=== PATIENT | female | born 1955 | race Caucasian/White ===

== ENCOUNTER 2016-03-24 18:34 | Emergency (ER) | payer MEDICAID ==
[~2016-03-24] VITALS: Ht 160 cm; Wt 63.0 kg
[~2016-03-24 18:34] MED LIST: ALBU8.5H5 IH; IPRA12.93 IH; LORA-186 PO; MOME13HF2 IH; MONT10TA21 PO
[2016-03-24 19:39] VITALS: Ht 160 cm; Wt 63.0 kg
[2016-03-24] MEDS ORDERED: METHYLPREDNISOLONE 125 MG INJ IM STA (19:57)
[2016-03-24] MEDS ORDERED: LEVALBUTEROL (NEB) 1.25 MG/0.5 ML AMP INH STA ×2 (19:57→23:58)
[2016-03-24] MEDS ORDERED: IPRATROPIUM (NEB) 0.5 MG/2.5 ML AMP NEB STA ×2 (19:57→23:58)
--- NOTE | 2016-03-24 20:03 | ERD ---
ER Documentation Chief Complaint Date/Time DATE: 03/24/16 TIME: 19:58 Chief Complaint COUGH AND CONGESTION WITH FEVER AT HOME X 5 DAYS HPI 61-year-old female presents here in emergency department for complaining of cough, runny nose, and nasal congestion and fever for 5 days. Patient has been having cough with wheezing, patient was seen in another emergency department, was given prednisone for 5 days. Patient continuously to have evidence of breath and wheezing and been coughing, with greenish phlegm. Patient has been having on and off fever. Patient is asthmatic. Patient denies any sick contacts. Patient uses her albuterol inhaler home with mild relief. ROS All systems reviewed and are negative except as per history of present illness. Medications Home Meds Active Scripts Cetirizine Hcl* (Zyrtec*) 10 Mg Capsule, 10 MG PO DAILY, #30 TAB.CHEW Prov:CARLOS KAUFFMAN UNIX CONSULTANT 03/25/16 Guaifenesin-Codeine Phosphate* (Guaifenesin* AC Cough Syrup) 473 Ml Liquid, 10 ML PO Q4H Y for COUGH, #120 ML Prov:CARLOS KAUFFMAN UNIX CONSULTANT 03/25/16 Azithromycin* (Zithromax*) 250 Mg Tablet, 250 MG PO .VanPACK DIRECTED, #6 TAB TAKE 500 MG (2 TABS) THE FIRST DAY THEN 250 MG (1 TAB) DAYS 2-5 Prov:CARLOS KAUFFMAN UNIX CONSULTANT 03/25/16 Reported Medications Loratadine* (Claritin*) 10 Mg Tablet, 10 MG PO DAILY, TAB 04/12/14 Montelukast Sodium* (Singulair*) 10 Mg Tablet, 10 MG PO HS, TAB 04/12/14 Mometasone-Formoterol (Dulera) 100-5 Mcg - 13 Gm Hfa.aer.ad, 2 PUFFS IH BID, EA 04/12/14 Albuterol Sulfate* (Albuterol Sulfate* HFA) 8.5 Gm Hfa.aer.ad, 2 PUFF IH Q4H Y for WHEEZING AND SOB, EA 04/12/14 Ipratropium [place]* (Atrovent HFA*) 12.9 Gm Aer.w.adap, 2 PUFF IH Q4H Y for SHORTNESS OF BREATH, EA 04/12/14 Allergies Allergies: Coded Allergies: No Known Allergy (Unverified , 04/12/14) PMhx/Soc Medical and Surgical Hx: pt denies Medical Hx, pt denies Surgical Hx History of Surgery: No Anesthesia Reaction: No Hx Neurological Disorder: Yes (headcahe) Hx Respiratory Disorders: Yes (asthma) Hx Cardiac Disorders: No Hx Psychiatric Problems: No Hx Miscellaneous Medical Probl: No Hx Alcohol Use: No Hx Substance Use: No Hx Tobacco Use: No Smoking Status: Light tobacco smoker FmHx Family History: No coronary disease, No diabetes, No other Physical Exam Vitals Vital Signs Date Time Temp Pulse Resp B/P Pulse Ox O2 Delivery O2 Flow Rate FiO2 03/25/16 00:14 91 22 96 21 03/24/16 20:28 86 22 95 21 03/24/16 19:39 98.6 88 20 136/67 95 Physical Exam GENERAL: The patient is well developed and appropriate for usual state of health, in no apparent distress. CHEST: Diffuse wheezing bilaterally. There are no rales, crackles or rhonchi. HEART: Regular rate and rhythm. No murmurs, clicks, rubs or gallops. No S3 or S4. ABDOMEN: Soft, nontender and nondistended. Good bowel sounds. No rebound or guarding. No gross peritonitis. No gross organomegaly or masses. No Rowland sign or McBurney point tenderness. BACK: No midline or flank tenderness. EXTREMITIES: Equal pulses bilaterally. There is no peripheral clubbing, cyanosis or edema. No focal swelling or erythema. Full range of motion. Grossly neurovascularly intact. NEURO: Alert and oriented. Cranial nerves 2-12 intact. Motor strength in all 4 extremities with 5/5 strength. Sensation grossly intact. Normal speech and gait. SKIN: There is no apparent rash or petechia. The skin is warm and dry. HEMATOLOGIC AND LYMPHATIC: There is no evidence of excessive bruising or lymphedema. No gross cervical, axillary, or inguinal lymphadenopathy. Results 24 hrs Current Medications Medications (Trade) Dose Ordered Sig/Michael Route PRN Reason Start Time Stop Time Status Last Admin Dose Admin Ipratropium [place] (Atrovent 0.02% (Neb)) 0.5 mg ONCE STAT NEB 03/24/16 19:57 03/24/16 19:58 DC 03/24/16 20:27 Levalbuterol (Xopenex Neb) 5 mg ONCE STAT INH 03/24/16 19:57 03/24/16 19:58 DC 03/24/16 20:27 Methylprednisolone Sodium Succinate (Solu-Medrol) 125 mg ONCE STAT IM 03/24/16 19:57 03/24/16 19:58 DC 03/24/16 20:12 Ipratropium [place] (Atrovent 0.02% (Neb)) 0.5 mg ONCE STAT NEB 03/24/16 23:58 03/25/16 00:00 DC 03/25/16 00:13 Levalbuterol (Xopenex Neb) 5 mg ONCE STAT INH 03/24/16 23:58 03/25/16 00:00 DC 03/25/16 00:13 Breathing treatment of albuterol and Atrovent was given here in emergency department, after treatment, patient's lungs sounds are clear and patient's oxygenation is better. Patient verbalized feeling much better. PROCEDURE: XR Chest. CLINICAL INDICATION: Asthma TECHNIQUE: AP Portable chest. COMPARISON: 04/12/2014 FINDINGS: The cardiomediastinal silhouette is normal. Some mild peribronchial opacities are present. No focal infiltrates are seen. The osseous structures are unremarkable. IMPRESSION: Mild peribronchial opacities compatible with bronchiolitis. RPTAT: HIKT .Rambo Giron MD, Date Time Electronically viewed and signed by .Rambo Giron MD, MD on 03/24/2016 23:48 .T/ CC: CARLOS KAUFFMAN UNIX CONSULTANT Procedures/MDM Medical Decision Making: Patient symptoms are most likely consistent with acute bronchitis with possibly atypical infection starting patient has been having fever and greenish phlegm and has been having it still after prednisone treatment. There is low suspicion for Pneumonia at this time since patients lungs sounds are clear, patient O2 saturation is normal and patient doesnt show any respiratory distress. Patients chest xray doesnt show infiltrates or any other cardiopulmonary emergencies at this time. There is low suspicion for other cardiopulmonary emergencies at this time such as CHF, Pulmonary Embolism, Pneumothorax, Aortic Aneurysm or any other cardiopulmonary emergencies at this time. There is low suspicion for sepsis. Patient appears well and is hemodynamically stable. Fever is controlled with medicines. Disposition: Home. Condition: Stable Prescriptions: Continue albuterol, azithromycin Instructions: Patient is advised to take medications as prescribed. Patient is advised to rest. Patient advised to increase fluid intake, do humidifier at home and if possible, do salt water gargles. Patient is advised that if symptoms are worse, shortness of breath, uncontrolled fever, stridor, vomiting, worst signs and symptoms to return to emergency department immediately. Otherwise, patient is advised to follow up with primary doctor in 5-7 days. Departure Diagnosis: Primary Impression: Asthma with exacerbation Asthma severity: unspecified severity Qualified Code: J45.901 - Asthma with acute exacerbation, unspecified asthma severity Additional Impression: Acute bronchitis Bronchitis organism: unspecified organism Qualified Code: J20.9 - Acute bronchitis, unspecified organism Condition: Stable Patient Instructions: Bronchitis With Wheezing (Adult) CARLOS KAUFFMAN NP Mar 24, 2016 20:03
--- NOTE | 2016-03-24 23:48 | RADRPT ---
PROCEDURE: XR Chest. CLINICAL INDICATION: Asthma TECHNIQUE: AP Portable chest. COMPARISON: 04/12/2014 FINDINGS: The cardiomediastinal silhouette is normal. Some mild peribronchial opacities are present. No foca l infiltrates are seen. The osseous structures are unremarkable. IMPRESSION: Mild peribronchial opacities compatible with bronchiolitis. RPTAT: HIKT .Rambo Giron MD, MD Date Time Electronically viewed and signed by .Rambo Giron MD, on 03/24/2016 23:48 .T/
[2016-03-25] MEDS ORDERED: AZIT250T94 PO (00:19)
[2016-03-25] MEDS ORDERED: CETI10CA PO (00:19)
[2016-03-25] MEDS ORDERED: GUAI473L22 PO (00:19)
== END 2016-03-25 02:05 | disposition home or self-care (01) ==
LOC: FTE 18:34
DX: J45.901 Unspecified asthma with (acute) exacerbation (principal); J20.9 Acute bronchitis, unspecified; F17.210 Nicotine dependence, cigarettes, uncomplicated
CPT/HCPCS: 71010; 94644; 94645; 96372; J2930; Z7502; Z7610

== ENCOUNTER 2016-04-19 18:15 | Inpatient (IN) | payer MEDICAID ==
[~2016-04-19] VITALS: Ht 160 cm; Wt 62.5 kg
[~2016-04-19 18:15] MED LIST changes: +AZIT250T94 PO; +CETI10CA PO; +GUAI473L22 PO
--- NOTE | 2016-04-19 18:25 | EN ---
Date/Time of Note Date/Time of Note DATE: 04/19/16 TIME: 18:24 ER Progress Note This 61-year-old female presents to emergency department for complaints of cough sore throat, runny nose congestion bodyaches for 1 week. Patient has been having on and off wheezing. Patient has been taking albuterol to help with symptoms with only mild relief. Patient denies any fever or chills. Upon evaluation of the patient in rapid medical examination, patient's lungs sounds are wheezing, at this time, and symptoms of respiratory distress, oxygenation is normal, waiting for that the ER to for possible breathing treatment. Patient is stable at this time, awaiting bed. CARLOS KAUFFMAN NP Apr 19, 2016 18:25
[2016-04-19] MEDS ORDERED: DEXAMETHASONE 10 MG/ML 1 ML INJ IM STA (18:56)
[2016-04-19] MEDS ORDERED: LEVALBUTEROL (NEB) 1.25 MG/0.5 ML AMP INH STA ×3 (18:56→22:05)
--- NOTE | 2016-04-19 19:31 | ERD ---
ER Documentation Chief Complaint Date/Time DATE: 04/19/16 TIME: 19:26 Chief Complaint COUGH, CONGESTION, THROAT PAIN, ONSET 1 MONTH HPI This is a 7-year-old female presented to emergency department for cough, nasal congestion and sore throat 1 month. Cough is productive with clear sputum. No chest pain, shortness of breath or difficulty breathing. Patient does have wheezing and history of asthma. Patient has been using her inhaler with some relief. Patient has sore throat however no difficulty swallowing or drooling. No vomiting or diarrhea. No abdominal pain, dysuria or hematuria. No fevers or chills. ROS All systems reviewed and are negative except as per history of present illness. Medications Home Meds Active Scripts Cetirizine Hcl* (Zyrtec*) 10 Mg Capsule, 10 MG PO DAILY, #30 TAB.CHEW Prov:CARLOS KAUFFMAN NP 03/25/16 Guaifenesin-Codeine Phosphate* (Guaifenesin* AC Cough Syrup) 473 Ml Liquid, 10 ML PO Q4H Y for COUGH, #120 ML Prov:CARLOS KAUFFMAN NP 03/25/16 Azithromycin* (Zithromax*) 250 Mg Tablet, 250 MG PO .ZPACK DIRECTED, #6 TAB TAKE 500 MG (2 TABS) THE FIRST DAY THEN 250 MG (1 TAB) DAYS 2-5 Prov:CARLOS KAUFFMAN NP 03/25/16 Reported Medications Loratadine* (Claritin*) 10 Mg Tablet, 10 MG PO DAILY, TAB 04/12/14 Montelukast Sodium* (Singulair*) 10 Mg Tablet, 10 MG PO HS, TAB 04/12/14 Mometasone-Formoterol (Dulera) 100-5 Mcg - 13 Gm Hfa.aer.ad, 2 PUFFS IH BID, EA 04/12/14 Albuterol Sulfate* (Albuterol Sulfate* HFA) 8.5 Gm Hfa.aer.ad, 2 PUFF IH Q4H Y for WHEEZING AND SOB, EA 04/12/14 Ipratropium Theresa* (Atrovent HFA*) 12.9 Gm Aer.w.adap, 2 PUFF IH Q4H Y for SHORTNESS OF BREATH, EA 04/12/14 Allergies Allergies: Coded Allergies: No Known Allergy (Unverified , 04/12/14) PMhx/Soc History of Surgery: No Anesthesia Reaction: No Hx Neurological Disorder: Yes (headcahe) Hx Respiratory Disorders: Yes (asthma) Hx Cardiac Disorders: No Hx Psychiatric Problems: No Hx Miscellaneous Medical Probl: No Hx Alcohol Use: No Hx Substance Use: No Hx Tobacco Use: No Smoking Status: Never smoker Physical Exam Vitals Vital Signs Date Time Temp Pulse Resp B/P Pulse Ox O2 Delivery O2 Flow Rate FiO2 04/19/16 23:14 90 22 92 21 04/19/16 22:34 76 26 98 Nasal Cannula 4.0 35 04/19/16 21:04 76 22 96 21 04/19/16 19:16 94 20 97 21 04/19/16 18:18 98.7 91 17 115/61 98 Physical Exam Const: No acute distress, alert Head: Atraumatic Eyes: Normal Conjunctiva ENT: Normal External Ears, Nose and Mouth. No erythema or exudate posterior pharynx. TMs normal bilaterally. Neck: Full range of motion..~ No meningismus. Resp: Clear to auscultation bilaterally. No wheezing, rhonchi or crackles. No labored breathing or stridor. No sensory muscle use. Cardio: Regular rate and rhythm, no murmurs Abd: Soft, non tender, non distended. Normal bowel sounds Skin: No petechiae or rashes Back: No midline or flank tenderness Ext: No cyanosis, or edema Neur: Awake and alert Psych: Normal Mood and Affect Results 24 hrs Current Medications Medications (Trade) Dose Ordered Sig/Michael Route PRN Reason Start Time Stop Time Status Last Admin Dose Admin Dexamethasone (Decadron) 10 mg ONCE STAT IM 04/19/16 18:56 04/19/16 18:58 DC 04/19/16 19:11 Levalbuterol (Xopenex Neb) 1.25 mg ONCE STAT INH 04/19/16 18:56 04/19/16 18:58 DC 04/19/16 19:16 Levalbuterol (Xopenex Neb) 5 mg ONCE STAT INH 04/19/16 20:28 04/19/16 20:30 DC 04/19/16 21:04 Levalbuterol (Xopenex Neb) 1.25 mg ONCE STAT INH 04/19/16 22:05 04/19/16 22:06 DC 04/19/16 22:33 Albuterol (Proventil 0.5% (Neb)) 10 mg ONCE STAT INH 04/19/16 22:48 04/19/16 22:50 DC 04/19/16 23:14 Ipratropium Theresa (Atrovent 0.02% (Neb)) 1 mg ONCE STAT INH 04/19/16 22:48 04/19/16 22:50 DC 04/19/16 23:14 Terbutaline Sulfate (Brethine) 0.25 mg ONCE STAT SC 04/19/16 22:48 04/19/16 22:50 DC 04/19/16 23:53 Epinephrine (Racepinephrine 2.25% (Neb)) 0.5 ml ONCE ONCE HHN 04/20/16 01:30 04/20/16 01:31 DC Procedures/MDM ED COURSE: The patient was stable throughout ED course. I kept the patient and/or family informed of laboratory and diagnostic imaging results throughout the ED course. Xopenex breathing treatment. Decadron given Imaging Chest x-ray Patient: JAZ REID : [id number] Age: 61 Sex: F MR #: [id number] DOS: 04/19/162027 Ordering MD: OJ SINGLETON NP Location: [facility] Room/Bed: PROCEDURE: XR Chest AP portable CLINICAL INDICATION: Asthma exacerbation TECHNIQUE: An AP portable radiograph of the chest was submitted. COMPARISON: 03/24/2016 FINDINGS: Support Hardware: None Cardiovascular: The cardiovascular silhouette appears unremarkable. Lung Nance: There is persistent interstitial prominence seen to extend from parallel regions bilaterally suspicious for chronic changes of asthma. No alveolar infiltrate is evident. Pleural Spaces: No pneumothorax or pleural effusion is identified. Osseous Structures: The osseous structures appear intact. Soft Tissues: The soft tissues appear unremarkable. IMPRESSION: 1. Persistent interstitial prominence suspicious for a chronic reactive airway disease. 2. Otherwise, stable unremarkable portable chest. MDM: 61-year-old female presents emergency department for cough, nasal congestion and sore throat 1 month. Cough is dry nonproductive. Patient does have wheezing upon initial assessment. ENT exam is normal. Oxygen saturation 98% on room air. Xopenex breathing treatment given per RT. Decadron 10 mg IM given per RN. Remains afebrile. Upon reassessment, patient continues to have wheezing and productive cough. A second Xopenex continuous breathing treatment was ordered. Chest x-ray reviewed by radiologist as persistent interstitial prominence suspicious for a chronic reactive airway disease. Third Xopenex breathing treatment was ordered. Patient continues to have wheezing. Discussed findings with Dr. Ramirez and he recommended a continuous albuterol and Atrovent nebulizer with terbutaline 0.25 mg subq. After treatment patient's oxygen saturation 94% on room air. Patient continues to have coarse wheezing throughout lung nance. Discussed findings with Dr. Watson and we will admit the patient. Diagnosis is shortness of breath. Departure Diagnosis: Primary Impression: Shortness of breath Condition: Stable OJ SINGLETON NP Apr 19, 2016 19:30 OJ SINGLETON NP Apr 19, 2016 19:30
--- NOTE | 2016-04-19 21:56 | RADRPT ---
PROCEDURE: XR Chest AP portable CLINICAL INDICATION: Asthma exacerbation TECHNIQUE: An AP portable radiograph of the chest was submitted. COMPARISON: 03/24/2016 FINDINGS: Support Hardware: None Cardiovascular: The cardiovascular silhouette appears unremarkable. Lung Nance: There is persistent interstitial prominence seen to extend from parallel regions bilate rally suspicious for chronic changes of asthma. No alveolar infiltrate is evident. Pleural Spaces: No pneumothorax or pleural effusion is identified. Osseous Structures: The osseous structures appear intact. Soft Tissues: The soft tissues appear unremarkable. IMPRESSION: 1. Persistent interstitial prominence suspicious for a chronic reactive airway disease. 2. Otherwise, stable unremarkable portable chest. Physician Fabricio Date Time Electronically viewed and signed by Physician Fabricio on 04/19/2016 21:56 /
[2016-04-19] MEDS ORDERED: TERBUTALINE 1 MG/ML INJ SC STA (22:48)
[2016-04-19] MEDS ORDERED: IPRATROPIUM (NEB) 0.5 MG/2.5 ML AMP INH STA (22:48)
[2016-04-19] MEDS ORDERED: ALBUTEROL 0.5% (NEB) 2.5 MG/0.5 ML AMP INH STA (22:48)
[2016-04-20] VITALS (9 sets, daily range): BP systolic 102–108; BP diastolic 52–65; PULSE 82–100; RESP 17–20; TEMP 98
[2016-04-20] MEDS ORDERED: RACEPINEPHRINE 2.25%(NEB) 0.5 ML AMP HHN ONE (01:30)
[2016-04-20] MEDS ORDERED: LEVALBUTEROL (NEB) 1.25 MG/0.5 ML AMP INH STA (02:15)
[2016-04-20 02:43] LABS: ADD SCAN DIFF NO
[2016-04-20 02:44] LABS: ABNORMAL IP MESSAGE 1; HEMATOCRIT 34.5 % (37.0-47.0); HEMOGLOBIN 11.2 g/dl (12.0-16.0); MEAN CORPUSCULAR HEMOGLOBIN 27.1 pg (29.0-33.0); MEAN CORPUSCULAR HGB CONC 32.5 g/dl (32.0-37.0); MEAN CORPUSCULAR VOLUME 83.5 fl (82.0-101.0); MEAN PLATELET VOLUME 10.4 fl (7.4-10.4); PLATELET COUNT 264 10^3/UL (140-415); RED BLOOD COUNT 4.13 10^6/ul (4.20-5.40); RED CELL DISTRIBUTION WIDTH 15.1 % (11.5-14.5); WHITE BLOOD COUNT 8.8 10^3/ul (4.8-10.8)
[2016-04-20 02:53] LABS: CHLORIDE 109 mmol/L (97-110); POTASSIUM 3.9 mmol/L (3.5-5.1); SODIUM 143 mmol/L (135-144)
[2016-04-20 02:55] LABS: PARTIAL THROMBOPLASTIN TIME 23.8 Sec (25.0-35.0); PROTIME 13.2 Sec (12.2-14.2)
[2016-04-20 02:56] LABS: ANION GAP 16 (8-16); CARBON DIOXIDE 22 mmol/L (21-31); CREATININE 0.68 mg/dl (0.44-1.00)
[2016-04-20 02:57] LABS: BLOOD UREA NITROGEN 12 mg/dl (7-20); CALCIUM 8.9 mg/dl (8.4-10.2); GLUCOSE 219 mg/dl (70-220)
--- NOTE | 2016-04-20 03:03 | EN ---
Date/Time of Note Date/Time of Note DATE: 04/20/16 TIME: 03:02 ER Progress Note Patient transferred from ER to. After evaluating patient, patient continues to wheeze. Patient will be admitted. Dr. Hood is on-call and has previously admitted the patient TJ TAYLORSorin Apr 20, 2016 03:03
[2016-04-20 03:06] LABS: B-TYPE NATRIURETIC PEPTIDE 65 PG/ML (0-125)
[2016-04-20 03:22] LABS: TROPONIN-I < 0.012 ng/ml (0.00-0.12)
[2016-04-20 03:48] LABS: LYMPHOCYTES # 0.6 10^3/ul (0.8-2.9); MONOCYTE # 0.1 10^3/ul (0.3-0.9)
[2016-04-20] MEDS ORDERED: ALBUTEROL/IPRATROPIUM (NEB) 3 ML AMP HHN PRN (11:00)
[2016-04-20] MEDS ORDERED: NACL 0.9% 3 ML SYG IV SCH (12:00)
[2016-04-20] MEDS ORDERED: HYDROCODONE/APAP (5/325) TAB PO PRN (12:00)
[2016-04-20] MEDS ORDERED: DOCUSATE SODIUM 100 MG CAP PO PRN (12:00)
[2016-04-20] MEDS ORDERED: ONDANSETRON 4 MG INJ IV PRN (12:00)
[2016-04-20] MEDS ORDERED: ACETAMINOPHEN 325 MG TAB PO PRN (12:00)
[2016-04-20 12:18] LABS: IRON 21 ug/dl (35-150)
[2016-04-20 12:27] LABS: TOTAL IRON BINDING CAPACITY 287 ug/dl (241-421)
--- NOTE | 2016-04-20 12:33 | HP ---
DATE OF ADMISSION: 04/20/2016 CHIEF COMPLAINT: Generalized weakness, productive cough and fever for the last 2 weeks. HISTORY OF PRESENT ILLNESS: The patient is a 61-year-old female who presented to the emerg ency room with complaints of chest congestion, sore throat, runny nose, generalized malaise and prod uctive cough for the last couple of weeks. Patient with prior history of asthma. The patient state d that she takes Dulera and Proventil at home. Denies any other past medical problems. When asked how high is her fever she said she did not measure it at home; however; felt chilled, generalized we akness and also stated that she lost some weight over the last couple of weeks and also the patient has chest pain and difficulty breathing. On evaluation in the emergency room, the patient's troponi n was less than 0.012. Patient underwent chest x-ray which revealed persistent interstitial promine nce, suspicious for chronic reactive airway disease, otherwise stable and unremarkable portable ches t. On examination the patient has inspiratory and expiratory wheezing, congestion, and patient was getting breathing treatments, Decadron, and patient is admitted for further evaluation and managemen t to telemetry floor. PAST MEDICAL HISTORY: Positive for asthma. PAST SURGICAL HISTORY: Patient has multiple wrist surgeries 4 years ago, details are not available. FAMILY HISTORY: Noncontributory. Patient's mother is . SOCIAL HISTORY: Patient lives at home. Patient denies any tobacco use, denies any alcohol use, den ies any illicit drug use. ALLERGIES: NO KNOWN ALLERGIES. MEDICATIONS ON ADMISSION: 1. Singular. 2. Dulera. 3. Claritin. 4. Atrovent. 5. Albuterol. REVIEW OF SYSTEMS: A 12-point review of systems is negative unless what mentioned in the HPI. PHYSICAL ASSESSMENT: GENERAL: Well-developed, well-nourished female currently is awake, alert. VITAL SIGNS: Temperature 98.6, pulse is 84, blood pressure 102/52, respiratory rate 17, oxygen satu ration 97% on room air. HEENT: Head is atraumatic, normocephalic. Pupils equal, round, reactive to light and accommodation . Oral mucosa is pink and moist. NECK: Supple, no cervical lymphadenopathy, no thyromegaly. CHEST: The patient has inspiratory and expiratory wheezing and mild congestion, lungs clear at the bases. CARDIOVASCULAR: Normal S1, S2. No murmurs, gallops, clicks, rubs noted. ABDOMEN: Round, soft, nondistended, nontender. Bowel sounds present. No guarding, no rebound tend erness. EXTREMITIES: There is no edema, clubbing, cyanosis. NEUROLOGIC: Patient has a right wrist deformity. LABORATORY DATA: On admission, CBC: White blood cells 8.8, hemoglobin 11.2, hematocrit 34.5, plate lets 264. Chemistry: Sodium is 143, potassium 3.9, chloride 109, carbon dioxide 22, anion gap 16, BUN is 12, creatinine 0.68, glucose 219, calcium 8.9. BNP 65. ASSESSMENT AND PLAN: 1. Possible acute bronchitis. We are going to start patient on Rocephin. 2. Asthma exacerbation. Continue patient on home medication of Dulera and Singulair. We will start treatment with DuoNeb q.6h. routine and every 3 hours p.r.n. for shortness of breath. We will sta rt patient on IV Solu-Medrol. We will obtain influenza A and B swabs. Also, patient complains of s hortness of breath and mild chest pain, we will obtain cardiac enzymes every 8 hours x3 to rule out acute coronary syndrome. 3. Normocytic normochromic anemia. We will start sequential compression device for deep venous thr ombosis prophylaxis and Pepcid for peptic ulcer disease prophylaxis. Further recommendations based on clinical course. Plan of care discussed with Dr. Varela. Dictated By: SUSANNAH RUFFIN EGG SEPARATOR for DAVID VARELA MD SR/NTS Conf#: [id number] DID#: [id number]
[2016-04-20] MEDS: ALBUTEROL/IPRATROPIUM (NEB) 3 ML AMP HHN SCH ×2 (13:00→19:16)
[2016-04-20 13:15] LABS: CREATINE KINASE 97 IU/L (23-200)
[2016-04-20 13:24] LABS: CK-MB 0.75 ng/ml (0.0-2.4)
[2016-04-20 13:32] LABS: TROPONIN-I < 0.012 ng/ml (0.00-0.12)
[2016-04-20] MEDS: CEFTRIAXONE 1 GM/50 ML (PMX) 50 ML IVPB SCH (15:08)
[2016-04-20] MEDS: SALMETEROL/FLUTICASONE 250/50 INHA INH SCH ×2 (15:08→22:03)
[2016-04-20] MEDS: ENOXAPARIN 40 MG/0.4 ML SYG SC SCH (18:39)
[2016-04-20 18:54] LABS: CREATINE KINASE 107 IU/L (23-200)
[2016-04-20 19:03] LABS: CK-MB 0.84 ng/ml (0.0-2.4)
[2016-04-20 19:15] LABS: TROPONIN-I < 0.012 ng/ml (0.00-0.12)
[2016-04-20] MEDS: FAMOTIDINE 20 MG TAB PO SCH (20:37)
[2016-04-20] MEDS: METHYLPREDNISOLONE 125 MG INJ IV SCH (20:37)
[2016-04-20] MEDS: GUAIFENESIN/DM 5ML CUP PO PRN (20:38)
[2016-04-20] MEDS: MONTELUKAST 10 MG TAB PO SCH (20:38)
[2016-04-21] VITALS (10 sets, daily range): BP systolic 110–125; BP diastolic 59–73; PULSE 70–100; RESP 16–21
[2016-04-21] MEDS: ALBUTEROL/IPRATROPIUM (NEB) 3 ML AMP HHN SCH ×4 (01:07→20:13)
[2016-04-21] MEDS: GUAIFENESIN/DM 5ML CUP PO PRN ×2 (01:54→14:03)
[2016-04-21 07:45] LABS: ADD SCAN DIFF NO
[2016-04-21 07:58] LABS: BASOPHILS % 0.1 % (0.0-2.0); HEMATOCRIT 37.3 % (37.0-47.0); HEMOGLOBIN 11.9 g/dl (12.0-16.0); LYMPHOCYTES # 1.6 10^3/ul (0.8-2.9); LYMPHOCYTES % 19.3 % (15.0-51.0); MEAN CORPUSCULAR HEMOGLOBIN 26.7 pg (29.0-33.0); MEAN CORPUSCULAR HGB CONC 31.9 g/dl (32.0-37.0); MEAN CORPUSCULAR VOLUME 83.8 fl (82.0-101.0); MEAN PLATELET VOLUME 10.5 fl (7.4-10.4); MONOCYTE # 0.2 10^3/ul (0.3-0.9); MONOCYTES % 2.8 % (0.0-11.0); NEUTROPHIL # 6.4 10^3/ul (1.6-7.5); NEUTROPHILS % 77.4 % (39.0-77.0); PLATELET COUNT 283 10^3/UL (140-415); RED BLOOD COUNT 4.45 10^6/ul (4.20-5.40); RED CELL DISTRIBUTION WIDTH 15.4 % (11.5-14.5); WHITE BLOOD COUNT 8.3 10^3/ul (4.8-10.8)
[2016-04-21 08:14] LABS: ALBUMIN 3.9 g/dl (3.3-4.9); POTASSIUM 4.4 mmol/L (3.5-5.1)
[2016-04-21 08:16] LABS: CREATININE 0.65 mg/dl (0.44-1.00)
[2016-04-21 08:17] LABS: ALBUMIN/GLOBULIN RATIO 1.18; CALCIUM 9.1 mg/dl (8.4-10.2); MAGNESIUM 2.3 mg/dl (1.7-2.5); TOTAL PROTEIN 7.2 g/dl (6.1-8.1)
[2016-04-21 08:47] LABS: THYROID STIMULATING HORMONE 0.23 MIU/L (0.465-4.680)
[2016-04-21] MEDS: SALMETEROL/FLUTICASONE 250/50 INHA INH SCH ×2 (08:58→21:22)
[2016-04-21] MEDS: METHYLPREDNISOLONE 125 MG INJ IV SCH ×2 (08:58→21:22)
[2016-04-21] MEDS: FAMOTIDINE 20 MG TAB PO SCH ×2 (08:58→21:22)
[2016-04-21] MEDS: ENOXAPARIN 40 MG/0.4 ML SYG SC SCH (09:02)
[2016-04-21] MEDS: CEFTRIAXONE 1 GM/50 ML (PMX) 50 ML IVPB SCH (14:01)
--- NOTE | 2016-04-21 14:44 | PN ---
Date/Time of Note Date/Time of Note DATE: 04/21/16 TIME: 14:37 Assessment/Plan VTE Prophylaxis VTE Prophylaxis Intervention: SCD's Lines/Catheters IV [facility]ter Type [facility]from [facility] Saline Lock Urinary Cath still in place: No Assessment/Plan Chief Complaint/Hosp Course ASSESSMENT AND PLAN: - Possible acute bronchitis. Continue Rocephin. - Asthma exacerbation. Continue patient on home medication of Dulera and Singulair, continue breathing treatment with DuoNeb q.6h. routine and every 3 hours p.r.n. for shortness of breath. Continue Solu-Medrol. - Chest pain acute coronary syndrome ruled out. - Normocytic normochromic anemia. Continue sequential compression device for deep venous thrombosis prophylaxis and Pepcid for peptic ulcer disease prophylaxis. Further recommendations based on clinical course. Plan of care discussed with Dr. Varela. Problems: Subjective 24 Hr Interval Summary Free Text/Dictation Patient states some improvement and breathing, continues to have congestion and cough. Exam/Review of Systems Vital Signs Vitals Vital Signs Date Time Temp Pulse Resp B/P Pulse Ox O2 Delivery O2 Flow Rate FiO2 04/21/16 13:03 98.7 86 19 116/68 91 04/21/16 09:24 21 04/21/16 08:00 2.0 04/20/16 19:18 Nasal Cannula Intake and Output 04/20/16 04/20/16 04/21/16 15:00 23:00 07:00 Intake Total 550 ml 200 ml Balance 550 ml 200 ml Exam PHYSICAL ASSESSMENT: GENERAL: Well-developed, well-nourished female currently is awake, alert. HEENT: Head is atraumatic, normocephalic. Pupils equal, round, reactive to light and accommodation. Oral mucosa is pink and moist. NECK: Supple, no cervical lymphadenopathy, no thyromegaly. CHEST: The patient has inspiratory and expiratory wheezing and mild congestion , lungs clear at the bases. CARDIOVASCULAR: Normal S1, S2. No murmurs, gallops, clicks, rubs noted. ABDOMEN: Round, soft, nondistended, nontender. Bowel sounds present. EXTREMITIES: There is no edema, clubbing, cyanosis. Patient has a right wrist deformity. NEUROLOGIC: Alert and oriented 3. Results Result Diagram: 04/21/16 0715 04/21/16 0715 Results 24 hrs Laboratory Tests Test 04/20/16 17:50 04/21/16 07:15 Creatine Kinase 107 Creatine Kinase Index 0.8 Creatinine Kinase MB (Mass) 0.84 Troponin I < 0.012 Alanine Aminotransferase (ALT/SGPT) 26 Albumin 3.9 Albumin/Globulin Ratio 1.18 Alkaline Phosphatase 98 Anion Gap 14 Aspartate Amino Transf (AST/SGOT) 22 Basophils # 0.0 Basophils % 0.1 Blood Urea Nitrogen 13 Calcium Level 9.1 Carbon Dioxide Level 24 Chloride Level 109 Creatinine 0.65 Direct Bilirubin 0.00 Eosinophils # 0.0 Eosinophils % 0.0 Globulin 3.30 H Glucose Level 119 # Hematocrit 37.3 Hemoglobin 11.9 L Indirect Bilirubin 0.0 Lymphocytes # 1.6 Lymphocytes % 19.3 Magnesium Level 2.3 Mean Corpuscular Hemoglobin 26.7 L Mean Corpuscular Hemoglobin Concent 31.9 L Mean Corpuscular Volume 83.8 Mean Platelet Volume 10.5 H Monocytes # 0.2 L Monocytes % 2.8 Neutrophils # 6.4 Neutrophils % 77.4 H Nucleated Red Blood Cells # 0.0 Nucleated Red Blood Cells % 0.0 Platelet Count 283 Potassium Level 4.4 Red Blood Count 4.45 Red Cell Distribution Width 15.4 H Sodium Level 143 Thyroid Stimulating Hormone (TSH) 0.230 L Total Bilirubin 0.0 L Total Protein 7.2 White Blood Count 8.3 Medications Medications Current Medications Montelukast Sodium (Singulair) 10 mg HS PO Last administered on 04/20/16 20:38 ; Admin Dose 10 MG; Start 04/20/16 at 21:00 Salmeterol Xinafoate/ Fluticasone (Advair 250/50 Diskus) 1 inh BID INH Last administered on 04/21/16 08:58; Admin Dose 1 INH; Start 04/20/16 at 14:30 Ondansetron HCl (Zofran Inj) 4 mg Q6H PRN IV NAUSEA AND/OR VOMITING; Start at 12:00 Methylprednisolone Sodium Succinate (Solu-Medrol) 60 mg BID IV Last administered on 04/21/16 08:58; Admin Dose 60 MG; Start 04/20/16 at 21:00 Acetaminophen (Tylenol Tab) 650 mg Q6H PRN PO PAIN LEVEL 1-3 OR FEVER; Start at 12:00 Acetaminophen/ Hydrocodone Bitart (Earp (5/325)) 1 tab Q6H PRN PO PAIN LEVEL 4 -6; Start 04/20/16 at 12:00 Docusate Sodium (Colace) 100 mg Q12H PRN PO CONSTIPATION; Start 04/20/16 at 12: 00 Famotidine 20 mg 20 mg Q12 PO Last administered on 04/21/16 08:58; Admin Dose 20 MG; Start 04/20/16 at 21:00 Ceftriaxone Sodium (Rocephin) 50 ml @ 100 mls/hr Q24H IVPB Last administered on 04/21/16 14:01; Admin Dose 100 MLS/HR; Start 04/20/16 at 14:00 Enoxaparin Sodium (Lovenox) 40 mg DAILY SC Last administered on 04/21/16 09:02 ; Admin Dose 40 MG; Start 04/20/16 at 17:30 Guaifenesin/ Dextromethorphan (Robitussin Dm Liquid Cup) 10 ml Q4H PRN PO COUGH Last administered on 04/21/16 14:03; Admin Dose 10 ML; Start 04/20/16 at 18:00 SUSANNAH RUFFIN Apr 21, 2016 14:44
[2016-04-21] MEDS: MONTELUKAST 10 MG TAB PO SCH (21:22)
[2016-04-22] VITALS (12 sets, daily range): BP systolic 111–147; BP diastolic 57–76; PULSE 64–77; RESP 18–20
[2016-04-22] MEDS: ALBUTEROL/IPRATROPIUM (NEB) 3 ML AMP HHN SCH ×4 (01:30→20:29)
[2016-04-22 07:26] LABS: POTASSIUM 4.5 mmol/L (3.5-5.1)
[2016-04-22 07:28] LABS: CREATININE 0.7 mg/dl (0.44-1.00)
[2016-04-22 07:29] LABS: CALCIUM 9.2 mg/dl (8.4-10.2)
[2016-04-22 08:04] LABS: FERRITIN 32.3 ng/ml (11.1-264.0)
[2016-04-22] MEDS: FAMOTIDINE 20 MG TAB PO SCH ×2 (08:29→21:44)
[2016-04-22] MEDS: SALMETEROL/FLUTICASONE 250/50 INHA INH SCH ×2 (08:29→21:44)
[2016-04-22] MEDS: METHYLPREDNISOLONE 125 MG INJ IV SCH ×2 (08:30→21:44)
[2016-04-22 08:34] LABS: FOLATE 11.3 ng/ml (2.8-20.0)
[2016-04-22] MEDS: ENOXAPARIN 40 MG/0.4 ML SYG SC SCH (08:34)
[2016-04-22] MEDS: GUAIFENESIN/DM 5ML CUP PO PRN ×2 (09:32→13:56)
[2016-04-22] MEDS: CEFTRIAXONE 1 GM/50 ML (PMX) 50 ML IVPB SCH (13:09)
--- NOTE | 2016-04-22 18:48 | PN ---
Date/Time of Note Date/Time of Note DATE: 04/22/16 TIME: 18:47 Assessment/Plan VTE Prophylaxis VTE Prophylaxis Intervention: SCD's Lines/Catheters IV [facility]from [facility] [place] [facility] Urinary Cath still in place: No Assessment/Plan Chief Complaint/Hosp Course ASSESSMENT AND PLAN: - Possible acute bronchitis. Continue Rocephin. - Asthma exacerbation. Continue patient on home medication of Dulera and Singulair, continue breathing treatment with DuoNeb q.6h. routine and every 3 hours p.r.n. for shortness of breath. Continue Solu-Medrol. - Chest pain acute coronary syndrome ruled out. - Iron deficiency anemia, started on iron supplement. Continue sequential compression device for deep venous thrombosis prophylaxis and Pepcid for peptic ulcer disease prophylaxis. Further recommendations based on clinical course. Plan of care discussed with Dr. Varela. Problems: Subjective 24 Hr Interval Summary Free Text/Dictation Patient states some improvement in cough, continues to have wheezing on auscultation, denies shortness of breath, denies chest pain. Exam/Review of Systems Vital Signs Vitals Vital Signs Date Time Temp Pulse Resp B/P Pulse Ox O2 Delivery O2 Flow Rate FiO2 04/22/16 16:52 77 04/22/16 16:06 98.8 20 121/70 93 04/22/16 13:36 21 04/22/16 07:30 Nasal Cannula 2.0 Intake and Output 04/21/16 04/21/16 04/22/16 15:00 23:00 07:00 Intake Total 1050 ml 200 ml Balance 1050 ml 200 ml Exam PHYSICAL ASSESSMENT: GENERAL: Well-developed, well-nourished female currently is awake, alert. HEENT: Head is atraumatic, normocephalic. Pupils equal, round, reactive to light and accommodation. Oral mucosa is pink and moist. NECK: Supple, no cervical lymphadenopathy, no thyromegaly. CHEST: The patient has inspiratory and expiratory wheezing and mild congestion , lungs clear at the bases. CARDIOVASCULAR: Normal S1, S2. No murmurs, gallops, clicks, rubs noted. ABDOMEN: Round, soft, nondistended, nontender. Bowel sounds present. EXTREMITIES: There is no edema, clubbing, cyanosis. Patient has a right wrist deformity. NEUROLOGIC: Alert and oriented 3. Results Result Diagram: 04/21/16 0715 04/22/16 0555 Results 24 hrs Laboratory Tests Test 04/22/16 05:55 Anion Gap 17 H Blood Urea Nitrogen 15 Calcium Level 9.2 Carbon Dioxide Level 24 Chloride Level 107 Creatinine 0.70 Ferritin 32.3 Folate 11.3 Glucose Level 123 Potassium Level 4.5 Sodium Level 143 Vitamin B12 Level > 1000 H Medications Medications Current Medications Montelukast Sodium (Singulair) 10 mg HS PO Last administered on 04/21/16 21:22 ; Admin Dose 10 MG; Start 04/20/16 at 21:00 Salmeterol Xinafoate/ Fluticasone (Advair 250/50 Diskus) 1 inh BID INH Last administered on 04/22/16 08:29; Admin Dose 1 INH; Start 04/20/16 at 14:30 Ondansetron HCl (Zofran Inj) 4 mg Q6H PRN IV NAUSEA AND/OR VOMITING; Start at 12:00 Methylprednisolone Sodium Succinate (Solu-Medrol) 60 mg BID IV Last administered on 04/22/16 08:30; Admin Dose 60 MG; Start 04/20/16 at 21:00 Acetaminophen (Tylenol Tab) 650 mg Q6H PRN PO PAIN LEVEL 1-3 OR FEVER Last administered on 04/21/16 21:22; Admin Dose 650 MG; Start 04/20/16 at 12:00 Acetaminophen/ Hydrocodone Bitart ([place] (5/325)) 1 tab Q6H PRN PO PAIN LEVEL 4 -6; Start 04/20/16 at 12:00 Docusate Sodium (Colace) 100 mg Q12H PRN PO CONSTIPATION; Start 04/20/16 at 12: 00 Famotidine 20 mg 20 mg Q12 PO Last administered on 04/22/16 08:29; Admin Dose 20 MG; Start 04/20/16 at 21:00 Ceftriaxone Sodium (Rocephin) 50 ml @ 100 mls/hr Q24H IVPB Last administered on 04/22/16 13:09; Admin Dose 100 MLS/HR; Start 04/20/16 at 14:00 Enoxaparin Sodium (Lovenox) 40 mg DAILY SC Last administered on 04/22/16 08:34 ; Admin Dose 40 MG; Start 04/20/16 at 17:30 Guaifenesin/ Dextromethorphan (Robitussin Dm Liquid Cup) 10 ml Q4H PRN PO COUGH Last administered on 04/22/16 13:56; Admin Dose 10 ML; Start 04/20/16 at 18:00 Ferrous Sulfate (Ferrous Sulfate (Ec)) 325 mg BID PO ; Start 04/22/16 at 21:00; Status SUSANNAH GARCIA Apr 22, 2016 18:48
[2016-04-22] MEDS: FERROUS SULFATE (EC) 325 MG TAB PO SCH (21:44)
[2016-04-22] MEDS: MONTELUKAST 10 MG TAB PO SCH (21:44)
[2016-04-23] VITALS (10 sets, daily range): BP systolic 113–125; BP diastolic 60–72; PULSE 71–87; RESP 16–18
[2016-04-23] MEDS: ALBUTEROL/IPRATROPIUM (NEB) 3 ML AMP HHN SCH ×4 (01:42→20:57)
[2016-04-23 06:14] LABS: ADD SCAN DIFF NO
[2016-04-23 06:44] LABS: BASOPHILS % 0.1 % (0.0-2.0); HEMATOCRIT 37.6 % (37.0-47.0); HEMOGLOBIN 11.9 g/dl (12.0-16.0); LYMPHOCYTES # 1.8 10^3/ul (0.8-2.9); LYMPHOCYTES % 18.2 % (15.0-51.0); MEAN CORPUSCULAR HEMOGLOBIN 26.6 pg (29.0-33.0); MEAN CORPUSCULAR HGB CONC 31.6 g/dl (32.0-37.0); MEAN CORPUSCULAR VOLUME 84.1 fl (82.0-101.0); MEAN PLATELET VOLUME 10.6 fl (7.4-10.4); MONOCYTE # 0.3 10^3/ul (0.3-0.9); MONOCYTES % 3.1 % (0.0-11.0); NEUTROPHIL # 7.7 10^3/ul (1.6-7.5); PLATELET COUNT 276 10^3/UL (140-415); RED BLOOD COUNT 4.47 10^6/ul (4.20-5.40); RED CELL DISTRIBUTION WIDTH 15.5 % (11.5-14.5); WHITE BLOOD COUNT 9.9 10^3/ul (4.8-10.8)
[2016-04-23 07:11] LABS: POTASSIUM 4.6 mmol/L (3.5-5.1)
[2016-04-23 07:13] LABS: CREATININE 0.72 mg/dl (0.44-1.00)
[2016-04-23 07:14] LABS: CALCIUM 9.2 mg/dl (8.4-10.2)
[2016-04-23] MEDS: SALMETEROL/FLUTICASONE 250/50 INHA INH SCH ×2 (09:12→20:08)
[2016-04-23] MEDS: FERROUS SULFATE (EC) 325 MG TAB PO SCH ×2 (09:12→20:07)
[2016-04-23] MEDS: GUAIFENESIN/DM 5ML CUP PO PRN ×3 (09:12→18:18)
[2016-04-23] MEDS: METHYLPREDNISOLONE 125 MG INJ IV SCH ×4 (09:12→23:40)
[2016-04-23] MEDS: FAMOTIDINE 20 MG TAB PO SCH ×2 (09:12→20:07)
[2016-04-23] MEDS: ENOXAPARIN 40 MG/0.4 ML SYG SC SCH (09:14)
--- NOTE | 2016-04-23 10:49 | CONS ---
Date/Time of Note Date/Time of Note DATE: 04/23/16 TIME: 10:43 Assessment/Plan Assessment/Plan Additional Assessment/Plan Chest x-ray was reviewed from [facility] of this month which is essentially clear. Next Assessment recommendations; 1. Patient has admitted for asthma exacerbation and acute bronchitis. 2. Allergic rhinitis with postnasal drip. Next Continue current treatment. However increase Solu-Medrol dosing to 60 mg every 6 hours. Add Zithromax 500 mg orally daily. Continue current bronchodilator regimen. Add Claritin 10 mg daily. Consultation Date/Type/Reason Admit Date/Time Apr 20, 2016 at 03:01 Date of Consultation: Apr 23, 2016 Type of Consultation: Pulmonary/critical care Reason for Consultation Pulmonary consultation requested for evaluation of asthma. Next History presenting; patient is a 61-year-old manic lady who came into the hospital day before yesterday with complaints of shortness of breath, cough, wheezing going on for the last 2 days. Patient also was treated on outpatient basis but the symptoms did not tuyet. Had to be admitted to the hospital and started on intravenous Solu-Medrol as well as bronchodilators with some improvement over the last 24 hours. Patient still complains of cough, complaint of runny nose and wheezing and shortness of breath. According to her the symptoms started 3 or 4 days ago and prior to that she was doing fairly well. Denies any high fever, chills. Any sore throat myalgias or arthralgias. Denies any nausea vomiting. Past medical history; 1. Asthma 2. History of multiple wrist surgeries bilaterally. Medications; were reviewed. Allergies; are none. Social history; patient denies any history of any smoking, alcohol or drug abuse Family history; she is single. Various family members of hypertension diabetes in the family. Occupational history; patient does not work. Review of systems; denies any headache, any visual changes. Any seizures. Denies any sore throat, chest pain, angina, complains of shortness of breath, wheezing cough and sputum production. Denies any hemoptysis. Any chest pain. Any nausea, vomiting. Any melena, hematochezia. Any edema, orthopnea. Complains of shortness of breath upon exertion for the last 2 days. Patient normally is fairly active. Denies any skin changes. Any urinary symptoms. Complains of sinus drip. Social History Smoking Status: Never smoker Exam/Review of Systems Vital Signs Vitals Vital Signs Date Time Temp Pulse Resp B/P Pulse Ox O2 Delivery O2 Flow Rate FiO2 04/23/16 08:06 76 04/23/16 08:02 98.2 18 113/60 97 04/23/16 01:42 21 04/22/16 20:03 Nasal Cannula 2.0 Intake and Output 04/22/16 04/22/16 04/23/16 15:00 23:00 07:00 Intake Total 800 ml 400 ml Balance 800 ml 400 ml Exam H EENT exam; supple neck, no JVD. No lymphadenopathy. Midline trachea. No thyromegaly. Pharynx is clear. No neck masses. Patient has fair dentition. He has mild nasal congestion. Pupils are midsize and reactive to light bilaterally and equally. Extraocular movements are intact. Patient has a few dental caps. Chest examination; diffuse bilateral wheezing. S1-S2 audible, no murmurs. Regular rhythm. Abdomen examination; soft, nontender, no organomegaly. Bowel is audible. Extremity examination; no peripheral edema. Pulses 2+ bilaterally. No clubbing. RUBBISH COLLECTOR examination; cranial nerves are grossly intact there is no motor deficit. Results Result Diagram: 04/23/16 0536 04/23/16 0536 Results 24 hrs Laboratory Tests Test 04/23/16 05:36 Anion Gap 16 Basophils # 0.0 Basophils % 0.1 Blood Urea Nitrogen 17 Calcium Level 9.2 Carbon Dioxide Level 25 Chloride Level 107 Creatinine 0.72 Eosinophils # 0.0 Eosinophils % 0.0 Glucose Level 118 Hematocrit 37.6 Hemoglobin 11.9 L Lymphocytes # 1.8 Lymphocytes % 18.2 Mean Corpuscular Hemoglobin 26.6 L Mean Corpuscular Hemoglobin Concent 31.6 L Mean Corpuscular Volume 84.1 Mean Platelet Volume 10.6 H Monocytes # 0.3 Monocytes % 3.1 Neutrophils # 7.7 H Neutrophils % 78.0 H Nucleated Red Blood Cells # 0.0 Nucleated Red Blood Cells % 0.0 Platelet Count 276 Potassium Level 4.6 Red Blood Count 4.47 Red Cell Distribution Width 15.5 H Sodium Level 143 White Blood Count 9.9 Medications Medications Current Medications Montelukast Sodium (Singulair) 10 mg HS PO Last administered on 04/22/16t 21:44 ; Admin Dose 10 MG; Start 04/20/16 at 21:00 Salmeterol Xinafoate/ Fluticasone (Advair 250/50 Diskus) 1 inh BID INH Last administered on 04/23/16 09:12; Admin Dose 1 INH; Start 04/20/16 at 14:30 Ondansetron HCl (Zofran Inj) 4 mg Q6H PRN IV NAUSEA AND/OR VOMITING; Start at 12:00 Methylprednisolone Sodium Succinate (Solu-Medrol) 60 mg BID IV Last administered on 04/23/16 09:12; Admin Dose 60 MG; Start 04/20/16 at 21:00 Acetaminophen (Tylenol Tab) 650 mg Q6H PRN PO PAIN LEVEL 1-3 OR FEVER Last administered on 04/21/16 21:22; Admin Dose 650 MG; Start 04/20/16 at 12:00 Acetaminophen/ Hydrocodone Bitart ([place] (5/325)) 1 tab Q6H PRN PO PAIN LEVEL 4 -6; Start 04/20/16 at 12:00 Docusate Sodium (Colace) 100 mg Q12H PRN PO CONSTIPATION; Start 04/20/16 at 12: 00 Famotidine 20 mg 20 mg Q12 PO Last administered on 04/23/16 09:12; Admin Dose 20 MG; Start 04/20/16 at 21:00 Ceftriaxone Sodium (Rocephin) 50 ml @ 100 mls/hr Q24H IVPB Last administered on 04/22/16 13:09; Admin Dose 100 MLS/HR; Start 04/20/16 at 14:00 Enoxaparin Sodium (Lovenox) 40 mg DAILY SC Last administered on 04/23/16 09:14 ; Admin Dose 40 MG; Start 04/20/16 at 17:30 Guaifenesin/ Dextromethorphan (Robitussin Dm Liquid Cup) 10 ml Q4H PRN PO COUGH Last administered on 04/23/16 09:12; Admin Dose 10 ML; Start 04/20/16 at 18:00 Ferrous Sulfate (Ferrous Sulfate (Ec)) 325 mg BID PO Last administered on 09:12; Admin Dose 325 MG; Start 04/22/16 at 21:00 TEO LAIRD 16, 2017 10:49
[2016-04-23] MEDS: CEFTRIAXONE 1 GM/50 ML (PMX) 50 ML IVPB SCH (13:54)
[2016-04-23] MEDS: AZITHROMYCIN 250 MG TAB PO SCH (13:54)
--- NOTE | 2016-04-23 15:48 | PN ---
Date/Time of Note Date/Time of Note DATE: 04/23/16 TIME: 15:46 Assessment/Plan VTE Prophylaxis VTE Prophylaxis Intervention: other Lines/Catheters IV Catheter Type (from [facility]): Peripheral IV Urinary Cath still in place: No Assessment/Plan Assessment/Plan - Possible acute bronchitis. Continue Rocephin. - Asthma exacerbation. Continue patient on home medication of Dulera and Singulair, continue breathing treatment with DuoNeb q.6h. routine and every 3 hours p.r.n. for shortness of breath. Continue Solu-Medrol. - Chest pain acute coronary syndrome ruled out. - Iron deficiency anemia, started on iron supplement. -Sequential compression device for deep venous thrombosis prophylaxis and Pepcid for peptic ulcer disease prophylaxis. Further recommendations based on clinical course. Plan of care discussed with Dr. Varela. Subjective 24 Hr Interval Summary Eyes: no complaints ENT: no complaints Respiratory: no complaints Cardiovascular: no complaints Gastrointestinal: no complaints Genitourinary: no complaints Musculoskeletal: no complaints Skin: no complaints Neurologic: no complaints Exam/Review of Systems Vital Signs Vitals Vital Signs Date Time Temp Pulse Resp B/P Pulse Ox O2 Delivery O2 Flow Rate FiO2 04/23/16 15:19 81 16 93 21 04/23/16 12:16 98.2 119/71 04/22/16 20:03 Nasal Cannula 2.0 Intake and Output 04/22/16 04/22/16 04/23/16 15:00 23:00 07:00 Intake Total 800 ml 400 ml Balance 800 ml 400 ml Exam Constitutional: alert, oriented, well developed Psych: nl mood/affect Head: atraumatic Eyes: EOMI ENMT: nl external ears & nose Neck: supple Respiratory: clear to auscultation Cardiovascular: nl pulses Gastrointestinal: non-tender, soft Musculoskeletal: nl extremities to inspection Extremities: normal pulses Neurological: nl mental status, nl speech Results Result Diagram: 04/23/16 0536 04/23/16 0536 Results 24 hrs Laboratory Tests Test 04/23/16 05:36 Anion Gap 16 Basophils # 0.0 Basophils % 0.1 Blood Urea Nitrogen 17 Calcium Level 9.2 Carbon Dioxide Level 25 Chloride Level 107 Creatinine 0.72 Eosinophils # 0.0 Eosinophils % 0.0 Glucose Level 118 Hematocrit 37.6 Hemoglobin 11.9 L Lymphocytes # 1.8 Lymphocytes % 18.2 Mean Corpuscular Hemoglobin 26.6 L Mean Corpuscular Hemoglobin Concent 31.6 L Mean Corpuscular Volume 84.1 Mean Platelet Volume 10.6 H Monocytes # 0.3 Monocytes % 3.1 Neutrophils # 7.7 H Neutrophils % 78.0 H Nucleated Red Blood Cells # 0.0 Nucleated Red Blood Cells % 0.0 Platelet Count 276 Potassium Level 4.6 Red Blood Count 4.47 Red Cell Distribution Width 15.5 H Sodium Level 143 White Blood Count 9.9 Medications Medications Current Medications Montelukast Sodium (Singulair) 10 mg HS PO Last administered on 04/22/16 21:44 ; Admin Dose 10 MG; Start 04/20/16 at 21:00 Salmeterol Xinafoate/ Fluticasone (Advair 250/50 Diskus) 1 inh BID INH Last administered on 04/23/16 09:12; Admin Dose 1 INH; Start 04/20/16 at 14:30 Ondansetron HCl (Zofran Inj) 4 mg Q6H PRN IV NAUSEA AND/OR VOMITING; Start at 12:00 Acetaminophen (Tylenol Tab) 650 mg Q6H PRN PO PAIN LEVEL 1-3 OR FEVER Last administered on 04/21/16 21:22; Admin Dose 650 MG; Start 04/20/16 at 12:00 Acetaminophen/ Hydrocodone Bitart ([place] (5/325)) 1 tab Q6H PRN PO PAIN LEVEL 4 -6; Start 04/20/16 at 12:00 Docusate Sodium (Colace) 100 mg Q12H PRN PO CONSTIPATION; Start 04/20/16 at 12: 00 Famotidine 20 mg 20 mg Q12 PO Last administered on 04/23/16 09:12; Admin Dose 20 MG; Start 04/20/16 at 21:00 Ceftriaxone Sodium (Rocephin) 50 ml @ 100 mls/hr Q24H IVPB Last administered on 04/23/16 13:54; Admin Dose 100 MLS/HR; Start 04/20/16 at 14:00 Enoxaparin Sodium (Lovenox) 40 mg DAILY SC Last administered on 04/23/16 09:14 ; Admin Dose 40 MG; Start 04/20/16 at 17:30 Guaifenesin/ Dextromethorphan (Robitussin Dm Liquid Cup) 10 ml Q4H PRN PO COUGH Last administered on 04/23/16 13:54; Admin Dose 10 ML; Start 04/20/16 at 18:00 Ferrous Sulfate (Ferrous Sulfate (Ec)) 325 mg BID PO Last administered on 09:12; Admin Dose 325 MG; Start 04/22/16 at 21:00 Methylprednisolone Sodium Succinate (Solu-Medrol) 60 mg Q6 IV ; Start 04/23/16 at 15:00 Azithromycin (Zithromax) 500 mg DAILY PO Last administered on 04/23/16 13:54; Admin Dose 500 MG; Start 04/23/16 at 12:00 LINDA STERLING Apr 23, 2016 15:48
--- NOTE | 2016-04-23 17:45 | RADRPT ---
Echocardiogram Report Patient Name: JAZ REID Gender: Female Date: 1955 Study Date: 23-Apr-2016 Travel Med Surg Rn: Maria Del Rosario Storm [facility] Location: 5551 Ref. Physician: SUSANNAH RUFFIN Quality: Good Procedures: Transthoracic echocardiogram with complete 2D, M-Mode, and doppler examination. Indications: Evaluate Left Ventricular function. 2D/M Mode Doppler Measurement Value Normal Ranges Measurement Value Normal Ranges LVIDd 2D 4.8 3.5 - 5.6 cm AV Peak Lior 1.5 m/sec LVIDs 2D 2.7 2.1 - 4.1 cm AV Peak PG 8.0 mmHg FS 2D 42.7 % LVOT Peak Lior 0.9 m/sec LVPWd 2D 1.0 0.6 - 1.1 cm LVOT Peak PG 3.0 mmHg IVSd 2D 1.0 0.6 - 1.1 cm MV E Peak Lior 0.7 m/sec IVS/LVPW 2D 1.0 MV A Peak Lior 0.6 m/sec AoR Diam 2D 2.4 2.0 - 3.7 cm MV E/A 1.1 LA/Ao 2D 1 0 - 1 MV Decel Time 190 msec EDV 2D 109.0 cm3 MV E/A 1.1 ESV 2D 20.6 cm3 TR Peak Lior 2.6 m/sec LA Dimen 2D 3.0 2.3 - 4.0 cm TR Peak PG 28.0 mmHg RVSP 31.0 mmHg Findings Left Ventricle: Normal left ventricular systolic function. Normal left ventricular cavity size. Mild concentric left ventricular hypertrophy. Ejection fraction is visually estimated at 55 %. Right Ventricle: Normal right ventricular size. Normal right ventricular systolic function. Left Atrium: The left atrium is normal in size. Right Atrium: The right atrium is normal in size. Mitral Valve: Normal appearance of the mitral valve. Mild mitral annular calcification. Trace mitral regurgitation. Aortic Valve: No significant aortic stenosis or insufficiency. Aortic cusps appear mildly calcified. Tricuspid Valve: Normal appearance of the tricuspid valve. Estimated peak PA systolic pressure 31 mmHg. There is mild tricuspid regurgitation. Pulmonic Valve: Pulmonic valve not well visualized. Pericardium: Trivial pericardial effusion. Aorta: Normal aortic root. IVC: Normal size and normal respiratory collapse consistent with normal right atrial pressure. Conclusions 1.Normal left ventricular systolic function. Normal left ventricular cavity size. Mild concentric left ventricular hypertrophy. Ejection fraction is visually estimated at 55 %. 2.Normal right ventricular size. Normal right ventricular systolic function. 3.The left atrium is normal in size. 4.The right atrium is normal in size. 5.Estimated peak PA systolic pressure 31 mmHg. There is mild tricuspid regurgitation. 6.Trace mitral regurgitation. 7.No significant aortic stenosis or insufficiency. 8.Trivial pericardial effusion. Electronically Signed By: Abelino Eric 23-Apr-2016 17:45:26 -0700 Patient Name: JAZ REID Study Date: 23-Apr-2016 [id number]
[2016-04-23] MEDS: MONTELUKAST 10 MG TAB PO SCH (20:07)
[2016-04-23] MEDS: ZOLPIDEM 5 MG TAB PO PRN (23:40)
[2016-04-24] VITALS (13 sets, daily range): BP systolic 114–139; BP diastolic 59–82; PULSE 67–100; RESP 16–20
[2016-04-24] MEDS: ALBUTEROL/IPRATROPIUM (NEB) 3 ML AMP HHN SCH ×4 (01:01→19:36)
[2016-04-24] MEDS: METHYLPREDNISOLONE 125 MG INJ IV SCH ×4 (06:23→23:48)
[2016-04-24] MEDS: SALMETEROL/FLUTICASONE 250/50 INHA INH SCH ×2 (09:09→21:32)
[2016-04-24] MEDS: FAMOTIDINE 20 MG TAB PO SCH ×2 (09:09→21:32)
[2016-04-24] MEDS: FERROUS SULFATE (EC) 325 MG TAB PO SCH ×2 (09:09→21:32)
[2016-04-24] MEDS: AZITHROMYCIN 250 MG TAB PO SCH (09:09)
[2016-04-24] MEDS: GUAIFENESIN/DM 5ML CUP PO PRN (09:09)
[2016-04-24] MEDS: ENOXAPARIN 40 MG/0.4 ML SYG SC SCH (09:15)
--- NOTE | 2016-04-24 09:40 | CONS ---
Date/Time of Note Date/Time of Note DATE: 04/24/16 TIME: 09:30 Assessment/Plan Assessment/Plan Additional Assessment/Plan Patient admitted with asthma exacerbation with some clinical improvement. continue current treatment. Consultation Date/Type/Reason Admit Date/Time Apr 20, 2016 at 03:01 Initial Consult Date 04/23/16 Type of Consultation: Pulmonary/critical care 24 HR Interval Summary Free Text/Dictation Doing well. still c/o wheezing, scant cough, no sputum. SOB improved. GE: no distress, awake and alert. Exam/Review of Systems Vital Signs Vitals Vital Signs Date Time Temp Pulse Resp B/P Pulse Ox O2 Delivery O2 Flow Rate FiO2 04/24/16 08:51 67 04/24/16 07:01 91.4 18 139/82 96 04/23/16 20:49 21 04/23/16 20:00 Nasal Cannula 2.0 Intake and Output 04/23/16 04/23/16 04/24/16 15:00 23:00 07:00 Intake Total 500 ml Balance 500 ml Exam HEENT: supple neck, no JVD. clear pharynx. CHEST: bilateral wheezing. S 1 S2 audible, no murmurs. RRR. ABDOMEN: soft, non tender, no organomegaly. BS + EXTREMITIES: no edema. CERTIFIED MASSAGE THERAPIST: no deficit. Results Result Diagram: 04/23/16 0536 04/23/16 0536 Medications Medications Current Medications Montelukast Sodium (Singulair) 10 mg HS PO Last administered on 04/23/16 20:07 ; Admin Dose 10 MG; Start 04/20/16 at 21:00 Salmeterol Xinafoate/ Fluticasone (Advair 250/50 Diskus) 1 inh BID INH Last administered on 04/24/16 09:09; Admin Dose 1 INH; Start 04/20/16 at 14:30 Ondansetron HCl (Zofran Inj) 4 mg Q6H PRN IV NAUSEA AND/OR VOMITING; Start at 12:00 Acetaminophen (Tylenol Tab) 650 mg Q6H PRN PO PAIN LEVEL 1-3 OR FEVER Last administered on 04/21/16 21:22; Admin Dose 650 MG; Start 04/20/16 at 12:00 Acetaminophen/ Hydrocodone Bitart ([place] (5/325)) 1 tab Q6H PRN PO PAIN LEVEL 4 -6; Start 04/20/16 at 12:00 Docusate Sodium (Colace) 100 mg Q12H PRN PO CONSTIPATION; Start 04/20/16 at 12: 00 Famotidine 20 mg 20 mg Q12 PO Last administered on 04/24/16 09:09; Admin Dose 20 MG; Start 04/20/16 at 21:00 Ceftriaxone Sodium (Rocephin) 50 ml @ 100 mls/hr Q24H IVPB Last administered on 04/23/16 13:54; Admin Dose 100 MLS/HR; Start 04/20/16 at 14:00 Enoxaparin Sodium (Lovenox) 40 mg DAILY SC Last administered on 04/24/16 09:15 ; Admin Dose 40 MG; Start 04/20/16 at 17:30 Guaifenesin/ Dextromethorphan (Robitussin Dm Liquid Cup) 10 ml Q4H PRN PO COUGH Last administered on 04/24/16 09:09; Admin Dose 10 ML; Start 04/20/16 at 18:00 Ferrous Sulfate (Ferrous Sulfate (Ec)) 325 mg BID PO Last administered on 09:09; Admin Dose 325 MG; Start 04/22/16 at 21:00 Methylprednisolone Sodium Succinate (Solu-Medrol) 60 mg Q6 IV Last administered on 04/24/16 06:23; Admin Dose 60 MG; Start 04/23/16 at 15:00 Azithromycin (Zithromax) 500 mg DAILY PO Last administered on 04/24/16 09:09; Admin Dose 500 MG; Start 04/23/16 at 12:00 Zolpidem Tartrate (Ambien) 5 mg HS PRN PO INSOMNIA Last administered on 23:40; Admin Dose 5 MG; Start 04/23/16 at 23:00 TEO LAIRD 17, 2017 09:40
[2016-04-24] MEDS: CEFTRIAXONE 1 GM/50 ML (PMX) 50 ML IVPB SCH (11:48)
--- NOTE | 2016-04-24 19:49 | PN ---
Date/Time of Note Date/Time of Note DATE: 04/24/16 TIME: 19:46 Assessment/Plan VTE Prophylaxis VTE Prophylaxis Intervention: SCD's Lines/Catheters IV [facility] (from [facility] Peripheral IV Urinary Cath still in place: No Assessment/Plan Chief Complaint/Hosp Course ASSESSMENT AND PLAN: - Possible acute bronchitis. Continue Rocephin and Zithromax. - Asthma exacerbation. Continue patient on home medication of Dulera and Singulair, continue breathing treatment with DuoNeb q.6h. routine and every 3 hours p.r.n. for shortness of breath. Continue Solu-Medrol. Pulmonology consult appreciated. - Allergic rhinitis with postnasal drip, continue Claritin. - Chest pain acute coronary syndrome ruled out. - Iron deficiency anemia, started on iron supplement. Continue sequential compression device for deep venous thrombosis prophylaxis and Pepcid for peptic ulcer disease prophylaxis. Further recommendations based on clinical course. Plan of care discussed with Dr. Varela. Problems: Exam/Review of Systems Vital Signs Vitals Vital Signs Date Time Temp Pulse Resp B/P Pulse Ox O2 Delivery O2 Flow Rate FiO2 04/24/16 19:36 75 18 95 21 04/24/16 15:54 99.0 117/62 04/23/16 20:00 Nasal Cannula 2.0 Intake and Output 04/23/16 04/23/16 04/24/16 15:00 23:00 07:00 Intake Total 500 ml Balance 500 ml Exam PHYSICAL ASSESSMENT: GENERAL: Well-developed, well-nourished female currently is awake, alert. HEENT: Head is atraumatic, normocephalic. Pupils equal, round, reactive to light and accommodation. Oral mucosa is pink and moist. NECK: Supple, no cervical lymphadenopathy, no thyromegaly. CHEST: The patient has inspiratory and expiratory wheezing and mild congestion , lungs clear at the bases. CARDIOVASCULAR: Normal S1, S2. No murmurs, gallops, clicks, rubs noted. ABDOMEN: Round, soft, nondistended, nontender. Bowel sounds present. EXTREMITIES: There is no edema, clubbing, cyanosis. Patient has a right wrist deformity. NEUROLOGIC: Alert and oriented 3. Results Result Diagram: 04/23/16 0536 04/23/16 0536 Medications Medications Current Medications Montelukast Sodium (Singulair) 10 mg HS PO Last administered on 04/23/16 20:07 ; Admin Dose 10 MG; Start 04/20/16 at 21:00 Salmeterol Xinafoate/ Fluticasone (Advair 250/50 Diskus) 1 inh BID INH Last administered on 04/24/16 09:09; Admin Dose 1 INH; Start 04/20/16 at 14:30 Ondansetron HCl (Zofran Inj) 4 mg Q6H PRN IV NAUSEA AND/OR VOMITING; Start at 12:00 Acetaminophen (Tylenol Tab) 650 mg Q6H PRN PO PAIN LEVEL 1-3 OR FEVER Last administered on 04/21/16 21:22; Admin Dose 650 MG; Start 04/20/16 at 12:00 Acetaminophen/ Hydrocodone Bitart ([place] (5/325)) 1 tab Q6H PRN PO PAIN LEVEL 4 -6; Start 04/20/16 at 12:00 Docusate Sodium (Colace) 100 mg Q12H PRN PO CONSTIPATION; Start 04/20/16 at 12: 00 Famotidine 20 mg 20 mg Q12 PO Last administered on 04/24/16 09:09; Admin Dose 20 MG; Start 04/20/16 at 21:00 Ceftriaxone Sodium (Rocephin) 50 ml @ 100 mls/hr Q24H IVPB Last administered on 04/24/16 11:48; Admin Dose 100 MLS/HR; Start 04/20/16 at 14:00 Enoxaparin Sodium (Lovenox) 40 mg DAILY SC Last administered on 04/24/16 09:15 ; Admin Dose 40 MG; Start 04/20/16 at 17:30 Guaifenesin/ Dextromethorphan (Robitussin Dm Liquid Cup) 10 ml Q4H PRN PO COUGH Last administered on 04/24/16 09:09; Admin Dose 10 ML; Start 04/20/16 at 18:00 Ferrous Sulfate (Ferrous Sulfate (Ec)) 325 mg BID PO Last administered on 09:09; Admin Dose 325 MG; Start 04/22/16 at 21:00 Methylprednisolone Sodium Succinate (Solu-Medrol) 60 mg Q6 IV Last administered on 04/24/16 17:48; Admin Dose 60 MG; Start 04/23/16 at 15:00 Azithromycin (Zithromax) 500 mg DAILY PO Last administered on 04/24/16 09:09; Admin Dose 500 MG; Start 04/23/16 at 12:00 Zolpidem Tartrate (Ambien) 5 mg HS PRN PO INSOMNIA Last administered on 23:40; Admin Dose 5 MG; Start 04/23/16 at 23:00 SUSANNAH RUFFIN Apr 24, 2016 19:48
[2016-04-24] MEDS: ZOLPIDEM 5 MG TAB PO PRN (22:24)
[2016-04-24] MEDS: MONTELUKAST 10 MG TAB PO SCH (22:24)
[2016-04-25] MEDS: ALBUTEROL/IPRATROPIUM (NEB) 3 ML AMP HHN SCH ×4 (01:23→19:27)
[2016-04-25] MEDS: METHYLPREDNISOLONE 125 MG INJ IV SCH ×2 (05:16→12:10)
[2016-04-25] MEDS: GUAIFENESIN/DM 5ML CUP PO PRN (05:19)
[2016-04-25 05:52] LABS: ADD SCAN DIFF NO
[2016-04-25 05:55] LABS: BASOPHILS % 0.1 % (0.0-2.0); HEMOGLOBIN 12.1 g/dl (12.0-16.0); LYMPHOCYTES # 1.6 10^3/ul (0.8-2.9); LYMPHOCYTES % 11.5 % (15.0-51.0); MEAN CORPUSCULAR HEMOGLOBIN 26.4 pg (29.0-33.0); MEAN CORPUSCULAR HGB CONC 31.8 g/dl (32.0-37.0); MEAN PLATELET VOLUME 10.6 fl (7.4-10.4); MONOCYTE # 0.4 10^3/ul (0.3-0.9); NEUTROPHIL # 11.9 10^3/ul (1.6-7.5); NEUTROPHILS % 84.1 % (39.0-77.0); PLATELET COUNT 261 10^3/UL (140-415); RED BLOOD COUNT 4.58 10^6/ul (4.20-5.40); RED CELL DISTRIBUTION WIDTH 15.3 % (11.5-14.5); WHITE BLOOD COUNT 14.2 10^3/ul (4.8-10.8)
[2016-04-25 06:08] LABS: POTASSIUM 4.4 mmol/L (3.5-5.1)
[2016-04-25 06:11] LABS: CREATININE 0.78 mg/dl (0.44-1.00)
[2016-04-25 06:12] LABS: CALCIUM 9.1 mg/dl (8.4-10.2)
[2016-04-25 08:05] VITALS: BP 114/61; RESP 16
[2016-04-25] MEDS: FERROUS SULFATE (EC) 325 MG TAB PO SCH ×2 (08:35→21:55)
[2016-04-25] MEDS: AZITHROMYCIN 250 MG TAB PO SCH (08:35)
[2016-04-25] MEDS: FAMOTIDINE 20 MG TAB PO SCH ×2 (08:35→21:55)
[2016-04-25] MEDS: ENOXAPARIN 40 MG/0.4 ML SYG SC SCH (08:48)
[2016-04-25] MEDS: SALMETEROL/FLUTICASONE 250/50 INHA INH SCH ×2 (09:00→21:00)
--- NOTE | 2016-04-25 11:13 | PN ---
Date/Time of Note Date/Time of Note DATE: 04/25/16 TIME: 11:12 Assessment/Plan VTE Prophylaxis VTE Prophylaxis Intervention: other Lines/Catheters IV [facility] Type (from [facility]): Peripheral IV Urinary Cath still in place: No Assessment/Plan Chief Complaint/Hosp Course - Possible acute bronchitis. Continue Rocephin and Zithromax. - Asthma exacerbation. Continue patient on home medication of Dulera and Singulair, continue breathing treatment with DuoNeb q.6h. routine and every 3 hours p.r.n. for shortness of breath. Continue Solu-Medrol. Pulmonology consult appreciated. - Allergic rhinitis with postnasal drip, continue Claritin. - Chest pain acute coronary syndrome ruled out. - Iron deficiency anemia, started on iron supplement. Problems: Subjective 24 Hr Interval Summary Free Text/Dictation Patient feels better, wants to go home Exam/Review of Systems Vital Signs Vitals Vital Signs Date Time Temp Pulse Resp B/P Pulse Ox O2 Delivery O2 Flow Rate FiO2 04/25/16 08:16 94 21 04/25/16 08:15 80 20 04/25/16 08:05 98.3 114/61 04/24/16 22:31 Room Air 04/23/16 20:00 2.0 Intake and Output 04/24/16 04/24/16 04/25/16 15:00 23:00 07:00 Intake Total 120 ml Balance 120 ml Exam Constitutional: well developed Head: atraumatic, normocephalic Neck: supple Respiratory: diminished breath sounds, wheezing Cardiovascular: regular rate and rhythm Gastrointestinal: non-tender, soft Extremities: normal pulses Results Result Diagram: 04/25/16 0505 04/25/16 0505 Results 24 hrs Laboratory Tests Test 04/25/16 05:05 Anion Gap 16 Basophils # 0.0 Basophils % 0.1 Blood Urea Nitrogen 24 H Calcium Level 9.1 Carbon Dioxide Level 24 Chloride Level 105 Creatinine 0.78 Eosinophils # 0.0 Eosinophils % 0.0 Glucose Level 120 Hematocrit 38.0 Hemoglobin 12.1 Lymphocytes # 1.6 Lymphocytes % 11.5 L Mean Corpuscular Hemoglobin 26.4 L Mean Corpuscular Hemoglobin Concent 31.8 L Mean Corpuscular Volume 83.0 Mean Platelet Volume 10.6 H Monocytes # 0.4 Monocytes % 3.0 Neutrophils # 11.9 H Neutrophils % 84.1 H Nucleated Red Blood Cells # 0.0 Nucleated Red Blood Cells % 0.0 Platelet Count 261 Potassium Level 4.4 Red Blood Count 4.58 Red Cell Distribution Width 15.3 H Sodium Level 141 White Blood Count 14.2 #H Medications Medications Current Medications Montelukast Sodium (Singulair) 10 mg HS PO Last administered on 04/24/16 22:24 ; Admin Dose 10 MG; Start 04/20/16 at 21:00 Salmeterol Xinafoate/ Fluticasone (Advair 250/50 Diskus) 1 inh BID INH Last administered on 04/24/16 21:32; Admin Dose 1 INH; Start 04/20/16 at 14:30 Ondansetron HCl (Zofran Inj) 4 mg Q6H PRN IV NAUSEA AND/OR VOMITING; Start at 12:00 Acetaminophen (Tylenol Tab) 650 mg Q6H PRN PO PAIN LEVEL 1-3 OR FEVER Last administered on 04/21/16 21:22; Admin Dose 650 MG; Start 04/20/16 at 12:00 Acetaminophen/ Hydrocodone Bitart ([place] (5/325)) 1 tab Q6H PRN PO PAIN LEVEL 4 -6; Start 04/20/16 at 12:00 Docusate Sodium (Colace) 100 mg Q12H PRN PO CONSTIPATION; Start 04/20/16 at 12: 00 Famotidine 20 mg 20 mg Q12 PO Last administered on 04/25/16 08:35; Admin Dose 20 MG; Start 04/20/16 at 21:00 Ceftriaxone Sodium (Rocephin) 50 ml @ 100 mls/hr Q24H IVPB Last administered on 04/24/16 11:48; Admin Dose 100 MLS/HR; Start 04/20/16 at 14:00 Enoxaparin Sodium (Lovenox) 40 mg DAILY SC Last administered on 04/25/16 08:48 ; Admin Dose 40 MG; Start 04/20/16 at 17:30 Guaifenesin/ Dextromethorphan (Robitussin Dm Liquid Cup) 10 ml Q4H PRN PO COUGH Last administered on 04/25/16 05:19; Admin Dose 10 ML; Start 04/20/16 at 18:00 Ferrous Sulfate (Ferrous Sulfate (Ec)) 325 mg BID PO Last administered on 08:35; Admin Dose 325 MG; Start 04/22/16 at 21:00 Methylprednisolone Sodium Succinate (Solu-Medrol) 60 mg Q6 IV Last administered on 04/25/16 05:16; Admin Dose 60 MG; Start 04/23/16 at 15:00 Azithromycin (Zithromax) 500 mg DAILY PO Last administered on 04/25/16 08:35; Admin Dose 500 MG; Start 04/23/16 at 12:00 Zolpidem Tartrate (Ambien) 5 mg HS PRN PO INSOMNIA Last administered on 22:24; Admin Dose 5 MG; Start 04/23/16 at 23:00 LESTER QUIÑONES 18, 2017 11:13
--- NOTE | 2016-04-25 13:37 | PN ---
DATE: 04/25/2016 PULMONARY FOLLOWUP NOTE SUBJECTIVE: The patient is stable, on nasal cannula O2 in room air. Denies any shortness of breath . PHYSICAL EXAMINATION: VITAL SIGNS: Temperature 98, pulse 80, blood pressure 114/64, O2 saturation 96% on room air. NECK: Supple. No JVD or lymphadenopathy. CARDIAC EXAM: S1, S2. No added sounds or murmurs. CHEST: Mild bilateral expiratory wheezing. ABDOMEN: Soft, nontender. No guarding or rebound. EXTREMITIES: No cyanosis, clubbing, or edema. NEUROLOGIC: Grossly intact. No focal deficits. LABORATORY: White count 14.2, hemoglobin 12.1, platelets 261. Chemistry within normal limits. IMPRESSION: 1. Acute tracheobronchitis. 2. Slowly improving bronchospasm. 3. History of allergic rhinitis. PLAN: 1. Continue steroids. 2. Bronchodilators. 3. Antibiotics. 4. Anticipate discharge in the next 24 to 48 hours. Dictated By: KEVIN DOYLE/CHANTAL Conf#: [id number] DID#: [id number]
[2016-04-25] MEDS: CEFTRIAXONE 1 GM/50 ML (PMX) 50 ML IVPB SCH (13:46)
[2016-04-25 20:34] VITALS: BP 114/55; RESP 20
[2016-04-25] MEDS: ZOLPIDEM 5 MG TAB PO PRN (21:54)
[2016-04-25] MEDS: MONTELUKAST 10 MG TAB PO SCH (21:55)
[2016-04-25] MEDS: METHYLPREDNISOLONE 40 MG INJ IV SCH (21:55)
[2016-04-26] MEDS: ALBUTEROL/IPRATROPIUM (NEB) 3 ML AMP HHN SCH ×4 (02:18→21:08)
[2016-04-26 05:23] LABS: ADD SCAN DIFF NO
[2016-04-26 05:32] LABS: BASOPHILS % 0.1 % (0.0-2.0); HEMATOCRIT 38.2 % (37.0-47.0); HEMOGLOBIN 12.1 g/dl (12.0-16.0); LYMPHOCYTES # 1.7 10^3/ul (0.8-2.9); LYMPHOCYTES % 13.4 % (15.0-51.0); MEAN CORPUSCULAR HEMOGLOBIN 26.7 pg (29.0-33.0); MEAN CORPUSCULAR HGB CONC 31.7 g/dl (32.0-37.0); MEAN CORPUSCULAR VOLUME 84.1 fl (82.0-101.0); MEAN PLATELET VOLUME 10.4 fl (7.4-10.4); MONOCYTE # 0.7 10^3/ul (0.3-0.9); MONOCYTES % 5.2 % (0.0-11.0); NEUTROPHILS % 79.9 % (39.0-77.0); PLATELET COUNT 252 10^3/UL (140-415); RED BLOOD COUNT 4.54 10^6/ul (4.20-5.40); RED CELL DISTRIBUTION WIDTH 15.5 % (11.5-14.5); WHITE BLOOD COUNT 12.5 10^3/ul (4.8-10.8)
[2016-04-26 05:42] LABS: POTASSIUM 4.7 mmol/L (3.5-5.1)
[2016-04-26 05:44] LABS: CREATININE 0.7 mg/dl (0.44-1.00)
[2016-04-26 05:45] LABS: CALCIUM 8.8 mg/dl (8.4-10.2)
[2016-04-26] MEDS: SALMETEROL/FLUTICASONE 250/50 INHA INH SCH ×2 (08:31→21:00)
[2016-04-26] MEDS: METHYLPREDNISOLONE 40 MG INJ IV SCH ×2 (08:31→21:00)
[2016-04-26] MEDS: FERROUS SULFATE (EC) 325 MG TAB PO SCH ×2 (08:31→21:00)
[2016-04-26] MEDS: FAMOTIDINE 20 MG TAB PO SCH ×2 (08:32→21:00)
[2016-04-26] MEDS: AZITHROMYCIN 250 MG TAB PO SCH (08:32)
[2016-04-26] MEDS: ENOXAPARIN 40 MG/0.4 ML SYG SC SCH (08:35)
[2016-04-26 08:42] VITALS: BP 128/74; RESP 18
--- NOTE | 2016-04-26 11:32 | PN ---
Date/Time of Note Date/Time of Note DATE: 04/26/16 TIME: 11:31 Assessment/Plan VTE Prophylaxis VTE Prophylaxis Intervention: other Lines/Catheters IV [facility] Type (from [facility]): Saline Lock Urinary Cath still in place: No Assessment/Plan Chief Complaint/Hosp Course - Possible acute bronchitis. Continue Rocephin and Zithromax. - Asthma exacerbation. Continue patient on home medication of Dulera and Singulair, continue breathing treatment with DuoNeb q.6h. routine and every 3 hours p.r.n. for shortness of breath. Continue Solu-Medrol. Pulmonology consult appreciated. - Allergic rhinitis with postnasal drip, continue Claritin. - Chest pain acute coronary syndrome ruled out. - Iron deficiency anemia, started on iron supplement. Problems: Subjective 24 Hr Interval Summary Free Text/Dictation Patient has no complaints Exam/Review of Systems Vital Signs Vitals Vital Signs Date Time Temp Pulse Resp B/P Pulse Ox O2 Delivery O2 Flow Rate FiO2 04/26/16 08:58 76 20 95 21 04/26/16 08:42 98.6 128/74 04/24/16 22:31 Room Air 04/23/16 20:00 2.0 Intake and Output 04/25/16 04/25/16 04/26/16 14:59 22:59 06:59 Intake Total 50 ml 1060 ml 200 ml Balance 50 ml 1060 ml 200 ml Exam Constitutional: well developed Head: atraumatic, normocephalic Neck: supple Respiratory: wheezing Cardiovascular: regular rate and rhythm Gastrointestinal: non-tender, soft Results Result Diagram: 04/26/16 0445 04/26/16 0445 Results 24 hrs Laboratory Tests Test 04/26/16 04:45 Anion Gap 16 Basophils # 0.0 Basophils % 0.1 Blood Urea Nitrogen 21 H Calcium Level 8.8 Carbon Dioxide Level 26 Chloride Level 102 Creatinine 0.70 Eosinophils # 0.0 Eosinophils % 0.0 Glucose Level 109 Hematocrit 38.2 Hemoglobin 12.1 Lymphocytes # 1.7 Lymphocytes % 13.4 L Mean Corpuscular Hemoglobin 26.7 L Mean Corpuscular Hemoglobin Concent 31.7 L Mean Corpuscular Volume 84.1 Mean Platelet Volume 10.4 Monocytes # 0.7 Monocytes % 5.2 Neutrophils # 10.0 H Neutrophils % 79.9 H Nucleated Red Blood Cells # 0.0 Nucleated Red Blood Cells % 0.0 Platelet Count 252 Potassium Level 4.7 Red Blood Count 4.54 Red Cell Distribution Width 15.5 H Sodium Level 139 White Blood Count 12.5 H Medications Medications Current Medications Montelukast Sodium (Singulair) 10 mg HS PO Last administered on 04/25/16 21:55 ; Admin Dose 10 MG; Start 04/20/16 at 21:00 Salmeterol Xinafoate/ Fluticasone (Advair 250/50 Diskus) 1 inh BID INH Last administered on 04/26/16 08:31; Admin Dose 1 INH; Start 04/20/16 at 14:30 Ondansetron HCl (Zofran Inj) 4 mg Q6H PRN IV NAUSEA AND/OR VOMITING; Start at 12:00 Acetaminophen (Tylenol Tab) 650 mg Q6H PRN PO PAIN LEVEL 1-3 OR FEVER Last administered on 04/21/16 21:22; Admin Dose 650 MG; Start 04/20/16 at 12:00 Acetaminophen/ Hydrocodone Bitart ([place] (5/325)) 1 tab Q6H PRN PO PAIN LEVEL 4 -6; Start 04/20/16 at 12:00 Docusate Sodium (Colace) 100 mg Q12H PRN PO CONSTIPATION; Start 04/20/16 at 12: 00 Famotidine 20 mg 20 mg Q12 PO Last administered on 04/26/16 08:32; Admin Dose 20 MG; Start 04/20/16 at 21:00 Ceftriaxone Sodium (Rocephin) 50 ml @ 100 mls/hr Q24H IVPB Last administered on 04/25/16 13:46; Admin Dose 100 MLS/HR; Start 04/20/16 at 14:00 Enoxaparin Sodium (Lovenox) 40 mg DAILY SC Last administered on 04/26/16 08:35 ; Admin Dose 40 MG; Start 04/20/16 at 17:30 Guaifenesin/ Dextromethorphan (Robitussin Dm Liquid Cup) 10 ml Q4H PRN PO COUGH Last administered on 04/25/16 05:19; Admin Dose 10 ML; Start 04/20/16 at 18:00 Ferrous Sulfate (Ferrous Sulfate (Ec)) 325 mg BID PO Last administered on 08:31; Admin Dose 325 MG; Start 04/22/16 at 21:00 Azithromycin (Zithromax) 500 mg DAILY PO Last administered on 04/26/16 08:32; Admin Dose 500 MG; Start 04/23/16 at 12:00 Zolpidem Tartrate (Ambien) 5 mg HS PRN PO INSOMNIA Last administered on 21:54; Admin Dose 5 MG; Start 04/23/16 at 23:00 Methylprednisolone Sodium Succinate (Solu-Medrol) 40 mg Q12 IV Last administered on 04/26/16 08:31; Admin Dose 40 MG; Start 04/25/16 at 21:00 LESTER QUIÑONES Apr 26, 2016 11:31
[2016-04-26] MEDS: CEFTRIAXONE 1 GM/50 ML (PMX) 50 ML IVPB SCH (14:47)
[2016-04-26 20:01] VITALS: BP 121/72; RESP 18
[2016-04-26] MEDS: MONTELUKAST 10 MG TAB PO SCH (21:00)
[2016-04-26] MEDS: ZOLPIDEM 5 MG TAB PO PRN (21:03)
[2016-04-27] MEDS: ALBUTEROL/IPRATROPIUM (NEB) 3 ML AMP HHN SCH ×3 (01:51→13:33)
[2016-04-27 05:54] LABS: ADD SCAN DIFF NO
[2016-04-27 06:10] LABS: BASOPHILS % 0.1 % (0.0-2.0); HEMATOCRIT 38.3 % (37.0-47.0); LYMPHOCYTES # 1.6 10^3/ul (0.8-2.9); LYMPHOCYTES % 12.9 % (15.0-51.0); MEAN CORPUSCULAR HEMOGLOBIN 26.3 pg (29.0-33.0); MEAN CORPUSCULAR HGB CONC 31.3 g/dl (32.0-37.0); MEAN CORPUSCULAR VOLUME 83.8 fl (82.0-101.0); MEAN PLATELET VOLUME 10.6 fl (7.4-10.4); MONOCYTE # 0.6 10^3/ul (0.3-0.9); MONOCYTES % 4.9 % (0.0-11.0); NEUTROPHIL # 9.8 10^3/ul (1.6-7.5); NEUTROPHILS % 80.4 % (39.0-77.0); PLATELET COUNT 254 10^3/UL (140-415); RED BLOOD COUNT 4.57 10^6/ul (4.20-5.40); RED CELL DISTRIBUTION WIDTH 15.5 % (11.5-14.5); WHITE BLOOD COUNT 12.2 10^3/ul (4.8-10.8)
[2016-04-27 06:15] LABS: POTASSIUM 4.8 mmol/L (3.5-5.1)
[2016-04-27 06:18] LABS: CREATININE 0.73 mg/dl (0.44-1.00)
[2016-04-27 07:00] VITALS: BP 129/60; RESP 18
[2016-04-27] MEDS: FAMOTIDINE 20 MG TAB PO SCH (08:34)
[2016-04-27] MEDS: SALMETEROL/FLUTICASONE 250/50 INHA INH SCH (08:34)
[2016-04-27] MEDS: AZITHROMYCIN 250 MG TAB PO SCH (08:34)
[2016-04-27] MEDS: FERROUS SULFATE (EC) 325 MG TAB PO SCH (08:34)
[2016-04-27] MEDS: METHYLPREDNISOLONE 40 MG INJ IV SCH (08:35)
[2016-04-27] MEDS: ENOXAPARIN 40 MG/0.4 ML SYG SC SCH (09:05)
--- NOTE | 2016-04-27 13:01 | CONS ---
Date/Time of Note Date/Time of Note DATE: 04/27/16 TIME: 12:59 Assessment/Plan Assessment/Plan Additional Assessment/Plan Assessment recommendations; 1. Patient admitted for asthma exacerbation with marked clinical improvement. Discontinue Solu-Medrol as well as Rocephin. Continue current bronchodilator regimen. Patient can be discharged home. Consultation Date/Type/Reason Admit Date/Time Apr 20, 2016 at 03:01 Initial Consult Date 04/23/16 Type of Consultation: Pulmonary/critical care 24 HR Interval Summary Free Text/Dictation Patient condition is markedly improved. Denies any wheezing, chest pain, cough , sputum production. Abdomen exam; elderly lady, awake alert, currently in no distress. Exam/Review of Systems Vital Signs Vitals Vital Signs Date Time Temp Pulse Resp B/P Pulse Ox O2 Delivery O2 Flow Rate FiO2 04/27/16 08:13 72 16 96 21 04/26/16 20:01 98.5 121/72 04/24/16 22:31 Room Air 04/23/16 20:00 2.0 Intake and Output 04/26/16 04/26/16 04/27/16 15:00 23:00 07:00 Intake Total 1930 ml 300 ml Balance 1930 ml 300 ml Exam H EENT exam is; supple neck, no JVD. No lymphadenopathy. Midline trachea. No thyromegaly. Pharynx is clear. Patient has good dentition. Pupils are equal and reactive to light. Chest examination; clear to auscultation bilaterally. No additional. S1-S2 audible, no murmurs. Regular rhythm. Abdomen examination; soft, nondistended. No organomegaly. Bowel is audible. Extremity examination; no peripheral edema. Pulses 2+ bilaterally. [employer] examination; no focal deficit. Results Result Diagram: 04/27/1651704/27/1618 Results 24 hrs Laboratory Tests Test 04/27/16 05:18 Anion Gap 15 Basophils # 0.0 Basophils % 0.1 Blood Urea Nitrogen 22 H Calcium Level 9.0 Carbon Dioxide Level 25 Chloride Level 104 Creatinine 0.73 Eosinophils # 0.0 Eosinophils % 0.0 Glucose Level 117 Hematocrit 38.3 Hemoglobin 12.0 Lymphocytes # 1.6 Lymphocytes % 12.9 L Mean Corpuscular Hemoglobin 26.3 L Mean Corpuscular Hemoglobin Concent 31.3 L Mean Corpuscular Volume 83.8 Mean Platelet Volume 10.6 H Monocytes # 0.6 Monocytes % 4.9 Neutrophils # 9.8 H Neutrophils % 80.4 H Nucleated Red Blood Cells # 0.0 Nucleated Red Blood Cells % 0.0 Platelet Count 254 Potassium Level 4.8 Red Blood Count 4.57 Red Cell Distribution Width 15.5 H Sodium Level 139 White Blood Count 12.2 H Medications Medications Current Medications Montelukast Sodium (Singulair) 10 mg HS PO Last administered on 04/26/16 21:00 ; Admin Dose 10 MG; Start 04/20/16 at 21:00 Salmeterol Xinafoate/ Fluticasone (Advair 250/50 Diskus) 1 inh BID INH Last administered on 04/27/16 08:34; Admin Dose 1 INH; Start 04/20/16 at 14:30 Ondansetron HCl (Zofran Inj) 4 mg Q6H PRN IV NAUSEA AND/OR VOMITING; Start at 12:00 Acetaminophen (Tylenol Tab) 650 mg Q6H PRN PO PAIN LEVEL 1-3 OR FEVER Last administered on 04/21/16 21:22; Admin Dose 650 MG; Start 04/20/16 at 12:00 Acetaminophen/ Hydrocodone Bitart ([place] (5/325)) 1 tab Q6H PRN PO PAIN LEVEL 4 -6; Start 04/20/16 at 12:00 Docusate Sodium (Colace) 100 mg Q12H PRN PO CONSTIPATION; Start 04/20/16 at 12: 00 Famotidine 20 mg 20 mg Q12 PO Last administered on 04/27/16 08:34; Admin Dose 20 MG; Start 04/20/16 at 21:00 Ceftriaxone Sodium (Rocephin) 50 ml @ 100 mls/hr Q24H IVPB Last administered on 04/26/16 14:47; Admin Dose 100 MLS/HR; Start 04/20/16 at 14:00 Enoxaparin Sodium (Lovenox) 40 mg DAILY SC Last administered on 04/27/16 09:05 ; Admin Dose 40 MG; Start 04/20/16 at 17:30 Guaifenesin/ Dextromethorphan (Robitussin Dm Liquid Cup) 10 ml Q4H PRN PO COUGH Last administered on 04/25/16 05:19; Admin Dose 10 ML; Start 04/20/16 at 18:00 Ferrous Sulfate (Ferrous Sulfate (Ec)) 325 mg BID PO Last administered on 08:34; Admin Dose 325 MG; Start 04/22/16 at 21:00 Azithromycin (Zithromax) 500 mg DAILY PO Last administered on 04/27/16 08:34; Admin Dose 500 MG; Start 04/23/16 at 12:00 Zolpidem Tartrate (Ambien) 5 mg HS PRN PO INSOMNIA Last administered on 21:03; Admin Dose 5 MG; Start 04/23/16 at 23:00 Methylprednisolone Sodium Succinate (Solu-Medrol) 40 mg Q12 IV Last administered on 04/27/16 08:35; Admin Dose 40 MG; Start 04/25/16 at 21:00 TEO LAIRD Apr 27, 2016 13:01
[2016-04-27] MEDS ORDERED: FER325 PO (16:28)
[2016-04-27] MEDS ORDERED: ADV25050 INH (16:28)
[2016-04-27] MEDS ORDERED: MONT10TA24 PO (16:28)
== END 2016-04-27 17:25 | disposition home or self-care (01) | DRG 202 ==
LOC: FTE 18:15 → MS4 04-20 03:01 → MS2 04-24 22:10
PROVIDERS: ADMIT Internal Medicine; ATTEND Internal Medicine
DX: J20.9 Acute bronchitis, unspecified (principal); J45.901 Unspecified asthma with (acute) exacerbation; D50.9 Iron deficiency anemia, unspecified; R07.9 Chest pain, unspecified; J30.9 Allergic rhinitis, unspecified
CPT/HCPCS: 36415; 71010; 80048; 80053; 82550; 82553; 82607; 82728; 82746; 83540; 83735; 83880; 84443; 84484; 85025; 85610; 85730; 87400; 93005; 93306; 94640; 94644; 94645; 94664; 96372; J0696; J1100; J1650; J2920; J2930; J3105

== ENCOUNTER 2016-06-18 17:51 | Emergency (ER) | payer MEDICAID ==
[~2016-06-18] VITALS: Ht 160 cm; Wt 61.0 kg
[~2016-06-18 17:51] MED LIST changes: +ADV25050 INH; -AZIT250T94 PO; -CETI10CA PO; +FER325 PO; -GUAI473L22 PO; -MOME13HF2 IH; -MONT10TA21 PO; +MONT10TA24 PO
[2016-06-18 18:08] VITALS: Ht 160 cm; Wt 61.0 kg
[2016-06-18] MEDS ORDERED: IPRATROPIUM (NEB) 0.5 MG/2.5 ML AMP NEB STA (19:04)
[2016-06-18] MEDS ORDERED: predniSONE 20 MG TAB PO STA (19:04)
[2016-06-18] MEDS ORDERED: ALBUTEROL 0.083% (NEB) 2.5 MG/3 ML AMP NEB STA (19:04)
--- NOTE | 2016-06-18 19:11 | ERD ---
ER Documentation Chief Complaint Date/Time DATE: 06/18/16 TIME: 19:06 Chief Complaint WHEEZING TODAY HPI 61-year-old female with a history of asthma presents to the emergency department with complaints of wheezing and shortness of breath since today. Patient has attempted to treat her symptoms with albuterol inhaler at home with only mild relief. Patient denies recent fever, cough, nausea, vomiting, abdominal pain. Patient does note that 3 months ago she was diagnosed with bronchitis. Patient denies any other medical problems. ROS All systems reviewed and are negative except as per history of present illness. Medications Home Meds Active Scripts Albuterol Sulfate* (Proair HFA*) 8.5 Gm Hfa.aer.ad, 2 PUFF INH Q4, #1 INHALER Prov:CARIE LUCIANO PA-C 06/18/16 Prednisone* (Prednisone*) 20 Mg Tab, 40 MG PO DAILY for 5 Days, TAB Prov:CARIE LUCIANO PA-C 06/18/16 Ferrous Sulfate* (Ferrous Sulfate*) 325 Mg Tabec, 325 MG PO BID for 30 Days, TAB Prov:SUSANNAH RUFFIN 04/27/16 Montelukast Sodium* (Montelukast Sodium*) 10 Mg Tablet, 10 MG PO HS for 30 Days , TAB Prov:SUSANNAH RUFFIN 04/27/16 Salmeterol Xinaf/Fluticasone* (Advair*) 250-50 Diskus Inhaler, 1 INH INH BID for 30 Days Prov:SUSANNAH RUFFIN 04/27/16 Reported Medications Loratadine* (Claritin*) 10 Mg Tablet, 10 MG PO DAILY, TAB 04/12/14 Albuterol Sulfate* (Albuterol Sulfate* HFA) 8.5 Gm Hfa.aer.ad, 2 PUFF IH Q4H Y for WHEEZING AND SOB, EA 04/12/14 Ipratropium [place]* (Atrovent HFA*) 12.9 Gm Aer.w.adap, 2 PUFF IH Q4H Y for SHORTNESS OF BREATH, EA 04/12/14 Allergies Allergies: Coded Allergies: No Known Allergy (Unverified , 06/18/16) PMhx/Soc History of Surgery: Yes (right wrist) Anesthesia Reaction: No Hx Neurological Disorder: Yes (HEADACHES) Hx Respiratory Disorders: Yes (ASTHMA) Hx Cardiac Disorders: No Hx Psychiatric Problems: No Hx Miscellaneous Medical Probl: No Hx Alcohol Use: No Hx Substance Use: No Hx Tobacco Use: No Smoking Status: Never smoker Physical Exam Vitals Vital Signs Date Time Temp Pulse Resp B/P Pulse Ox O2 Delivery O2 Flow Rate FiO2 06/18/16 20:30 104 20 96 21 06/18/16 19:45 92 22 95 21 06/18/16 18:08 98.1 96 18 118/79 97 Physical Exam Const: Well-developed, well-nourished, no acute distress Head: Atraumatic Eyes: Normal Conjunctiva ENT: Normal External Ears, Nose and Mouth. Neck: Full range of motion..~ No meningismus. Resp: Bilateral diffuse inspiratory wheezing Cardio: Regular rate and rhythm, no murmurs Abd: Soft, non tender, non distended. Normal bowel sounds Skin: No petechiae or rashes Back: No midline or flank tenderness Ext: No cyanosis, or edema Neur: Awake and alert Psych: Normal Mood and Affect Results 24 hrs Current Medications Medications (Trade) Dose Ordered Sig/Michael Route PRN Reason Start Time Stop Time Status Last Admin Dose Admin Albuterol (Proventil 0.083% (Neb)) 5 mg ONCE STAT NEB 06/18/16 19:04 06/18/16 19:06 DC 06/18/16 19:46 Ipratropium [place] (Atrovent 0.02% (Neb)) 0.5 mg ONCE STAT NEB 06/18/16 19:04 06/18/16 19:06 DC 06/18/16 19:46 Prednisone (Prednisone) 60 mg ONCE STAT PO 06/18/16 19:04 06/18/16 19:06 DC 06/18/16 19:54 Levalbuterol (Xopenex Neb) 1.25 mg STK-MED ONCE .ROUTE 06/18/16 20:13 06/18/16 20:14 DC Levalbuterol (Xopenex Neb) 5 mg ONCE ONCE NEB 06/18/16 21:00 06/18/16 21:01 DC 06/18/16 20:59 Procedures/MDM Chest X-ray 1V Interpreted by me: Soft Tissue: No sign consolidation or pleural effusion Bones: No acute abnormalities Mediastinum/Cardiac Silhouette/Lungs: Heart normal size no evidence of cardiomegaly 61-year-old female with a history of asthma presents the emergency department for shortness of breath and wheezing since today. Vital signs reviewed. Patient afebrile, non-tachycardic, normotensive and non-hypoxic upon arrival. Patient received duo nebulizer treatment while in the emergency department as well as 1 dose of prednisone. Reassessed after initial nebulizer treatment and wheezing persisted. Patient then received a 1 hour treatment of Xopenex. Wheezing significantly improved post treatment. Patient remains non-hypoxic post treatment. Clinical presentation consistent with acute asthma exacerbation. At this time low suspicion for hypoxemia, acute bronchitis, pneumonia, pneumothorax, severe systemic illness, or sepsis. Patient to continue prednisone course and will be given a refill of albuterol inhaler. Based on patient's history of present illness and physical examination the decision was made to discharge. The patient was re-evaluated after ED treatment and stabilizing measures, and symptoms have improved. There is no evidence of life threatening injuries or illnesses at this time. On re-examination, patient resting in no distress, stable vital signs, reports feeling better and safe for discharge with outpatient follow up with PMD in 1-2 days. Patient given return precautions. Departure Diagnosis: Primary Impression: Wheezing Additional Impression: Asthma exacerbation CARIE LUCIANO PA-C June 18, 2016 19:11
[2016-06-18] MEDS ORDERED: LEVALBUTEROL (NEB) 1.25 MG/0.5 ML AMP ONE (20:13)
[2016-06-18] MEDS ORDERED: LEVALBUTEROL (NEB) 1.25 MG/0.5 ML AMP NEB ONE (21:00)
[2016-06-18] MEDS ORDERED: ALBU8.5H3 INH (23:21)
[2016-06-18] MEDS ORDERED: PRED20TA PO (23:21)
[2016-06-18 23:44] VITALS: BP 122/68; PULSE 87; RESP 16
--- NOTE | 2016-06-18 23:47 | RADRPT ---
PROCEDURE: XR Chest. CLINICAL INDICATION: Wheezing. TECHNIQUE: Single frontal view of the chest. COMPARISON: 04/19/2016. FINDINGS: The cardiomediastinal silhouette is within normal limits. Interstitial prominence again seen, which may be associated with asthma. This is somewhat similar in appearance to the prior examination. The lungs are otherwise clear. No signs of pleural fluid or pneumothorax are seen. The osseous structure s and soft tissues are unremarkable. IMPRESSION: Asthma. RPTAT: [facility] Physician Rosaline Date Time Electronically viewed and signed by Physician Rosaline on 06/18/2016 23:47 RS/
== END 2016-06-18 23:45 | disposition home or self-care (01) ==
LOC: FTE 17:51
DX: J45.901 Unspecified asthma with (acute) exacerbation (principal)
CPT/HCPCS: 71010; 94644; 94664; J7512; Z7502; Z7610

== ENCOUNTER 2016-06-27 22:55 | Inpatient (IN) | payer MEDICAID ==
[~2016-06-27] VITALS: Ht 157.5 cm; Wt 61.0 kg
[~2016-06-27 22:55] MED LIST changes: +ALBU8.5H3 INH; +PRED20TA PO
[2016-06-28] VITALS (9 sets, daily range): BP systolic 93–127; BP diastolic 52–69; PULSE 80–95; RESP 17–20; Ht 157.5 cm; Wt 61.0 kg
[2016-06-28] MEDS ORDERED: ASPIRIN 325 MG TAB PO STA (00:11)
[2016-06-28] MEDS ORDERED: ALBUTEROL 0.083% (NEB) 2.5 MG/3 ML AMP HHN STA (00:11)
[2016-06-28] MEDS ORDERED: predniSONE 20 MG TAB PO ONE (00:30)
[2016-06-28] MEDS ORDERED: NITROGLYCERIN (SL) 0.4 MG TAB SL PRN (00:30)
[2016-06-28] MEDS ORDERED: IPRATROPIUM (NEB) 0.5 MG/2.5 ML AMP HHN ONE (00:30)
[2016-06-28 00:40] LABS: ADD SCAN DIFF NO
[2016-06-28 00:43] LABS: BASOPHILS % 0.2 % (0.0-2.0); EOSINOPHILS # 0.3 10^3/ul (0.0-0.5); EOSINOPHILS % 2.1 % (0.0-7.0); HEMATOCRIT 41.8 % (37.0-47.0); HEMOGLOBIN 13.3 g/dl (12.0-16.0); LYMPHOCYTES # 3.4 10^3/ul (0.8-2.9); LYMPHOCYTES % 26.6 % (15.0-51.0); MEAN CORPUSCULAR HEMOGLOBIN 26.9 pg (29.0-33.0); MEAN CORPUSCULAR HGB CONC 31.8 g/dl (32.0-37.0); MEAN CORPUSCULAR VOLUME 84.6 fl (82.0-101.0); MEAN PLATELET VOLUME 10.3 fl (7.4-10.4); MONOCYTE # 0.9 10^3/ul (0.3-0.9); MONOCYTES % 6.6 % (0.0-11.0); NEUTROPHIL # 8.2 10^3/ul (1.6-7.5); NEUTROPHILS % 64.1 % (39.0-77.0); PLATELET COUNT 280 10^3/UL (140-415); RED BLOOD COUNT 4.94 10^6/ul (4.20-5.40); RED CELL DISTRIBUTION WIDTH 15.4 % (11.5-14.5); WHITE BLOOD COUNT 12.8 10^3/ul (4.8-10.8)
[2016-06-28 01:00] LABS: CALCIUM 9.2 mg/dl (8.4-10.2); CREATININE 0.7 mg/dl (0.44-1.00); INR 0.92; PARTIAL THROMBOPLASTIN TIME 23.5 Sec (25.0-35.0); POTASSIUM 4.1 mmol/L (3.5-5.1); PROTIME 12.4 Sec (12.2-14.2)
[2016-06-28] MEDS ORDERED: DICLOFENAC SODIUM 37.5 MG/ML VIAL IV STA (01:01)
--- NOTE | 2016-06-28 01:04 | RADRPT ---
PROCEDURE: XR Chest. CLINICAL INDICATION: Chest pain. TECHNIQUE: Single frontal view. COMPARISON: 06/18/2016. FINDINGS: The lungs are clear. The heart size is normal. There is no pleural effusion. There is no pneumothorax. IMPRESSION: 1. Normal chest radiograph. RPTAT: QQ .Humble Aguayo MD, MD Date Time Electronically viewed and signed by .Humble Aguayo MD, MD on 06/28/2016 01:04 .R/
[2016-06-28 01:16] LABS: TROPONIN-I 0.631 ng/ml (0.00-0.12)
[2016-06-28] MEDS ORDERED: HEPARIN 1000 UNITS/ML 10 ML INJ IV STA (01:20)
[2016-06-28] MEDS ORDERED: HEPARIN 25000 UNITS/250 ML 250 ML IV STA (01:20)
[2016-06-28] MEDS ORDERED: DICLOFENAC SODIUM 37.5 MG/ML VIAL IV SCH (01:30)
[2016-06-28] MEDS ORDERED: morphine 4 MG/ML VIAL IV STA (02:09)
[2016-06-28] MEDS ORDERED: ONDANSETRON 4 MG INJ IV PRN ×2 (02:30→04:00)
[2016-06-28] MEDS ORDERED: ACETAMINOPHEN 325 MG TAB PO PRN ×2 (02:30→04:00)
[2016-06-28] MEDS ORDERED: DOCUSATE SODIUM 100 MG CAP PO PRN (04:00)
[2016-06-28] MEDS ORDERED: NACL 0.9% 3 ML SYG IV SCH (04:00)
[2016-06-28] MEDS ORDERED: BISACODYL (EC) 5 MG TAB PO PRN (04:00)
[2016-06-28] MEDS ORDERED: ZOLPIDEM 5 MG TAB PO PRN (04:00)
[2016-06-28] MEDS ORDERED: morphine 2 MG INJ IV PRN (04:00)
--- NOTE | 2016-06-28 04:10 | ERA ---
ER Documentation Chief Complaint Date/Time DATE: 06/28/16 TIME: 04:00 Chief Complaint Chest pain since 0800 HPI 61-year-old female presents with left-sided chest pain described as a pressure- like sensation with radiation of pain to bilateral jaw as well as left arm. She also complains of shortness of breath and has a history of asthma.. Denies nausea. No fever or chills. ROS All systems reviewed and are negative except as per history of present illness. Medications Home Meds Active Scripts Albuterol Sulfate* (Proair HFA*) 8.5 Gm Hfa.aer.ad, 2 PUFF INH Q4, #1 INHALER Prov:CARIE LUCIANO PA-C 06/18/16 Prednisone* (Prednisone*) 20 Mg Tab, 40 MG PO DAILY for 5 Days, TAB Prov:CARIE LUCIANO PA-C 06/18/16 Ferrous Sulfate* (Ferrous Sulfate*) 325 Mg Tabec, 325 MG PO BID for 30 Days, TAB Prov:SUSANNAH RUFFIN 04/27/16 Montelukast Sodium* (Montelukast Sodium*) 10 Mg Tablet, 10 MG PO HS for 30 Days , TAB Prov:SUSANNAH RUFFIN 04/27/16 Salmeterol Xinaf/Fluticasone* (Advair*) 250-50 Diskus Inhaler, 1 INH INH BID for 30 Days Prov:SUSANNAH RUFFIN 04/27/16 Reported Medications Loratadine* (Claritin*) 10 Mg Tablet, 10 MG PO DAILY, TAB 04/12/14 Albuterol Sulfate* (Albuterol Sulfate* HFA) 8.5 Gm Hfa.aer.ad, 2 PUFF IH Q4H Y for WHEEZING AND SOB, EA 04/12/14 Ipratropium [place]* (Atrovent HFA*) 12.9 Gm Aer.w.adap, 2 PUFF IH Q4H Y for SHORTNESS OF BREATH, EA 04/12/14 Allergies Allergies: Coded Allergies: No Known Allergy (Unverified , 06/18/16) PMhx/Soc History of Surgery: Yes (right wrist) Anesthesia Reaction: No Hx Neurological Disorder: Yes (HEADACHES) Hx Respiratory Disorders: Yes (ASTHMA) Hx Cardiac Disorders: No Hx Psychiatric Problems: No Hx Miscellaneous Medical Probl: No Hx Alcohol Use: No Hx Substance Use: No Hx Tobacco Use: No Smoking Status: Never smoker Physical Exam Vitals Vital Signs Date Time Temp Pulse Resp B/P Pulse Ox O2 Delivery O2 Flow Rate FiO2 06/28/16 03:30 85 16 109/55 99 Room Air 06/28/16 02:40 88 16 116/71 98 Room Air 06/28/16 00:21 81 20 99 21 06/27/16 23:25 98.6 87 20 162/85 96 Physical Exam Const: [] Mild distress, appears uncomfortable Head: Atraumatic Eyes: Normal Conjunctiva ENT: Normal External Ears, Nose and Mouth. Neck: Full range of motion..~ No meningismus. Resp: Bilateral expiratory wheezes Cardio: Regular rate and rhythm, no murmurs Abd: Soft, non tender, non distended. Normal bowel sounds Skin: No petechiae or rashes Back: No midline or flank tenderness Ext: No cyanosis, or edema Neur: Awake and alert and oriented 3, no focal deficits Psych: Normal Mood and Affect Result Diagram: 06/28/16 0015 06/28/16 0015 Results 24 hrs Laboratory Tests Test 06/28/16 00:15 White Blood Count 12.810^3/ul Red Blood Count 4.9410^6/ul Hemoglobin 13.3g/dl Hematocrit 41.8% Mean Corpuscular Volume 84.6fl Mean Corpuscular Hemoglobin 26.9pg Mean Corpuscular Hemoglobin Concent 31.8g/dl Red Cell Distribution Width 15.4% Platelet Count 90018^3/UL Mean Platelet Volume 10.3fl Neutrophils % 64.1% Lymphocytes % 26.6% Monocytes % 6.6% Eosinophils % 2.1% Basophils % 0.2% Nucleated Red Blood Cells % 0.0/100WBC Neutrophils # 8.210^3/ul Lymphocytes # 3.410^3/ul Monocytes # 0.910^3/ul Eosinophils # 0.310^3/ul Basophils # 0.010^3/ul Nucleated Red Blood Cells # 0.010^3/ul Prothrombin Time 12.4Sec Prothrombin Time Ratio 1.0 INR International Normalized Ratio 0.92 Activated Partial Thromboplast Time 23.5Sec Sodium Level 135mmol/L Potassium Level 4.1mmol/L Chloride Level 102mmol/L Carbon Dioxide Level 26mmol/L Anion Gap 11 Blood Urea Nitrogen 15mg/dl Creatinine 0.70mg/dl Glucose Level 113mg/dl Calcium Level 9.2mg/dl Troponin I 0.631ng/ml Current Medications Medications (Trade) Dose Ordered Sig/Michael Route PRN Reason Start Time Stop Time Status Last Admin Dose Admin Aspirin (Aspirin) 325 mg ONCE STAT PO 06/28/16 00:11 06/28/16 00:13 DC 06/28/16 00:50 Nitroglycerin (Nitroglycerin (Sl Tab) 0.4 Mg) 1 tab Q5M UP TO 3 DOSES PRN SL CHEST PAIN 06/28/16 00:30 06/28/16 00:53 Albuterol (Proventil 0.083% (Neb)) 10 mg ONCE STAT HHN 06/28/16 00:11 06/28/16 00:13 DC 06/28/16 00:20 Ipratropium [place] (Atrovent 0.02% (Neb)) 1 mg ONCE ONCE HHN 06/28/16 00:30 06/28/16 00:31 DC 06/28/16 00:20 Prednisone (Prednisone) 60 mg ONCE ONCE PO 06/28/16 00:30 06/28/16 00:31 DC 06/28/16 00:50 Diclofenac Sodium (Dyloject) 37.5 mg ONCE STAT IV 06/28/16 01:01 06/28/16 01:02 DC 06/28/16 01:17 Diclofenac Sodium (Dyloject) 37.5 mg ONCE IV 06/28/16 01:30 06/28/16 09:00 Heparin Sodium (Porcine) 4000 unit 4,000 unit ONCE STAT IV 06/28/16 01:20 06/28/16 01:23 DC 06/28/16 01:39 Heparin Sodium (Porcine) (Heparin 15217 Units/250 ml) 250 ml @ 0 mls/hr ONCE STAT IV 06/28/16 01:20 06/28/16 01:23 DC 06/28/16 01:42 Ondansetron HCl (Zofran Inj) 4 mg ER BRIDGE PRN IV NAUSEA AND/OR VOMITING 06/28/16 02:30 06/29/16 02:29 Acetaminophen (Tylenol Tab) 650 mg ER BRIDGE PRN PO MILD PAIN/FEVER 06/28/16 02:30 06/29/16 02:29 Morphine Sulfate (morphine) 4 mg ONCE STAT IV 06/28/16 02:09 06/28/16 02:13 DC 06/28/16 02:20 Procedures/MDM NSTEMI with acute asthma exacerbation. Patient has had pain all day concerning for acute coronary syndrome. She has elevated troponin likely secondary to coronary artery disease and cardiac injury. She was given aspirin initially as well as albuterol and Atrovent breathing treatment with the prednisone tab. She was then heparinized and her troponin returned elevated. She is given a nitro which helped with her chest pain but did not want another one. 2 EKGs were done showing no evolution to STEMI. She was given 4 mg of morphine which did help greatly with her pain. Wheezing was resolved as well. Spoke with Dr. Benson will be admitting the patient to telemetry for further troponin monitoring. EKG interpretation #1: Normal sinus rhythm rate of 90, normal axis, very mild ST depressions in leads III and aVF less than 1 box, also less than [address] elevation in lead aVL. No criteria for STEMI, no concerning intervals. EKG interpretation #2: Normal sinus rhythm rate of 83, normal axis, still with very mild ST depressions in the same leads with no criteria for STEMI. vehicle monitor technician interpretation: Normal sinus rhythm without arrhythmia Chest x-ray interpretation: I see no acute process, no widened mediastinum, pneumothorax, no infiltrates, no pulmonary edema, no fracture Departure Diagnosis: Primary Impression: Non-STEMI (non-ST elevated myocardial infarction) Additional Impression: Asthma exacerbation Condition: Serious AMY HOLDER DO June 28, 2016 04:10
[2016-06-28] MEDS ORDERED: MOME13HF2 INHALATION (04:30)
[2016-06-28] MEDS ORDERED: IPRATROPIUM (HFA) 12.9 GM INHALER INH PRN (04:30)
[2016-06-28] MEDS ORDERED: HEPARIN 1000 UNITS/ML 10 ML INJ IV PRN (04:30)
[2016-06-28] MEDS ORDERED: ALBU18HF INHALATION (04:30)
--- NOTE | 2016-06-28 04:30 | HP ---
Date/Time of Note Date/Time of Note DATE: 06/28/16 TIME: 04:15 Assessment/Plan VTE Prophylaxis VTE Prophylaxis Intervention: heparin (Heparin drip for an STEMI) Lines/Catheters IV [facility] Saline Lock Assessment/Plan Chief Complaint/Hosp Course This is a 61-year-old female being admitted to telemetry floor for: #1 NSTEMI: Patient presented with chest pain on the left side of his radiating down her left arm. First set of troponin was elevated 0.63. Heparin drip was started in the ED. Will continue trending troponins. Check lipid check, order 2D echo and consult cardiology. Will keep patient n.p.o. for possible cardiac procedure in the a.m. Morphine for chest pain. #2 asthma exacerbation: In the setting of #1 be giving her Xopenex every 4 hours. She does have bilateral expiratory wheezes. She was given prednisone in the ED. I will continue prednisone once daily. For a 5 day burst. Cardiology recommended we stop steroids secondary to #1 we will hold. Patient does have a chest x-ray that was clear. She was afebrile. She did have an elevated white blood cell count of 12. At the current time I will trend the white blood cell count. There is no focal signs of infection so I will not start any antibiotics at this time. #3 leukocytosis: Elevated white blood cell count of 12. Patient was on steroids as an outpatient though she is unsure for what reason. Will clarify her steroid usage in the a.m. Her elevated white blood cell count could be caused by that. We will continue to monitor at the current time there is no focal source of infection. #4 Asthma: We will continue patient's home inhalers of Advair and ipratropium. Continue montelukast and loratadine. #5 anemia: Hemoglobin currently 13 with an MCV of 84. Will continue her home ferrous sulfate number follow-up as an outpatient. #6 DVT and GI prophylaxis: Patient is currently on chemical prophylaxis heparin secondary to NSTEMI, Protonix. Further treatment strategy will be implemented as per the clinical course Problems: HPI/ROS Admit Date/Time Admit Date/Time 06/28/2016 Hx of Present Illness Chief complaint: Left-sided chest pain This is a 61-year-old female presents with left-sided chest pain described as a pressure-like sensation with radiation of pain to bilateral jaw as well as left arm. She also complains of shortness of breath and has a history of asthma. Her shortness of breath has improved after receiving nebulizing treatments in the ER. Denies nausea. No fever or chills. Allergies: NKDA Medications: See KAYCE ROS Const: Aspiration Eyes : No pain discharge or redness or change in visual acuity ENT: No pain, sore throat, congestion, congestion, dysphagia or discharge Respiratory: As per HPI Cardiovascular: As per HPI GI : no change in appetite, abdominal pain, nausea, vomiting, diarrhea, constipation, or change in the color his stool Genitourinary: No dysuria, hematuria, flank pain , discharge or CVA tenderness Musculoskeletal: No joint pain, back pain, neck pain, restricted range of motion in neck or joints Skin: No rash, bruising or hives Neuro: No headache, dizziness, syncope, seizure, focal weakness Endocrine: No polyuria, polydipsia, temperature intolerance Psych: No hallucination, depression, anxiety or suicidal ideation PMH/Family/Social Past Medical History asthma Past Surgical History 4 wrist surgeries Family History Significant Family History: no pertinent family hx Social History Alcohol Use: none Smoking Status: Never smoker Drug Use: none Exam/Review of Systems Vital Signs Vitals Vital Signs Date Time Temp Pulse Resp B/P Pulse Ox O2 Delivery O2 Flow Rate FiO2 06/28/16 03:30 85 16 109/55 99 Room Air 06/28/16 00:21 21 06/27/16 23:25 98.6 Exam Exam General: Patient is lying in bed no acute distress at the current time. HEENT: Atraumatic, normocephalic. The pupils are equal, round and reactive. Extraocular motor are intact Neck: Supple with full range of motion. No rigidity or meningismus Chest: Nontender Lungs: Bilateral expiratory wheezes, adequate air movement. Heart: Normal S1-S2, Regular rhythm and rate. No murmur, Abdomen: Soft , nontender, nondistended , bowel sounds are present. No guarding no rebound tenderness , No masses or organomegaly. No costovertebral temporal angle mass Extremities: Normal to inspection, no edema no cyanosis Neurologic: Normal mental status, speech normal, cranial nerves II through XII are intact, motor and sensory are intact, no focal weakness Additional Comments PROCEDURE: XR Chest. CLINICAL INDICATION: Chest pain. TECHNIQUE: Single frontal view. COMPARISON: 06/18/2016. FINDINGS: The lungs are clear. The heart size is normal. There is no pleural effusion. There is no pneumothorax. IMPRESSION: 1. Normal chest radiograph. RPTAT: QQ .Humble Aguayo MD, Date Time Electronically viewed and signed by .Humble Aguayo MD, on 06/28/2016 01:04 Labs Result Diagram: 06/28/16 0015 06/28/16 0015 Medications Medications Current Medications Sodium Chloride (NS) 1,000 ml @ 40 mls/hr Q24H IV ; Start 06/28/16 at 03:58 Ondansetron HCl (Zofran Inj) 4 mg Q6H PRN IV NAUSEA AND/OR VOMITING; Start at 04:00 Acetaminophen (Tylenol Tab) 650 mg Q6H PRN PO PAIN LEVEL 1-3 OR FEVER; Start at 04:00 Morphine Sulfate (morphine) 1 mg Q4H PRN IV PAIN LEVEL 7-10; Start 06/28/16 at 04:00 Zolpidem Tartrate (Ambien) 5 mg QHS PRN PO INSOMNIA; Start 06/28/16 at 04:00 Docusate Sodium (Colace) 100 mg Q12H PRN PO CONSTIPATION; Start 06/28/16 at 04: 00 Bisacodyl (Dulcolax) 5 mg DAILY PRN PO CONSTIPATION; Start 06/28/16 at 04:00 Pantoprazole (Protonix Iv) 40 mg DAILY@06 IV ; Start 06/28/16 at 06:00 Prednisone (Prednisone) 40 mg DAILY PO ; Start 06/28/16 at 09:00; Status MICHAEL WARD June 28, 2016 04:27
[2016-06-28] MEDS: LEVALBUTEROL (NEB) 1.25 MG/0.5 ML AMP HHN SCH ×5 (04:59→20:45)
[2016-06-28] MEDS: PANTOPRAZOLE 40 MG INJ IV SCH (05:54)
[2016-06-28] MEDS: SOD CHLORIDE 0.9% 1,000 ML IV SCH (05:55)
[2016-06-28] MEDS: ASPIRIN (EC) 325 MG TAB PO SCH (10:00)
[2016-06-28] MEDS: predniSONE 20 MG TAB PO SCH (10:15)
[2016-06-28] MEDS: LORATADINE 10 MG TAB PO SCH (10:20)
[2016-06-28] MEDS: SALMETEROL/FLUTICASONE 250/50 INHA INH SCH ×2 (10:20→20:37)
[2016-06-28] MEDS: FERROUS SULFATE (EC) 325 MG TAB PO SCH ×2 (10:21→20:38)
[2016-06-28] MEDS: METOPROLOL 25 MG TAB PO SCH ×2 (10:25→20:40)
[2016-06-28] MEDS: ISOSORBIDE MONONITRATE(SR)30 MG TAB PO SCH (10:25)
[2016-06-28 10:33] LABS: CK-MB 8.3 ng/ml (0.0-2.4)
[2016-06-28 10:38] LABS: TROPONIN-I 0.661 ng/ml (0.00-0.12)
[2016-06-28 10:51] LABS: THYROID STIMULATING HORMONE 2.38 MIU/L (0.465-4.680)
[2016-06-28] MEDS ORDERED: REGADENOSON 0.4 MG/5 ML SYG ONE (11:56)
--- NOTE | 2016-06-28 14:59 | RADRPT ---
PROCEDURE: Nuclear medicine myocardial perfusion scan CLINICAL INDICATION: Chest pain TECHNIQUE: 31.7 mCi of technetium 99m Myoview was administered for the stress study. 11.5 mCi of technetium 99m Myoview was administered for the resting study. The patient was stressed with 0.4 mg of Lexiscan. Images were reviewed in the short axis, vertical long axis, and horizontal long axis v iews. Wall motion was assessed and ejection fraction was calculated as well. Images were reviewed o n a high-resolution PACS workstation. COMPARISON: None available FINDINGS: Left ventricular size is within normal limits. There is moderate soft tissue and bowel attenuation artifact. The stress tomographic images demonstrate mild diminished perfusion along the midline dis carol anterior wall and inferior wall. The resting tomographic images demonstrate a similar pattern. There is no evidence for reversible ischemia. Wall motion is normal. The ejection fraction is marvin culated at 61%. IMPRESSION: 1. Negative myocardial perfusion scan. 2. There is no evidence for reversible ischemia. 3. Normal wall motion with normal ejection fraction of 61%. RPTAT: HMJB .Kenton Lawton MD, MD Date Time Electronically viewed and signed by .Kenton Lawton MD, MD on 06/28/2016 14:59 .B/
[2016-06-28] MEDS ORDERED: CEPASTAT LOZENGE MT PRN (16:00)
--- NOTE | 2016-06-28 16:24 | CONS ---
DATE OF ADMISSION: 06/28/2016 DATE OF CONSULTATION: 06/28/2016 REASON FOR CONSULTATION: Chest pain. HISTORY OF PRESENT ILLNESS: The patient is a 61-year-old female who comes in with jaw pain radiating to the chest and then to the left upper extremity. She complains of shortness of breath, but denies dizziness, syncope, or palpitation. Denies nausea or vomiting. Denies fever, chills, or rigors. PAST MEDICAL HISTORY: Significant for: 1. Asthma. 2. Anemia. 3. No prior history of diabetes mellitus, hypertension, dyslipidemia, or coronary artery disease. SOCIAL HISTORY: No smoking, alcohol, or recreational drug. ALLERGIES: NONE. CURRENT MEDICATIONS: 1. Ferrous sulfate. 2. Advair Diskus. 3. Prednisone. 4. Claritin. 5. Protonix. 6. Singulair. 7. Xopenex. REVIEW OF SYSTEMS: Unremarkable except that mentioned in the HPI. PHYSICAL EXAMINATION: VITAL SIGNS: Temperature is 98.1, heart rate of 76, blood pressure 112/68 mmHg , breathing at 17, and saturating 93%. GENERAL: The patient awake, alert, oriented, in no apparent distress. NECK: No JVD or carotid bruit. CARDIOVASCULAR: Regular rate and rhythm. No murmur, rub, or gallop. CHEST: Clear to auscultation. ABDOMEN: Soft. Bowel sounds are present. There is no organomegaly. EXTREMITIES: No pedal edema. Pedal pulses are felt bilaterally. DIAGNOSTIC DATA: Review of 12-lead EKG shows sinus rhythm with a ventricular rate of 90 beats per minute with normal VT, normal QRS, and normal QT intervals with no acute ST with T-wave inversion in isolated lead aVL. No other acute ST- T wave changes. IMAGING: Chest x-ray shows no congestion or infiltrate. LABORATORY DATA: Sodium 135, potassium 4.1, chloride 100, CO2 of 26, BUN 15, creatinine 0.7. Troponin first set is 0.61. WBC 12.8, hemoglobin 13.3, hematocrit 41.8 with a platelet of 280. ASSESSMENT AND PLAN: A 61-year-old female with: 1. Atypical chest pain. 2. Acute coronary syndrome. 3. Acute exacerbation of asthma. 4. Anemia. Review of 12-lead EKG shows normal sinus rhythm with no acute ST-T wave changes ; however, she has first set of troponin, which is mildly elevated, but hemodynamically stable. RECOMMENDATIONS: 1. Continue heparin. 2. Started on metoprolol. 3. Recommend Lexiscan to rule out for reversible ischemia. 4. Echocardiogram to assess for systolic dysfunction and to rule out for pulmonary hypertension and pericardial disease. 5. Trend troponins, BNP. 6. Started on Imdur. 7. Started on Plavix. 8. Continue GI and DVT prophylaxis. Addendum Patient troponin is trending up inspite of normal stress test, Recommend cardiac cath prior to discharge Dictated By: MAURA ESCALANTE MD SR/NTS Conf#: [id number] DID#: [id number] CC: MICHAEL GUARDADO MD;*End* MTDD
[2016-06-28 16:45] LABS: CK-MB 87.8 ng/ml (0.0-2.4)
[2016-06-28 16:46] LABS: TROPONIN-I 17.3 ng/ml (0.00-0.12)
[2016-06-28] MEDS: MONTELUKAST 10 MG TAB PO SCH (20:37)
[2016-06-28] MEDS: CLOPIDOGREL 75 MG TAB PO SCH (20:38)
[2016-06-29] VITALS (12 sets, daily range): BP systolic 100–112; BP diastolic 54–60; PULSE 70–90; RESP 17–18
[2016-06-29] MEDS ORDERED: HEPARIN 1000 UNITS/ML 10 ML INJ IV ONE
[2016-06-29] MEDS ORDERED: HEPARIN 1000 UNITS/ML 10 ML INJ IV PRN
[2016-06-29] MEDS: LEVALBUTEROL (NEB) 1.25 MG/0.5 ML AMP HHN SCH ×6 (01:00→20:47)
[2016-06-29 01:09] LABS: ADD SCAN DIFF NO
[2016-06-29 01:12] LABS: BASOPHILS % 0.1 % (0.0-2.0); EOSINOPHILS # 0.1 10^3/ul (0.0-0.5); EOSINOPHILS % 0.4 % (0.0-7.0); HEMATOCRIT 35.2 % (37.0-47.0); HEMOGLOBIN 11.5 g/dl (12.0-16.0); LYMPHOCYTES % 21.3 % (15.0-51.0); MEAN CORPUSCULAR HEMOGLOBIN 27.3 pg (29.0-33.0); MEAN CORPUSCULAR HGB CONC 32.7 g/dl (32.0-37.0); MEAN CORPUSCULAR VOLUME 83.4 fl (82.0-101.0); MEAN PLATELET VOLUME 10.6 fl (7.4-10.4); MONOCYTE # 1.3 10^3/ul (0.3-0.9); NEUTROPHIL # 9.8 10^3/ul (1.6-7.5); NEUTROPHILS % 68.8 % (39.0-77.0); PLATELET COUNT 236 10^3/UL (140-415); RED BLOOD COUNT 4.22 10^6/ul (4.20-5.40); RED CELL DISTRIBUTION WIDTH 15.6 % (11.5-14.5); WHITE BLOOD COUNT 14.2 10^3/ul (4.8-10.8)
[2016-06-29] MEDS: HEPARIN 25000 UNITS/250 ML 250 ML IV SCH ×2 (01:21→08:37)
[2016-06-29 01:40] LABS: INR 0.94; PROTIME 12.6 Sec (12.2-14.2)
[2016-06-29] MEDS: SOD CHLORIDE 0.9% 1,000 ML IV SCH (03:58)
[2016-06-29] MEDS: PANTOPRAZOLE 40 MG INJ IV SCH (06:14)
[2016-06-29 07:52] LABS: ADD SCAN DIFF NO
[2016-06-29 08:01] LABS: BASOPHILS % 0.2 % (0.0-2.0); EOSINOPHILS # 0.2 10^3/ul (0.0-0.5); EOSINOPHILS % 1.3 % (0.0-7.0); HEMATOCRIT 37.3 % (37.0-47.0); HEMOGLOBIN 11.7 g/dl (12.0-16.0); LYMPHOCYTES # 3.7 10^3/ul (0.8-2.9); LYMPHOCYTES % 32.7 % (15.0-51.0); MEAN CORPUSCULAR HEMOGLOBIN 26.6 pg (29.0-33.0); MEAN CORPUSCULAR HGB CONC 31.4 g/dl (32.0-37.0); MEAN CORPUSCULAR VOLUME 84.8 fl (82.0-101.0); MEAN PLATELET VOLUME 10.6 fl (7.4-10.4); MONOCYTE # 0.8 10^3/ul (0.3-0.9); NEUTROPHIL # 6.7 10^3/ul (1.6-7.5); NEUTROPHILS % 58.5 % (39.0-77.0); PLATELET COUNT 226 10^3/UL (140-415); RED CELL DISTRIBUTION WIDTH 15.9 % (11.5-14.5); WHITE BLOOD COUNT 11.4 10^3/ul (4.8-10.8)
[2016-06-29 08:27] LABS: ALBUMIN 3.3 g/dl (3.3-4.9); ALBUMIN/GLOBULIN RATIO 1.17; BILIRUBIN,INDIRECT 0.3 mg/dl (0-1.1); BILIRUBIN,TOTAL 0.3 mg/dl (0.2-1.3); CALCIUM 8.7 mg/dl (8.4-10.2); CHOL/HDL RATIO 3.2 RATIO; CREATININE 0.68 mg/dl (0.44-1.00); MAGNESIUM 2.4 mg/dl (1.7-2.5); TOTAL PROTEIN 6.1 g/dl (6.1-8.1)
[2016-06-29 08:54] LABS: THYROID STIMULATING HORMONE 1.07 MIU/L (0.465-4.680)
[2016-06-29] MEDS: METOPROLOL 25 MG TAB PO SCH ×2 (09:00→20:57)
[2016-06-29] MEDS: LORATADINE 10 MG TAB PO SCH (09:00)
[2016-06-29] MEDS: SALMETEROL/FLUTICASONE 250/50 INHA INH SCH ×2 (10:05→20:57)
[2016-06-29] MEDS: FERROUS SULFATE (EC) 325 MG TAB PO SCH ×2 (10:05→20:57)
[2016-06-29] MEDS: CLOPIDOGREL 75 MG TAB PO SCH (10:05)
[2016-06-29] MEDS: ASPIRIN (EC) 325 MG TAB PO SCH (10:05)
[2016-06-29] MEDS: ISOSORBIDE MONONITRATE(SR)30 MG TAB PO SCH (10:06)
[2016-06-29] MEDS: predniSONE 20 MG TAB PO SCH (10:06)
--- NOTE | 2016-06-29 12:01 | PN ---
DATE: 06/29/2016 TIME OF EVALUATION: 11:28. SUBJECTIVE DATA: Complains of dyspnea. Denies any chest pain. OBJECTIVE DATA: VITAL SIGNS: Temperature 98.1, pulse is 70, respiratory rate 70, blood pressure 106/60, oxygen saturation 99% on room air. GENERAL: This is a 61-year-old female lying in bed in no apparent distress. HEENT: Head normocephalic and atraumatic. Eyes: Anicteric sclerae. Conjunctivae clear. ENT: Nasal septum is midline. Oral mucosa is moist. NECK: Supple. No JVD noticed. RESPIRATORY: Bilaterally diminished breath sounds. Bilateral expiratory wheezing. No use of accessory muscles of respiration. CARDIAC: Regular rate and rhythm. S1, S2. ABDOMEN: Soft, nontender and nondistended. Bowel sounds positive in all 4 quadrants. GENITOURINARY: Deferred. EXTREMITIES: No cyanosis, no clubbing, no edema. Peripheral pulses palpable. NEUROLOGIC: The patient is awake, alert and oriented. Cranial nerves are grossly intact. LABORATORY AND DIAGNOSTIC DATA: WBC 11.4, hemoglobin 11.7, hematocrit 37.3, platelet count 226. Sodium 130, potassium 4.0, chloride 110, carbon dioxide 26 , anion gap 6, BUN 40, creatinine 0.68, glucose 97, calcium 8.7. Troponin 19.7 , hemoglobin A1c 6.2. ASSESSMENT AND PLAN: 1. Non-ST elevation myocardial infarction. Etiology unclear. The patient's nuclear medicine cardiac stress test was negative for any reversible ischemia with a normal ejection fraction of 61%. The patient currently on antiplatelet therapy. The patient being followed by Cardiology. We will await further Cardiology input. 2. Asthma exacerbation. The patient will be continued on inhaled bronchodilators. The patient will be maintained on tapering dose of steroids. 3. Normocytic hypochromic anemia. The patient on iron supplements. Will do an iron panel. 4. Diabetes. We will reinforce a low-carbohydrate diet. 5. Fluid, electrolytes and nutrition. Low cholesterol diet. 6. Deep vein thrombosis prophylaxis. The patient on heparin drip. 7. Gastrointestinal prophylaxis. Proton pump inhibitors. PLAN: Continue telemetry monitoring. Continue inhaled bronchodilators. Continue antiplatelet therapy. Await further recommendations from Cardiology. The case was discussed with Dr. Chairez. HUYEN CHAIREZ MD, AM/CHANTAL Conf#: [id number] [facility]#: [id number] MTDD
[2016-06-29] MEDS: METHYLPREDNISOLONE 40 MG INJ IV SCH ×2 (14:39→21:43)
--- NOTE | 2016-06-29 15:01 | CARRPT ---
DATE OF PROCEDURE: 06/28/2016 PROCEDURE PERFORMED: Lexiscan. INDICATIONS: Chest pain. CLINICAL COURSE: The patient is a 61-year-old female with chest pain with a baseline heart rate of 6 4 beats per minute, based on blood pressure 130/67 mm Hg. Peak heart rate 89 beats per minute. Peak blood pressure 113/67 mm Hg. EKG: EKG at baseline showed normal sinus rhythm with a ventricular rate of 64 beats per minute with normal UT, normal QRS and normal QT intervals. Peak heart rate was 89 beats per minute with normal P R, normal QRS and normal QT interval. There was no acute ST-T wave changes compared to baseline. CONCLUSION: Clinically nonischemic EKG. ____ suggest to follow this dictation. Dictated By: MAURA ESCALANTE MD SR/NTS Conf#: [id number] DID#: [id number]
--- NOTE | 2016-06-29 15:37 | RADRPT ---
Echocardiogram Report Patient Name: JAZ REID Gender: Female Date: 1955 Study Date: 29-Jun-2016 Housekeeper And Laundry Assistant: Maria Del Rosario Storm [facility] Location: [id number] Ref. Physician: IGOR ESCALANTE Quality: Good Procedures: Transthoracic echocardiogram examination. Indications: NSTEMI, evaluate EF. Findings Left Ventricle: The left ventricular ejection fraction is visually estimated at 65 %. Conclusions Limited Study to assess LV systolic function. The left ventricular ejection fraction is visually estimated at 65 %. No segmental wall motion abnormality seen. Electronically Signed By: Igor Escalante 29-Jun-2016 15:37:12 -0700 Patient Name: JAZ REID Study Date: 29-Jun-2016 [id number]
[2016-06-29] MEDS: MONTELUKAST 10 MG TAB PO SCH (20:57)
--- NOTE | 2016-06-29 23:00 | CONS ---
Date/Time of Note Date/Time of Note DATE: 06/29/16 TIME: 22:51 Assessment/Plan Assessment/Plan Chief Complaint/Hosp Course IMP: 1.Nstemi-now downtrending cardiac enzymes. ? Negative lexiscan ? myocarditis/ spasm/embolism versus false negative 2.HTN 3.Chest pain 4.Asthma 5.Anemia Recc: -Tele -serial ecg's -Continue IV heparin -Continue BB -Continue asa/plavix -Continue imdur -add low dose statin -Will need LHC with possible PTCA./stent tenatively scheduled for wednesday. Will make npo and see if there is spot for tomorrow AM -Continue steroids/bronchodilators Problems: Consultation Date/Type/Reason Admit Date/Time June 28, 2016 at 02:12 Initial Consult Date 06/28/2016 Type of Consultation: Cardiology Reason for Consultation Nstemi Referring Provider: TYLER KERNS Exam/Review of Systems Vital Signs Vitals Vital Signs Date Time Temp Pulse Resp B/P Pulse Ox O2 Delivery O2 Flow Rate FiO2 06/29/16 21:15 98.8 82 18 108/57 94 06/29/16 20:47 21 06/28/16 03:30 Room Air Intake and Output 06/28/16 06/28/16 06/29/16 15:00 23:00 07:00 Intake Total 1000 ml 553.75 ml Output Total 500 ml Balance 1000 ml 53.75 ml Exam Review of Systems: CONSTITUTIONAL: No fevers, chills. PULMONARY: No sob CARDIOVASCULAR: No chest pain/palpitations GASTROINTESTINAL: No nausea/vomiting. GENITOURINARY: No hematuria/dysuria. MUSCULOSKELETAL: No myagias/arthalgias. PSYCHIATRIC: The patient denies depression. NEUROLOGIC: No weakness Constitutional: alert Head: normocephalic ENMT: mucosa pink and moist Neck: jvd (9 cm water), supple Respiratory: clear to auscultation Cardiovascular: regular rate and rhythm Gastrointestinal: non-tender, soft Musculoskeletal: muscle tone (normal) Extremities: edema (none) Neurological: other (No focal deficits) Results Result Diagram: 06/29/16 0710 06/29/16 0710 Results 24 hrs Laboratory Tests Test 06/29/16 00:40 06/29/16 07:10 06/29/16 12:25 06/29/16 14:55 Troponin I 25.000 *H 19.700 *H 13.300 *H White Blood Count 11.4 H Red Blood Count 4.40 Hemoglobin 11.7 L Hematocrit 37.3 Mean Corpuscular Volume 84.8 Mean Corpuscular Hemoglobin 26.6 L Mean Corpuscular Hemoglobin Concent 31.4 L Red Cell Distribution Width 15.9 H Platelet Count 226 Mean Platelet Volume 10.6 H Neutrophils % 58.5 Lymphocytes % 32.7 Monocytes % 7.0 Eosinophils % 1.3 Basophils % 0.2 Nucleated Red Blood Cells % 0.0 Neutrophils # 6.7 Lymphocytes # 3.7 H Monocytes # 0.8 Eosinophils # 0.2 Basophils # 0.0 Nucleated Red Blood Cells # 0.0 Activated Partial Thromboplast Time 54.5 H 63.4 H Sodium Level 138 Potassium Level 4.0 Chloride Level 110 Carbon Dioxide Level 26 Anion Gap 6 L Blood Urea Nitrogen 14 Creatinine 0.68 Glucose Level 97 Hemoglobin A1c 6.2 H Calcium Level 8.7 Phosphorus Level 3.1 Magnesium Level 2.4 Total Bilirubin 0.3 Direct Bilirubin 0.00 Indirect Bilirubin 0.3 Aspartate Amino Transf (AST/SGOT) 139 H Alanine Aminotransferase (ALT/SGPT) 45 Alkaline Phosphatase 80 Total Protein 6.1 Albumin 3.3 Globulin 2.80 Albumin/Globulin Ratio 1.17 Triglycerides Level 79 Cholesterol Level 167 LDL Cholesterol, Calculated 99 HDL Cholesterol 52 Cholesterol/HDL Ratio 3.2 Thyroid Stimulating Hormone (TSH) 1.070 Free Thyroxine 0.88 Test 06/29/16 19:30 Activated Partial Thromboplast Time 60.8 H Troponin I 8.640 *H Medications Medications Current Medications Sodium Chloride (NS) 1,000 ml @ 40 mls/hr Q24H IV Last administered on 05:55; Admin Dose 40 MLS/HR; Start 06/28/16 at 03:58 Ondansetron HCl (Zofran Inj) 4 mg Q6H PRN IV NAUSEA AND/OR VOMITING; Start at 04:00 Acetaminophen (Tylenol Tab) 650 mg Q6H PRN PO PAIN LEVEL 1-3 OR FEVER; Start at 04:00 Morphine Sulfate (morphine) 1 mg Q4H PRN IV PAIN LEVEL 7-10 Last administered on 06/28/16 05:54; Admin Dose 1 MG; Start 06/28/16 at 04:00 Zolpidem Tartrate (Ambien) 5 mg QHS PRN PO INSOMNIA; Start 06/28/16 at 04:00 Docusate Sodium (Colace) 100 mg Q12H PRN PO CONSTIPATION; Start 06/28/16 at 04: 00 Bisacodyl (Dulcolax) 5 mg DAILY PRN PO CONSTIPATION; Start 06/28/16 at 04:00 Ferrous Sulfate (Ferrous Sulfate (Ec)) 325 mg BID PO Last administered on 20:57; Admin Dose 325 MG; Start 06/28/16 at 09:00 Loratadine (Claritin) 10 mg DAILY PO Last administered on 06/29/16 09:00; Admin Dose 10 MG; Start 06/28/16 at 09:00 Montelukast Sodium (Singulair) 10 mg HS PO Last administered on 06/29/16 20:57 ; Admin Dose 10 MG; Start 06/28/16 at 21:00 Salmeterol Xinafoate/ Fluticasone (Advair 250/50 Diskus) 1 inh BID INH Last administered on 06/29/16 20:57; Admin Dose 1 INH; Start 06/28/16 at 09:00 Isosorbide Mononitrate (Imdur) 30 mg DAILY PO Last administered on 06/29/16 10 :06; Admin Dose 30 MG; Start 06/28/16 at 10:00 Metoprolol Tartrate (Lopressor) 25 mg BID PO Last administered on 06/29/16 20: 57; Admin Dose 25 MG; Start 06/28/16 at 10:00 Aspirin (Ecotrin) 325 mg DAILY PO Last administered on 06/29/16 10:05; Admin Dose 325 MG; Start 06/28/16 at 10:00 Phenol (Cepastat Lozenge) 1 lozenge Q2H PRN MT THROAT PAIN; Start 06/28/16 at 16:00 Clopidogrel Bisulfate (plaVIX) 75 mg DAILY PO Last administered on 06/29/16 10 :05; Admin Dose 75 MG; Start 06/28/16 at 20:00 Methylprednisolone Sodium Succinate (Solu-Medrol) 40 mg Q8 IV Last administered on 06/29/16 21:43; Admin Dose 40 MG; Start 06/29/16 at 14:00 Pantoprazole (Protonix Tab) 40 mg DAILY@06 PO ; Start 06/30/16 at 06:00 ANA ORTEGA June 29, 2016 23:00
[2016-06-30] VITALS (11 sets, daily range): BP systolic 105–122; BP diastolic 58–72; PULSE 63–89; RESP 17–18
[2016-06-30] MEDS: LEVALBUTEROL (NEB) 1.25 MG/0.5 ML AMP HHN SCH ×6 (01:00→22:09)
[2016-06-30] MEDS: HEPARIN 25000 UNITS/250 ML 250 ML IV SCH ×3 (02:17→15:19)
[2016-06-30] MEDS: SOD CHLORIDE 0.9% 1,000 ML IV SCH (03:11)
[2016-06-30] MEDS: PANTOPRAZOLE (EC) 40 MG TAB PO SCH (05:35)
[2016-06-30] MEDS: METHYLPREDNISOLONE 40 MG INJ IV SCH ×2 (05:35→20:30)
[2016-06-30 06:47] LABS: ADD SCAN DIFF NO
[2016-06-30 06:54] LABS: HEMATOCRIT 38.2 % (37.0-47.0); LYMPHOCYTES # 2.2 10^3/ul (0.8-2.9); LYMPHOCYTES % 15.6 % (15.0-51.0); MEAN CORPUSCULAR HEMOGLOBIN 26.4 pg (29.0-33.0); MEAN CORPUSCULAR HGB CONC 31.4 g/dl (32.0-37.0); MEAN CORPUSCULAR VOLUME 84.1 fl (82.0-101.0); MEAN PLATELET VOLUME 10.7 fl (7.4-10.4); MONOCYTE # 0.8 10^3/ul (0.3-0.9); MONOCYTES % 5.6 % (0.0-11.0); NEUTROPHIL # 10.9 10^3/ul (1.6-7.5); PLATELET COUNT 251 10^3/UL (140-415); RED BLOOD COUNT 4.54 10^6/ul (4.20-5.40); RED CELL DISTRIBUTION WIDTH 15.9 % (11.5-14.5)
[2016-06-30 07:17] LABS: MAGNESIUM 2.2 mg/dl (1.7-2.5)
[2016-06-30 07:22] LABS: TROPONIN-I 7.8 ng/ml (0.00-0.12)
[2016-06-30 08:36] LABS: POTASSIUM 3.9 mmol/L (3.5-5.1)
[2016-06-30 08:38] LABS: CREATININE 0.62 mg/dl (0.44-1.00)
[2016-06-30 08:39] LABS: CALCIUM 9.1 mg/dl (8.4-10.2)
[2016-06-30] MEDS: ISOSORBIDE MONONITRATE(SR)30 MG TAB PO SCH (09:00)
--- NOTE | 2016-06-30 09:10 | CONS ---
Date/Time of Note Date/Time of Note DATE: 06/30/16 TIME: 09:07 Assessment/Plan Assessment/Plan Additional Assessment/Plan 1.Nstemi-now downtrending cardiac enzymes. ? Negative lexiscan ? myocarditis/ spasm/embolism versus false negative - need LHC with possible PTCA./stent tenatively scheduled for Wednesday per DR. Martin - NPO now. 2.HTN - well RX now, myrna adjust Rx. 3.Chest pain - LHC planned. 4.Asthma - priary team follows 5.Anemia - no active bleeding noted. Consultation Date/Type/Reason Admit Date/Time June 28, 2016 at 02:12 Initial Consult Date Type of Consultation: Cardiology Referring Provider: TYLER KERNS 24 HR Interval Summary Free Text/Dictation LHC with possible PTCA./stent tenatively scheduled for wednesday with DR. Martin. NO active CP now. ROS: No fever, no chills, no nausea, no vomiting, no diarrhea/constipation No recent weight changes No chest pain, no PND, no orthopnea No dizziness, blurred vision No thirst, no heat or cold intolerance Exam/Review of Systems Vital Signs Vitals Vital Signs Date Time Temp Pulse Resp B/P Pulse Ox O2 Delivery O2 Flow Rate FiO2 06/30/16 08:15 66 06/30/16 07:44 98.5 17 105/61 99 06/29/16 20:47 21 06/28/16 03:30 Room Air Intake and Output 06/29/16 06/29/16 06/30/16 15:00 23:00 07:00 Intake Total 43.5 ml 360.9 ml Balance 43.5 ml 360.9 ml Exam General: WN/WD/NAD, AOx 3 HEENT: Unicetric/atraumatic/EOMI (follow commands) NECK: JVD elevated, no thyromegaly Lymph: no lymphadenopathy HEART: regular with no S3, II/ systolic murmur at apex LUNGS: Coarse sounds ABD: soft, NT, ND, +BS : Intact Neuro: non focal SKIN: chronic changes EXT: trace edema Results Result Diagram: 06/30/16 0550 06/30/16 0550 Results 24 hrs Laboratory Tests Test 06/29/16 12:25 06/29/16 14:55 06/29/16 19:30 06/30/16 05:50 Troponin I 13.300 *H 8.640 *H 7.800 *H Activated Partial Thromboplast Time 63.4 H 60.8 H 101.2 *H White Blood Count 14.0 #H Red Blood Count 4.54 Hemoglobin 12.0 Hematocrit 38.2 Mean Corpuscular Volume 84.1 Mean Corpuscular Hemoglobin 26.4 L Mean Corpuscular Hemoglobin Concent 31.4 L Red Cell Distribution Width 15.9 H Platelet Count 251 Mean Platelet Volume 10.7 H Neutrophils % 78.0 H Lymphocytes % 15.6 Monocytes % 5.6 Eosinophils % 0.0 Basophils % 0.0 Nucleated Red Blood Cells % 0.0 Neutrophils # 10.9 H Lymphocytes # 2.2 Monocytes # 0.8 Eosinophils # 0.0 Basophils # 0.0 Nucleated Red Blood Cells # 0.0 Sodium Level 140 Potassium Level 3.9 Chloride Level 107 Carbon Dioxide Level 23 Anion Gap 14 # Blood Urea Nitrogen 15 Creatinine 0.62 Glucose Level 113 Calcium Level 9.1 Phosphorus Level 4.0 Magnesium Level 2.2 Medications Medications Current Medications Sodium Chloride (NS) 1,000 ml @ 40 mls/hr Q24H IV Last administered on 05:55; Admin Dose 40 MLS/HR; Start 06/28/16 at 03:58 Ondansetron HCl (Zofran Inj) 4 mg Q6H PRN IV NAUSEA AND/OR VOMITING; Start at 04:00 Acetaminophen (Tylenol Tab) 650 mg Q6H PRN PO PAIN LEVEL 1-3 OR FEVER; Start at 04:00 Morphine Sulfate (morphine) 1 mg Q4H PRN IV PAIN LEVEL 7-10 Last administered on 06/28/16 05:54; Admin Dose 1 MG; Start 06/28/16 at 04:00 Zolpidem Tartrate (Ambien) 5 mg QHS PRN PO INSOMNIA Last administered on 23:39; Admin Dose 5 MG; Start 06/28/16 at 04:00 Docusate Sodium (Colace) 100 mg Q12H PRN PO CONSTIPATION; Start 06/28/16 at 04: 00 Bisacodyl (Dulcolax) 5 mg DAILY PRN PO CONSTIPATION; Start 06/28/16 at 04:00 Ferrous Sulfate (Ferrous Sulfate (Ec)) 325 mg BID PO Last administered on 20:57; Admin Dose 325 MG; Start 06/28/16 at 09:00 Loratadine (Claritin) 10 mg DAILY PO Last administered on 06/29/16 09:00; Admin Dose 10 MG; Start 06/28/16 at 09:00 Montelukast Sodium (Singulair) 10 mg HS PO Last administered on 06/29/16 20:57 ; Admin Dose 10 MG; Start 06/28/16 at 21:00 Salmeterol Xinafoate/ Fluticasone (Advair 250/50 Diskus) 1 inh BID INH Last administered on 06/29/16 20:57; Admin Dose 1 INH; Start 06/28/16 at 09:00 Isosorbide Mononitrate (Imdur) 30 mg DAILY PO Last administered on 06/29/16 10 :06; Admin Dose 30 MG; Start 06/28/16 at 10:00 Metoprolol Tartrate (Lopressor) 25 mg BID PO Last administered on 06/29/16 20: 57; Admin Dose 25 MG; Start 06/28/16 at 10:00 Aspirin (Ecotrin) 325 mg DAILY PO Last administered on 06/29/16 10:05; Admin Dose 325 MG; Start 06/28/16 at 10:00 Phenol (Cepastat Lozenge) 1 lozenge Q2H PRN MT THROAT PAIN; Start 06/28/16 at 16:00 Clopidogrel Bisulfate (plaVIX) 75 mg DAILY PO Last administered on 06/29/16 10 :05; Admin Dose 75 MG; Start 06/28/16 at 20:00 Methylprednisolone Sodium Succinate (Solu-Medrol) 40 mg Q8 IV Last administered on 06/30/16 05:35; Admin Dose 40 MG; Start 06/29/16 at 14:00 Pantoprazole (Protonix Tab) 40 mg DAILY@06 PO ; Start 06/30/16 at 06:00 KEVIN GUERRA MD June 30, 2016 09:09
[2016-06-30] MEDS: FERROUS SULFATE (EC) 325 MG TAB PO SCH ×2 (09:32→20:29)
[2016-06-30] MEDS: ASPIRIN (EC) 325 MG TAB PO SCH (09:32)
[2016-06-30] MEDS: SALMETEROL/FLUTICASONE 250/50 INHA INH SCH ×2 (09:32→20:30)
[2016-06-30] MEDS: METOPROLOL 25 MG TAB PO SCH ×2 (09:33→20:30)
[2016-06-30] MEDS: CLOPIDOGREL 75 MG TAB PO SCH (09:33)
[2016-06-30] MEDS: LORATADINE 10 MG TAB PO SCH (09:33)
--- NOTE | 2016-06-30 12:25 | PN ---
Date/Time of Note Date/Time of Note DATE: 06/30/16 TIME: 12:24 Assessment/Plan VTE Prophylaxis VTE Prophylaxis Intervention: heparin Lines/Catheters IV [facility] Peripheral IV Urinary Cath still in place: No Assessment/Plan Chief Complaint/Hosp Course 1. Non-ST elevation myocardial infarction. Etiology unclear. The patient's nuclear medicine cardiac stress test was negative for any reversible ischemia with a normal ejection fraction of 61%. 2D echocardiogram showing preserved left ventricular ejection fraction. Plan for left heart catheterization as per cardiology. 2. Asthma exacerbation. The patient will be continued on inhaled bronchodilators. The patient will be maintained on tapering dose of steroids. 3. Normocytic hypochromic anemia. The patient on iron supplements. 4. Pre-diabetes. Hemoglobin A1c 6.2. 5. Fluid, electrolytes and nutrition. Low cholesterol diet. 6. Deep vein thrombosis prophylaxis. The patient is on heparin drip. 7. Gastrointestinal prophylaxis. Proton pump inhibitors. PLAN: Continue telemetry monitoring. Continue inhaled bronchodilators. Continue antiplatelet therapy. Await left heart catheterization. The case was discussed with Dr. Noguera. Problems: Subjective 24 Hr Interval Summary Free Text/Dictation Denies any chest pain. Exam/Review of Systems Vital Signs Vitals Vital Signs Date Time Temp Pulse Resp B/P Pulse Ox O2 Delivery O2 Flow Rate FiO2 06/30/16 11:48 98.3 63 17 122/72 97 06/29/16 20:47 21 06/28/16 03:30 Room Air Intake and Output 06/29/16 06/29/16 06/30/16 15:00 23:00 07:00 Intake Total 43.5 ml 360.9 ml Balance 43.5 ml 360.9 ml Exam GENERAL: This is a 61-year-old female lying in bed in no apparent distress. HEENT: Head normocephalic and atraumatic. Eyes: Anicteric sclerae. Conjunctivae clear. ENT: Nasal septum is midline. Oral mucosa is moist. NECK: Supple. No JVD noticed. RESPIRATORY: Bilaterally diminished breath sounds. Bilateral expiratory wheezing. No use of accessory muscles of respiration. CARDIAC: Regular rate and rhythm. S1, S2. ABDOMEN: Soft, nontender and nondistended. Bowel sounds positive in all 4 quadrants. GENITOURINARY: Deferred. EXTREMITIES: No cyanosis, no clubbing, no edema. Peripheral pulses palpable. NEUROLOGIC: The patient is awake, alert and oriented. Cranial nerves are grossly intact. Results Result Diagram: 06/30/16 0550 06/30/16 0550 Results 24 hrs Laboratory Tests Test 06/29/16 12:25 06/29/16 14:55 06/29/16 19:30 06/30/16 05:50 Troponin I 13.300 *H 8.640 *H 7.800 *H Activated Partial Thromboplast Time 63.4 H 60.8 H 101.2 *H White Blood Count 14.0 #H Red Blood Count 4.54 Hemoglobin 12.0 Hematocrit 38.2 Mean Corpuscular Volume 84.1 Mean Corpuscular Hemoglobin 26.4 L Mean Corpuscular Hemoglobin Concent 31.4 L Red Cell Distribution Width 15.9 H Platelet Count 251 Mean Platelet Volume 10.7 H Neutrophils % 78.0 H Lymphocytes % 15.6 Monocytes % 5.6 Eosinophils % 0.0 Basophils % 0.0 Nucleated Red Blood Cells % 0.0 Neutrophils # 10.9 H Lymphocytes # 2.2 Monocytes # 0.8 Eosinophils # 0.0 Basophils # 0.0 Nucleated Red Blood Cells # 0.0 Sodium Level 140 Potassium Level 3.9 Chloride Level 107 Carbon Dioxide Level 23 Anion Gap 14 # Blood Urea Nitrogen 15 Creatinine 0.62 Glucose Level 113 Calcium Level 9.1 Phosphorus Level 4.0 Magnesium Level 2.2 Medications Medications Current Medications Sodium Chloride (NS) 1,000 ml @ 40 mls/hr Q24H IV Last administered on 05:55; Admin Dose 40 MLS/HR; Start 06/28/16 at 03:58 Ondansetron HCl (Zofran Inj) 4 mg Q6H PRN IV NAUSEA AND/OR VOMITING; Start at 04:00 Acetaminophen (Tylenol Tab) 650 mg Q6H PRN PO PAIN LEVEL 1-3 OR FEVER; Start at 04:00 Morphine Sulfate (morphine) 1 mg Q4H PRN IV PAIN LEVEL 7-10 Last administered on 06/28/16 05:54; Admin Dose 1 MG; Start 06/28/16 at 04:00 Zolpidem Tartrate (Ambien) 5 mg QHS PRN PO INSOMNIA Last administered on 23:39; Admin Dose 5 MG; Start 06/28/16 at 04:00 Docusate Sodium (Colace) 100 mg Q12H PRN PO CONSTIPATION; Start 06/28/16 at 04: 00 Bisacodyl (Dulcolax) 5 mg DAILY PRN PO CONSTIPATION; Start 06/28/16 at 04:00 Ferrous Sulfate (Ferrous Sulfate (Ec)) 325 mg BID PO Last administered on 09:32; Admin Dose 325 MG; Start 06/28/16 at 09:00 Loratadine (Claritin) 10 mg DAILY PO Last administered on 06/30/16 09:33; Admin Dose 10 MG; Start 06/28/16 at 09:00 Montelukast Sodium (Singulair) 10 mg HS PO Last administered on 06/29/16 20:57 ; Admin Dose 10 MG; Start 06/28/16 at 21:00 Salmeterol Xinafoate/ Fluticasone (Advair 250/50 Diskus) 1 inh BID INH Last administered on 06/30/16 09:32; Admin Dose 1 INH; Start 06/28/16 at 09:00 Isosorbide Mononitrate (Imdur) 30 mg DAILY PO Last administered on 06/29/16 10 :06; Admin Dose 30 MG; Start 06/28/16 at 10:00 Metoprolol Tartrate (Lopressor) 25 mg BID PO Last administered on 06/30/16 09: 33; Admin Dose 25 MG; Start 06/28/16 at 10:00 Aspirin (Ecotrin) 325 mg DAILY PO Last administered on 06/30/16 09:32; Admin Dose 325 MG; Start 06/28/16 at 10:00 Phenol (Cepastat Lozenge) 1 lozenge Q2H PRN MT THROAT PAIN; Start 06/28/16 at 16:00 Clopidogrel Bisulfate (plaVIX) 75 mg DAILY PO Last administered on 06/30/16 09 :33; Admin Dose 75 MG; Start 06/28/16 at 20:00 Methylprednisolone Sodium Succinate (Solu-Medrol) 40 mg Q8 IV Last administered on 06/30/16 05:35; Admin Dose 40 MG; Start 06/29/16 at 14:00 Pantoprazole (Protonix Tab) 40 mg DAILY@06 PO ; Start 06/30/16 at 06:00 HUYEN DAVIS NP June 30, 2016 12:25
--- NOTE | 2016-06-30 14:18 | RADRPT ---
Vent Rate: 69 bpm RR Interval: 0 msec MI Interval: 136 msec QRS Duration: 78 msec QT Interval: 410 msec QTC Interval: 439 msec P-R-T [place]: 75 - 73 - 78 degrees Normal sinus rhythm Normal ECG Electronically Signed By: Abelino Eric [id number]
[2016-06-30] MEDS: MONTELUKAST 10 MG TAB PO SCH (20:29)
[2016-07-01] VITALS (19 sets, daily range): BP systolic 94–124; BP diastolic 51–108; PULSE 66–97; RESP 16–25
[2016-07-01] MEDS: LEVALBUTEROL (NEB) 1.25 MG/0.5 ML AMP HHN SCH ×8 (01:00→20:40)
[2016-07-01] MEDS: SOD CHLORIDE 0.9% 1,000 ML IV SCH (03:46)
[2016-07-01] MEDS: PANTOPRAZOLE (EC) 40 MG TAB PO SCH (04:25)
[2016-07-01] MEDS ORDERED: IODIXANOL LOCM 100 ML BTL ONE (07:18)
[2016-07-01] MEDS ORDERED: LIDOCAINE 1% (MDV) 20 ML INJ ONE (07:18)
[2016-07-01] MEDS ORDERED: VERAPAMIL 5 MG INJ ONE (07:18)
[2016-07-01] MEDS ORDERED: HEPARIN 1000 UNITS/ML 10 ML INJ ONE (07:18)
[2016-07-01] MEDS ORDERED: MIDAZOLAM 1 MG/ML 2 ML INJ ONE (07:18)
[2016-07-01] MEDS ORDERED: NITROGLYCERIN (IC) 100 MCG/ML INJ ONE (07:19)
[2016-07-01] MEDS ORDERED: SOD CHLORIDE 0.9% 500 ML ONE (07:19)
[2016-07-01] MEDS ORDERED: FENTAnyl 50 MCG/ML VIAL ONE (07:19)
[2016-07-01 07:35] LABS: ADD SCAN DIFF NO
[2016-07-01 07:45] LABS: BASOPHILS % 0.2 % (0.0-2.0); EOSINOPHILS % 0.1 % (0.0-7.0); HEMATOCRIT 40.8 % (37.0-47.0); HEMOGLOBIN 12.7 g/dl (12.0-16.0); LYMPHOCYTES # 2.9 10^3/ul (0.8-2.9); LYMPHOCYTES % 27.4 % (15.0-51.0); MEAN CORPUSCULAR HEMOGLOBIN 26.5 pg (29.0-33.0); MEAN CORPUSCULAR HGB CONC 31.1 g/dl (32.0-37.0); MEAN PLATELET VOLUME 10.7 fl (7.4-10.4); MONOCYTE # 0.5 10^3/ul (0.3-0.9); NEUTROPHIL # 7.2 10^3/ul (1.6-7.5); NEUTROPHILS % 66.8 % (39.0-77.0); PLATELET COUNT 255 10^3/UL (140-415); RED CELL DISTRIBUTION WIDTH 15.8 % (11.5-14.5); WHITE BLOOD COUNT 10.7 10^3/ul (4.8-10.8)
[2016-07-01 08:06] LABS: CALCIUM 9.4 mg/dl (8.4-10.2); CREATININE 0.72 mg/dl (0.44-1.00); POTASSIUM 4.4 mmol/L (3.5-5.1)
[2016-07-01 08:33] LABS: MAGNESIUM 2.2 mg/dl (1.7-2.5)
[2016-07-01] MEDS ORDERED: niCARdipine 25 MG INJ ONE (08:47)
[2016-07-01 08:51] LABS: TROPONIN-I 5.46 ng/ml (0.00-0.12)
[2016-07-01] MEDS ORDERED: CLOPIDOGREL 300 MG TAB ONE (08:55)
[2016-07-01] MEDS ORDERED: ASPIRIN 325 MG TAB ONE (08:55)
[2016-07-01] MEDS: LORATADINE 10 MG TAB PO SCH (09:00)
[2016-07-01] MEDS: FERROUS SULFATE (EC) 325 MG TAB PO SCH ×2 (09:00→21:01)
[2016-07-01] MEDS: ISOSORBIDE MONONITRATE(SR)30 MG TAB PO SCH (09:00)
[2016-07-01] MEDS: CLOPIDOGREL 75 MG TAB PO SCH (09:00)
[2016-07-01] MEDS: ASPIRIN (EC) 325 MG TAB PO SCH (09:00)
[2016-07-01] MEDS: SALMETEROL/FLUTICASONE 250/50 INHA INH SCH ×2 (09:00→21:01)
[2016-07-01] MEDS ORDERED: SOD CHLORIDE 0.9% 1,000 ML IV SCH (09:06)
--- NOTE | 2016-07-01 09:06 | CONS ---
Date/Time of Note Date/Time of Note DATE: 07/01/16 TIME: 09:04 Assessment/Plan Assessment/Plan Chief Complaint/Hosp Course IMP: 1.Nstemi-now downtrending cardiac enzymes. ? Negative lexiscan ? Now s/p LHC with PTCA/stent x 1 DARIN to LCX for 90% stenosis 2.HTN 3.Chest pain-secondary to nstemi 4.Asthma 5.Anemia Recc: -Tele -serial ecg's -Continue BB -Continue asa/plavix -Continue imdur -add low dose statin -Continue steroids/bronchodilators -D/C IV heparin Problems: Consultation Date/Type/Reason Admit Date/Time June 28, 2016 at 02:12 Initial Consult Date 06/28/2016 Type of Consultation: Cardiology Reason for Consultation Nstemi Referring Provider: TYLER KERNS Exam/Review of Systems Vital Signs Vitals Vital Signs Date Time Temp Pulse Resp B/P Pulse Ox O2 Delivery O2 Flow Rate FiO2 07/01/16 07:40 98.7 52 18 102/55 97 06/30/16 22:22 21 06/28/16 03:30 Room Air Intake and Output 06/30/16 06/30/16 07/01/16 15:00 23:00 07:00 Intake Total 875 ml Balance 875 ml Exam Review of Systems: CONSTITUTIONAL: No fevers, chills. PULMONARY: No sob CARDIOVASCULAR: Intermittent chest pain GASTROINTESTINAL: No nausea/vomiting. GENITOURINARY: No hematuria/dysuria. MUSCULOSKELETAL: No myagias/arthalgias. PSYCHIATRIC: The patient denies depression. NEUROLOGIC: No weakness Constitutional: alert, oriented Psych: no complaints Head: normocephalic ENMT: mucosa pink and moist Neck: jvd (8 cm water), supple Respiratory: clear to auscultation Cardiovascular: regular rate and rhythm Gastrointestinal: non-tender, soft Musculoskeletal: muscle tone (normal) Extremities: edema (none) Neurological: other (No focal deficits) Results Result Diagram: 07/01/16 0710 07/01/16 0710 Results 24 hrs Laboratory Tests Test 06/30/16 13:45 06/30/16 21:10 07/01/16 07:00 07/01/16 07:10 Activated Partial Thromboplast Time 74.3 *H 60.2 H Phosphorus Level 5.0 H Magnesium Level 2.2 Troponin I 5.460 *H White Blood Count 10.7 # Red Blood Count 4.80 Hemoglobin 12.7 Hematocrit 40.8 Mean Corpuscular Volume 85.0 Mean Corpuscular Hemoglobin 26.5 L Mean Corpuscular Hemoglobin Concent 31.1 L Red Cell Distribution Width 15.8 H Platelet Count 255 Mean Platelet Volume 10.7 H Neutrophils % 66.8 Lymphocytes % 27.4 Monocytes % 5.0 Eosinophils % 0.1 Basophils % 0.2 Nucleated Red Blood Cells % 0.0 Neutrophils # 7.2 Lymphocytes # 2.9 Monocytes # 0.5 Eosinophils # 0.0 Basophils # 0.0 Nucleated Red Blood Cells # 0.0 Sodium Level 140 Potassium Level 4.4 Chloride Level 108 Carbon Dioxide Level 27 Anion Gap 9 # Blood Urea Nitrogen 16 Creatinine 0.72 Glucose Level 96 Calcium Level 9.4 Medications Medications Current Medications Sodium Chloride (NS) 1,000 ml @ 40 mls/hr Q24H IV Last administered on 05:55; Admin Dose 40 MLS/HR; Start 06/28/16 at 03:58 Ondansetron HCl (Zofran Inj) 4 mg Q6H PRN IV NAUSEA AND/OR VOMITING; Start at 04:00 Acetaminophen (Tylenol Tab) 650 mg Q6H PRN PO PAIN LEVEL 1-3 OR FEVER; Start at 04:00 Morphine Sulfate (morphine) 1 mg Q4H PRN IV PAIN LEVEL 7-10 Last administered on 06/28/16 05:54; Admin Dose 1 MG; Start 06/28/16 at 04:00 Zolpidem Tartrate (Ambien) 5 mg QHS PRN PO INSOMNIA Last administered on 23:39; Admin Dose 5 MG; Start 06/28/16 at 04:00 Docusate Sodium (Colace) 100 mg Q12H PRN PO CONSTIPATION; Start 06/28/16 at 04: 00 Bisacodyl (Dulcolax) 5 mg DAILY PRN PO CONSTIPATION; Start 06/28/16 at 04:00 Ferrous Sulfate (Ferrous Sulfate (Ec)) 325 mg BID PO Last administered on 20:29; Admin Dose 325 MG; Start 06/28/16 at 09:00 Loratadine (Claritin) 10 mg DAILY PO Last administered on 06/30/16 09:33; Admin Dose 10 MG; Start 06/28/16 at 09:00 Montelukast Sodium (Singulair) 10 mg HS PO Last administered on 06/30/16 20:29 ; Admin Dose 10 MG; Start 06/28/16 at 21:00 Salmeterol Xinafoate/ Fluticasone (Advair 250/50 Diskus) 1 inh BID INH Last administered on 06/30/16 20:30; Admin Dose 1 INH; Start 06/28/16 at 09:00 Isosorbide Mononitrate (Imdur) 30 mg DAILY PO Last administered on 06/29/16 10 :06; Admin Dose 30 MG; Start 06/28/16 at 10:00 Metoprolol Tartrate (Lopressor) 25 mg BID PO Last administered on 06/30/16 20: 30; Admin Dose 25 MG; Start 06/28/16 at 10:00 Aspirin (Ecotrin) 325 mg DAILY PO Last administered on 06/30/16 09:32; Admin Dose 325 MG; Start 06/28/16 at 10:00 Phenol (Cepastat Lozenge) 1 lozenge Q2H PRN MT THROAT PAIN; Start 06/28/16 at 16:00 Clopidogrel Bisulfate (plaVIX) 75 mg DAILY PO Last administered on 06/30/16 09 :33; Admin Dose 75 MG; Start 06/28/16 at 20:00 Pantoprazole (Protonix Tab) 40 mg DAILY@06 PO ; Start 06/30/16 at 06:00 Methylprednisolone Sodium Succinate (Solu-Medrol) 40 mg Q12 IV Last administered on 06/30/16 20:30; Admin Dose 40 MG; Start 06/30/16 at 21:00 ANA ORTEGA July 01, 2016 09:06
[2016-07-01] MEDS ORDERED: ZOLPIDEM 5 MG TAB PO PRN (09:30)
[2016-07-01] MEDS ORDERED: ONDANSETRON 4 MG INJ IV PRN (09:30)
[2016-07-01] MEDS ORDERED: morphine 2 MG INJ IV PRN (09:30)
[2016-07-01] MEDS ORDERED: AL HYDROX/MG HYDROX/SIMETH 30 ML CUP PO PRN (09:30)
[2016-07-01] MEDS ORDERED: ACETAMINOPHEN 325 MG TAB PO PRN (09:30)
[2016-07-01] MEDS ORDERED: OXYCODONE/ACETAMINOPHEN (5/325) TAB PO PRN (09:30)
[2016-07-01] MEDS: METHYLPREDNISOLONE 40 MG INJ IV SCH ×2 (09:59→21:01)
[2016-07-01] MEDS: METOPROLOL 25 MG TAB PO SCH ×2 (10:23→21:01)
[2016-07-01] MEDS ORDERED: PANT40TA4 PO (11:36)
[2016-07-01] MEDS ORDERED: CLOP75TA28 PO (11:36)
[2016-07-01] MEDS ORDERED: METO-448 PO (11:36)
[2016-07-01] MEDS ORDERED: ATOR80TA75 PO (11:36)
[2016-07-01] MEDS ORDERED: PRED10TA PO (11:36)
[2016-07-01] MEDS ORDERED: ISOS30TA5 PO (11:36)
--- NOTE | 2016-07-01 11:37 | PDOCDIS ---
Discharge Instructions DIAGNOSIS Discharge Diagnosis: Chest pain CONDITION Patient Condition: Stable HOME CARE INSTRUCTIONS: Diet Instructions: Low Fat /Cholesterol TYLER KERNS July 01, 2016 11:37
--- NOTE | 2016-07-01 13:25 | RADRPT ---
Vent Rate: 69 bpm RR Interval: 0 msec SD Interval: 138 msec QRS Duration: 80 msec QT Interval: 410 msec QTC Interval: 439 msec P-R-T [place]: 68 - 64 - 79 degrees Normal sinus rhythm Normal ECG Electronically Signed By: Abelino Eric [id number]
--- NOTE | 2016-07-01 13:42 | CARRPT ---
DATE OF PROCEDURE: 07/01/2016 TYPE OF PROCEDURE: 1. Left heart catheterization. 2. Coronary angiography. 3. Measurement of left ventricular end diastolic pressure. 4. Percutaneous transluminal coronary angioplasty with placement of Synergy drug-eluting stent x1 t o mid circ 2.5 x 16 mm. 5. Moderate conscious sedation x60 minutes TYPE OF ANESTHESIA: Conscious and local. INDICATION: Non-ST elevation myocardial infarction. BRIEF HISTORY AND HOSPITAL COURSE: Ms. Dozier is a 61-year-old female with a history of hypertens ion who initially presented with complaints of substernal chest pain. The patient subsequently rule d in for dha-CF-xpxyadhxd myocardial infarction and underwent a cardiac stress test which had not re vealed ischemia, but then had a troponin that rosamaria to greater than 29. Given these findings with on going chest pain, patient was brought to cardiac catheterization lab in order to assess for the poss ibility of significant obstructive coronary artery disease lending to symptoms of chest pain and sub sequent non-ST elevation myocardial infarction. PROCEDURE: After informed consent was obtained, the patient was brought to the [facility] cardiac catheterization lab where her left radial areas were prepped and draped in usual st erile fashion. Lidocaine 2% was infiltrated into the left radial area achieve adequate anesthesia. With modified Seldinger technique, the left radial artery was cannulated and a 6-Rwandan arterial sh eath was placed. A 6-Rwand[place] JL3.5 catheter was used to cannulate the left main coronary ostium with contrast injection. Multiple views of the left coronary arterial system were obtained. JL3.5 was removed over a guidewire and a JR4 was used to cannulate the right coronary arterial ostium. With c ontrast injection, multiple views of the right coronary arterial system obtained. JR4 was removed o valerie a guidewire and a 6-Rwandan JR4 was used to cannulate to look the right coronary arterial ostium. With contrast injection, multiple views of the right coronary arterial system obtained. JR4 was rem nayla over a guidewire and a 6-Rwandan pigtail was passed down the ascending aorta and central into th e left ventricle. Left ventricular end-diastolic pressure was measured, pulled back across the aort ic valve to assess for significant gradient, which there was not and removed. Subsequently, at this time, given the findings of significant obstructive lesion in the patient's circumflex, we moved di rectly into interventional procedure. The patient was given additional 3000 units of heparin in ord er to achieve an adequate preinterventional ACT prior to initiation of this interventional procedure . After checking the ACT, a Q3.5 guide was used to cannulate the left main coronary ostium. A 0.01 4 balance middleweight guidewire was passed distal into the circumflex. A 2.5 x 12 mm balloon was u sed to predilate the lesion up to 12 to 14 atmospheres. The balloon was removed and the lesion was stented with a 2.5 x 16 mm drug-eluting stent deployed at 16 atmospheres, post-dilated with the sten t delivery system up to 18 atmospheres. Subsequently, at this time, the stent delivery system was r emoved and a noncompliant 3.0 x 8 mm balloon was used to further postdilate the stent up to 16 atmos pheres. The balloon was removed. Followup angiogram was obtained revealing excellent result, deplo yment of stent, had KARIN 2 flow throughout the vessel. Subsequently, at this time, the patien t was given a total of 400 mcg of nicardipine and thereafter on angiographic imaging the flow was no w KARIN 3. Subsequently, at this time, the interventional guide and guidewire were removed. The patient's donato th was removed. TR band was applied. Completed procedure. The patient received 300 mg of p.o. [place] vix and 325 mg of aspirin. There were no known complications. FINDINGS: 1. Coronary angiography: Left main 4 mm ostial 20% stenosis. Circumflex proximally is a 2.5 mm ve ssel and has an ostial 20% stenosis. In the mid portion the circumflex there is a 90% stenosis. Th e remainder of the circumflex thereafter is free of focal stenoses and a distal branching obtuse mar ginal sub 2 mm vessel with no significant focal stenoses. LAD proximally is a 3.0 mm vessel and in the mid portion just as it takes a bend, has a 20% stenosis. The remainder of the LAD thereafter is free of significant focal stenoses. There is a proximal branching diagonal sub 2 mm vessel with no significant focal stenoses. The right coronary artery proximally is a 3.5 mm vessel and has a 20% stenosis shortly after its takeoff has a 20% stenosis, mid portion dominant vessel and gives off a 3 mm posterolateral branch and a 3 mm PDA with no significant focal stenoses. 2. PTCA and stent placement: Prior to PTCA and stent placement, the patient had a 90% stenosis. P ost-PTCA and stent placement, the patient had no residual stenosis, KARIN 3 flow throughout the vesse l and no signs of complication including perforation or dissection. TOTAL FLUOROSCOPY TIME: 7.1 minutes. TOTAL CONTRAST: 80 mL. IMPRESSION: 1. Single vessel obstructive coronary artery disease involving a high grade mid circumflex lesion, status post successful percutaneous transluminal coronary angioplasty and stent placement x1 with dr ug-eluting stent 2.5 x 6 mm. 2. Normal left heart filling pressures of 8 to 10. 3. No significant aortic stenosis by gradient. ADDENDUM: Left ventriculogram measured the left ventricular end diastole pressure revealed LVEDP of 8 to 10 with no significant aortic stenosis by gradient. Dictated By: ANA SHARMA/CHANTAL Conf#: [id number] DID#: [id number]
--- NOTE | 2016-07-01 15:55 | PN ---
Date/Time of Note Date/Time of Note DATE: 07/01/16 TIME: 15:52 Assessment/Plan VTE Prophylaxis VTE Prophylaxis Intervention: SCD's Lines/Catheters IV [facility]ter [facility]from [facility]): Peripheral IV Urinary Cath still in place: No Assessment/Plan Assessment/Plan 1. Non-ST elevation myocardial infarction. LHC showed single vesel obstructive CAD without . s/p successful stenting 2. Asthma exacerbation. The patient will be continued on inhaled bronchodilators. The patient will be maintained on tapering dose of steroids. 3. Normocytic hypochromic anemia. The patient on iron supplements. 4. Pre-diabetes. Hemoglobin A1c 6.2. 5. Fluid, electrolytes and nutrition. Low cholesterol diet. 6. Deep vein thrombosis prophylaxis. SCDS 7. Gastrointestinal prophylaxis. Proton pump inhibitors. PLAN: continue ICU monitoring , Dispo per cardiology. Subjective 24 Hr Interval Summary Free Text/Dictation Patient seen and examined. s/p LHC stable with no new complaints Exam/Review of Systems Vital Signs Vitals Vital Signs Date Time Temp Pulse Resp B/P Pulse Ox O2 Delivery O2 Flow Rate FiO2 07/01/16 15:00 85 18 115/65 96 Room Air 07/01/16 13:17 21 07/01/16 12:00 98.0 Intake and Output 06/30/16 06/30/16 07/01/16 15:00 23:00 07:00 Intake Total 875 ml Balance 875 ml Exam GENERAL: This is a 61-year-old female lying in bed HEENT: Head normocephalic and atraumatic. Eyes: Anicteric sclerae. Conjunctivae clear. ENT: Nasal septum is midline. Oral mucosa is moist. NECK: Supple. No JVD noticed. RESPIRATORY: Bilaterally diminished breath sounds. CARDIAC: Regular rate and rhythm. S1, S2. ABDOMEN: Soft, nontender and nondistended. Bowel sounds positive in all 4 quadrants. GENITOURINARY: Deferred. EXTREMITIES: No cyanosis, no clubbing, no edema. Peripheral pulses palpable. NEUROLOGIC: The patient is awake, alert and oriented. Cranial nerves are grossly intact. Results Result Diagram: 07/01/16 0710 07/01/16 0710 Results 24 hrs Laboratory Tests Test 06/30/16 21:10 07/01/16 07:00 07/01/16 07:10 Activated Partial Thromboplast Time 60.2 H Phosphorus Level 5.0 H Magnesium Level 2.2 Troponin I 5.460 *H White Blood Count 10.7 # Red Blood Count 4.80 Hemoglobin 12.7 Hematocrit 40.8 Mean Corpuscular Volume 85.0 Mean Corpuscular Hemoglobin 26.5 L Mean Corpuscular Hemoglobin Concent 31.1 L Red Cell Distribution Width 15.8 H Platelet Count 255 Mean Platelet Volume 10.7 H Neutrophils % 66.8 Lymphocytes % 27.4 Monocytes % 5.0 Eosinophils % 0.1 Basophils % 0.2 Nucleated Red Blood Cells % 0.0 Neutrophils # 7.2 Lymphocytes # 2.9 Monocytes # 0.5 Eosinophils # 0.0 Basophils # 0.0 Nucleated Red Blood Cells # 0.0 Sodium Level 140 Potassium Level 4.4 Chloride Level 108 Carbon Dioxide Level 27 Anion Gap 9 # Blood Urea Nitrogen 16 Creatinine 0.72 Glucose Level 96 Calcium Level 9.4 Medications Medications Current Medications Acetaminophen (Tylenol Tab) 650 mg Q6H PRN PO PAIN LEVEL 1-3 OR FEVER; Start at 04:00 Docusate Sodium (Colace) 100 mg Q12H PRN PO CONSTIPATION; Start 06/28/16 at 04: 00 Bisacodyl (Dulcolax) 5 mg DAILY PRN PO CONSTIPATION; Start 06/28/16 at 04:00 Ferrous Sulfate (Ferrous Sulfate (Ec)) 325 mg BID PO Last administered on 20:29; Admin Dose 325 MG; Start 06/28/16 at 09:00 Loratadine (Claritin) 10 mg DAILY PO Last administered on 06/30/16 09:33; Admin Dose 10 MG; Start 06/28/16 at 09:00 Montelukast Sodium (Singulair) 10 mg HS PO Last administered on 06/30/16 20:29 ; Admin Dose 10 MG; Start 06/28/16 at 21:00 Salmeterol Xinafoate/ Fluticasone (Advair 250/50 Diskus) 1 inh BID INH Last administered on 06/30/16 20:30; Admin Dose 1 INH; Start 06/28/16 at 09:00 Isosorbide Mononitrate (Imdur) 30 mg DAILY PO Last administered on 06/29/16 10 :06; Admin Dose 30 MG; Start 06/28/16 at 10:00 Metoprolol Tartrate (Lopressor) 25 mg BID PO Last administered on 07/01/16 10: 23; Admin Dose 25 MG; Start 06/28/16 at 10:00 Aspirin (Ecotrin) 325 mg DAILY PO Last administered on 06/30/16 09:32; Admin Dose 325 MG; Start 06/28/16 at 10:00 Phenol (Cepastat Lozenge) 1 lozenge Q2H PRN MT THROAT PAIN; Start 06/28/16 at 16:00 Clopidogrel Bisulfate (plaVIX) 75 mg DAILY PO Last administered on 06/30/16 09 :33; Admin Dose 75 MG; Start 06/28/16 at 20:00 Pantoprazole (Protonix Tab) 40 mg DAILY@06 PO ; Start 06/30/16 at 06:00 Methylprednisolone Sodium Succinate (Solu-Medrol) 40 mg Q12 IV Last administered on 07/01/16 09:59; Admin Dose 40 MG; Start 06/30/16 at 21:00 Acetaminophen (Tylenol Tab) 650 mg Q4H PRN PO NON-CARDIAC PAIN LEVEL 1-3; Start 07/01/16 at 09:30 Oxycodone/ Acetaminophen (Percocet (5/ 325)) 1 tab Q4H PRN PO REPORTED NON- CARDIAC PAIN 4-7; Start 07/01/16 at 09:30 Morphine Sulfate (morphine) 1 mg Q1H PRN IV PAIN NOT RELIEVED BY OTHERS; Start 07/01/16 at 09:30 Al Hydrox/Mg Hydrox/Simethicone (Mag-Al Plus) 30 ml Q4H PRN PO GASTROINTESTINAL UPSET; Start 07/01/16 at 09:30 Ondansetron HCl (Zofran Inj) 4 mg Q4H PRN IV NAUSEA AND/OR VOMITING; Start at 09:30 Atorvastatin Calcium 80 mg 80 mg DAILY@21 PO ; Start 07/01/16 at 21:00 Sodium Chloride (NS) 1,000 ml @ 75 mls/hr [id number] IV Last administered on 07/01 09:29; Admin Dose 75 MLS/HR; Start 07/01/16 at 09:06; Stop 07/01/16 at 22: 25 TYLER KERNS July 01, 2016 15:55
[2016-07-01] MEDS: MONTELUKAST 10 MG TAB PO SCH (21:01)
[2016-07-01] MEDS: ATORVASTATIN 80 MG TAB PO SCH (21:01)
[2016-07-02] VITALS (24 sets, daily range): BP systolic 64–114; BP diastolic 47–85; PULSE 67–97; RESP 14–23
[2016-07-02] MEDS: LEVALBUTEROL (NEB) 1.25 MG/0.5 ML AMP HHN SCH ×6 (01:00→21:19)
[2016-07-02 05:15] LABS: ADD SCAN DIFF NO
[2016-07-02 05:23] LABS: BASOPHILS % 0.1 % (0.0-2.0); HEMATOCRIT 38.6 % (37.0-47.0); HEMOGLOBIN 12.4 g/dl (12.0-16.0); LYMPHOCYTES # 1.8 10^3/ul (0.8-2.9); MEAN CORPUSCULAR HGB CONC 32.1 g/dl (32.0-37.0); MEAN CORPUSCULAR VOLUME 84.1 fl (82.0-101.0); MEAN PLATELET VOLUME 10.3 fl (7.4-10.4); MONOCYTE # 0.4 10^3/ul (0.3-0.9); MONOCYTES % 3.3 % (0.0-11.0); NEUTROPHIL # 10.8 10^3/ul (1.6-7.5); NEUTROPHILS % 81.8 % (39.0-77.0); PLATELET COUNT 241 10^3/UL (140-415); RED BLOOD COUNT 4.59 10^6/ul (4.20-5.40); RED CELL DISTRIBUTION WIDTH 15.7 % (11.5-14.5); WHITE BLOOD COUNT 13.2 10^3/ul (4.8-10.8)
[2016-07-02 05:48] LABS: CALCIUM 9.2 mg/dl (8.4-10.2); CHOL/HDL RATIO 3.6 RATIO; CREATININE 0.71 mg/dl (0.44-1.00); POTASSIUM 4.4 mmol/L (3.5-5.1)
[2016-07-02 05:57] LABS: CK-MB 0.8 ng/ml (0.0-2.4)
[2016-07-02 06:13] LABS: TROPONIN-I 3.34 ng/ml (0.00-0.12)
[2016-07-02] MEDS: CLOPIDOGREL 75 MG TAB PO SCH (08:43)
[2016-07-02] MEDS: LORATADINE 10 MG TAB PO SCH (08:43)
[2016-07-02] MEDS: FERROUS SULFATE (EC) 325 MG TAB PO SCH ×2 (08:43→21:14)
[2016-07-02] MEDS: ASPIRIN (EC) 325 MG TAB PO SCH (08:43)
[2016-07-02] MEDS: METHYLPREDNISOLONE 40 MG INJ IV SCH ×2 (08:43→21:14)
[2016-07-02] MEDS: PANTOPRAZOLE (EC) 40 MG TAB PO SCH (08:43)
[2016-07-02] MEDS: SALMETEROL/FLUTICASONE 250/50 INHA INH SCH ×2 (08:44→21:14)
[2016-07-02] MEDS: ISOSORBIDE MONONITRATE(SR)30 MG TAB PO SCH (08:51)
[2016-07-02] MEDS: METOPROLOL 25 MG TAB PO SCH ×2 (08:52→21:00)
--- NOTE | 2016-07-02 11:26 | CONS ---
Date/Time of Note Date/Time of Note DATE: 07/02/16 TIME: 11:23 Assessment/Plan Assessment/Plan Chief Complaint/Hosp Course IMP: 1.Nstemi-now downtrending cardiac enzymes. ? Negative lexiscan ? Now s/p LHC with PTCA/stent x 1 DARIN to LCX for 90% stenosis, Cardiac enzymes with appropriate downtrend/No CP post stent 2.HTN 3.Chest pain-secondary to nstemi 4.Asthma 5.Anemia Recc: -Tele -serial ecg's -Continue BB as tolerted only -Continue asa/plavix -D/C imdur given marginal BP today -Continue statin -Continue steroids/bronchodilators -Possible D/C planning if stable from pulmonary status and BP remains stable Problems: Consultation Date/Type/Reason Admit Date/Time June 28, 2016 at 02:12 Initial Consult Date 06/28/2016 Type of Consultation: Cardiology Reason for Consultation Nstemi Referring Provider: TYLER KERNS Exam/Review of Systems Vital Signs Vitals Vital Signs Date Time Temp Pulse Resp B/P Pulse Ox O2 Delivery O2 Flow Rate FiO2 07/02/16 09:00 83 17 96/85 95 Room Air 07/02/16 08:32 21 07/02/16 08:00 98.5 Intake and Output 07/01/16 07/01/16 07/02/16 15:00 23:00 07:00 Intake Total 690 ml 645 ml 225 ml Output Total 900 ml 1000 ml 850 ml Balance -210 ml -355 ml -625 ml Exam Review of Systems: CONSTITUTIONAL: No fevers, chills. PULMONARY: No sob CARDIOVASCULAR: No chest pain/palpitations GASTROINTESTINAL: No nausea/vomiting. GENITOURINARY: No hematuria/dysuria. MUSCULOSKELETAL: No myagias/arthalgias. PSYCHIATRIC: The patient denies depression. NEUROLOGIC: No weakness Constitutional: alert, oriented Psych: no complaints Head: normocephalic ENMT: mucosa pink and moist Neck: jvd (9 cm water), supple Respiratory: diminished breath sounds (at bases/B) Cardiovascular: regular rate and rhythm Gastrointestinal: non-tender, soft Musculoskeletal: muscle tone (normal) Extremities: other (No focal deficits) Neurological: other (No focal deficits) Results Result Diagram: 07/02/16 0445 07/02/165 Results 24 hrs Laboratory Tests Test 07/02/16 04:45 White Blood Count 13.2 #H Red Blood Count 4.59 Hemoglobin 12.4 Hematocrit 38.6 Mean Corpuscular Volume 84.1 Mean Corpuscular Hemoglobin 27.0 L Mean Corpuscular Hemoglobin Concent 32.1 Red Cell Distribution Width 15.7 H Platelet Count 241 Mean Platelet Volume 10.3 Neutrophils % 81.8 H Lymphocytes % 14.0 L Monocytes % 3.3 Eosinophils % 0.0 Basophils % 0.1 Nucleated Red Blood Cells % 0.0 Neutrophils # 10.8 H Lymphocytes # 1.8 Monocytes # 0.4 Eosinophils # 0.0 Basophils # 0.0 Nucleated Red Blood Cells # 0.0 Sodium Level 137 Potassium Level 4.4 Chloride Level 107 Carbon Dioxide Level 25 Anion Gap 9 Blood Urea Nitrogen 15 Creatinine 0.71 Glucose Level 123 Calcium Level 9.2 Creatine Kinase 42 Creatine Kinase Index 1.9 Creatinine Kinase MB (Mass) 0.80 Troponin I 3.340 *H Triglycerides Level 90 Cholesterol Level 208 H LDL Cholesterol, Calculated 133 HDL Cholesterol 57 Cholesterol/HDL Ratio 3.6 Medications Medications Current Medications Acetaminophen (Tylenol Tab) 650 mg Q6H PRN PO PAIN LEVEL 1-3 OR FEVER; Start at 04:00 Docusate Sodium (Colace) 100 mg Q12H PRN PO CONSTIPATION; Start 06/28/16 at 04: 00 Bisacodyl (Dulcolax) 5 mg DAILY PRN PO CONSTIPATION; Start 06/28/16 at 04:00 Ferrous Sulfate (Ferrous Sulfate (Ec)) 325 mg BID PO Last administered on 08:43; Admin Dose 325 MG; Start 06/28/16 at 09:00 Loratadine (Claritin) 10 mg DAILY PO Last administered on 07/02/16 08:43; Admin Dose 10 MG; Start 06/28/16 at 09:00 Montelukast Sodium (Singulair) 10 mg HS PO Last administered on 07/01/16 21:01 ; Admin Dose 10 MG; Start 06/28/16 at 21:00 Salmeterol Xinafoate/ Fluticasone (Advair 250/50 Diskus) 1 inh BID INH Last administered on 07/02/16 08:44; Admin Dose 1 INH; Start 06/28/16 at 09:00 Isosorbide Mononitrate (Imdur) 30 mg DAILY PO Last administered on 06/29/16 10 :06; Admin Dose 30 MG; Start 06/28/16 at 10:00 Metoprolol Tartrate (Lopressor) 25 mg BID PO Last administered on 07/01/16 21: 01; Admin Dose 25 MG; Start 06/28/16 at 10:00 Aspirin (Ecotrin) 325 mg DAILY PO Last administered on 07/02/16 08:43; Admin Dose 325 MG; Start 06/28/16 at 10:00 Phenol (Cepastat Lozenge) 1 lozenge Q2H PRN MT THROAT PAIN; Start 06/28/16 at 16:00 Clopidogrel Bisulfate (plaVIX) 75 mg DAILY PO Last administered on 07/02/16 08 :43; Admin Dose 75 MG; Start 06/28/16 at 20:00 Pantoprazole (Protonix Tab) 40 mg DAILY@06 PO Last administered on 07/02/16 08 :43; Admin Dose 40 MG; Start 06/30/16 at 06:00 Methylprednisolone Sodium Succinate (Solu-Medrol) 40 mg Q12 IV Last administered on 07/02/16 08:43; Admin Dose 40 MG; Start 06/30/16 at 21:00 Acetaminophen (Tylenol Tab) 650 mg Q4H PRN PO NON-CARDIAC PAIN LEVEL 1-3; Start 07/01/16 at 09:30 Oxycodone/ Acetaminophen (Percocet (5/ 325)) 1 tab Q4H PRN PO REPORTED NON- CARDIAC PAIN 4-7; Start 07/01/16 at 09:30 Morphine Sulfate (morphine) 1 mg Q1H PRN IV PAIN NOT RELIEVED BY OTHERS; Start 07/01/16 at 09:30 Al Hydrox/Mg Hydrox/Simethicone (Mag-Al Plus) 30 ml Q4H PRN PO GASTROINTESTINAL UPSET; Start 07/01/16 at 09:30 Ondansetron HCl (Zofran Inj) 4 mg Q4H PRN IV NAUSEA AND/OR VOMITING; Start at 09:30 Atorvastatin Calcium (Lipitor) 80 mg DAILY@21 PO Last administered on 21:01; Admin Dose 80 MG; Start 07/01/16 at 21:00 ANA ORTEGA July 02, 2016 11:26
--- NOTE | 2016-07-02 17:37 | RADRPT ---
Vent Rate: 70 bpm RR Interval: 0 msec [place] Interval: 134 msec QRS Duration: 76 msec QT Interval: 402 msec QTC Interval: 434 msec P-R-T [place]: 67 - 73 - 77 degrees Normal sinus rhythm Normal ECG Electronically Signed By: Abelino Eric [id number]
[2016-07-02] MEDS: MONTELUKAST 10 MG TAB PO SCH (21:14)
[2016-07-02] MEDS: ATORVASTATIN 80 MG TAB PO SCH (21:14)
[2016-07-02] MEDS: SOD CHLORIDE 0.9% 1,000 ML IV SCH (22:03)
[2016-07-03] VITALS (17 sets, daily range): BP systolic 82–158; BP diastolic 43–70; PULSE 71–83; RESP 14–18
[2016-07-03] MEDS: LEVALBUTEROL (NEB) 1.25 MG/0.5 ML AMP HHN SCH ×6 (01:54→20:23)
[2016-07-03] MEDS: PANTOPRAZOLE (EC) 40 MG TAB PO SCH (05:23)
[2016-07-03] MEDS: CLOPIDOGREL 75 MG TAB PO SCH (10:10)
[2016-07-03] MEDS: FERROUS SULFATE (EC) 325 MG TAB PO SCH (10:10)
[2016-07-03] MEDS: METOPROLOL 25 MG TAB PO SCH (10:11)
[2016-07-03] MEDS: LORATADINE 10 MG TAB PO SCH (10:11)
[2016-07-03] MEDS: ASPIRIN (EC) 325 MG TAB PO SCH (10:12)
[2016-07-03] MEDS: METHYLPREDNISOLONE 40 MG INJ IV SCH (10:12)
[2016-07-03] MEDS: SOD CHLORIDE 0.9% 1,000 ML IV SCH (11:56)
--- NOTE | 2016-07-03 16:07 | CONS ---
Date/Time of Note Date/Time of Note DATE: 07/03/16 TIME: 16:05 Assessment/Plan Assessment/Plan Chief Complaint/Hosp Course IMP: 1.Nstemi-now downtrending cardiac enzymes. ? Negative lexiscan ? Now s/p LHC with PTCA/stent x 1 DARIN to LCX for 90% stenosis, Cardiac enzymes with appropriate downtrend/No CP post stent 2.HTN-ok currently but significantly labile 3.Chest pain-secondary to nstemi 4.Asthma 5.Anemia Recc: -Tele -serial ecg's -Continue BB as tolerted only -Continue asa/plavix -Continue statin -Continue steroids/bronchodilators -Possible D/C planning if stable from pulmonary status and BP remains stable Problems: Consultation Date/Type/Reason Admit Date/Time June 28, 2016 at 02:12 Initial Consult Date 06/28/2016 Type of Consultation: Cardiology Reason for Consultation Nstemi Referring Provider: TYLER KERNS Exam/Review of Systems Vital Signs Vitals Vital Signs Date Time Temp Pulse Resp B/P Pulse Ox O2 Delivery O2 Flow Rate FiO2 07/03/16 12:37 76 16 96 21 07/03/16 11:49 98.0 103/57 07/03/16 05:00 Room Air Intake and Output 07/02/16 07/02/16 07/03/16 15:00 23:00 07:00 Intake Total 440 ml 240 ml Output Total 750 ml 300 ml Balance -310 ml -60 ml Exam Review of Systems: CONSTITUTIONAL: No fevers, chills. PULMONARY: mild sob CARDIOVASCULAR: No chest pain/palpitations GASTROINTESTINAL: No nausea/vomiting. GENITOURINARY: No hematuria/dysuria. MUSCULOSKELETAL: No myagias/arthalgias. PSYCHIATRIC: The patient denies depression. NEUROLOGIC: No weakness Constitutional: alert Psych: no complaints Head: normocephalic ENMT: mucosa pink and moist Neck: jvd (9 cm water), supple Respiratory: diminished breath sounds (at bases/B) Cardiovascular: regular rate and rhythm Gastrointestinal: non-tender, soft Musculoskeletal: muscle tone (normal) Extremities: edema (none) Neurological: other (No focal deficits) Results Result Diagram: 07/02/16 0445 07/02/16 0445 Medications Medications Current Medications Acetaminophen (Tylenol Tab) 650 mg Q6H PRN PO PAIN LEVEL 1-3 OR FEVER; Start at 04:00 Docusate Sodium (Colace) 100 mg Q12H PRN PO CONSTIPATION; Start 06/28/16 at 04: 00 Bisacodyl (Dulcolax) 5 mg DAILY PRN PO CONSTIPATION Last administered on 10:11; Admin Dose 5 MG; Start 06/28/16 at 04:00 Ferrous Sulfate (Ferrous Sulfate (Ec)) 325 mg BID PO Last administered on 10:10; Admin Dose 325 MG; Start 06/28/16 at 09:00 Loratadine (Claritin) 10 mg DAILY PO Last administered on 07/03/16 10:11; Admin Dose 10 MG; Start 06/28/16 at 09:00 Montelukast Sodium (Singulair) 10 mg HS PO Last administered on 07/02/16 21:14 ; Admin Dose 10 MG; Start 06/28/16 at 21:00 Salmeterol Xinafoate/ Fluticasone (Advair 250/50 Diskus) 1 inh BID INH Last administered on 07/02/16 21:14; Admin Dose 1 INH; Start 06/28/16 at 09:00 Metoprolol Tartrate (Lopressor) 25 mg BID PO Last administered on 07/03/16 10: 11; Admin Dose 25 MG; Start 06/28/16 at 10:00 Aspirin (Ecotrin) 325 mg DAILY PO Last administered on 07/03/16 10:12; Admin Dose 325 MG; Start 06/28/16 at 10:00 Phenol (Cepastat Lozenge) 1 lozenge Q2H PRN MT THROAT PAIN; Start 06/28/16 at 16:00 Clopidogrel Bisulfate (plaVIX) 75 mg DAILY PO Last administered on 07/03/16 10 :10; Admin Dose 75 MG; Start 06/28/16 at 20:00 Pantoprazole (Protonix Tab) 40 mg DAILY@06 PO Last administered on 07/03/16 05 :23; Admin Dose 40 MG; Start 06/30/16 at 06:00 Methylprednisolone Sodium Succinate (Solu-Medrol) 40 mg Q12 IV Last administered on 07/03/16 10:12; Admin Dose 40 MG; Start 06/30/16 at 21:00 Acetaminophen (Tylenol Tab) 650 mg Q4H PRN PO NON-CARDIAC PAIN LEVEL 1-3; Start 07/01/16 at 09:30 Oxycodone/ Acetaminophen (Percocet (5/ 325)) 1 tab Q4H PRN PO REPORTED NON- CARDIAC PAIN 4-7; Start 07/01/16 at 09:30 Morphine Sulfate (morphine) 1 mg Q1H PRN IV PAIN NOT RELIEVED BY OTHERS; Start 07/01/16 at 09:30 Al Hydrox/Mg Hydrox/Simethicone (Mag-Al Plus) 30 ml Q4H PRN PO GASTROINTESTINAL UPSET; Start 07/01/16 at 09:30 Ondansetron HCl (Zofran Inj) 4 mg Q4H PRN IV NAUSEA AND/OR VOMITING; Start at 09:30 Atorvastatin Calcium 80 mg 80 mg DAILY@21 PO Last administered on 07/02/16 21: 14; Admin Dose 80 MG; Start 07/01/16 at 21:00 Sodium Chloride (NS) 1,000 ml @ 75 mls/hr [id number] IV Last administered on 07/03 11:56; Admin Dose 75 MLS/HR; Start 07/02/16 at 22:00 ANA ORTEGA July 03, 2016 16:07
--- NOTE | 2016-07-03 19:32 | EN ---
Date/Time of Note Date/Time of Note DATE: 07/03/16 TIME: 19:29 Event Note Medicine Medicine Event Note PROGRESS NOTE DATE OF SERVICE: 07/02/16 SUBJECTIVE: Patient feels well, no more chest pain OBJECTIVE: Vital Signs Date Time Temp Pulse Resp B/P Pulse Ox O2 Delivery O2 Flow Rate FiO2 07/02/16 09:00 83 17 96/85 95 Room Air 07/02/16 08:32 21 07/02/16 08:00 98.5 Intake and Output 07/01/16 07/01/16 07/02/16 15:00 23:00 07:00 Intake Total 690 ml 645 ml 225 ml Output Total 900 ml 1000 ml 850 ml Balance -210 ml -355 ml -625 ml Exam GENERAL: This is a 61-year-old female lying in bed HEENT: Head normocephalic and atraumatic. Eyes: Anicteric sclerae. Conjunctivae clear. ENT: Nasal septum is midline. Oral mucosa is moist. NECK: Supple. No JVD noticed. RESPIRATORY: Bilaterally diminished breath sounds. CARDIAC: Regular rate and rhythm. S1, S2. ABDOMEN: Soft, nontender and nondistended. Bowel sounds positive in all 4 quadrants. GENITOURINARY: Deferred. EXTREMITIES: No cyanosis, no clubbing, no edema. Peripheral pulses palpable. NEUROLOGIC: The patient is awake, alert and oriented. Cranial nerves are grossly intact. Results Result Diagram: 07/02/16 0445 07/02/16 0445 Results 24 hrs Laboratory Tests Test 07/02/16 04:45 White Blood Count 13.2 #H Red Blood Count 4.59 Hemoglobin 12.4 Hematocrit 38.6 Mean Corpuscular Volume 84.1 Mean Corpuscular Hemoglobin 27.0 L Mean Corpuscular Hemoglobin Concent 32.1 Red Cell Distribution Width 15.7 H Platelet Count 241 Mean Platelet Volume 10.3 Neutrophils % 81.8 H Lymphocytes % 14.0 L Monocytes % 3.3 Eosinophils % 0.0 Basophils % 0.1 Nucleated Red Blood Cells % 0.0 Neutrophils # 10.8 H Lymphocytes # 1.8 Monocytes # 0.4 Eosinophils # 0.0 Basophils # 0.0 Nucleated Red Blood Cells # 0.0 Sodium Level 137 Potassium Level 4.4 Chloride Level 107 Carbon Dioxide Level 25 Anion Gap 9 Blood Urea Nitrogen 15 Creatinine 0.71 Glucose Level 123 Calcium Level 9.2 Creatine Kinase 42 Creatine Kinase Index 1.9 Creatinine Kinase MB (Mass) 0.80 Troponin I 3.340 *H Triglycerides Level 90 Cholesterol Level 208 H LDL Cholesterol, Calculated 133 HDL Cholesterol 57 Cholesterol/HDL Ratio 3.6 Medications Medications Current Medications Acetaminophen (Tylenol Tab) 650 mg Q6H PRN PO PAIN LEVEL 1-3 OR FEVER; Start at 04:00 Docusate Sodium (Colace) 100 mg Q12H PRN PO CONSTIPATION; Start 06/28/16 at 04: 00 Bisacodyl (Dulcolax) 5 mg DAILY PRN PO CONSTIPATION; Start 06/28/16 at 04:00 Ferrous Sulfate (Ferrous Sulfate (Ec)) 325 mg BID PO Last administered on 08:43; Admin Dose 325 MG; Start 06/28/16 at 09:00 Loratadine (Claritin) 10 mg DAILY PO Last administered on 07/02/16 08:43; Admin Dose 10 MG; Start 06/28/16 at 09:00 Montelukast Sodium (Singulair) 10 mg HS PO Last administered on 07/01/16 21:01 ; Admin Dose 10 MG; Start 06/28/16 at 21:00 Salmeterol Xinafoate/ Fluticasone (Advair 250/50 Diskus) 1 inh BID INH Last administered on 07/02/16 08:44; Admin Dose 1 INH; Start 06/28/16 at 09:00 Isosorbide Mononitrate (Imdur) 30 mg DAILY PO Last administered on 06/29/16 10 :06; Admin Dose 30 MG; Start 06/28/16 at 10:00 Metoprolol Tartrate (Lopressor) 25 mg BID PO Last administered on 07/01/16 21: 01; Admin Dose 25 MG; Start 06/28/16 at 10:00 Aspirin (Ecotrin) 325 mg DAILY PO Last administered on 07/02/16 08:43; Admin Dose 325 MG; Start 06/28/16 at 10:00 Phenol (Cepastat Lozenge) 1 lozenge Q2H PRN MT THROAT PAIN; Start 06/28/16 at 16:00 Clopidogrel Bisulfate (plaVIX) 75 mg DAILY PO Last administered on 07/02/16 08 :43; Admin Dose 75 MG; Start 06/28/16 at 20:00 Pantoprazole (Protonix Tab) 40 mg DAILY@06 PO Last administered on 07/02/16 08 :43; Admin Dose 40 MG; Start 06/30/16 at 06:00 Methylprednisolone Sodium Succinate (Solu-Medrol) 40 mg Q12 IV Last administered on 07/02/16 08:43; Admin Dose 40 MG; Start 06/30/16 at 21:00 Acetaminophen (Tylenol Tab) 650 mg Q4H PRN PO NON-CARDIAC PAIN LEVEL 1-3; Start 07/01/16 at 09:30 Oxycodone/ Acetaminophen (Percocet (5/ 325)) 1 tab Q4H PRN PO REPORTED NON- CARDIAC PAIN 4-7; Start 07/01/16 at 09:30 Morphine Sulfate (morphine) 1 mg Q1H PRN IV PAIN NOT RELIEVED BY OTHERS; Start 07/01/16 at 09:30 Al Hydrox/Mg Hydrox/Simethicone (Mag-Al Plus) 30 ml Q4H PRN PO GASTROINTESTINAL UPSET; Start 07/01/16 at 09:30 Ondansetron HCl (Zofran Inj) 4 mg Q4H PRN IV NAUSEA AND/OR VOMITING; Start at 09:30 Atorvastatin Calcium (Lipitor) 80 mg DAILY@21 PO Last administered on 21:01; Admin Dose 80 MG; Start 07/01/16 at 21:00 ASSESSMENT: 1. Non-ST elevation myocardial infarction. LHC showed single vesel obstructive CAD without . s/p successful stenting 2. Asthma exacerbation. The patient will be continued on inhaled bronchodilators. The patient will be maintained on tapering dose of steroids. 3. Normocytic hypochromic anemia. The patient on iron supplements. 4. Pre-diabetes. Hemoglobin A1c 6.2. 5. Fluid, electrolytes and nutrition. Low cholesterol diet. 6. Deep vein thrombosis prophylaxis. SCDS 7. Gastrointestinal prophylaxis. Proton pump inhibitors. PLAN: Stable patient post cath / Cardio wants to keep one more night for mildly low BP. [facility] 03, 2016 19:32
== END 2016-07-03 20:00 | disposition home or self-care (01) | DRG 247 ==
LOC: E/R 22:55 → MS4 06-28 02:12 → ICU 07-01 08:43 → MS4 07-03 06:53
PROVIDERS: ADMIT Family Medicine; ATTEND Family Medicine
PROC: 027034Z Dilation of Coronary Artery, One Artery with Drug-eluting Intraluminal Device, Percutaneous Approach (ICD-10-PCS; principal; 2016-06-28)
PROC: 4A023N7 Measurement of Cardiac Sampling and Pressure, Left Heart, Percutaneous Approach (ICD-10-PCS; 2016-06-28)
PROC: B211YZZ Fluoroscopy of Multiple Coronary Arteries using Other Contrast (ICD-10-PCS; 2016-06-28)
PROC: B215YZZ Fluoroscopy of Left Heart using Other Contrast (ICD-10-PCS; 2016-06-28)
DX: I21.4 Non-ST elevation (NSTEMI) myocardial infarction (principal); J45.901 Unspecified asthma with (acute) exacerbation; I10 Essential (primary) hypertension; I25.10 Atherosclerotic heart disease of native coronary artery without angina pectoris; D64.9 Anemia, unspecified; R73.03 Prediabetes
CPT/HCPCS: 36415; 71010; 78452; 80048; 80053; 80061; 82550; 82553; 83036; 83735; 83880; 84100; 84439; 84443; 84484; 85025; 85610; 85730; 87081; 93005; 93017; 93308; 94640; 94664; 96374; 96375; A9500; A9505; C9113; J1644; J2250; J2270; J2785; J2920; J3010; J7030; J7040; J7512; Q9967

== ENCOUNTER 2016-07-13 14:34 | Inpatient (IN) | payer MEDICAID ==
[~2016-07-13] VITALS: Ht 154.9 cm; Wt 61.5 kg
[~2016-07-13 14:34] MED LIST changes: +ALBU18HF INHALATION; -ALBU8.5H3 INH; -ALBU8.5H5 IH; +ATOR80TA75 PO; +CLOP75TA28 PO; +ISOS30TA5 PO; +METO-448 PO; +MOME13HF2 INHALATION; +PANT40TA4 PO; +PRED10TA PO; -PRED20TA PO
[2016-07-13] MEDS ORDERED: CEFEPIME 2GM/50 ML (PMX) 50 ML IVPB STA (15:30)
[2016-07-13] MEDS ORDERED: SODIUM CHLORIDE 0.9% 1L BAG IV* STA ×2 (15:30→19:33)
[2016-07-13 16:04] LABS: ADD SCAN DIFF NO
[2016-07-13 16:07] LABS: BASOPHILS % 0.1 % (0.0-2.0); EOSINOPHILS # 0.1 10^3/ul (0.0-0.5); EOSINOPHILS % 0.9 % (0.0-7.0); HEMOGLOBIN 11.9 g/dl (12.0-16.0); LYMPHOCYTES # 1.9 10^3/ul (0.8-2.9); MEAN CORPUSCULAR HEMOGLOBIN 27.2 pg (29.0-33.0); MEAN CORPUSCULAR HGB CONC 32.2 g/dl (32.0-37.0); MEAN CORPUSCULAR VOLUME 84.7 fl (82.0-101.0); MEAN PLATELET VOLUME 9.9 fl (7.4-10.4); MONOCYTE # 0.9 10^3/ul (0.3-0.9); NEUTROPHIL # 8.1 10^3/ul (1.6-7.5); NEUTROPHILS % 73.5 % (39.0-77.0); PLATELET COUNT 234 10^3/UL (140-415); RED BLOOD COUNT 4.37 10^6/ul (4.20-5.40); RED CELL DISTRIBUTION WIDTH 15.6 % (11.5-14.5)
[2016-07-13] MEDS ORDERED: ALBUTEROL 0.083% (NEB) 2.5 MG/3 ML AMP HHN STA (16:07)
--- NOTE | 2016-07-13 16:10 | RADRPT ---
PROCEDURE: Chest x-ray CLINICAL INDICATION: Sepsis TECHNIQUE: Chest single view COMPARISON: 06/28/2016 FINDINGS: The heart is normal in size. The pulmonary vessels are normal in caliber. The lungs are clear. Th e costophrenic angles are sharp. The visualized bony thorax is unremarkable. IMPRESSION: No acute cardiopulmonary disease. RPTAT: HH .Georgi Abebe MD, Date Time Electronically viewed and signed by .Georgi Abebe MD, MD on 07/13/2016 16:10 .W/
[2016-07-13 16:14] LABS: ADD UMIC YES; URINE BILIRUBIN (Dip) NEGATIVE (NEGATIVE); URINE BLOOD (Dip) 1+ (NEGATIVE); URINE COLOR LT. YELLOW (YELLOW); URINE GLUCOSE (Dip) NEGATIVE (NEGATIVE); URINE KETONES (Dip) NEGATIVE (NEGATIVE); URINE LEUKOCYTE ESTERASE (Dip) TRACE (NEGATIVE); URINE NITRITE (Dip) NEGATIVE (NEGATIVE); URINE TOTAL PROTEIN (Dip) NEGATIVE (NEGATIVE); URINE UROBILINOGEN (Dip) 0.2 E.U./dL (0.1-1.0)
[2016-07-13 16:23] LABS: INR 0.92; PROTIME 12.4 Sec (12.2-14.2)
[2016-07-13 16:24] LABS: PARTIAL THROMBOPLASTIN TIME 24.3 Sec (25.0-35.0)
[2016-07-13 16:27] LABS: BACTERIA,URINE FEW; SQUAMOUS EPITHELIAL CELL,UR FEW
[2016-07-13 16:28] LABS: ALBUMIN 4.3 g/dl (3.3-4.9); ALBUMIN/GLOBULIN RATIO 1.79; BILIRUBIN,INDIRECT 0.2 mg/dl (0-1.1); BILIRUBIN,TOTAL 0.2 mg/dl (0.2-1.3); CALCIUM 9.3 mg/dl (8.4-10.2); CREATININE 0.78 mg/dl (0.44-1.00); POTASSIUM 4.6 mmol/L (3.5-5.1); TOTAL PROTEIN 6.7 g/dl (6.1-8.1)
[2016-07-13] MEDS ORDERED: IPRATROPIUM (NEB) 0.5 MG/2.5 ML AMP HHN ONE (16:30)
[2016-07-13 16:40] LABS: CK-MB 0.67 ng/ml (0.0-2.4); TROPONIN-I 0.04 ng/ml (0.00-0.12)
--- NOTE | 2016-07-13 18:00 | RADRPT ---
PROCEDURE: CT scan of the abdomen and pelvis without IV contrast. CLINICAL INDICATION: RLQ pain, tachy TECHNIQUE: Thin section axial, coronal and sagittal images were performed through the abdomen and pelvis without contrast. Radiation Dose: CTDI: 8.5 and DLP: 425 One or more of the following dose reduction techniques were used: - Automated exposure control. - Adjustment of the mA and/or kV according to patient size. Use of iterative reconstruction technique. COMPARISON: None FINDINGS: Soft tissues: There is a small umbilical hernia. There are dystrophic calcifications in the subcuta neous tissues superficial to the gluteus rey muscles. Lungs and pleural spaces: The lungs are mildly hyperinflated. No pulmonary nodule, infiltrate or pl eural effusion is identified. Heart: The heart is normal in size. There is a moderate-sized pericardial effusion. The liver, common bile duct and gallbladder: The liver is mildly enlarged measuring 15.9 cm AP. No hepatic mass or intrahepatic biliary ductal dilatation is identified. The gallbladder small and con tracted. There is no evidence of cholelithiasis. Gastrointestinal: There is no evidence of a hiatal hernia. Particulate matter is noted in the stoma ch. Fecal material is noted throughout most of the colon. The small bowel loops have a normal steve joe with no mechanical small-bowel obstruction identified. There is a tiny midline umbilical hernia which contains fat. There are diverticula in the distal descending colon with stranding and mucosa l thickening noted in the proximal sigmoid colon consistent with acute diverticulitis. The vermifor m appendix is normal. Pancreas: The pancreas is normal. The extrahepatic common bile duct is normal. Kidneys, bladder and adrenal glands : The renal glands are normal. 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 No obstructing ureterolith or nephrolith is identified. The urinary bl adder is normal. Spleen: Normal. Lymph nodes: Normal. Reproductive system and pelvis : Normal. There are degenerative osteophytes in the lower thoracic a nd lumbar spine. Bony elements: There are degenerative osteophytes in the thoracic and lumbar spine. There is ventra l spondylosis with disk space narrowing and vacuum disk phenomenon at L5-S1. There is a mild broad disk bulge at L5-S1. Bony osteophytes cause moderate narrowing of the left L5-S1 nerve root canal. No acute bony fracture or bone metastasis is identified. Vasculature: The there are vascular calcifications in the mid thoracic aorta, abdominal aorta, commo n iliac arteries, external iliac arteries and proximal right renal artery. IMPRESSION: 1. Acute diverticulitis of the sigmoid colon. No evidence of a perforation or diverticular abscess . Normal vermiform appendix. 2. Cardiomegaly with a moderate-sized pericardial effusion. 3. Mild hepatomegaly. 4. Particulate matter is noted in the stomach. 5. Constipation. 6. Calcifications in the subcutaneous tissues superficial to the gluteus rey muscles from old i njection sites. 7. Osteoarthritis of the thoracic and lumbosacral spine. 8. Atherosclerotic vascular disease. 9. Partial malrotation of the kidneys. RPTAT:AAJJ Physician Pamela Date Time Electronically viewed and signed by Chris Amador Physician on 07/13/2016 17:59 LEONARDA/
[2016-07-13] MEDS ORDERED: morphine 4 MG/ML VIAL IV STA (19:38)
[2016-07-13] MEDS ORDERED: ONDANSETRON 4 MG INJ IV PRN (20:00)
[2016-07-13] MEDS ORDERED: metroNIDAZOLE 500 MG/NS (PMX) 100 ML IVPB ONE (20:00)
[2016-07-13] MEDS ORDERED: ACETAMINOPHEN 325 MG TAB PO PRN (20:00)
[2016-07-13] MEDS ORDERED: PIPER-TAZO 3.375 GM IV (PMX) 100 ML IVPB ONE (20:00)
[2016-07-13 21:35] LABS: INR 0.98
[2016-07-13 21:36] LABS: PARTIAL THROMBOPLASTIN TIME 28.4 Sec (25.0-35.0)
--- NOTE | 2016-07-13 22:55 | ERA ---
ER Documentation Chief Complaint Date/Time DATE: 07/13/16 TIME: 22:42 Chief Complaint BACK AND NECK PAIN X 2 DAYS HPI This is a 61-year-old female presents with left leg pain as well as neck pain and chest tightness for 2 days. I reviewed her EMR prior to seeing her in noticed that she had a myocardial infarction 3 weeks ago at this hospital. She is also been having fevers chills and sweats. Her left leg pain radiates around to the front. Described as a sharp pain. ROS All systems reviewed and are negative except as per history of present illness. Medications Home Meds Active Scripts Prednisone* (Prednisone*) 10 Mg Tab, 10 MG PO DAILY, #21 TAB take 6 pills tomorrow take 5 pills on the next day take 4 pills on the next day take 3 pills on the next day take 2 pills on the next day take 1 pill on the next day then stop Prov:TYLER KERNS . 07/01/16 Pantoprazole* (Pantoprazole*) 40 Mg Tablet.dr, 40 MG PO DAILY@06 for 30 Days, 2 Refills Prov:TYLER KERNS . 07/01/16 Metoprolol Tartrate* (Lopressor*) 25 Mg Tab, 25 MG PO BID for 30 Days, TAB 2 Refills Prov:TYLER KERNS . 07/01/16 Isosorbide Mononitrate* (Isosorbide Mononitrate*) 30 Mg Tab.er.24h, 30 MG PO DAILY for 30 Days, 2 Refills Prov:TYLER KERNS . 07/01/16 Atorvastatin* (Atorvastatin*) 80 Mg Tablet, 80 MG PO DAILY@21 for 30 Days, TAB 2 Refills Prov:TYLER KERNS . 07/01/16 Clopidogrel Bisulfate (Clopidogrel) 75 Mg Tablet, 75 MG PO DAILY for 30 Days, TAB 2 Refills Prov:TYLER KERNS . 07/01/16 Ferrous Sulfate* (Ferrous Sulfate*) 325 Mg Tabec, 325 MG PO BID for 30 Days, TAB Prov:SUSANNAH RUFFIN 04/27/16 Montelukast Sodium* (Montelukast Sodium*) 10 Mg Tablet, 10 MG PO HS for 30 Days , TAB Prov:SUSANNAH RUFFIN 04/27/16 Salmeterol Xinaf/Fluticasone* (Advair*) 250-50 Diskus Inhaler, 1 INH INH BID for 30 Days Prov:SUSANNAH RUFFIN 04/27/16 Reported Medications Mometasone-Formoterol (Dulera) 100-5 Mcg - 13 Gm Hfa.aer.ad, 2 PUFFS INHALATION Q4 Y for SHORTNESS OF BREATH, #1 INHALER 06/28/16 Albuterol Sulfate* (Ventolin HFA*) 18 Gm Hfa.aer.ad, 2 PUFF INHALATION Q4H, #1 INHALER 06/28/16 Loratadine* (Claritin*) 10 Mg Tablet, 10 MG PO DAILY, TAB 04/12/14 Ipratropium [place]* (Atrovent HFA*) 12.9 Gm Aer.w.adap, 2 PUFF IH Q4H Y for SHORTNESS OF BREATH, EA 04/12/14 Allergies Allergies: Coded Allergies: No Known Allergy (Unverified , 06/18/16) PMhx/Soc History of Surgery: Yes (Right hand) Anesthesia Reaction: No Hx Neurological Disorder: No Hx Respiratory Disorders: Yes (asthma) Hx Cardiac Disorders: No Hx Psychiatric Problems: No Hx Miscellaneous Medical Probl: No Hx Alcohol Use: No Hx Substance Use: No Hx Tobacco Use: No Smoking Status: Never smoker Physical Exam Vitals Vital Signs Date Time Temp Pulse Resp B/P Pulse Ox O2 Delivery O2 Flow Rate FiO2 07/13/16 20:55 100.0 92 16 97/64 100 Room Air 07/13/16 20:00 103 18 95/59 97 07/13/16 18:00 96 16 102/58 97 07/13/16 16:29 96 20 99 Nasal Cannula 2.0 07/13/16 16:13 Nasal Cannula 2 07/13/16 14:36 99.2 115 24 116/80 96 Physical Exam Const: [] Mild distress, appears uncomfortable Head: Atraumatic Eyes: Normal Conjunctiva ENT: Normal External Ears, Nose and Mouth. Neck: Full range of motion..~ No meningismus. Resp: Clear to auscultation bilaterally Cardio: Regular tachycardia, no murmurs Abd: Soft, mild left lower quadrant tenderness without guarding or rebound, non distended. Normal bowel sounds Skin: No petechiae or rashes Back: No midline or flank tenderness Ext: No cyanosis, or edema Neur: Awake and alert and oriented 3, no focal deficits Psych: Normal Mood and Affect Result Diagram: 07/13/16 1545 07/13/16 1545 Results 24 hrs Laboratory Tests Test 07/13/16 15:44 07/13/16 15:45 07/13/16 16:00 07/13/16 17:42 Urine Color LT. YELLOW Urine Clarity CLEAR Urine pH 5.5 Urine Specific [place] 1.010 Urine Ketones NEGATIVE Urine Nitrite NEGATIVE Urine Bilirubin NEGATIVE Urine Urobilinogen 0.2 E.U./dL Urine Leukocyte Esterase TRACE Urine Microscopic RBC 2-5/HPF Urine Microscopic WBC 2-5/HPF Urine Squamous Epithelial Cells FEW Urine Bacteria FEW Urine Hemoglobin 1+ Urine Glucose NEGATIVE% Urine Total Protein NEGATIVE White Blood Count 11.010^3/ul Red Blood Count 4.3710^6/ul Hemoglobin 11.9g/dl Hematocrit 37.0% Mean Corpuscular Volume 84.7fl Mean Corpuscular Hemoglobin 27.2pg Mean Corpuscular Hemoglobin Concent 32.2g/dl Red Cell Distribution Width 15.6% Platelet Count 45828^3/UL Mean Platelet Volume 9.9fl Neutrophils % 73.5% Lymphocytes % 17.0% Monocytes % 8.0% Eosinophils % 0.9% Basophils % 0.1% Nucleated Red Blood Cells % 0.0/100WBC Neutrophils # 8.110^3/ul Lymphocytes # 1.910^3/ul Monocytes # 0.910^3/ul Eosinophils # 0.110^3/ul Basophils # 0.010^3/ul Nucleated Red Blood Cells # 0.010^3/ul Prothrombin Time 12.4Sec Prothrombin Time Ratio 1.0 INR International Normalized Ratio 0.92 Activated Partial Thromboplast Time 24.3Sec Sodium Level 140mmol/L Potassium Level 4.6mmol/L Chloride Level 107mmol/L Carbon Dioxide Level 27mmol/L Anion Gap 11 Blood Urea Nitrogen 10mg/dl Creatinine 0.78mg/dl Glucose Level 95mg/dl Calcium Level 9.3mg/dl Total Bilirubin 0.2mg/dl Direct Bilirubin 0.00mg/dl Indirect Bilirubin 0.2mg/dl Aspartate Amino Transf (AST/SGOT) 28IU/L Alanine Aminotransferase (ALT/SGPT) 34IU/L Alkaline Phosphatase 70IU/L Creatine Kinase 77IU/L Creatine Kinase Index 0.9 Creatinine Kinase MB (Mass) 0.67ng/ml Troponin I 0.040ng/ml B-Type Natriuretic Peptide 927PG/ML Total Protein 6.7g/dl Albumin 4.3g/dl Globulin 2.40g/dl Albumin/Globulin Ratio 1.79 Lactic Acid Level 1.1mmol/L 1.0mmol/L Test 07/13/16 19:28 07/13/16 21:10 Lactic Acid Level 0.7mmol/L Prothrombin Time 13.0Sec Prothrombin Time Ratio 1.0 INR International Normalized Ratio 0.98 Activated Partial Thromboplast Time 28.4Sec Current Medications Medications (Trade) Dose Ordered Sig/Michael Route PRN Reason Start Time Stop Time Status Last Admin Dose Admin Sodium Chloride 1830 ml 1,830 ml BOLUS OVER 2 HOURS STAT IV* 07/13/16 15:30 07/13/16 15:32 DC 07/13/16 16:00 Cefepime HCl (Maxipime 2gm/50 ml (Pmx)) 50 ml @ 100 mls/hr ONCE STAT IVPB 07/13/16 15:30 07/13/16 15:59 DC 07/13/16 16:00 Albuterol (Proventil 0.083% (Neb)) 5 mg ONCE STAT HHN 07/13/16 16:07 07/13/16 16:08 DC 07/13/16 16:26 Ipratropium [place] (Atrovent 0.02% (Neb)) 0.5 mg ONCE ONCE HHN 07/13/16 16:30 07/13/16 16:31 DC 07/13/16 16:26 Sodium Chloride 1830 ml 1,830 ml BOLUS OVER 2 HOURS STAT IV* 07/13/16 19:33 07/13/16 19:52 DC Piperacillin Sod/ Tazobactam Sod (Zosyn 3.375gm/ 100 ml (Pmx)) 100 ml @ 200 mls/hr ONCE ONCE IVPB 07/13/16 20:00 07/13/16 20:00 DC Morphine Sulfate 4 mg 4 mg ONCE STAT IV 07/13/16 19:38 07/13/16 19:39 DC 07/13/16 20:07 Metronidazole (Flagyl 500 Mg (Pmx)) 100 ml @ 100 mls/hr ONCE ONCE IVPB 07/13/16 20:00 07/13/16 20:59 DC 07/13/16 20:06 Ondansetron HCl (Zofran Inj) 4 mg ER BRIDGE PRN IV NAUSEA AND/OR VOMITING 07/13/16 20:00 07/14/16 19:59 Acetaminophen (Tylenol Tab) 650 mg ER BRIDGE PRN PO MILD PAIN/FEVER 07/13/16 20:00 07/14/16 19:59 Procedures/MDM Diverticulitis with sepsis and chest pain with recent CO. Septic septic workup was performed patient was given 30 cc/kg of IV fluid as well as cefepime for empiric treatment.. When it was discovered that she had diverticulitis Flagyl was also added. Pain is treated with morphine and Zofran. She also described a burning neck pain as well as a burning sensation in her chest. She was given a GI cocktail. She has no signs of ischemia currently on EKG. she does have a moderate sized pericardial effusion. She will be admitted for sepsis of diverticulitis as well as trending of troponins and cardiac consult. Vital signs are stabilized in the emergency room.. She was given aspirin. Spoke with Dr. Kerns who will be admitting to telemetry. EKG interpretation: Sinus tachycardia rate of 108, normal axis, no ST or T-wave changes concerning for acute ischemia, normal intervals. media monitor interpretation: Sinus tachycardia followed by normal sinus rhythm after fluid administration Chest x-ray interpretation: I see no acute process. I see no widened mediastinum, no pneumothorax, no infiltrates, no fractures CT abdomen pelvis interpretation: Sigmoid diverticulitis, moderate-sized pericardial effusion, constipation, no obstruction, no free air, no fractures Critical care time 36 minutes: This includes treatment of sepsis, careful fluid administration, empiric antibiotic administration, correction of unstable vital signs, multiple visits the patient's bedside to reassess status, discussion with patient admitting doctor, chart review. This does not include billable procedures. Departure Diagnosis: Primary Impression: Diverticulitis Additional Impressions: Sepsis Chest pain Pericardial effusion Constipation Condition: Serious AMY HOLDER DO Jul 13, 2016 22:53
[2016-07-13] MEDS ORDERED: LIDOCAINE/MYLANTA 40 ML BTL PO ONE (23:00)
[2016-07-13] MEDS ORDERED: ASPIRIN 81 MG TAB PO ONE (23:00)
[2016-07-13 23:36] LABS: CK-MB 0.56 ng/ml (0.0-2.4); TROPONIN-I 0.039 ng/ml (0.00-0.12)
[2016-07-14] VITALS (10 sets, daily range): BP systolic 87–116; BP diastolic 51–59; PULSE 67–92; RESP 16–19; TEMP 99.1; Ht 154.9 cm; Wt 61.5 kg
[2016-07-14 05:45] LABS: CK-MB 0.6 ng/ml (0.0-2.4); TROPONIN-I 0.042 ng/ml (0.00-0.12)
[2016-07-14] MEDS ORDERED: NON-FORMULARY/PATIENT OWN MED (Mometasone-Formoterol (Dulera) 2 PUFFS) INHALATION PRN (08:00)
[2016-07-14] MEDS ORDERED: LORAZEPAM 2 MG INJ IV PRN (08:00)
[2016-07-14] MEDS ORDERED: morphine 2 MG INJ IV PRN (08:00)
[2016-07-14] MEDS ORDERED: ONDANSETRON 4 MG INJ IV PRN (08:00)
[2016-07-14] MEDS ORDERED: NITROGLYCERIN (SL) 0.4 MG TAB SL PRN (08:00)
[2016-07-14] MEDS ORDERED: NACL 0.9% 3 ML SYG IV SCH (08:00)
[2016-07-14] MEDS ORDERED: LORAZEPAM 0.5 MG TAB PO PRN (08:26)
[2016-07-14] MEDS ORDERED: METOPROLOL 25 MG TAB PO SCH (09:00)
[2016-07-14] MEDS ORDERED: ISOSORBIDE MONONITRATE(SR)30 MG TAB PO SCH (09:00)
[2016-07-14] MEDS ORDERED: ALBUTEROL 18 GM INHALER INH PRN (09:00)
[2016-07-14] MEDS ORDERED: IPRATROPIUM (HFA) 12.9 GM INHALER INH PRN (09:00)
[2016-07-14] MEDS: LORATADINE 10 MG TAB PO SCH (09:32)
[2016-07-14] MEDS: CLOPIDOGREL 75 MG TAB PO SCH (09:32)
[2016-07-14] MEDS: SALMETEROL/FLUTICASONE 250/50 INHA INH SCH ×2 (09:33→20:50)
[2016-07-14] MEDS: ENOXAPARIN 40 MG/0.4 ML SYG SC SCH (09:40)
[2016-07-14] MEDS: ACETAMINOPHEN 325 MG TAB PO PRN ×2 (09:44→20:50)
[2016-07-14 10:00] LABS: CK-MB 0.83 ng/ml (0.0-2.4); TROPONIN-I 0.043 ng/ml (0.00-0.12)
[2016-07-14] MEDS: metroNIDAZOLE 500 MG/NS (PMX) 100 ML IVPB SCH ×3 (10:45→22:42)
[2016-07-14] MEDS: CIPROFLOXACIN 400MG/D5W 200 ML IVPB SCH ×2 (10:58→20:51)
--- NOTE | 2016-07-14 11:06 | HP ---
DATE OF ADMISSION: 07/13/2016 CHIEF COMPLAINT: Back pain and chest pain. HISTORY OF PRESENT ILLNESS: The patient is a 61-year-old female with a history of coronary artery d isease status post stent, asthma and anemia, who presents to the emergency department with chief com plaint of back pain and chest discomfort. Her chest pain is described as sharp and tightness, someh ow radiating to her neck, associated with back pain. The patient was just here in this hospital and had left heart catheterization and coronary angiography. She is status post PTCA with stent placem ent to mid circumflex, which was done by Dr. Martin. On further questioning, the patient reported some vague abdominal discomfort intermittently, right-sided, as well as left leg pain. She denied a [place] trauma. When she presented to the ER, her vitals were stable. Laboratory values show a WBC of 11, which is a drop from 13.2, 10 days ago, and hemoglobin of 11.9, which is her baseline. CT abdomen and pelvis without contrast shows acute diverticulitis of the sigmoid colon without perforation. Also noted w as cardiomegaly with moderate-sized pericardial effusion. The patient was given cefepime and was tr eated with albuterol, Atrovent and was given IV fluid as well while she was in the ER. REVIEW OF SYSTEMS: A 12-point review of systems was performed and is negative except as mentioned i n the HPI. PAST MEDICAL HISTORY: As per HPI. PAST SURGICAL HISTORY: As per HPI. SOCIAL HISTORY: No history of tobacco, alcohol or illicit drug use. ALLERGIES: NO KNOWN DRUG ALLERGIES. HOME MEDICATIONS: 1. Claritin. 2. Albuterol. 3. Atrovent. 4. Plavix. 5. Lipitor. 6. Imdur. 7. Lopressor. 8. Dulera. 9. Montelukast. 10. Advair. 11. Protonix. PHYSICAL EXAMINATION: VITAL SIGNS: Stable. GENERAL: No acute distress. Slightly sleepy, but arousable. HEENT: No obvious head deformity. Pupils react to light. Extraocular muscles intact. CARDIOVASCULAR: Regular rate and rhythm. No extra heart sounds. LUNGS: Clear. ABDOMEN: There is some discomfort in the lower abdominal region with no guarding or rebound tendern ess. EXTREMITIES: No edema. LABORATORY DATA: Pertinent positive results as mentioned in the HPI. IMAGING: CT abdomen and pelvis results as mentioned in the HPI. Chest x-ray: No acute cardiopulmo nary disease. IMPRESSION: 1. Acute sigmoid diverticulitis. 2. Chest pain. 3. Back pain. 4. History of coronary artery disease with recent stent. 5. History of asthma. 6. Mild leukocytosis. PLAN: The patient's presenting symptoms could be the result of acute diverticulitis. She will be p laced on antibiotics. We will order stool infectious workup including C. difficile. Given the repo rted chest pain as well as recent history of stent placement, she needs to be ruled out for ACS. We will send additional troponins, the first one was negative. EKG without ST elevation or depression . We will not notify her silk examiner, Dr. Martin, from her prior admission. She will be n.p.o. e xcept medications for now. Provide pain medication as needed. Further workup and management per clinical course. Dictated By: TJ PEREZ/CHANTAL Conf#: [id number] DID#: [id number]
[2016-07-14 15:03] LABS: CK-MB 0.64 ng/ml (0.0-2.4); TROPONIN-I 0.032 ng/ml (0.00-0.12)
--- NOTE | 2016-07-14 15:42 | PN ---
Date/Time of Note Date/Time of Note DATE: 07/14/16 TIME: 15:29 Assessment/Plan VTE Prophylaxis VTE Prophylaxis Intervention: LMWH Lines/Catheters IV Catheter Type (from Nrsg): Saline Lock Assessment/Plan Assessment/Plan 1. Acute sigmoid diverticulitis, improving on cipro/flagyl, start liquid diet 2. Pericardial effusion on CT scan, echo 3. CAD, s/p LCX PCI/stent, on plavix/aspirin/lipitor/metoprolol 4. Asthma, inhalers 5. DVT prophylaxis: lovenox Subjective 24 Hr Interval Summary Free Text/Dictation 61 years old female presents with two days lower abdominal pain along with fever and chills. No nausea or vomiting, no diarrhea. She coughs without sputum , burning pain at throat. No chest pain. Exam/Review of Systems Vital Signs Vitals Vital Signs Date Time Temp Pulse Resp B/P Pulse Ox O2 Delivery O2 Flow Rate FiO2 07/14/16 15:10 97.8 70 16 87/51 98 07/14/16 08:30 Room Air 07/14/16 05:46 2.0 Exam Constitutional: alert, oriented, well developed Psych: nl mood/affect, no complaints Head: atraumatic, normocephalic Eyes: EOMI, nl conjunctiva, nl lids ENMT: mucosa pink and moist, nl external ears & nose, nl lips & teeth, nl nasal mucosa & septum Neck: non-tender, supple Respiratory: wheezing Cardiovascular: nl pulses, regular rate and rhythm, No S3, No S4, No bruits, No diastolic murmur, No edema, No gallop, No irregular rhythm, No jugular venous distention (JVD), No murmurs/extra sounds, No other, No rub, No systolic murmur Gastrointestinal: nl liver, spleen, non-tender, soft, No ascites, No bowel sounds, No distended, No firm, No hepatomegaly, No mass , No other, No rebound or guarding, No splenomegaly, No surgical scars, No tender Musculoskeletal: nl extremities to inspection Extremities: normal pulses, No calf tenderness, No clubbing, No cyanosis, No edema, No other, No palpable cord, No pitting pedal edema, No tenderness Neurological: PARTS WASHER II-XII intact, nl mental status, nl speech, nl strength Skin: nl turgor Lymph: nl lymph nodes Results Result Diagram: 07/13/16 1545 07/13/16 1545 Results 24 hrs Laboratory Tests Test 07/13/16 15:44 07/13/16 15:45 07/13/16 16:00 07/13/16 17:42 Urine Color LT. YELLOW Urine Clarity CLEAR Urine pH 5.5 Urine Specific Wilbur 1.010 Urine Ketones NEGATIVE Urine Nitrite NEGATIVE Urine Bilirubin NEGATIVE Urine Urobilinogen 0.2 E.U./dL Urine Leukocyte Esterase TRACE H Urine Microscopic RBC 2-5 Urine Microscopic WBC 2-5 Urine Squamous Epithelial Cells FEW Urine Bacteria FEW Urine Hemoglobin 1+ H Urine Glucose NEGATIVE Urine Total Protein NEGATIVE White Blood Count 11.0 H Red Blood Count 4.37 Hemoglobin 11.9 L Hematocrit 37.0 Mean Corpuscular Volume 84.7 Mean Corpuscular Hemoglobin 27.2 L Mean Corpuscular Hemoglobin Concent 32.2 Red Cell Distribution Width 15.6 H Platelet Count 234 Mean Platelet Volume 9.9 Neutrophils % 73.5 Lymphocytes % 17.0 Monocytes % 8.0 Eosinophils % 0.9 Basophils % 0.1 Nucleated Red Blood Cells % 0.0 Neutrophils # 8.1 H Lymphocytes # 1.9 Monocytes # 0.9 Eosinophils # 0.1 Basophils # 0.0 Nucleated Red Blood Cells # 0.0 Prothrombin Time 12.4 Prothrombin Time Ratio 1.0 INR International Normalized Ratio 0.92 Activated Partial Thromboplast Time 24.3 L Sodium Level 140 Potassium Level 4.6 Chloride Level 107 Carbon Dioxide Level 27 Anion Gap 11 Blood Urea Nitrogen 10 Creatinine 0.78 Glucose Level 95 Calcium Level 9.3 Total Bilirubin 0.2 Direct Bilirubin 0.00 Indirect Bilirubin 0.2 Aspartate Amino Transf (AST/SGOT) 28 Alanine Aminotransferase (ALT/SGPT) 34 Alkaline Phosphatase 70 Creatine Kinase 77 Creatine Kinase Index 0.9 Creatinine Kinase MB (Mass) 0.67 Troponin I 0.040 B-Type Natriuretic Peptide 927 H Total Protein 6.7 Albumin 4.3 Globulin 2.40 Albumin/Globulin Ratio 1.79 Lactic Acid Level 1.1 1.0 Test 07/13/16 19:28 07/13/16 21:10 07/13/16 22:57 07/14/16 04:55 Lactic Acid Level 0.7 Prothrombin Time 13.0 Prothrombin Time Ratio 1.0 INR International Normalized Ratio 0.98 Activated Partial Thromboplast Time 28.4 Creatine Kinase 58 51 Creatine Kinase Index 1.0 1.2 Creatinine Kinase MB (Mass) 0.56 0.60 Troponin I 0.039 0.042 Test 07/14/16 09:15 07/14/16 14:25 Creatine Kinase 50 47 Creatine Kinase Index 1.7 1.4 Creatinine Kinase MB (Mass) 0.83 0.64 Troponin I 0.043 0.032 Medications Medications Current Medications Ondansetron HCl (Zofran Inj) 4 mg Q6H PRN IV NAUSEA AND/OR VOMITING; Start 07/14 at 08:00 Nitroglycerin (Nitroglycerin (Sl Tab) 0.4 Mg) 1 tab Q5M PRN SL CHEST PAIN; Start 07/14/16 at 08:00 Acetaminophen (Tylenol Tab) 650 mg Q6H PRN PO PAIN LEVEL 1-3 OR FEVER Last administered on 07/14/16 09:44; Admin Dose 650 MG; Start 07/14/16 at 08:00 Morphine Sulfate (morphine) 2 mg Q4H PRN IV PAIN LEVEL 7-10; Start 07/14/16 at 08:00 Enoxaparin Sodium (Lovenox) 40 mg DAILY SC Last administered on 07/14/16 09:40 ; Admin Dose 40 MG; Start 07/14/16 at 09:00 Atorvastatin Calcium (Lipitor) 80 mg DAILY@21 PO ; Start 07/14/16 at 21:00 Clopidogrel Bisulfate (plaVIX) 75 mg DAILY PO Last administered on 07/14/16 09: 32; Admin Dose 75 MG; Start 07/14/16 at 09:00 Isosorbide Mononitrate (Imdur) 30 mg DAILY PO Last administered on 07/14/16 09: 31; Admin Dose 30 MG; Start 07/14/16 at 09:00 Loratadine (Claritin) 10 mg DAILY PO Last administered on 07/14/16 09:32; Admin Dose 10 MG; Start 07/14/16 at 09:00 Metoprolol Tartrate (Lopressor) 25 mg BID PO Last administered on 07/14/16 09: 32; Admin Dose 25 MG; Start 07/14/16 at 09:00 Montelukast Sodium (Singulair) 10 mg HS PO ; Start 07/14/16 at 21:00 Pantoprazole (Protonix Tab) 40 mg DAILY@06 PO ; Start 07/15/16 at 06:00 Salmeterol Xinafoate/ Fluticasone (Advair 250/50 Diskus) 1 inh BID INH Last administered on 07/14/16 09:33; Admin Dose 1 INH; Start 07/14/16 at 09:00 Lorazepam 0.5 mg 0.5 mg Q6H PRN PO ANXIETY; Start 07/14/16 at 08:26 Ciprofloxacin/ Dextrose 200 ml @ 200 mls/hr Q12 IVPB Last administered on 10:58; Admin Dose 200 MLS/HR; Start 07/14/16 at 10:30 Metronidazole (Flagyl 500 Mg (Pmx)) 100 ml @ 100 mls/hr Q8 IVPB Last administered on 07/14/16 14:43; Admin Dose 100 MLS/HR; Start 07/14/16 at 09:30 BEATRIZ ROTHMAN MD Jul 14, 2016 15:40
[2016-07-14] MEDS: POTASSIUM CHLORIDE 10 MEQ in SOD CHLORIDE 0.9% 1,000 ML IV SCH (16:52)
[2016-07-14] MEDS: ATORVASTATIN 80 MG TAB PO SCH (20:50)
[2016-07-14] MEDS: MONTELUKAST 10 MG TAB PO SCH (22:41)
[2016-07-15] VITALS (12 sets, daily range): BP systolic 88–106; BP diastolic 50–59; PULSE 75–96; RESP 17–20
[2016-07-15] MEDS: metroNIDAZOLE 500 MG/NS (PMX) 100 ML IVPB SCH ×3 (06:18→22:21)
[2016-07-15] MEDS: PANTOPRAZOLE (EC) 40 MG TAB PO SCH (06:19)
[2016-07-15] MEDS: POTASSIUM CHLORIDE 10 MEQ in SOD CHLORIDE 0.9% 1,000 ML IV SCH ×3 (06:24→19:48)
[2016-07-15 07:29] LABS: ADD SCAN DIFF NO
[2016-07-15 07:39] LABS: HEMATOCRIT 35.3 % (37.0-47.0); HEMOGLOBIN 11.2 g/dl (12.0-16.0); MEAN CORPUSCULAR HGB CONC 31.7 g/dl (32.0-37.0); MEAN CORPUSCULAR VOLUME 85.1 fl (82.0-101.0); MEAN PLATELET VOLUME 10.1 fl (7.4-10.4); PLATELET COUNT 214 10^3/UL (140-415); RED BLOOD COUNT 4.15 10^6/ul (4.20-5.40); RED CELL DISTRIBUTION WIDTH 15.5 % (11.5-14.5); WHITE BLOOD COUNT 6.8 10^3/ul (4.8-10.8)
[2016-07-15 07:58] LABS: ALBUMIN 3.9 g/dl (3.3-4.9); ALBUMIN/GLOBULIN RATIO 1.56; BILIRUBIN,INDIRECT 0.3 mg/dl (0-1.1); BILIRUBIN,TOTAL 0.3 mg/dl (0.2-1.3); CALCIUM 8.8 mg/dl (8.4-10.2); CREATININE 0.69 mg/dl (0.44-1.00); MAGNESIUM 2.2 mg/dl (1.7-2.5); POTASSIUM 3.9 mmol/L (3.5-5.1); TOTAL PROTEIN 6.4 g/dl (6.1-8.1)
[2016-07-15] MEDS: SALMETEROL/FLUTICASONE 250/50 INHA INH SCH ×2 (08:37→20:40)
[2016-07-15] MEDS: CIPROFLOXACIN 400MG/D5W 200 ML IVPB SCH (08:37)
[2016-07-15] MEDS: CLOPIDOGREL 75 MG TAB PO SCH (08:38)
[2016-07-15] MEDS: LORATADINE 10 MG TAB PO SCH (08:38)
[2016-07-15] MEDS: ENOXAPARIN 40 MG/0.4 ML SYG SC SCH (08:40)
[2016-07-15 09:12] LABS: EOSINOPHILS # 0.3 10^3/ul (0.0-0.5); LYMPHOCYTES # 2.7 10^3/ul (0.8-2.9); MONOCYTE # 0.5 10^3/ul (0.3-0.9); NEUTROPHIL # 3.3 10^3/ul (1.6-7.5)
--- NOTE | 2016-07-15 17:37 | PN ---
Date/Time of Note Date/Time of Note DATE: 07/15/16 TIME: 17:33 Assessment/Plan VTE Prophylaxis VTE Prophylaxis Intervention: LMWH Lines/Catheters IV Catheter Type (from Nrsg): Peripheral IV Assessment/Plan Assessment/Plan 1. Acute sigmoid diverticulitis, improving on rocephin/flagyl, advance diet 2. Pericardial effusion on CT scan, echo 3. CAD, s/p LCX PCI/stent, on plavix/aspirin/lipitor/metoprolol 4. Asthma, inhalers 5. UTI, on rocephin 6. DVT prophylaxis: lovenox Subjective 24 Hr Interval Summary Free Text/Dictation afebrile. less abdominal pain. Exam/Review of Systems Vital Signs Vitals Vital Signs Date Time Temp Pulse Resp B/P Pulse Ox O2 Delivery O2 Flow Rate FiO2 07/15/16 16:27 84 07/15/16 15:51 99.3 106/59 95 07/14/16 08:30 Room Air 07/14/16 05:46 2.0 Intake and Output 07/14/16 07/14/16 07/15/16 15:00 23:00 07:00 Intake Total 300 ml 695 ml 2100 ml Balance 300 ml 695 ml 2100 ml Exam Constitutional: alert, oriented, well developed Psych: nl mood/affect, no complaints Head: atraumatic, normocephalic Eyes: EOMI, PERRL, nl conjunctiva, nl lids ENMT: nl external ears & nose, nl lips & teeth, nl nasal mucosa & septum Neck: non-tender, supple Respiratory: clear to auscultation, normal air movement, No congested cough, No crackles/rales, No diminished breath sounds, No intercostal retraction, No labored breathing, No other, No respirations, No tactile fremitus, No wheezing Cardiovascular: nl pulses, regular rate and rhythm, No S3, No S4, No bruits, No diastolic murmur, No edema, No gallop, No irregular rhythm, No jugular venous distention (JVD), No murmurs/extra sounds, No other, No rub, No systolic murmur Gastrointestinal: nl liver, spleen, non-tender, soft, No ascites, No bowel sounds, No distended, No firm, No hepatomegaly, No mass , No other, No rebound or guarding, No splenomegaly, No surgical scars, No tender Extremities: normal pulses, No calf tenderness, No clubbing, No cyanosis, No edema, No other, No palpable cord, No pitting pedal edema, No tenderness Neurological: DOCTOR CHIROPRACTIC II-XII intact, nl mental status, nl speech, nl strength Skin: nl turgor Lymph: nl lymph nodes Results Result Diagram: 07/15/16 0651 07/15/16 0651 Results 24 hrs Laboratory Tests Test 07/15/16 06:51 White Blood Count 6.8 # Red Blood Count 4.15 L Hemoglobin 11.2 L Hematocrit 35.3 L Mean Corpuscular Volume 85.1 Mean Corpuscular Hemoglobin 27.0 L Mean Corpuscular Hemoglobin Concent 31.7 L Red Cell Distribution Width 15.5 H Platelet Count 214 Mean Platelet Volume 10.1 Neutrophils % 49.0 Lymphocytes % 39.0 Monocytes % 8.0 Eosinophils % 4.0 Neutrophils # 3.3 Lymphocytes # 2.7 Monocytes # 0.5 Eosinophils # 0.3 Sodium Level 139 Potassium Level 3.9 Chloride Level 109 Carbon Dioxide Level 26 Anion Gap 8 Blood Urea Nitrogen 7 Creatinine 0.69 Glucose Level 87 Calcium Level 8.8 Magnesium Level 2.2 Total Bilirubin 0.3 Direct Bilirubin 0.00 Indirect Bilirubin 0.3 Aspartate Amino Transf (AST/SGOT) 20 Alanine Aminotransferase (ALT/SGPT) 34 Alkaline Phosphatase 67 Total Protein 6.4 Albumin 3.9 Globulin 2.50 Albumin/Globulin Ratio 1.56 Medications Medications Current Medications Ondansetron HCl (Zofran Inj) 4 mg Q6H PRN IV NAUSEA AND/OR VOMITING; Start 07/14 at 08:00 Nitroglycerin (Nitroglycerin (Sl Tab) 0.4 Mg) 1 tab Q5M PRN SL CHEST PAIN; Start 07/14/16 at 08:00 Acetaminophen (Tylenol Tab) 650 mg Q6H PRN PO PAIN LEVEL 1-3 OR FEVER Last administered on 07/14/16 20:50; Admin Dose 650 MG; Start 07/14/16 at 08:00 Morphine Sulfate (morphine) 2 mg Q4H PRN IV PAIN LEVEL 7-10; Start 07/14/16 at 08:00 Enoxaparin Sodium (Lovenox) 40 mg DAILY SC Last administered on 07/15/16 08:40 ; Admin Dose 40 MG; Start 07/14/16 at 09:00 Atorvastatin Calcium (Lipitor) 80 mg DAILY@21 PO Last administered on 07/14/16 20:50; Admin Dose 80 MG; Start 07/14/16 at 21:00 Clopidogrel Bisulfate (plaVIX) 75 mg DAILY PO Last administered on 07/15/16 08: 38; Admin Dose 75 MG; Start 07/14/16 at 09:00 Loratadine (Claritin) 10 mg DAILY PO Last administered on 07/15/16 08:38; Admin Dose 10 MG; Start 07/14/16 at 09:00 Montelukast Sodium (Singulair) 10 mg HS PO Last administered on 07/14/16 22:41 ; Admin Dose 10 MG; Start 07/14/16 at 21:00 Pantoprazole (Protonix Tab) 40 mg DAILY@06 PO Last administered on 07/15/16 06: 19; Admin Dose 40 MG; Start 07/15/16 at 06:00 Salmeterol Xinafoate/ Fluticasone (Advair 250/50 Diskus) 1 inh BID INH Last administered on 07/15/16 08:37; Admin Dose 1 INH; Start 07/14/16 at 09:00 Lorazepam 0.5 mg 0.5 mg Q6H PRN PO ANXIETY; Start 07/14/16 at 08:26 Metronidazole 100 ml @ 100 mls/hr Q8 IVPB Last administered on 07/15/16 14:18 ; Admin Dose 100 MLS/HR; Start 07/14/16 at 09:30 Potassium Chloride 10 meq/ Sodium Chloride 1,005 ml @ 75 mls/hr [id number] IV Last administered on 07/15/16 10:36; Admin Dose 75 MLS/HR; Start 07/14/16 at 17: 00 Ceftriaxone Sodium (Rocephin) 50 ml @ 100 mls/hr Q24H IVPB ; Start 07/15/16 at 17:30 BEATRIZ ROTHMAN MD Jul 15, 2016 17:36
[2016-07-15] MEDS: CEFTRIAXONE 1 GM/50 ML (PMX) 50 ML IVPB SCH (18:43)
[2016-07-15] MEDS: MONTELUKAST 10 MG TAB PO SCH (20:39)
[2016-07-15] MEDS: ATORVASTATIN 80 MG TAB PO SCH (20:39)
[2016-07-16] VITALS (13 sets, daily range): BP systolic 83–142; BP diastolic 47–65; PULSE 77–93; RESP 18–20
[2016-07-16] MEDS: metroNIDAZOLE 500 MG/NS (PMX) 100 ML IVPB SCH ×3 (05:39→21:19)
[2016-07-16] MEDS: PANTOPRAZOLE (EC) 40 MG TAB PO SCH (05:39)
[2016-07-16] MEDS: POTASSIUM CHLORIDE 10 MEQ in SOD CHLORIDE 0.9% 1,000 ML IV SCH ×3 (05:40→22:36)
--- NOTE | 2016-07-16 09:16 | RADRPT ---
Echocardiogram Report Patient Name: JAZ REID Gender: Female Date: 1955 Study Date: 14-Jul-2016 Die Cast Technician: Suni [facility] Location: 5562 Ref. Physician: BEATRIZ ROTHMAN Quality: Adequate Procedures: Transthoracic echocardiogram examination. Indications: Pericardial Effusion. Findings Left Ventricle: Normal left ventricular cavity size, wall thickness and systolic function. Normal left ventricular cavity size. Normal left ventricular systolic function. The left ventricular ejection fraction is visually estimated at 60 %. Pericardium: Small pericardial effusion. IVC: Normal inferior vena cava appearance and respiratory collapse. Conclusions 1.Normal left ventricular cavity size, wall thickness and systolic function. Normal left ventricular cavity size. Normal left ventricular systolic function. The left ventricular ejection fraction is visually estimated at 60 %. 2.Small pericardial effusion localized around R atrium. NO echocardiographic tamponade. Electronically Signed By: Brennen Martin 15-Jul-2016 15:51:07 -5600 Patient Name: JAZ REID Study Date: 14-Jul-2016 [id number]
[2016-07-16] MEDS: CLOPIDOGREL 75 MG TAB PO SCH (09:29)
[2016-07-16] MEDS: SALMETEROL/FLUTICASONE 250/50 INHA INH SCH ×2 (09:29→20:25)
[2016-07-16] MEDS: LORATADINE 10 MG TAB PO SCH (09:29)
[2016-07-16] MEDS: ENOXAPARIN 40 MG/0.4 ML SYG SC SCH (09:33)
[2016-07-16] MEDS: GUAIFENESIN/CODEINE 5ML CUP PO PRN ×2 (12:10→20:33)
[2016-07-16] MEDS ORDERED: METR-111 PO (16:39)
[2016-07-16] MEDS ORDERED: LEVO500T72 PO (16:39)
--- NOTE | 2016-07-16 16:49 | PN ---
Date/Time of Note Date/Time of Note DATE: 07/16/16 TIME: 16:46 Assessment/Plan VTE Prophylaxis VTE Prophylaxis Intervention: LMWH Lines/Catheters IV Catheter Type (from Nrs): Peripheral IV Assessment/Plan Assessment/Plan 1. Chest pain with mildly elevated troponin, likely mild pericarditis, pericardial effusion on CT scan, only small effusion on echo, cardiology consult 2. Acute sigmoid diverticulitis, improving on rocephin/flagyl 3. CAD, s/p LCX PCI/stent, on plavix/aspirin/lipitor/metoprolol 4. Asthma, inhalers 5. UTI, on rocephin 6. DVT prophylaxis: lovenox Subjective 24 Hr Interval Summary Free Text/Dictation no chest pain. no shortness of breath. no abdominal pain. Exam/Review of Systems Vital Signs Vitals Vital Signs Date Time Temp Pulse Resp B/P Pulse Ox O2 Delivery O2 Flow Rate FiO2 07/16/16 16:33 77 07/16/16 16:17 98.7 18 83/47 98 07/15/16 21:00 Room Air 07/14/16 05:46 2.0 Intake and Output 07/15/16 07/15/16 07/16/16 15:00 23:00 07:00 Intake Total 400 ml 1650 ml 1500 ml Balance 400 ml 1650 ml 1500 ml Exam Constitutional: alert, oriented, well developed Psych: nl mood/affect, no complaints Head: atraumatic, normocephalic Eyes: EOMI, nl conjunctiva, nl lids ENMT: nl external ears & nose, nl lips & teeth, nl nasal mucosa & septum Neck: non-tender, supple Respiratory: clear to auscultation, normal air movement, No congested cough, No crackles/rales, No diminished breath sounds, No intercostal retraction, No labored breathing, No other, No respirations, No tactile fremitus, No wheezing Cardiovascular: nl pulses, regular rate and rhythm, No S3, No S4, No bruits, No diastolic murmur, No edema, No gallop, No irregular rhythm, No jugular venous distention (JVD), No murmurs/extra sounds, No other, No rub, No systolic murmur Gastrointestinal: nl liver, spleen, non-tender, soft, No ascites, No bowel sounds, No distended, No firm, No hepatomegaly, No mass , No other, No rebound or guarding, No splenomegaly, No surgical scars, No tender Musculoskeletal: nl extremities to inspection Extremities: normal pulses, No calf tenderness, No clubbing, No cyanosis, No edema, No other, No palpable cord, No pitting pedal edema, No tenderness Neurological: LIFE COACH II-XII intact, nl mental status, nl speech, nl strength Skin: nl turgor Lymph: nl lymph nodes Results Result Diagram: 07/15/1665007/15/16650 Medications Medications Current Medications Ondansetron HCl (Zofran Inj) 4 mg Q6H PRN IV NAUSEA AND/OR VOMITING; Start 07/14 at 08:00 Nitroglycerin (Nitroglycerin (Sl Tab) 0.4 Mg) 1 tab Q5M PRN SL CHEST PAIN; Start 07/14/16 at 08:00 Acetaminophen (Tylenol Tab) 650 mg Q6H PRN PO PAIN LEVEL 1-3 OR FEVER Last administered on 07/14/16 20:50; Admin Dose 650 MG; Start 07/14/16 at 08:00 Morphine Sulfate (morphine) 2 mg Q4H PRN IV PAIN LEVEL 7-10; Start 07/14/16 at 08:00 Enoxaparin Sodium (Lovenox) 40 mg DAILY SC Last administered on 07/16/16 09:33 ; Admin Dose 40 MG; Start 07/14/16 at 09:00 Atorvastatin Calcium (Lipitor) 80 mg DAILY@21 PO Last administered on 07/15/16 20:39; Admin Dose 80 MG; Start 07/14/16 at 21:00 Clopidogrel Bisulfate (plaVIX) 75 mg DAILY PO Last administered on 07/16/16 09: 29; Admin Dose 75 MG; Start 07/14/16 at 09:00 Loratadine (Claritin) 10 mg DAILY PO Last administered on 07/16/16 09:29; Admin Dose 10 MG; Start 07/14/16 at 09:00 Montelukast Sodium (Singulair) 10 mg HS PO Last administered on 07/15/16 20:39 ; Admin Dose 10 MG; Start 07/14/16 at 21:00 Pantoprazole (Protonix Tab) 40 mg DAILY@06 PO Last administered on 07/16/16 05: 39; Admin Dose 40 MG; Start 07/15/16 at 06:00 Salmeterol Xinafoate/ Fluticasone (Advair 250/50 Diskus) 1 inh BID INH Last administered on 07/16/16 09:29; Admin Dose 1 INH; Start 07/14/16 at 09:00 Lorazepam 0.5 mg 0.5 mg Q6H PRN PO ANXIETY; Start 07/14/16 at 08:26 Metronidazole 100 ml @ 100 mls/hr Q8 IVPB Last administered on 07/16/16 14:50 ; Admin Dose 100 MLS/HR; Start 07/14/16 at 09:30 Potassium Chloride 10 meq/ Sodium Chloride 1,005 ml @ 75 mls/hr [id number] IV Last administered on 07/16/16 05:40; Admin Dose 75 MLS/HR; Start 07/14/16 at 17: 00 Ceftriaxone Sodium (Rocephin) 50 ml @ 100 mls/hr Q24H IVPB Last administered on 07/15/16 18:43; Admin Dose 100 MLS/HR; Start 07/15/16 at 17:30 Guaifenesin/ Codeine Phosphate (Robitussin Ac Liquid Cup) 5 ml Q4H PRN PO COUGH Last administered on 07/16/16 12:10; Admin Dose 5 ML; Start 07/16/16 at 12: 00 BEATRIZ ROTHMAN MD Jul 16, 2016 16:49
[2016-07-16] MEDS: CEFTRIAXONE 1 GM/50 ML (PMX) 50 ML IVPB SCH (16:58)
[2016-07-16] MEDS ORDERED: ASPIRIN 325 MG TAB PO ONE (19:30)
[2016-07-16] MEDS ORDERED: SOD CHLORIDE 0.9% 500 ML IV ONE (19:30)
[2016-07-16] MEDS: ATORVASTATIN 80 MG TAB PO SCH (20:25)
[2016-07-16] MEDS: MONTELUKAST 10 MG TAB PO SCH (20:25)
[2016-07-17] VITALS (8 sets, daily range): BP systolic 93–117; BP diastolic 50–66; PULSE 66–71; RESP 18–19
[2016-07-17] MEDS: metroNIDAZOLE 500 MG/NS (PMX) 100 ML IVPB SCH ×2 (05:29→14:55)
[2016-07-17] MEDS: PANTOPRAZOLE (EC) 40 MG TAB PO SCH (05:29)
[2016-07-17] MEDS: POTASSIUM CHLORIDE 10 MEQ in SOD CHLORIDE 0.9% 1,000 ML IV SCH ×2 (05:41→12:00)
--- NOTE | 2016-07-17 07:23 | CONS ---
DATE OF ADMISSION: 07/13/2016 DATE OF CONSULTATION: 07/16/2016 REASON FOR CONSULTATION: History of recent PTCA and stent placement, abnormal electrocardiogram, as sess for acute coronary syndrome. REQUESTING PHYSICIAN: Dr. Suárez from the hospitalist service. HISTORY OF PRESENT ILLNESS: Ms. Dozier is a 61-year-old female with a history of coronary artery disease, status post PTCA and stent placement to circumflex 07/01/2016, dyslipidemia, hypertension, asthma, who initially presented with complaints of sharp, stabbing chest pain, associated abdominal pain. Initially upon arrival, temperature 99.2, blood pressure 116/80, pulse 115, respiratory rate 24, saturating 96%. Patient's labs, white count 11, heme 11.9, platelet count of 234. Sodium of 14 0, potassium 4.6, creatinine 0.78, BUN 10. Troponin negative. BNP 927. INR 0.92. UA borderline. The patient underwent abdominopelvic CT revealing acute diverticulitis of the sigmoid colon, cardio megaly, mild hepatomegaly and a chest x-ray that revealed no acute cardiopulmonary abnormalities. T he patient's electrocardiogram was sinus tachycardia, rate 108, normal axis, normal intervals, with anterior T-wave inversion and lateral T-wave inversion. The patient subsequently admitted to the [facility] and since admit to floor has been initiated on ceftriaxone and Flagyl with improvement in abdomi nal pain. The patient denies ongoing chest pain. The patient has been put on Plavix but for unclea r reasons, aspirin has not been continued on this patient. Additionally since admit, the patient hernandez s had greater than 3 negative troponins. Additionally, patient has had greater than 3 negative trop onins, ruling out acute myocardial infarction. The patient denies ongoing chest pain at this time. PAST MEDICAL HISTORY: As above in HPI. MEDICATIONS CURRENTLY IN HOSPITAL: 1. Ceftriaxone. 2. Protonix. 3. Lipitor 80 mg at bedtime. 4. Singulair 10 mg at bedtime. 5. Potassium. 6. Flagyl. 7. Lovenox ____ q. daily. 8. Plavix 75 daily. 9. Atrovent. 10. Claritin. 11. Advair Diskus. 12. Ativan p.o. 13. Nitroglycerin. 14. Morphine p.r.n. 15. Tylenol p.r.n. ALLERGIES: NO KNOWN DRUG ALLERGIES. SOCIAL HISTORY: No tobacco, ETOH or illicit drug use. FAMILY HISTORY: No sudden cardiac or early CAD. REVIEW OF SYSTEMS: As above in HPI. CONSTITUTIONAL: No fevers, chills. PULMONARY: No current shortness of breath. CARDIOVASCULAR: No current chest pain. GASTROINTESTINAL: Abdominal pain, diverticulitis. GENITOURINARY: No hematuria. MUSCULOSKELETAL: Degenerative joint disease. PSYCHIATRIC: The patient denies depression. NEUROLOGIC: No documented history of CVA. PHYSICAL EXAMINATION: VITAL SIGNS: Temperature of 98.7, blood pressure 83/47, pulse 81, respiratory rate 18, saturating 9 8%. GENERAL: The patient is alert, awake, in no acute distress. NECK: No jugular venous distention. CHEST: Fair air movement throughout. HEART: Regular rate and rhythm. Normal S1, S2, I/ systolic murmur, nondisplaced PMI. ABDOMEN: Positive bowel sounds, soft. EXTREMITIES: No pitting edema, 1+ pulses bilaterally, posterior tibial. LABORATORIES: As above in HPI, with most recent from today, white count 6.8, hemoglobin 11.2, plate let count 214. Sodium 139, potassium 3.9, creatinine 0.69, BUN 7, INR 0.98. UA borderline. IMAGING STUDIES: As above in HPI. No further imaging studies for my review at this time. ECG: As above in HPI. No further electrocardiograms for my review at this time. IMPRESSION: 1. Abnormal electrocardiogram, assess for acute coronary syndrome with negative troponins greater t miles 3 at this time. 2. Chest pain on admission, currently resolved and atypical in nature, stabbing. 3. History of percutaneous transluminal coronary angioplasty and stent placement to circumflex 06/09 with no other significant obstructive stenoses noted at the time of catheterization. 4. Diverticulitis. 5. Abdominal pain secondary to diverticulitis. 6. Dyslipidemia. 7. Anemia. 8. Urinary tract infection. RECOMMENDATIONS: 1. At this time, would maintain the patient on telemetry monitoring to follow rhythm and rate contr ol closely. 2. We will follow the patient's blood pressure closely, which is hypertensive at this time, give pa tient IV fluid bolus and follow up response. 3. Continue the patient's Plavix and reinitiate patient on aspirin for dual antiplatelet therapy in the setting of recently placed drug-eluting stents. 4. Continue the patient's current statin, but will decrease to 40 mg at this time. 5. Continue the patient's antibiotics and follow exam closely. 6. Continue to check serial EKGs to assess for any significant ongoing changes, thus repeat EKG in the morning, EKG for any complaints of chest pain or change in rhythm. Thank you for allowing me to take part in the care of this patient. I will continue to follow along very closely with you. Further recommendations will be made as the patient progresses through his inpatient hospital clinical course. Dictated By: ANA SHARMA/CHANTAL Conf#: [id number] DID#: [id number] CC: BEATRIZ ROTHMAN MD;*End*
[2016-07-17 08:39] LABS: CHOL/HDL RATIO 2.7 RATIO
--- NOTE | 2016-07-17 08:57 | RADRPT ---
Vent Rate: 68 bpm RR Interval: 0 msec ME Interval: 140 msec QRS Duration: 76 msec QT Interval: 400 msec QTC Interval: 425 msec P-R-T Joseph: 69 - 73 - 84 degrees Normal sinus rhythm Normal ECG No previous tracing available for comparison Electronically Signed By: Ethan Rodriguez [id number]
[2016-07-17] MEDS: ENOXAPARIN 40 MG/0.4 ML SYG SC SCH (09:00)
[2016-07-17] MEDS ORDERED: ASPIRIN 325 MG TAB PO SCH (09:00)
[2016-07-17] MEDS: LORATADINE 10 MG TAB PO SCH (09:42)
[2016-07-17] MEDS: SALMETEROL/FLUTICASONE 250/50 INHA INH SCH (09:42)
[2016-07-17] MEDS: CLOPIDOGREL 75 MG TAB PO SCH (09:42)
[2016-07-17] MEDS: GUAIFENESIN/CODEINE 5ML CUP PO PRN (09:42)
[2016-07-17] MEDS ORDERED: ASPI-664 PO (15:27)
--- NOTE | 2016-07-17 15:27 | DS ---
Date/Time of Note Date/Time of Note DATE: 07/17/16 TIME: 15:19 Discharge Summary Admission/Discharge Info Admit Date/Time Jul 13, 2016 at 19:57 Discharge Date/Time Final Diagnosis 1. Chest pain, atypical, resolved. no further work up needed per cardiology 2. Acute sigmoid diverticulitis, improving on rocephin/flagyl 3. CAD, s/p LCX PCI/stent, on plavix/aspirin/lipitor/metoprolol 4. Asthma, inhalers 5. UTI, treated Patient Condition: Stable Hospital Course Ms. Dozier is a 61-year-old female with a history of coronary artery disease, status post PTCA and stent placement to circumflex 07/01/2016, dyslipidemia, hypertension, asthma, who initially presented with complaints of sharp, stabbing chest pain, associated abdominal pain. Initially upon arrival, temperature 99.2, blood pressure 116/80, pulse 115, respiratory rate 24, saturating 96%. Patient's labs, white count 11, heme 11.9, platelet count of 234. Sodium of 140, potassium 4.6, creatinine 0.78, BUN 10. Troponin negative. BNP 927. INR 0.92. UA borderline. The patient underwent abdominopelvic CT revealing acute diverticulitis of the sigmoid colon, cardiomegaly, mild hepatomegaly and a chest x-ray that revealed no acute cardiopulmonary abnormalities. The patient's electrocardiogram was sinus tachycardia, rate 108, normal axis, normal intervals, with anterior T-wave inversion and lateral T-wave inversion. The patient subsequently admitted to the floor and since admit to floor has been initiated on ceftriaxone and Flagyl with improvement in abdominal pain. The patient denies ongoing chest pain. The patient has been put on Plavix but for unclear reasons, aspirin has not been continued on this patient. Additionally since admit, the patient has had greater than 3 negative troponins. Additionally, patient has had greater than 3 negative troponins, ruling out acute myocardial infarction. The chest pain uis total resolved. No further work up needed. Patient will continue on levaquin and flagyl for acute diverticulitis that her abdominal pain resolved. She has positive urine culture that she was treated with rocephin. Patient will follow up with PCP and she will need a elective colonoscopy in 4 weeks or so. Home Meds Active Scripts Metronidazole (Flagyl) 250 Mg Tab, 250 MG PO TID for 12 Days, TAB Prov:BEATRIZ ROTHMAN MD 07/16/16 Levofloxacin* (Levaquin*) 500 Mg Tablet, 500 MG PO DAILY for 12 Days, TAB Prov:BEATRIZ ROTHMAN MD 07/16/16 Pantoprazole* (Pantoprazole*) 40 Mg Tablet.dr, 40 MG PO DAILY@06 for 30 Days, 2 Refills Prov:TYLER KERNS . 07/01/16 Metoprolol Tartrate* (Lopressor*) 25 Mg Tab, 25 MG PO BID for 30 Days, TAB 2 Ref[facility]. 07/01/16 Isosorbide Mononitrate* (Isosorbide Mononitrate*) 30 Mg Tab.er.24h, 30 MG PO DAILY for 30 Days, 2 Refills Prov:[facility]. 07/01/16 Atorvastatin* (Atorvastatin*) 80 Mg Tablet, 80 MG PO DAILY@21 for 30 Days, TAB 2 Refills Prov:LUIS F,[facility]PITALAngelina . 07/01/16 Clopidogrel Bisulfate (Clopidogrel) 75 Mg Tablet, 75 MG PO DAILY for 30 Days, TAB 2 Refills Prov[facility]. 07/01/16 Montelukast Sodium* (Montelukast Sodium*) 10 Mg Tablet, 10 MG PO HS for 30 Days , TAB Prov:SUSANNAH RUFFIN 04/27/16 Salmeterol Xinaf/Fluticasone* (Advair*) 250-50 Diskus Inhaler, 1 INH INH BID for 30 Days Prov:SUSANNAH RUFFIN 04/27/16 Reported Medications Mometasone-Formoterol (Dulera) 100-5 Mcg - 13 Gm Hfa.aer.ad, 2 PUFFS INHALATION Q4 Y for SHORTNESS OF BREATH, #1 INHALER 06/28/16 Albuterol Sulfate* (Ventolin HFA*) 18 Gm Hfa.aer.ad, 2 PUFF INHALATION Q4H, #1 INHALER 06/28/16 Loratadine* (Claritin*) 10 Mg Tablet, 10 MG PO DAILY, TAB 04/12/14 Ipratropium [place]* (Atrovent HFA*) 12.9 Gm Aer.w.adap, 2 PUFF IH Q4H Y for SHORTNESS OF BREATH, EA 04/12/14 Discontinued Scripts Prednisone* (Prednisone*) 10 Mg Tab, 10 MG PO DAILY, #21 TAB take 6 pills tomorrow take 5 pills on the next day take 4 pills on the next day take 3 pills on the next day take 2 pills on the next day take 1 pill on the next day then stop Prov:TYLER KERNS 07/01/16 Ferrous Sulfate* (Ferrous Sulfate*) 325 Mg Tabec, 325 MG PO BID for 30 Days, TAB Prov:SUSANNAH RUFFIN 04/27/16 Follow-up Plan PCP in one week cardiology in one week GI in 4 weeks for elective colonoscopy Primary Care Provider [facility] Pending Labs Laboratory Tests Test 07/17/16 06:30 Triglycerides Level 74mg/dl (0-149) Cholesterol Level 106mg/dl (100-200) LDL Cholesterol, Calculated 52mg/dl HDL Cholesterol 39mg/dl (35-98) Cholesterol/HDL Ratio 2.7BEATRIZ SIMS MD Jul 17, 2016 15:27
--- NOTE | 2016-07-17 15:38 | CONS ---
Date/Time of Note Date/Time of Note DATE: 07/17/16 TIME: 15:30 Assessment/Plan Assessment/Plan Chief Complaint/Hosp Course IMPRESSION: 1. Abnormal electrocardiogram, assess for acute coronary syndrome with negative troponins greater than 3 at this time. 2. Chest pain on admission, currently resolved and atypical in nature, stabbing. 3. History of percutaneous transluminal coronary angioplasty and stent placement to circumflex 06/2016 with no other significant obstructive stenoses noted at the time of catheterization. 4. Diverticulitis. 5. Abdominal pain secondary to diverticulitis. 6. Dyslipidemia. 7. Anemia. 8. Urinary tract infection. 9. Hypotension-borderline Recc: -Tele -Continue plavix and now asa -Follow BP and if no chest pain ok for d/c from cardiac standpoint -Continue PO abx's at d/c for treatment of diverticulitis Problems: Consultation Date/Type/Reason Admit Date/Time Jul 13, 2016 at 19:57 Initial Consult Date 07/16/2016 Type of Consultation: Cardiology Reason for Consultation abnl ecg Referring Provider: BEATRIZ ROTHMAN MD Exam/Review of Systems Vital Signs Vitals Vital Signs Date Time Temp Pulse Resp B/P Pulse Ox O2 Delivery O2 Flow Rate FiO2 07/17/16 12:22 67 07/17/16 11:55 98.7 18 99/57 97 07/15/16 21:00 Room Air 07/14/16 05:46 2.0 Intake and Output 07/16/16 07/16/16 07/17/16 15:00 23:00 07:00 Intake Total 1020 ml 1700 ml Balance 1020 ml 1700 ml Exam Review of Systems: CONSTITUTIONAL: No fevers, chills. PULMONARY: No sob CARDIOVASCULAR: No chest pain/palpitations GASTROINTESTINAL: No nausea/vomiting. GENITOURINARY: No hematuria/dysuria. MUSCULOSKELETAL: No myagias/arthalgias. PSYCHIATRIC: The patient denies depression. NEUROLOGIC: No weakness Constitutional: alert Psych: no complaints Head: normocephalic ENMT: mucosa pink and moist Neck: jvd (9 cm water), supple Respiratory: diminished breath sounds (at bases/B) Cardiovascular: regular rate and rhythm Gastrointestinal: non-tender, soft Musculoskeletal: muscle tone (normal) Extremities: edema (none) Neurological: other (No focal deficits) Results Result Diagram: 07/15/1651 07/15/1651 Results 24 hrs Laboratory Tests Test 07/17/16 06:30 Triglycerides Level 74 Cholesterol Level 106 LDL Cholesterol, Calculated 52 HDL Cholesterol 39 Cholesterol/HDL Ratio 2.7 Medications Medications Current Medications Ondansetron HCl (Zofran Inj) 4 mg Q6H PRN IV NAUSEA AND/OR VOMITING; Start 07/14 at 08:00 Nitroglycerin (Nitroglycerin (Sl Tab) 0.4 Mg) 1 tab Q5M PRN SL CHEST PAIN; Start 07/14/16 at 08:00 Acetaminophen (Tylenol Tab) 650 mg Q6H PRN PO PAIN LEVEL 1-3 OR FEVER Last administered on 07/14/16 20:50; Admin Dose 650 MG; Start 07/14/16 at 08:00 Morphine Sulfate (morphine) 2 mg Q4H PRN IV PAIN LEVEL 7-10; Start 07/14/16 at 08:00 Enoxaparin Sodium (Lovenox) 40 mg DAILY SC Last administered on 07/16/16 09:33 ; Admin Dose 40 MG; Start 07/14/16 at 09:00 Atorvastatin Calcium (Lipitor) 80 mg DAILY@21 PO Last administered on 07/16/16 20:25; Admin Dose 80 MG; Start 07/14/16 at 21:00 Clopidogrel Bisulfate (plaVIX) 75 mg DAILY PO Last administered on 07/17/16 09: 42; Admin Dose 75 MG; Start 07/14/16 at 09:00 Loratadine (Claritin) 10 mg DAILY PO Last administered on 07/17/16 09:42; Admin Dose 10 MG; Start 07/14/16 at 09:00 Montelukast Sodium (Singulair) 10 mg HS PO Last administered on 07/16/16 20:25 ; Admin Dose 10 MG; Start 07/14/16 at 21:00 Pantoprazole (Protonix Tab) 40 mg DAILY@06 PO Last administered on 07/17/16 05: 29; Admin Dose 40 MG; Start 07/15/16 at 06:00 Salmeterol Xinafoate/ Fluticasone (Advair 250/50 Diskus) 1 inh BID INH Last administered on 07/17/16 09:42; Admin Dose 1 INH; Start 07/14/16 at 09:00 Lorazepam 0.5 mg 0.5 mg Q6H PRN PO ANXIETY; Start 07/14/16 at 08:26 Metronidazole 100 ml @ 100 mls/hr Q8 IVPB Last administered on 07/17/16 14:55 ; Admin Dose 100 MLS/HR; Start 07/14/16 at 09:30 Potassium Chloride 10 meq/ Sodium Chloride 1,005 ml @ 75 mls/hr [id number] IV Last administered on 07/17/16 05:41; Admin Dose 75 MLS/HR; Start 07/14/16 at 17: 00 Ceftriaxone Sodium (Rocephin) 50 ml @ 100 mls/hr Q24H IVPB Last administered on 07/16/16 16:58; Admin Dose 100 MLS/HR; Start 07/15/16 at 17:30 Guaifenesin/ Codeine Phosphate (Robitussin Ac Liquid Cup) 5 ml Q4H PRN PO COUGH Last administered on 07/17/16 09:42; Admin Dose 5 ML; Start 07/16/16 at 12: 00 Aspirin (Aspirin) 325 mg DAILY PO Last administered on 07/17/16 09:42; Admin Dose 325 MG; Start 07/17/16 at 09:00 ANA ORTEGA Jul 17, 2016 15:38
== END 2016-07-17 16:43 | disposition home or self-care (01) | DRG 392 ==
LOC: E/R 14:34 → MS4 19:57
PROVIDERS: ADMIT Internal Medicine; ATTEND Internal Medicine
DX: K57.32 Diverticulitis of large intestine without perforation or abscess without bleeding (principal); I31.3 Pericardial effusion (noninflammatory); N39.0 Urinary tract infection, site not specified; J45.909 Unspecified asthma, uncomplicated; I25.10 Atherosclerotic heart disease of native coronary artery without angina pectoris; D72.829 Elevated white blood cell count, unspecified; D64.9 Anemia, unspecified; E78.5 Hyperlipidemia, unspecified; M54.9 Dorsalgia, unspecified; R07.9 Chest pain, unspecified; R03.1 Nonspecific low blood-pressure reading; Z95.5 Presence of coronary angioplasty implant and graft
CPT/HCPCS: 36415; 71010; 74176; 80053; 80061; 81001; 82550; 82553; 83605; 83735; 83880; 84484; 85025; 85610; 85730; 87040; 87081; 87086; 93005; 93308; 94664; 96372; 96374; 96375; J0692; J0696; J0744; J1650; J2270; J2543; J3480; J7030; J7040

== ENCOUNTER 2016-09-22 08:50 | Emergency (ER) | payer MEDICAID ==
[~2016-09-22] VITALS: Ht 152.4 cm; Wt 58.0 kg
[~2016-09-22 08:50] MED LIST changes: +ASPI-664 PO; -FER325 PO; +LEVO500T72 PO; +METR-111 PO; -PRED10TA PO
[2016-09-22 08:52] VITALS: Ht 152.4 cm; Wt 58.0 kg
[2016-09-22] MEDS ORDERED: ALBUTEROL 0.083% (NEB) 2.5 MG/3 ML AMP HHN STA (09:17)
[2016-09-22] MEDS ORDERED: DEXAMETHASONE 10 MG/ML 1 ML INJ IM ONE (09:30)
[2016-09-22] MEDS ORDERED: IPRATROPIUM (NEB) 0.5 MG/2.5 ML AMP HHN ONE (09:30)
--- NOTE | 2016-09-22 10:13 | RADRPT ---
PROCEDURE: XR Chest. CLINICAL INDICATION: cough with wheezing TECHNIQUE: Single frontal view of the chest was obtained. COMPARISON: Chest x-ray from 07/13/2016 FINDINGS: The heart and mediastinum are within normal limits. The lungs are clear. The aortic arch is calcified. There is no significant pleural effusion or pneumothorax. IMPRESSION: No acute disease. Aortic atherosclerosis. RPTAT: EE Physician Rebecca Date Time Electronically viewed and signed by Josue Rivera Physician on 09/22/2016 10:12 RA/
[2016-09-22] MEDS ORDERED: PRED20TA PO (10:19)
[2016-09-22] MEDS ORDERED: ALBU8.5H3 INH (10:19)
--- NOTE | 2016-09-22 10:34 | ERD ---
ER Documentation Chief Complaint Date/Time DATE: 09/22/16 TIME: 10:22 Chief Complaint pt bib self, hx asthma, feels like she is wheezing and has ear painx 2 dys HPI 61-year-old female coming in complaining for asthmatic exacerbation. Patient states that she has had asthma exacerbation over the last 2 days. She has been using her inhaler with mild alleviation. She has had a productive cough. Denies fever but states she has had chills. Has taken naproxen. Denies any chest pain. Medical history: Asthma NKDA Surgical history: Right hand surgery Smoking: denies ROS All systems reviewed and are negative except as per history of present illness. Medications Home Meds Active Scripts Prednisone* (Prednisone*) 20 Mg Tab, 40 MG PO DAILY for 4 Days, TAB Prov:MAINE MOSLEY PA-C 09/22/16 Albuterol Sulfate* (Proair HFA*) 8.5 Gm Hfa.aer.ad, 2 PUFF INH Q4, #1 INHALER Prov:MAINE MOSLEY PA-C 09/22/16 Aspirin* (Aspirin* (EC)) 81 Mg Tablet., 81 MG PO DAILY for 30 Days, TAB Prov:BEATRIZ ROTHMAN MD 07/17/16 Metronidazole (Flagyl) 250 Mg Tab, 250 MG PO TID for 12 Days, TAB Prov:BEATRIZ ROTHMAN MD 07/16/16 Levofloxacin* (Levaquin*) 500 Mg Tablet, 500 MG PO DAILY for 12 Days, TAB Prov:BEATRIZ ROTHMAN MD 07/16/16 Pantoprazole* (Pantoprazole*) 40 Mg Tablet., 40 MG PO DAILY@06 for 30 Days, 2 Refills Prov:TYLER KERNS. 07/01/16 Metoprolol Tartrate* (Lopressor*) 25 Mg Tab, 25 MG PO BID for 30 Days, TAB 2 Refills Prov:TYLER KERNS. 07/01/16 Isosorbide Mononitrate* (Isosorbide Mononitrate*) 30 Mg Tab.er.24h, 30 MG PO DAILY for 30 Days, 2 Refills Prov:TYLER KERNS. 07/01/16 Atorvastatin* (Atorvastatin*) 80 Mg Tablet, 80 MG PO DAILY@21 for 30 Days, TAB 2 Refills Prov:TYLER KERNS. 07/01/16 Clopidogrel Bisulfate (Clopidogrel) 75 Mg Tablet, 75 MG PO DAILY for 30 Days, TAB 2 Refills Prov:TYLER KERNS. 07/01/16 Montelukast Sodium* (Montelukast Sodium*) 10 Mg Tablet, 10 MG PO HS for 30 Days , TAB Prov:SUSANNAH RUFFIN 04/27/16 Salmeterol Xinaf/Fluticasone* (Advair*) 250-50 Diskus Inhaler, 1 INH INH BID for 30 Days Prov:SUSANNAH RUFFIN 04/27/16 Reported Medications Mometasone-Formoterol (Dulera) 100-5 Mcg - 13 Gm Hfa.aer.ad, 2 PUFFS INHALATION Q4 Y for SHORTNESS OF BREATH, #1 INHALER 06/28/16 Albuterol Sulfate* (Ventolin HFA*) 18 Gm Hfa.aer.ad, 2 PUFF INHALATION Q4H, #1 INHALER 06/28/16 Loratadine* (Claritin*) 10 Mg Tablet, 10 MG PO DAILY, TAB 04/12/14 Ipratropium [place]* (Atrovent HFA*) 12.9 Gm Aer.w.adap, 2 PUFF IH Q4H Y for SHORTNESS OF BREATH, EA 04/12/14 Allergies Allergies: Coded Allergies: No Known Allergy (Unverified , 07/13/16) PMhx/Soc History of Surgery: Yes (Right hand surgery, eye surgery) Anesthesia Reaction: No Hx Neurological Disorder: No Hx Respiratory Disorders: Yes (Asthma) Hx Cardiac Disorders: Yes (HTN, HYPERLIPIDEMIA) Hx Psychiatric Problems: No Hx Miscellaneous Medical Probl: No Hx Alcohol Use: No Hx Substance Use: No Hx Tobacco Use: No Smoking Status: Never smoker Physical Exam Vitals Vital Signs Date Time Temp Pulse Resp B/P Pulse Ox O2 Delivery O2 Flow Rate FiO2 09/22/16 09:33 78 20 96 21 09/22/16 08:52 97.8 92 18 118/57 95 Physical Exam GENERAL: The patient is well-appearing, well-nourished, in no acute distress HEENT: Atraumatic. Conjunctivae are pink. Pupils equal, round, and reactive to light. There is no scleral icterus. Tympanic membranes clear bilaterally. Oropharynx clear. No nystagmus or photophobia. NECK: C-spine is soft and supple. There is no meningismus. There is no cervical lymphadenopathy. No JVD. No bruits. No goiter. CHEST: Diffuse wheezing or auscultation. No rhonchi heard on auscultation. No focal exam HEART: Regular rate and rhythm. No murmurs, clicks, rubs or gallops. No S3 or S4. Results 24 hrs Current Medications Medications (Trade) Dose Ordered Sig/Michael Route PRN Reason Start Time Stop Time Status Last Admin Dose Admin Dexamethasone (Decadron) 10 mg ONCE ONCE IM 09/22/16 09:30 09/22/16 09:31 DC 09/22/16 09:40 Ipratropium [place] (Atrovent 0.02% (Neb)) 0.5 mg ONCE ONCE HHN 09/22/16 09:30 09/22/16 09:31 DC 09/22/16 09:32 Albuterol (Proventil 0.083% (Neb)) 2.5 mg ONCE STAT N 09/22/16 09:17 09/22/16 09:19 DC 09/22/16 09:32 Procedures/MDM DIAGNOSTIC IMAGING REPORT Patient: JAZ REID : [id number] Age: 61 Sex: F MR #: [id number] DOS: 09/22/16916 Ordering MD: DINORA MOSLEY PA-C Location: [facility] Room/Bed: PROCEDURE: XR Chest. CLINICAL INDICATION: cough with wheezing TECHNIQUE: Single frontal view of the chest was obtained. COMPARISON: Chest x-ray from 07/13/2016 FINDINGS: The heart and mediastinum are within normal limits. The lungs are clear. The aortic arch is calcified. There is no significant pleural effusion or pneumothorax. IMPRESSION: No acute disease. Aortic atherosclerosis. ER Course: Albuterol and atrovent breathing treatment given in ED. IM 10mg Decadron given in ED. Patient's exam is improved on eval. MDM: 61 yr old female complaining of wheezing. I have low suspicion for respiratory distress. I have low suspicion for PNA. Patient's exam is concerning for asthma which improved with medication. Patient will be discharged with steroids and breathing medication. Patient is given strict ER precautions. Told to return to the ER symptoms change or worsen. Patient understood and complied and all the questions answered at the time of discharge. I have low suspicion for cardiac emergency. Departure Diagnosis: Primary Impression: Wheezing Condition: Stable Patient Instructions: Asthma Referrals: [facility] Ugalde (PCP) Additional Instructions: FOLLOW UP WITH YOUR PRIMARY CARE PHYSICIAN TOMORROW.Return to this facility if you are not improving as expected. MAINE MOSLEY PA-C Sep 22, 2016 10:34
[2016-09-22 10:40] VITALS: BP 138/78; PULSE 73; RESP 18
== END 2016-09-22 10:41 | disposition home or self-care (01) ==
LOC: FTE 08:50
DX: R06.2 Wheezing (principal); J45.901 Unspecified asthma with (acute) exacerbation; I10 Essential (primary) hypertension; Z79.01 Long term (current) use of anticoagulants; Z79.82 Long term (current) use of aspirin
CPT/HCPCS: 71010; 94664; 96372; J1100; Z7502; Z7610

== ENCOUNTER 2016-10-04 15:15 | Inpatient (IN) | payer MEDICAID ==
[~2016-10-04] VITALS: Ht 154.9 cm; Wt 57.0 kg
[~2016-10-04 15:15] MED LIST changes: +ALBU8.5H3 INH; +PRED20TA PO
[2016-10-04] MEDS ORDERED: ALBUTEROL 0.083% (NEB) 2.5 MG/3 ML AMP NEB STA (16:50)
[2016-10-04] MEDS ORDERED: ALBUTEROL 0.5% (NEB) 2.5 MG/0.5 ML AMP INH STA (17:14)
[2016-10-04] MEDS ORDERED: IPRATROPIUM (NEB) 0.5 MG/2.5 ML AMP INH STA (17:14)
[2016-10-04] MEDS ORDERED: IPRATROPIUM (NEB) 0.5 MG/2.5 ML AMP ONE (17:16)
[2016-10-04] MEDS ORDERED: ALBUTEROL 0.5% (NEB) 2.5 MG/0.5 ML AMP ONE (17:16)
[2016-10-04] MEDS ORDERED: DEXAMETHASONE 10 MG/ML 1 ML INJ IM ONE (17:30)
[2016-10-04 17:56] LABS: CALCIUM 8.9 mg/dl (8.4-10.2); CREATININE 1.18 mg/dl (0.44-1.00); POTASSIUM 4.8 mmol/L (3.5-5.1)
[2016-10-04 18:02] LABS: TROPONIN-I 0.013 ng/ml (0.00-0.12)
--- NOTE | 2016-10-04 18:04 | RADRPT ---
PROCEDURE: XR Chest. CLINICAL INDICATION: Shortness of breath. Asthma exacerbation. TECHNIQUE: Single frontal view. COMPARISON: 09/22/2016. FINDINGS: The lungs are clear. The heart size is normal. There is calcification in the aorta consistent with atherosclerosis. There is no pleural effusion. There is no pneumothorax. IMPRESSION: 1. Atherosclerosis. 2. Otherwise normal chest radiograph. RPTAT: QQ .Humble Aguayo MD, MD Date Time Electronically viewed and signed by .Humble Aguayo MD, on 10/04/2016 18:03 .R/
[2016-10-04 18:17] LABS: BASOPHILS % 0.2 % (0.0-2.0); EOSINOPHILS # 0.4 10^3/ul (0.0-0.5); EOSINOPHILS % 3.5 % (0.0-7.0); HEMATOCRIT 37.3 % (37.0-47.0); HEMOGLOBIN 11.6 g/dl (12.0-16.0); LYMPHOCYTES # 4.3 10^3/ul (0.8-2.9); LYMPHOCYTES % 42.3 % (15.0-51.0); MEAN CORPUSCULAR HEMOGLOBIN 26.5 pg (29.0-33.0); MEAN CORPUSCULAR HGB CONC 31.1 g/dl (32.0-37.0); MEAN CORPUSCULAR VOLUME 85.4 fl (82.0-101.0); MEAN PLATELET VOLUME 10.6 fl (7.4-10.4); MONOCYTE # 0.8 10^3/ul (0.3-0.9); MONOCYTES % 8.1 % (0.0-11.0); NEUTROPHILS % 45.8 % (39.0-77.0); PLATELET COUNT 247 10^3/UL (140-415); RED BLOOD COUNT 4.37 10^6/ul (4.20-5.40); RED CELL DISTRIBUTION WIDTH 15.4 % (11.5-14.5); WHITE BLOOD COUNT 10.1 10^3/ul (4.8-10.8)
[2016-10-04] MEDS ORDERED: LEVALBUTEROL (NEB) 1.25 MG/0.5 ML AMP INH STA (18:51)
[2016-10-04] MEDS ORDERED: LORAZEPAM 1 MG TAB PO ONE (19:00)
[2016-10-04] MEDS ORDERED: ASPIRIN 325 MG TAB PO STA (20:13)
[2016-10-04] MEDS ORDERED: ONDANSETRON 4 MG INJ IV PRN (20:30)
[2016-10-04] MEDS ORDERED: ACETAMINOPHEN 325 MG TAB PO PRN (20:30)
--- NOTE | 2016-10-04 20:57 | ERD ---
ER Documentation Chief Complaint Date/Time DATE: 10/04/16 TIME: 20:35 Chief Complaint FEELS NERVOUS, ANXIOUS HPI 61-year-old female history of asthma and non-STEMI presents to the emergency department complaining of Anxiety,mild to moderate, intermittent chest pain that radiates to the back with deep inhalation, ambulating and shortness of breath x 1 week. Patient has been complaining of shortness of breath and wheezing for the past couple days. She states that she has not used any inhalers. Patient denies any fevers, diaphoresis ROS All systems reviewed and are negative except as per history of present illness. Medications Home Meds Active Scripts Prednisone* (Prednisone*) 20 Mg Tab, 40 MG PO DAILY for 4 Days, TAB Prov:MAINE MOSLEY PA-C 09/22/16 Albuterol Sulfate* (Proair HFA*) 8.5 Gm Hfa.aer.ad, 2 PUFF INH Q4, #1 INHALER Prov:MAINE MOSLEY PA-C 09/22/16 Aspirin* (Aspirin* (EC)) 81 Mg Tablet., 81 MG PO DAILY for 30 Days, TAB Prov:BEATRIZ ROTHMAN MD 07/17/16 Metronidazole (Flagyl) 250 Mg Tab, 250 MG PO TID for 12 Days, TAB Prov:BEATRIZ ROTHMAN MD 07/16/16 Levofloxacin* (Levaquin*) 500 Mg Tablet, 500 MG PO DAILY for 12 Days, TAB Prov:BEATRIZ ROTHMAN MD 07/16/16 Pantoprazole* (Pantoprazole*) 40 Mg Tablet.dr, 40 MG PO DAILY@06 for 30 Days, 2 Refills Prov:TYLER KERNS. 07/01/16 Metoprolol Tartrate* (Lopressor*) 25 Mg Tab, 25 MG PO BID for 30 Days, TAB 2 Refills Prov:TYLER KERNS. 07/01/16 Isosorbide Mononitrate* (Isosorbide Mononitrate*) 30 Mg Tab.er.24h, 30 MG PO DAILY for 30 Days, 2 Refills Prov:TYLER KERNS. 07/01/16 Atorvastatin* (Atorvastatin*) 80 Mg Tablet, 80 MG PO DAILY@21 for 30 Days, TAB 2 Refills Prov:TYLER KERNS. 07/01/16 Clopidogrel Bisulfate (Clopidogrel) 75 Mg Tablet, 75 MG PO DAILY for 30 Days, TAB 2 Refills Prov:TYLER KERNS. 07/01/16 Montelukast Sodium* (Montelukast Sodium*) 10 Mg Tablet, 10 MG PO HS for 30 Days , TAB Prov:SUSANNAH RUFFIN 04/27/16 Salmeterol Xinaf/Fluticasone* (Advair*) 250-50 Diskus Inhaler, 1 INH INH BID for 30 Days Prov:SUSANNAH RUFFIN 04/27/16 Reported Medications Mometasone-Formoterol (Dulera) 100-5 Mcg - 13 Gm Hfa.aer.ad, 2 PUFFS INHALATION Q4 Y for SHORTNESS OF BREATH, #1 INHALER 06/28/16 Albuterol Sulfate* (Ventolin HFA*) 18 Gm Hfa.aer.ad, 2 PUFF INHALATION Q4H, #1 INHALER 06/28/16 Loratadine* (Claritin*) 10 Mg Tablet, 10 MG PO DAILY, TAB 04/12/14 Ipratropium [place]* (Atrovent HFA*) 12.9 Gm Aer.w.adap, 2 PUFF IH Q4H Y for SHORTNESS OF BREATH, EA 04/12/14 Allergies Allergies: Coded Allergies: No Known Allergy (Unverified , 07/13/16) PMhx/Soc History of Surgery: Yes (Right hand surgery, eye surgery) Anesthesia Reaction: No Hx Neurological Disorder: Yes (anxiety) Hx Respiratory Disorders: Yes (Asthma) Hx Cardiac Disorders: Yes (HTN, HYPERLIPIDEMIA, AMI) Hx Psychiatric Problems: No Hx Miscellaneous Medical Probl: No Hx Alcohol Use: No Hx Substance Use: No Hx Tobacco Use: No Smoking Status: Former smoker Physical Exam Vitals Vital Signs Date Time Temp Pulse Resp B/P Pulse Ox O2 Delivery O2 Flow Rate FiO2 10/04/16 19:24 85 18 97 21 10/04/16 19:05 98.1 79 20 96/64 96 Room Air 10/04/16 17:21 Nasal Cannula 2 10/04/16 17:03 89 17 97 21 10/04/16 15:18 98.1 77 18 102/55 99 Physical Exam GENERAL: WD/WN, in no apparent distress, non-toxic appearing HENT: NC/AT, bilateral TM has good cone of light EYES: Conjunctiva normal NECK: Supple PULM: Inspiratory and expiratory wheezing. No rales, crackles, or rhonchi heard. No tripod position, normal labored breathing, no stridor, no evidence of using accessory muscles. CV: Good capillary refill, good S1 and S2, no murmurs appreciated GI: Non-distended, no guarding BACK: No masses. EXT: No clubbing, cyanosis, or edema. NEURO: Moves on all fours SKIN: intact, no cyanosis. PSYCH: clinicallyt amxious Result Diagram: 10/04/16 1810 10/04/16 1715 Results 24 hrs Laboratory Tests Test 10/04/16 17:15 10/04/16 18:10 Sodium Level 144mmol/L Potassium Level 4.8mmol/L Chloride Level 104mmol/L Carbon Dioxide Level 28mmol/L Anion Gap 17 Blood Urea Nitrogen 19mg/dl Creatinine 1.18mg/dl Glucose Level 89mg/dl Calcium Level 8.9mg/dl Troponin I 0.013ng/ml White Blood Count 10.110^3/ul Red Blood Count 4.3710^6/ul Hemoglobin 11.6g/dl Hematocrit 37.3% Mean Corpuscular Volume 85.4fl Mean Corpuscular Hemoglobin 26.5pg Mean Corpuscular Hemoglobin Concent 31.1g/dl Red Cell Distribution Width 15.4% Platelet Count 60960^3/UL Mean Platelet Volume 10.6fl Neutrophils % 45.8% Lymphocytes % 42.3% Monocytes % 8.1% Eosinophils % 3.5% Basophils % 0.2% Nucleated Red Blood Cells % 0.0/100WBC Neutrophils # (Manual) 4.610^3/ul Lymphocytes # 4.310^3/ul Monocytes # 0.810^3/ul Eosinophils # 0.410^3/ul Basophils # 0.010^3/ul Nucleated Red Blood Cells # 0.010^3/ul Current Medications Medications (Trade) Dose Ordered Sig/Michael Route PRN Reason Start Time Stop Time Status Last Admin Dose Admin Albuterol (Proventil 0.083% (Neb)) 5 mg ONCE STAT NEB 10/04/16 16:50 10/04/16 16:53 DC 10/04/16 17:02 Albuterol (Proventil 0.5% (Neb)) 10 mg ONCE STAT INH 10/04/16 17:14 10/04/16 17:16 DC 10/04/16 17:22 Ipratropium [place] (Atrovent 0.02% (Neb)) 1 mg ONCE STAT INH 10/04/16 17:14 10/04/16 17:16 DC 10/04/16 17:22 Dexamethasone (Decadron) 10 mg ONCE ONCE IM 10/04/16 17:30 10/04/16 17:31 DC 10/04/16 17:32 Ipratropium [place] (Atrovent 0.02% (Neb)) 0.5 mg STK-MED ONCE .ROUTE 10/04/16 17:16 10/04/16 17:17 DC Albuterol (Proventil 0.5% (Neb)) 2.5 mg STK-MED ONCE .ROUTE 10/04/16 17:16 10/04/16 17:17 DC Lorazepam (Ativan) 1 mg ONCE ONCE PO 10/04/16 19:00 10/04/16 19:01 DC 10/04/16 19:20 Levalbuterol (Xopenex Neb) 5 mg ONCE STAT INH 10/04/16 18:51 10/04/16 18:52 DC 10/04/16 19:24 Aspirin (Aspirin) 325 mg ONCE STAT PO 10/04/16 20:13 10/04/16 20:14 DC 10/04/16 20:24 Ondansetron HCl (Zofran Inj) 4 mg ER BRIDGE PRN IV NAUSEA AND/OR VOMITING 10/04/16 20:30 10/05/16 20:29 Acetaminophen (Tylenol Tab) 650 mg ER BRIDGE PRN PO MILD PAIN/FEVER 10/04/16 20:30 10/05/16 20:29 Procedures/MDM 61 year old female with history of asthma and NSTEMI presents with acute asthma exacerbation and exertional chest pain for one week. Patient would benefit for admission to [facility] for further evaluation and management of acute exacerbation and chest pain. I have consulted my supervising physician Dr. Herrera who will consult the hospitalist for admission.In the ED, patient was given 3 breathing treatments of albuterol and Xopenex, she was given Decadron. I have reassessed her and she continues to feel short of breath. Patient had a normal pulse ox throughout this whole encounter. There was no evidence of respiratory distress. Chest x-ray was done did not show any evidence of infiltrates, pneumothorax or pleural effusion. EKG was done did not show any evidence of STEMI. Lab work was done, troponin 0.013 Patient was given Ativan in the ED for anxiety. Patient stable to be transferred EKG: read and signed off by myself and Rate/Rhythm: Normal Sinus Rhythm at 73 bpm QRS, ST, T-waves: No changes consistent w/ acute ischemia Impression: No evidence of ischemia or arrhythmia Departure Diagnosis: Primary Impression: Asthma exacerbation Additional Impression: Chest pain Condition: Stable GABRIELA PALMER PA-C Oct 04, 2016 20:57
[2016-10-05] VITALS (10 sets, daily range): BP systolic 87–128; BP diastolic 52–65; PULSE 71–100; RESP 16–18; TEMP 97.8; Ht 154.9 cm; Wt 57.0 kg
[2016-10-05] MEDS ORDERED: ONDANSETRON 4 MG INJ IV PRN (01:00)
[2016-10-05] MEDS ORDERED: HYDROCODONE/APAP (5/325) TAB PO PRN (01:00)
[2016-10-05] MEDS: ALBUTEROL/IPRATROPIUM (NEB) 3 ML AMP HHN SCH ×6 (01:00→20:31)
[2016-10-05] MEDS ORDERED: ALPRAZOLAM 0.25 MG TAB PO PRN ×2 (01:00→17:00)
[2016-10-05] MEDS ORDERED: ALBUTEROL/IPRATROPIUM (NEB) 3 ML AMP HHN PRN (01:00)
--- NOTE | 2016-10-05 03:23 | HP ---
Date/Time of Note Date/Time of Note DATE: 10/05/16 TIME: 03:05 Assessment/Plan VTE Prophylaxis VTE Prophylaxis Intervention: SCD's Assessment/Plan Assessment/Plan 61 yo M who presents with SOB and intermittent CP X 1 week managed as follows: 1. Asthma exacerbation 2. Chest pain r/o ACS 3. CAD s/p stent on BB, statin, asa, plavix 4. HERBERT 5. Dyslipidemia 6. PreDM: Last A1C 6.2 PLAN: admit tele / trend cardiac enzymes / Cardiology review / Last Echo from july reviewed RTC and PRN bronchodilator therapy / s/p steroids in ER with improvement / empiric abx for pleuritic chest pain Gentle hydration low carb diet, repeat A1C Continue all other home meds Plan discussed with patient Prophylaxis : SCDs HPI/ROS Admit Date/Time Admit Date/Time 10/04/16 Hx of Present Illness This is a 61-year-old female who presents to emergency room with chest pain that radiates to the back and worsens with inhalation for the past week associated with shortness of breath as well as easy fatigability. She has not had extremity swelling though and has does not feel like she has put on weight. She does have a history of asthma and she just recently had a stent placed when she came in a few months ago for non-STEMI. She also has a history of anxiety disorder of those quite anxious at this time. ROS 12 point review if systems was done and pertinent findings are as noted. Constitutional: No febrile Eyes: No visual change ENT: No dysphagia, No sore throat Respiratory: cough, pain, pleuritic pain, shortness of breath, No sputum Cardiovascular: chest pain, No edema Gastrointestinal: No nausea, No pain, No vomiting Genitourinary: no complaints, No bleeding Musculoskeletal: no complaints Skin: No bruising, No rash Neurologic: No confusion, No focal-weakness, No headache Psychological: anxiety PMH/Family/Social Past Medical History * Asthma * CAD s/p stent in the past * PreDM * anxiety * Dyslipidemia * GERD Past Surgical History * Finger and Eye Sx Social History Smoking Status: Former smoker (remotely as a youth) Exam/Review of Systems Vital Signs Vitals Vital Signs Date Time Temp Pulse Resp B/P Pulse Ox O2 Delivery O2 Flow Rate FiO2 10/05/16 01:29 78 17 103/71 93 Room Air 10/04/16 19:24 21 10/04/16 19:05 98.1 10/04/16 17:21 2 Exam Constitutional: alert, oriented, No distress Psych: anxiety Head: atraumatic, normocephalic Eyes: EOMI, PERRL, nl conjunctiva, No icteric ENMT: mucosa pink and moist Neck: non-tender, supple Respiratory: diminished breath sounds, wheezing, No crackles/rales, No labored breathing Cardiovascular: nl pulses, regular rate and rhythm Gastrointestinal: bowel sounds, non-tender, soft Musculoskeletal: nl extremities to inspection Extremities: No edema Neurological: nl mental status, nl speech, nl strength, No focal weakness Skin: No rash or lesions Labs Result Diagram: 10/04/16 1810 10/04/16 1715 Medications Medications Current Medications Aspirin (Halfprin) 81 mg DAILY PO ; Start 10/05/16 at 09:00; Status UNV Atorvastatin Calcium (Lipitor) 80 mg DAILY@21 PO ; Start 10/05/16 at 21:00; Status UNV Clopidogrel Bisulfate (plaVIX) 75 mg DAILY PO ; Start 10/05/16 at 09:00; Status UNV Isosorbide Mononitrate (Imdur) 30 mg DAILY PO ; Start 10/05/16 at 09:00; Status UNV Loratadine (Claritin) 10 mg DAILY PO ; Start 10/05/16 at 09:00; Status UNV Metoprolol Tartrate (Lopressor) 25 mg BID PO ; Start 10/05/16 at 09:00; Status UNV Montelukast Sodium (Singulair) 10 mg HS PO ; Start 10/05/16 at 21:00; Status UNV Pantoprazole (Protonix Tab) 40 mg DAILY@06 PO ; Start 10/05/16 at 06:00; Status UNV Salmeterol Xinafoate/ Fluticasone (Advair 250/50 Diskus) 1 inh BID INH ; Start 10/05/16 at 09:00; Status UNV Docusate Sodium (Colace) 100 mg BID PO ; Start 10/05/16 at 09:00; Status UNV Ondansetron HCl (Zofran Inj) 4 mg Q6H PRN IV NAUSEA AND/OR VOMITING; Start at 01:00; Status UNV Acetaminophen/ Hydrocodone Bitart ([place] (5/325)) 1 tab Q6H PRN PO pain; Start 10/05/16 at 01:00; Status UNV Alprazolam (Xanax) 0.25 mg Q12H PRN PO ANXIETY; Start 10/05/16 at 01:00; Status UNV Procedures Procedures Laboratory Tests Test 10/04/16 17:15 10/04/16 18:10 Sodium Level 144mmol/L Potassium Level 4.8mmol/L Chloride Level 104mmol/L Carbon Dioxide Level 28mmol/L Anion Gap 17 Blood Urea Nitrogen 19mg/dl Creatinine 1.18mg/dl Glucose Level 89mg/dl Calcium Level 8.9mg/dl Troponin I 0.013ng/ml White Blood Count 10.110^3/ul Red Blood Count 4.3710^6/ul Hemoglobin 11.6g/dl Hematocrit 37.3% Mean Corpuscular Volume 85.4fl Mean Corpuscular Hemoglobin 26.5pg Mean Corpuscular Hemoglobin Concent 31.1g/dl Red Cell Distribution Width 15.4% Platelet Count 93670^3/UL Mean Platelet Volume 10.6fl Neutrophils % 45.8% Lymphocytes % 42.3% Monocytes % 8.1% Eosinophils % 3.5% Basophils % 0.2% Nucleated Red Blood Cells % 0.0/100WBC Neutrophils # (Manual) 4.610^3/ul Lymphocytes # 4.310^3/ul Monocytes # 0.810^3/ul Eosinophils # 0.410^3/ul Basophils # 0.010^3/ul Nucleated Red Blood Cells # 0.010^3/ul Current Medications Medications (Trade) Dose Ordered Sig/Michael Route PRN Reason Start Time Stop Time Status Last Admin Dose Admin Albuterol (Proventil 0.083% (Neb)) 5 mg ONCE STAT NEB 10/04/16 16:50 10/04/16 16:53 DC 10/04/16 17:02 5 MG Albuterol (Proventil 0.5% (Neb)) 10 mg ONCE STAT INH 10/04/16 17:14 10/04/16 17:16 DC 10/04/16 17:22 10 MG Ipratropium [place] (Atrovent 0.02% (Neb)) 1 mg ONCE STAT INH 8/27/17 17:14 10/04/16 17:16 DC 10/04/16 17:22 1 MG Dexamethasone (Decadron) 10 mg ONCE ONCE IM 10/04/16 17:30 10/04/16 17:31 DC 10/04/16 17:32 10 MG Ipratropium [place] (Atrovent 0.02% (Neb)) 0.5 mg STK-MED ONCE .ROUTE 10/04/16 17:16 10/04/16 17:17 DC Albuterol (Proventil 0.5% (Neb)) 2.5 mg STK-MED ONCE .ROUTE 10/04/16 17:16 10/04/16 17:17 DC Lorazepam (Ativan) 1 mg ONCE ONCE PO 10/04/16 19:00 10/04/16 19:01 DC 10/04/16 19:20 1 MG Levalbuterol (Xopenex Neb) 5 mg ONCE STAT INH 10/04/16 18:51 10/04/16 18:52 DC 10/04/16 19:24 5 MG Aspirin (Aspirin) 325 mg ONCE STAT PO 10/04/16 20:13 10/04/16 20:14 DC 10/04/16 20:24 325 MG Ondansetron HCl (Zofran Inj) 4 mg ER BRIDGE PRN IV NAUSEA AND/OR VOMITING 10/04/16 20:30 10/05/16 20:29 Acetaminophen (Tylenol Tab) 650 mg ER BRIDGE PRN PO MILD PAIN/FEVER 10/04/16 20:30 10/05/16 20:29 Aspirin (Halfprin) 81 mg DAILY PO 10/05/16 09:00 UNV Atorvastatin Calcium (Lipitor) 80 mg DAILY@21 PO 10/05/16 21:00 UNV Clopidogrel Bisulfate (plaVIX) 75 mg DAILY PO 10/05/16 09:00 UNV Isosorbide Mononitrate (Imdur) 30 mg DAILY PO 10/05/16 09:00 UNV Loratadine (Claritin) 10 mg DAILY PO 10/05/16 09:00 UNV Metoprolol Tartrate (Lopressor) 25 mg BID PO 10/05/16 09:00 UNV Montelukast Sodium (Singulair) 10 mg HS PO 10/05/16 21:00 UNV Pantoprazole (Protonix Tab) 40 mg DAILY@06 PO 10/05/16 06:00 UNV Salmeterol Xinafoate/ Fluticasone (Advair 250/50 Diskus) 1 inh BID INH 10/05/16 09:00 UNV Albuterol/ Ipratropium (Duoneb) 3 ml Q4H RESP THERAPY HHN 10/05/16 01:00 10/07/16 00:59 UNV Albuterol/ Ipratropium (Duoneb) 3 ml Q2H RESP THERAPY PRN HHN sob / wheezing 10/05/16 01:00 UNV Docusate Sodium (Colace) 100 mg BID PO 10/05/16 09:00 UNV Ondansetron HCl (Zofran Inj) 4 mg Q6H PRN IV NAUSEA AND/OR VOMITING 10/05/16 01:00 UNV Acetaminophen/ Hydrocodone Bitart ([place] (5/325)) 1 tab Q6H PRN PO pain 10/05/16 01:00 UNV Alprazolam (Xanax) 0.25 mg Q12H PRN PO ANXIETY 10/05/16 01:00 UNV I reviewed EKG Rate: Within normal limits Rhythm: sinus Note: No ST elevation or depressions noted concerning for acute ischemic event. PROCEDURE: XR Chest. CLINICAL INDICATION: Shortness of breath. Asthma exacerbation. TECHNIQUE: Single frontal view. COMPARISON: 09/22/2016. FINDINGS: The lungs are clear. The heart size is normal. There is calcification in the aorta consistent with atherosclerosis. There is no pleural effusion. There is no pneumothorax. IMPRESSION: 1. Atherosclerosis. 2. Otherwise normal chest radiograph. RPTAT: QQ .Humble Aguayo MD, MD Date Time Electronically viewed and signed by .Humble Aguayo MD, on 10/04/2016 18:03 .R/ Echocardiogram Report Patient Name: JAZ REID Gender: Female Date: 1955 Study Date: 14-Jul-2016 Paper Roll Machine Operator: Suni [facility] Location: [id number] Ref. Physician: BEATRIZ ROTHMAN Quality: Adequate Procedures: Transthoracic echocardiogram examination. Indications: Pericardial Effusion. Findings Left Ventricle: Normal left ventricular cavity size, wall thickness and systolic function. Normal left ventricular cavity size. Normal left ventricular systolic function. The left ventricular ejection fraction is visually estimated at 60 %. Pericardium: Small pericardial effusion. IVC: Normal inferior vena cava appearance and respiratory collapse. Conclusions 1. Normal left ventricular cavity size, wall thickness and systolic function. Normal left ventricular cavity size. Normal left ventricular systolic function. The left ventricular ejection fraction is visually estimated at 60 %. 2. Small pericardial effusion localized around R atrium. NO echocardiographic tamponade. Electronically Signed By: Brennen Martin 15-Jul-2016 15:51: Patient Name: JAZ REID Study Date: 14-Jul-[id number] TYLER KERNS Oct 05, 2016 03:17
[2016-10-05 03:29] LABS: CREATINE KINASE 106 IU/L (23-200)
[2016-10-05 03:40] LABS: TROPONIN-I < 0.012 ng/ml (0.00-0.12)
[2016-10-05 03:41] LABS: PHOSPHORUS 3.3 mg/dl (2.5-4.9)
[2016-10-05 03:47] LABS: CK-MB 1.29 ng/ml (0.0-2.4)
[2016-10-05] MEDS: LEVOFLOXACIN 500MG/D5W (PMX) 100 ML IVPB SCH (03:56)
[2016-10-05 06:27] LABS: INR 0.94; PROTIME 12.6 Sec (12.2-14.2)
[2016-10-05 06:28] LABS: PARTIAL THROMBOPLASTIN TIME 22.2 Sec (25.0-35.0)
[2016-10-05 06:46] LABS: CALCIUM 9.5 mg/dl (8.4-10.2); CREATINE KINASE 91 IU/L (23-200); CREATININE 0.62 mg/dl (0.44-1.00); POTASSIUM 4.6 mmol/L (3.5-5.1)
[2016-10-05 06:58] LABS: CK-MB 1.24 ng/ml (0.0-2.4)
[2016-10-05 07:04] LABS: TROPONIN-I < 0.012 ng/ml (0.00-0.12)
[2016-10-05] MEDS: PANTOPRAZOLE (EC) 40 MG TAB PO SCH (07:28)
[2016-10-05] MEDS: SALMETEROL/FLUTICASONE 250/50 INHA INH SCH ×2 (09:00→21:00)
[2016-10-05] MEDS: DOCUSATE SODIUM 100 MG CAP PO SCH ×2 (10:26→23:37)
[2016-10-05] MEDS: ASPIRIN (EC) 81 MG TAB PO SCH (10:26)
[2016-10-05] MEDS: METOPROLOL 25 MG TAB PO SCH ×2 (10:27→23:40)
[2016-10-05] MEDS: LORATADINE 10 MG TAB PO SCH (12:15)
[2016-10-05] MEDS: CLOPIDOGREL 75 MG TAB PO SCH (12:17)
[2016-10-05] MEDS: ISOSORBIDE MONONITRATE(SR)30 MG TAB PO SCH (12:17)
--- NOTE | 2016-10-05 16:55 | PN ---
Date/Time of Note Date/Time of Note DATE: 10/05/16 TIME: 16:50 Assessment/Plan VTE Prophylaxis VTE Prophylaxis Intervention: SCD's Lines/Catheters IV [facility] [place] Assessment/Plan Chief Complaint/Hosp Course Assessment and plan 1. Asthma with exacerbation. Continue on bronchodilators with continue on steroid treatment. Antitussives for cough. Advair and albuterol. Monitor for clinical improvement. 2. Reported chest pain. Likely secondary to #1. Serial troponins negative. Patient reports having chest pain when she coughs. Will monitor for now. 3. History of CAD. Continue on beta vickie statin as well as Plavix and and aspirin 4. AK I. Improved with IV hydration. Continue to monitor.. Disposition and plan: With noted shortness of breath and active bronchospasm. Continue on bronchodilators and steroid. Await for clinical improvement. Discussed plan of care with Dr. Noguera Problems: Subjective 24 Hr Interval Summary Free Text/Dictation Patient still reports having some shortness of breath but significantly improved since this morning. Only reports having some chest discomfort whenever she coughs Exam/Review of Systems Vital Signs Vitals Vital Signs Date Time Temp Pulse Resp B/P Pulse Ox O2 Delivery O2 Flow Rate FiO2 10/05/16 16:00 81 10/05/16 12:18 18 128/65 95 Room Air 10/05/16 10:10 21 10/05/16 08:38 98.9 10/04/16 17:21 2 Exam Constitutional: alert, obese, oriented Psych: anxiety Head: normocephalic Eyes: nl conjunctiva Neck: supple, No jvd Respiratory: clear to auscultation, normal air movement Cardiovascular: regular rate and rhythm Gastrointestinal: non-tender, soft Musculoskeletal: nl extremities to inspection Extremities: normal pulses Neurological: [employer] II-XII intact, nl mental status, nl speech Skin: nl turgor Results Result Diagram: 10/04/16 1810 10/05/16 0541 Results 24 hrs Laboratory Tests Test 10/04/16 17:15 10/04/16 18:10 10/05/16 02:20 10/05/16 05:41 Sodium Level 144 139 Potassium Level 4.8 4.6 Chloride Level 104 103 Carbon Dioxide Level 28 25 Anion Gap 17 H 16 Blood Urea Nitrogen 19 16 Creatinine 1.18 H 0.62 Glucose Level 89 146 # Calcium Level 8.9 9.5 Troponin I 0.013 < 0.012 < 0.012 White Blood Count 10.1 # Red Blood Count 4.37 Hemoglobin 11.6 L Hematocrit 37.3 Mean Corpuscular Volume 85.4 Mean Corpuscular Hemoglobin 26.5 L Mean Corpuscular Hemoglobin Concent 31.1 L Red Cell Distribution Width 15.4 H Platelet Count 247 Mean Platelet Volume 10.6 H Neutrophils % 45.8 Lymphocytes % 42.3 Monocytes % 8.1 Eosinophils % 3.5 Basophils % 0.2 Nucleated Red Blood Cells % 0.0 Neutrophils # (Manual) 4.6 Lymphocytes # 4.3 H Monocytes # 0.8 Eosinophils # 0.4 Basophils # 0.0 Nucleated Red Blood Cells # 0.0 Phosphorus Level 3.3 Magnesium Level 2.0 Creatine Kinase 106 91 Creatine Kinase Index 1.2 1.4 Creatinine Kinase MB (Mass) 1.29 1.24 Prothrombin Time 12.6 Prothrombin Time Ratio 1.0 INR International Normalized Ratio 0.94 Activated Partial Thromboplast Time 22.2 L Medications Medications Current Medications Aspirin (Halfprin) 81 mg DAILY PO Last administered on 10/05/16 10:26; Admin Dose 81 MG; Start 10/05/16 at 09:00 Atorvastatin Calcium (Lipitor) 80 mg DAILY@21 PO ; Start 10/05/16 at 21:00 Clopidogrel Bisulfate (plaVIX) 75 mg DAILY PO Last administered on 10/05/16 12 :17; Admin Dose 75 MG; Start 10/05/16 at 09:00 Isosorbide Mononitrate (Imdur) 30 mg DAILY PO Last administered on 10/05/16 12 :17; Admin Dose 30 MG; Start 10/05/16 at 09:00 Loratadine (Claritin) 10 mg DAILY PO Last administered on 10/05/16 12:15; Admin Dose 10 MG; Start 10/05/16 at 09:00 Metoprolol Tartrate (Lopressor) 25 mg BID PO Last administered on 10/05/16 10: 27; Admin Dose 25 MG; Start 10/05/16 at 09:00 Montelukast Sodium (Singulair) 10 mg HS PO ; Start 10/05/16 at 21:00 Pantoprazole (Protonix Tab) 40 mg DAILY@06 PO Last administered on 10/05/16 07 :28; Admin Dose 40 MG; Start 10/05/16 at 06:00 Salmeterol Xinafoate/ Fluticasone (Advair 250/50 Diskus) 1 inh BID INH ; Start 10/05/16 at 09:00 Docusate Sodium (Colace) 100 mg BID PO Last administered on 10/05/16 10:26; Admin Dose 100 MG; Start 10/05/16 at 09:00 Ondansetron HCl (Zofran Inj) 4 mg Q6H PRN IV NAUSEA AND/OR VOMITING; Start at 01:00 Acetaminophen/ Hydrocodone Bitart ([place] (5/325)) 1 tab Q6H PRN PO pain Last administered on 10/05/16 04:10; Admin Dose 1 TAB; Start 10/05/16 at 01:00 Alprazolam 0.25 mg 0.25 mg Q12H PRN PO ANXIETY; Start 10/05/16 at 01:00 Levofloxacin/ Dextrose (Levaquin 500mg/ D5W 100 ml (Pmx)) 100 ml @ 100 mls/hr Q24H IVPB Last administered on 10/05/16 03:56; Admin Dose 100 MLS/HR; Start at 03:30 MANUEL MILLER Oct 05, 2016 16:55
[2016-10-05] MEDS ORDERED: ATORVASTATIN 80 MG TAB PO SCH (21:00)
[2016-10-05] MEDS ORDERED: MONTELUKAST 10 MG TAB PO SCH (21:00)
[2016-10-05] MEDS: GUAIFENESIN/DM (SR) TAB PO SCH (23:37)
[2016-10-06] VITALS (9 sets, daily range): BP systolic 99–107; BP diastolic 57–66; PULSE 75–89; RESP 16–19
[2016-10-06] MEDS: ALBUTEROL/IPRATROPIUM (NEB) 3 ML AMP HHN SCH ×5 (00:47→17:00)
[2016-10-06] MEDS: LEVOFLOXACIN 500MG/D5W (PMX) 100 ML IVPB SCH (03:37)
[2016-10-06] MEDS: PANTOPRAZOLE (EC) 40 MG TAB PO SCH (06:20)
[2016-10-06] MEDS: CLOPIDOGREL 75 MG TAB PO SCH (08:20)
[2016-10-06] MEDS: ASPIRIN (EC) 81 MG TAB PO SCH (08:21)
[2016-10-06] MEDS: LORATADINE 10 MG TAB PO SCH (08:21)
[2016-10-06] MEDS: METOPROLOL 25 MG TAB PO SCH (08:21)
[2016-10-06] MEDS: DOCUSATE SODIUM 100 MG CAP PO SCH (08:21)
[2016-10-06] MEDS: SALMETEROL/FLUTICASONE 250/50 INHA INH SCH (08:22)
[2016-10-06] MEDS: ISOSORBIDE MONONITRATE(SR)30 MG TAB PO SCH (08:22)
[2016-10-06] MEDS: GUAIFENESIN/DM (SR) TAB PO SCH (08:22)
[2016-10-06 11:21] LABS: BASOPHILS % 0.1 % (0.0-2.0); EOSINOPHILS # 0.1 10^3/ul (0.0-0.5); EOSINOPHILS % 0.8 % (0.0-7.0); HEMATOCRIT 36.6 % (37.0-47.0); HEMOGLOBIN 11.5 g/dl (12.0-16.0); LYMPHOCYTES % 34.7 % (15.0-51.0); MEAN CORPUSCULAR HEMOGLOBIN 26.2 pg (29.0-33.0); MEAN CORPUSCULAR HGB CONC 31.4 g/dl (32.0-37.0); MEAN CORPUSCULAR VOLUME 83.4 fl (82.0-101.0); MEAN PLATELET VOLUME 10.4 fl (7.4-10.4); MONOCYTE # 0.7 10^3/ul (0.3-0.9); MONOCYTES % 8.3 % (0.0-11.0); PLATELET COUNT 243 10^3/UL (140-415); RED BLOOD COUNT 4.39 10^6/ul (4.20-5.40); RED CELL DISTRIBUTION WIDTH 15.5 % (11.5-14.5); WHITE BLOOD COUNT 8.5 10^3/ul (4.8-10.8)
[2016-10-06 11:38] LABS: CALCIUM 9.2 mg/dl (8.4-10.2); CREATININE 0.82 mg/dl (0.44-1.00); POTASSIUM 4.3 mmol/L (3.5-5.1)
[2016-10-06] MEDS ORDERED: METHYLPREDNISOLONE 40 MG INJ IV SCH (13:30)
[2016-10-06] MEDS ORDERED: ALBU8.5H3 INH (13:35)
[2016-10-06] MEDS ORDERED: PRED10TA PO (13:35)
[2016-10-06] MEDS ORDERED: ALPR0.254 PO (13:35)
[2016-10-06] MEDS ORDERED: MONT10TA24 PO (13:35)
[2016-10-06] MEDS ORDERED: ADV25050 INH (13:35)
--- NOTE | 2016-10-06 13:37 | PDOCDIS ---
Discharge Instructions DIAGNOSIS Discharge Diagnosis 1. Asthma exacerbation 2. Chest pain secondary to #1. 3. History of CAD 4. AK I 5. anxiety FOLLOW UP/APPOINTMENTS Follow-up Plan 1. Follow up with your primary care provider in one week MANUEL MLILER Oct 06, 2016 13:37
[2016-10-06] MEDS ORDERED: AZITHROMYCIN 250 MG TAB PO ONE (14:00)
--- NOTE | 2016-10-06 15:15 | DS ---
Date/Time of Note Date/Time of Note DATE: 10/06/16 TIME: 15:13 Discharge Summary Admission/Discharge Info Admit Date/Time Oct 04, 2016 at 20:22 Discharge Date/Time Discharge Diagnosis 1. Asthma exacerbation 2. Chest pain secondary to #1. 3. History of CAD 4. AK I 5. anxiety Patient Condition: Stable Hx of Present Illness This is a 61-year-old female who presents to emergency room with chest pain that radiates to the back and worsens with inhalation for the past week associated with shortness of breath as well as easy fatigability. She has not had extremity swelling though and has does not feel like she has put on weight. She does have a history of asthma and she just recently had a stent placed when she came in a few months ago for non-STEMI. She also has a history of anxiety disorder of those quite anxious at this time. Hospital Course This is a 61-year-old female who came to [facility] due to reports of chest pain that radiated to her back and worse with inhalation. She of note was with active bronchospasm and with asthma exacerbation and likely her chest discomfort was secondary to her asthma exacerbation. We did however run serial troponins which were all essentially negative. She was otherwise optimized with bronchodilators as well as steroid medication which he did have good response. During the course of stay she did improve. She did report better breathing. She was otherwise optimized medically with beta-vickie and statin and antiplatelet as well as Plavix for her history of CAD. She did have AK I but this did resolve with IV hydration. She is also continued on statin medication for dyslipidemia. During her course of stay she did improve. She was instructed to follow-up with primary care provider within a week. The plan of care was discussed with the patient and patient did verbalize her understanding. On the day of discharge patient was in stable condition Discussed plan of care with Dr. Noguera [place] Meds Active Scripts Prednisone (Prednisone) 10 Mg Tab, 10 MG PO DAILY, #30 TAB 1. take 40 mg by mouth daily for 3 days 2. then 30 mg by mouth daily for 3 days 3. then 20 mg by mouth daily for 3 days 4. then 10 mg by mouth daily for 3 days Prov:MANUEL MILLER 10/06/16 Albuterol Sulfate* (Proair HFA*) 8.5 Gm Hfa.aer.ad, 2 PUFF INH Q4, #1 INHALER Prov:MANUEL MILLER 10/06/16 Montelukast Sodium* (Montelukast Sodium*) 10 Mg Tablet, 10 MG PO HS for 30 Days , TAB Prov:MANUEL MILLER 10/06/16 Salmeterol Xinaf/Fluticasone* (Advair*) 250-50 Diskus Inhaler, 1 INH INH BID for 30 Days Prov:MANUEL MILLER 10/06/16 Prednisone* (Prednisone*) 20 Mg Tab, 40 MG PO DAILY for 4 Days, TAB Prov:MAINE MOSLEY PA-C 09/22/16 Aspirin* (Aspirin* (EC)) 81 Mg Tablet.dr, 81 MG PO DAILY for 30 Days, TAB Prov:BEATRIZ ROTHMAN MD 07/17/16 Metronidazole (Flagyl) 250 Mg Tab, 250 MG PO TID for 12 Days, TAB Prov:BEATRIZ ROTHMAN MD 07/16/16 Levofloxacin* (Levaquin*) 500 Mg Tablet, 500 MG PO DAILY for 12 Days, TAB Prov:BEATRIZ ROTHMAN MD 07/16/16 Pantoprazole* (Pantoprazole*) 40 Mg Tablet.dr, 40 MG PO DAILY@06 for 30 Days, 2 Refills Prov:CHERYL KERNSKENIA Nuno. 07/01/16 Metoprolol Tartrate* (Lopressor*) 25 Mg Tab, 25 MG PO BID for 30 Days, TAB 2 Refills Prov:MIMI KERNSAngelina . 07/01/16 Isosorbide Mononitrate* (Isosorbide Mononitrate*) 30 Mg Tab.er.24h, 30 MG PO DAILY for 30 Days, 2 Refills Prov:CHERYL KERNSKENIA . 07/01/16 Atorvastatin* (Atorvastatin*) 80 Mg Tablet, 80 MG PO DAILY@21 for 30 Days, TAB 2 Refills Prov:CHERYL KERNSKENIA . 07/01/16 Clopidogrel Bisulfate (Clopidogrel) 75 Mg Tablet, 75 MG PO DAILY for 30 Days, TAB 2 Refills Prov:MIMI KERNSAngelina . 07/01/16 Reported Medications Mometasone-Formoterol (Dulera) 100-5 Mcg - 13 Gm Hfa.aer.ad, 2 PUFFS INHALATION Q4 Y for SHORTNESS OF BREATH, #1 INHALER 06/28/16 Albuterol Sulfate* (Ventolin HFA*) 18 Gm Hfa.aer.ad, 2 PUFF INHALATION Q4H, #1 INHALER 06/28/16 Loratadine* (Claritin*) 10 Mg Tablet, 10 MG PO DAILY, TAB 04/12/14 Ipratropium [place]* (Atrovent HFA*) 12.9 Gm Aer.w.adap, 2 PUFF IH Q4H Y for SHORTNESS OF BREATH, EA 04/12/14 Follow-up Plan FOLLOW UP/APPOINTMENTS Follow-up Plan 1. Follow up with your primary care provider in one week Primary Care Provider [facility] H.c Time spent on discharge: > 30 minutes Pending Labs Laboratory Tests Test 10/06/16 10:10 White Blood Count 8.510^3/ul (4.8-10.8) Red Blood Count 4.3910^6/ul (4.20-5.40) Hemoglobin 11.5g/dl (12.0-16.0) Hematocrit 36.6% (37.0-47.0) Mean Corpuscular Volume 83.4fl (82.0-101.0) Mean Corpuscular Hemoglobin 26.2pg (29.0-33.0) Mean Corpuscular Hemoglobin Concent 31.4g/dl (32.0-37.0) Red Cell Distribution Width 15.5% (11.5-14.5) Platelet Count 82848^3/UL (140-415) Mean Platelet Volume 10.4fl (7.4-10.4) Neutrophils % 56.0% (39.0-77.0) Lymphocytes % 34.7% (15.0-51.0) Monocytes % 8.3% (0.0-11.0) Eosinophils % 0.8% (0.0-7.0) Basophils % 0.1% (0.0-2.0) Nucleated Red Blood Cells % 0.0/100WBC (0.0-0.0) Neutrophils # (Manual) 4.810^3/ul (1.7-7.5) Lymphocytes # 3.010^3/ul (0.8-2.9) Monocytes # 0.710^3/ul (0.3-0.9) Eosinophils # 0.110^3/ul (0.0-0.5) Basophils # 0.010^3/ul (0.0-0.1) Nucleated Red Blood Cells # 0.010^3/ul (0.0-0.0) Sodium Level 142mmol/L (135-144) Potassium Level 4.3mmol/L (3.5-5.1) Chloride Level 105mmol/L (97-110) Carbon Dioxide Level 27mmol/L (21-31) Anion Gap 14 (8-16) Blood Urea Nitrogen 14mg/dl (7-20) Creatinine 0.82mg/dl (0.44-1.00) Glucose Level 89mg/dl (70-220) Calcium Level 9.2mg/dl (8.4-10.2) MANUEL MILLER Oct 06, 2016 15:15
== END 2016-10-06 17:46 | disposition home or self-care (01) | DRG 202 ==
LOC: FTE 15:15 → MS3 20:22 → TEL 10-05 20:55
PROVIDERS: ADMIT Family Medicine; ATTEND Family Medicine
DX: J45.901 Unspecified asthma with (acute) exacerbation (principal); N17.9 Acute kidney failure, unspecified; R07.9 Chest pain, unspecified; E78.5 Hyperlipidemia, unspecified; F41.9 Anxiety disorder, unspecified; I10 Essential (primary) hypertension; I25.10 Atherosclerotic heart disease of native coronary artery without angina pectoris; R73.03 Prediabetes; I25.2 Old myocardial infarction; Z79.82 Long term (current) use of aspirin; Z79.02 Long term (current) use of antithrombotics/antiplatelets; Z87.891 Personal history of nicotine dependence; Z95.5 Presence of coronary angioplasty implant and graft
CPT/HCPCS: 71010; 80048; 82550; 82553; 83735; 84100; 84484; 85025; 85610; 85730; 93005; 94640; 94644; 94645; 94664; J1100; J1956; J2920

== ENCOUNTER 2017-01-14 09:05 | Emergency (ER) | payer MEDICAID ==
[~2017-01-14] VITALS: Ht 157.5 cm; Wt 58.6 kg
[~2017-01-14 09:05] MED LIST changes: -ALBU18HF INHALATION; +ALPR0.254 PO; -IPRA12.93 IH; -LEVO500T72 PO; -METR-111 PO; -MOME13HF2 INHALATION; +PRED10TA PO; -PRED20TA PO
[2017-01-14 09:14] VITALS: Ht 157.5 cm; Wt 58.6 kg
[2017-01-14] MEDS ORDERED: ALBUTEROL 0.083% (NEB) 2.5 MG/3 ML AMP HHN STA (09:42)
[2017-01-14] MEDS ORDERED: DEXAMETHASONE 10 MG/ML 1 ML INJ IM ONE (10:00)
[2017-01-14] MEDS ORDERED: IPRATROPIUM (NEB) 0.5 MG/2.5 ML AMP HHN ONE (10:00)
--- NOTE | 2017-01-14 10:17 | RADRPT ---
PROCEDURE: XR Chest. CLINICAL INDICATION: Cough and wheezing TECHNIQUE: Single frontal view of the chest was obtained COMPARISON: CR CHEST 09/22/2016 FINDINGS: The heart and mediastinum are within normal limits. The lungs are clear. There is no pleural effusion or pneumothorax. RPTAT: AA IMPRESSION: No acute disease. .Nick Abdi MD, MD Date Time Electronically viewed and signed by .Nick Abdi MD, on 01/14/2017 10:17 .S/
[2017-01-14] MEDS ORDERED: AZIT250T94 PO (10:48)
[2017-01-14] MEDS ORDERED: PROM6.25 PO (10:51)
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
== END 2017-01-14 11:19 | disposition home or self-care (01) ==
LOC: FTE 09:05
DX: J06.9 Acute upper respiratory infection, unspecified (principal); J45.909 Unspecified asthma, uncomplicated; I10 Essential (primary) hypertension; Z79.01 Long term (current) use of anticoagulants; Z79.82 Long term (current) use of aspirin; Z98.61 Coronary angioplasty status
CPT/HCPCS: 71010; 94664; 96372; J1100; Z7502; Z7610

== ENCOUNTER 2017-05-20 16:13 | Emergency (ER) | END 2017-05-20 18:39 | disposition home or self-care (01) ==

== ENCOUNTER 2017-05-26 07:12 | Emergency (ER) | END 2017-05-26 09:47 | disposition home or self-care (01) ==

== ENCOUNTER 2018-03-03 10:55 | Inpatient (IN) | payer MEDICAID ==
[~2018-03-03] VITALS: Ht 154.9 cm; Wt 60.0 kg
[~2018-03-03 10:55] MED LIST changes: +ALBU2.5V3 NEB; -ALBU8.5H3 INH; +ALBU8.5H8 INH; +ASPI-1046 PO; -ASPI-664 PO; +ATOR-2 PO; -ATOR80TA75 PO; +AZIT250T PO; +DOXY100T20 PO; +FAMO-96 PO; -ISOS30TA5 PO; +ISOS30TA67 PO; +PRED20TA PO; +PROM6.2515 PO
[2018-03-03] MEDS ORDERED: KETOROLAC 30 MG INJ IV STA (11:27)
[2018-03-03] MEDS ORDERED: SODIUM CHLORIDE 0.9% 1L BAG IV* STA (11:27)
[2018-03-03] MEDS ORDERED: IPRATROPIUM (NEB) 0.5 MG/2.5 ML AMP INH STA (11:30)
[2018-03-03] MEDS ORDERED: METHYLPREDNISOLONE 125 MG INJ IV ONE (11:30)
[2018-03-03] MEDS ORDERED: ALBUTEROL 0.5% (NEB) 2.5 MG/0.5 ML AMP INH STA (11:30)
[2018-03-03] MEDS ORDERED: ACETAMINOPHEN 325 MG TAB PO ONE (11:30)
[2018-03-03] MEDS ORDERED: CEFTRIAXONE 1 GM/50 ML (PMX) 50 ML IVPB ONE ×2 (13:30)
[2018-03-03] MEDS: CEFTRIAXONE 1 GM/50 ML (PMX) 50 ML IVPB SCH (14:00)
[2018-03-03] MEDS ORDERED: ALPRAZOLAM 0.25 MG TAB PO PRN (14:00)
[2018-03-03] MEDS ORDERED: ALBUTEROL 0.083% (NEB) 2.5 MG/3 ML AMP NEB PRN (14:00)
[2018-03-03] MEDS ORDERED: ONDANSETRON 4 MG INJ IV PRN (14:00)
[2018-03-03] MEDS ORDERED: ACETAMINOPHEN 325 MG TAB PO PRN (14:00)
--- NOTE | 2018-03-03 14:00 | HP ---
Date/Time of Note Date/Time of Note DATE: 03/03/18 TIME: 13:58 Assessment/Plan VTE Prophylaxis Pharmacological prophylaxis: LMWH Lines/Catheters IV [facility] Saline Lock Assessment/Plan Hospital Course 63-year-old female who presented to the emergency room with complaints of fever and chills and L flank pain and lower abd pain. She is being admitted for further care. 1. Sepsis 2/2 urinary tract infection, likely pyelonephritis -will get Ct abd/pelvis to eval abd organs and r/o other causes of pain or infection 3. Mild renal insufficiency -likely 2/2 #1, IV hydration, f/u CT findings 4. Chronic hypochromic anemia -monitor trend 5. Dyslipidemia -continue home statin 6. History of coronary artery disease on Plavix -home meds 7. Hypertension -continue home meds and titrate as indicated 8. COPD? -continue home advair and PRN bronchodilator therapy Plan of care has been discussed with patient, questions answered and patient has verbalized understanding. Further evaluation and treatment will be based on clinical course Result Diagram: 03/03/18 1158 03/03/18 1158 Results 24hrs Laboratory Tests Test 03/03/18 11:58 03/03/18 12:11 White Blood Count 22.6 #H Red Blood Count 4.38 Hemoglobin 11.7 L Hematocrit 36.2 L Mean Corpuscular Volume 82.6 Mean Corpuscular Hemoglobin 26.7 L Mean Corpuscular Hemoglobin Concent 32.3 Red Cell Distribution Width 15.3 H Platelet Count 142 # Mean Platelet Volume 11.5 H Immature Granulocytes % 1.500 H Neutrophils % Segmented Neutrophils % (Manual) 62 Band Neutrophils % (Manual) 20 H Lymphocytes % Lymphocytes % (Manual) 16 Reactive Lymphocytes % (Manual) 2 H Monocytes % Eosinophils % Basophils % Nucleated Red Blood Cells % 0.0 Immature Granulocytes # 0.340 H Neutrophils # Neutrophils # (Manual) 15.0 H Band Neutrophils # 4.5 H Lymphocytes (Manual) 3.6 H Lymphocytes # Reactive Lymphocytes # 0.4 H Monocytes # Eosinophils # Basophils # Nucleated Red Blood Cells # Platelet Estimate NORMAL Anisocytosis 1+ Microcytosis 1+ Prothrombin Time 14.5 Prothrombin Time Ratio 1.1 INR International Normalized Ratio 1.12 Activated Partial Thromboplast Time 33.2 Urine Color YELLOW Urine Clarity SLIGHTLY CLOUDY A Urine pH 6.0 Urine Specific [place] 1.012 Urine Ketones 1+ H Urine Nitrite POSITIVE A Urine Bilirubin NEGATIVE Urine Urobilinogen NEGATIVE Urine Leukocyte Esterase 2+ H Urine Microscopic RBC 4 Urine Microscopic WBC 108 H Urine Squamous Epithelial Cells FEW Urine Bacteria FEW A Urine Hemoglobin 2+ H Urine Glucose NEGATIVE Urine Total Protein 1+ H Sodium Level 134 L Potassium Level 4.0 Chloride Level 101 Carbon Dioxide Level 22 Anion Gap 11 Blood Urea Nitrogen 16 Creatinine 1.12 H Est Glomerular Filtrat Rate mL/min 49 L Glucose Level 114 Calcium Level 8.8 Total Bilirubin 0.4 Direct Bilirubin 0.00 Indirect Bilirubin 0.4 Aspartate Amino Transf (AST/SGOT) 39 Alanine Aminotransferase (ALT/SGPT) 33 Alkaline Phosphatase 114 Troponin I < 0.012 Total Protein 6.7 Albumin 3.7 Globulin 3.00 Albumin/Globulin Ratio 1.23 Lipase 18 L POC Venous Lactate 1.5 HPI/ROS Admit Date/Time Admit Date/Time Hx of Present Illness 63-year-old female who presented to the emergency room with complaints of fever and chills. She is found to be sepsis septic with mild renal insufficiency likely secondary to an acute pyelonephritis. She is being admitted for further care. ROS 12 point review if systems was done and pertinent findings are as noted. PMH/Family/Social Past Medical History * HTN * HLD * Hx of CAD on plavix * Asthma Medications Current Medications Ceftriaxone Sodium 50 ml @ 100 mls/hr ONCE ONCE IVPB Last administered on 03/03/18at 13:55; Admin Dose 100 MLS/HR; Start 03/03/18 at 13:30; Stop 03/03/18 a t 13:59 Ceftriaxone Sodium 50 ml @ 100 mls/hr ONCE ONCE IVPB ; Start 03/03/18 at 13:30; Stop 03/03/18 at 13:59 Ondansetron HCl (Zofran Inj) 4 mg BRIDGE ORDER PRN IV vomiting; Start 03/03/18 at 14:00; Stop 03/04/18 at 13:59 Acetaminophen (Tylenol Tab) 650 mg ER BRIDGE PRN PO pain; Start 03/03/18 at 14:00; Stop 03/04/18 at 13:59 Coded Allergies: No Known Allergy (Unverified , 05/26/17) Family History Significant Family History: no pertinent family hx Social History Alcohol Use: none Smoking Status: Never smoker ( but worked in a place where there was heavy smoking) Exam/Review of Systems Vital Signs Vitals Vital Signs Date Temp Pulse Resp B/P (MAP) Pulse Ox O2 O2 Flow FiO2 Time Delivery Rate 03/03/18 92 24 95/58 (70) 100 Room Air 13:47 03/03/18 99.0 10.0 13:14 03/03/18 21 11:39 Exam Exam Constitutional: alert, oriented, lethargic, warm to touch Head: atraumatic, normocephalic Neck: non-tender, supple Respiratory: clear to auscultation Cardiovascular: regular rate and rhythm Gastrointestinal: S/ mild Lsided flank tenderness, lower abd tenderness / ND / +BS Extremities: no edema, good radial pulses Additional Comments PROCEDURE: XR Chest. CLINICAL INDICATION: chest pain TECHNIQUE: Single frontal view of the chest was obtained COMPARISON: 05/20/2017 FINDINGS: The heart and mediastinum are within normal limits. The lungs are clear. There is no pleural effusion or pneumothorax. RPTAT: AA IMPRESSION: No acute disease. .Nick Abdi MD, MD Date Time Electronically viewed and signed by .Nick Abdi MD, MD on 03/03/2018 12:17 .S/ CC: KATIANA DENIS PA-C [id number] TYLER KERNS Mar 03, 2018 14:00
--- NOTE | 2018-03-03 14:08 | ERD ---
ER Documentation Chief Complaint Chief Complaint fever , vomiting /diarrhea x 1 day HPI Patient is a 63-year-old female who presents with vomiting and diarrhea and fevers for the past 1 day. She felt worse today which made her come to the emergency department. She has had no treatment as of yet. ROS All systems reviewed and are negative except as per history of present illness. Medications Home Meds Active Scripts Doxycycline Hyclate* (Doxycycline Hyclate*) 100 Mg Tablet.dr, 100 MG PO BID for 7 Days, TAB Prov:MAINE MOSLEY PA-C 05/26/17 Albuterol Sulfate* (Proair HFA*) 8.5 Gm Hfa.aer.ad, 2 PUFF INH Q4, #1 INHALER Prov:MAINE MOSLEY PA-C 05/26/17 Prednisone* (Prednisone*) 20 Mg Tab, 40 MG PO DAILY for 4 Days, TAB Prov:MAINE MOSLEY PA-C 05/26/17 Famotidine* (Pepcid*) 20 Mg Tablet, 20 MG PO BID for 10 Days, #20 TAB Prov:ATIF IGNACIO MD 05/20/17 Azithromycin* (Zithromax*) 250 Mg Tablet, 250 MG PO .VanPACK DIRECTED, #6 TAB TAKE 500 MG (2 TABS) THE FIRST DAY THEN 250 MG (1 TAB) DAYS 2-5 Prov:ATIF IGNACIO MD 05/20/17 Albuterol Sulfate* (Proair HFA*) 8.5 Gm Hfa.aer.ad, 2 PUFF INH Q4, #1 INHALER Prov:ATIF IGNACIO MD 05/20/17 Albuterol Sulfate* (Albuterol Sulfate* Neb) 0.083%-3 Ml Neb, 2.5 MG NEB Q4 PRN for SHORTNESS OF BREATH, #30 EA Prov:AITF IGNACIO MD 05/20/17 Prednisone* (Prednisone*) 20 Mg Tab, 40 MG PO DAILY for 4 Days, TAB Prov:ATIF IGNACIO MD 05/20/17 Promethazine Hcl* (Promethazine Hcl* Syrup) 6.25 Mg/5 Ml Syrup, 12.5 MG PO Q6H PRN for COUGH for 3 Days, ML Prov:MARTHA,JUANI Antoni 01/14/17 Azithromycin* (Zithromax*) 250 Mg Tablet, 250 MG PO .SUIZ DIRECTED, #6 TAB TAKE 500 MG (2 TABS) THE FIRST DAY THEN 250 MG (1 TAB) DAYS 2-5 Prov:JUANI THOMAS Antoni 01/14/17 Prednisone (Prednisone) 10 Mg Tab, 10 MG PO DAILY, #30 TAB 1. take 40 mg by mouth daily for 3 days 2. then 30 mg by mouth daily for 3 days 3. then 20 mg by mouth daily for 3 days 4. then 10 mg by mouth daily for 3 days Prov:MANUEL MILLER 10/06/16 Alprazolam* (Alprazolam*) 0.25 Mg Tablet, 0.25 MG PO Q12H PRN for ANXIETY, #20 TAB Prov:MANUEL MILLER 10/06/16 Albuterol Sulfate* (Proair HFA*) 8.5 Gm Hfa.aer.ad, 2 PUFF INH Q4, #1 INHALER Prov:MANUEL MILLER 10/06/16 Montelukast Sodium* (Montelukast Sodium*) 10 Mg Tablet, 10 MG PO HS for 30 Days, TAB Prov:MANUEL MILLER 10/06/16 Salmeterol Xinaf/Fluticasone* (Advair*) 250-50 Diskus Inhaler, 1 INH INH BID for 30 Days Prov:MANUEL MILLER 10/06/16 Aspirin* (Aspirin* (EC)) 81 Mg Tablet., 81 MG PO DAILY for 30 Days, TAB Prov:BEATRIZ ROTHMAN MD 07/17/16 Pantoprazole* (Pantoprazole*) 40 Mg Tablet., 40 MG PO DAILY@06 for 30 Days, 2 Refills Prov:LUIS FCHERYLATITO M. 07/01/16 Metoprolol Tartrate* (Lopressor*) 25 Mg Tab, 25 MG PO BID for 30 Days, TAB 2 Refills Prov:LUIS F,CHERYLATITO M. 07/01/16 Isosorbide Mononitrate* (Isosorbide Mononitrate*) 30 Mg Tab.er.24h, 30 MG PO DAILY for 30 Days, 2 Refills Prov:LUIS FCHERYL OrtegaATITO M. 07/01/16 Atorvastatin* (Atorvastatin*) 80 Mg Tablet, 80 MG PO DAILY@21 for 30 Days, TAB 2 Refills Prov:TYLER KERNS. 07/01/16 Clopidogrel Bisulfate (Clopidogrel) 75 Mg Tablet, 75 MG PO DAILY for 30 Days, TAB 2 Refills Prov:TYLER KERNS. 07/01/16 Reported Medications Loratadine* (Claritin*) 10 Mg Tablet, 10 MG PO DAILY, TAB 04/12/14 Allergies Allergies: Coded Allergies: No Known Allergy (Unverified , 05/26/17) PMhx/Soc History of Surgery: No Anesthesia Reaction: No Hx Neurological Disorder: No Hx Respiratory Disorders: Yes (asthma) Hx Cardiac Disorders: No Hx Psychiatric Problems: No Hx Miscellaneous Medical Probl: No Hx Alcohol Use: No Hx Substance Use: No Hx Tobacco Use: No FmHx Family History: No diabetes Physical Exam Vitals Vital Signs Date Temp Pulse Resp B/P (MAP) Pulse Ox O2 O2 Flow FiO2 Time Delivery Rate 03/03/18 92 24 95/58 (70) 100 Room Air 13:47 03/03/18 99.0 83 93/55 (68) 98 Mask 10.0 13:14 03/03/18 92 100 12:10 03/03/18 75 18 96 21 11:39 03/03/18 101.8 106 18 117/63 96 10:58 (81) Physical Exam Const: Moderate distress Head: Atraumatic Eyes: Normal Conjunctiva ENT: Normal External Ears, Nose and Mouth. Neck: Full range of motion. No meningismus. Resp: Wheezing Cardio: Tachycardic rate without murmur Abd: Soft, non tender, non distended. Normal bowel sounds Skin: No petechiae or rashes Back: No midline or flank tenderness Ext: No cyanosis, or edema Neur: Awake Result Diagram: 03/03/18 1158 03/03/18 1158 Results 24 hrs Laboratory Tests Test 03/03/18 11:58 03/03/18 12:11 White Blood Count 22.6 10^3/ul Red Blood Count 4.38 10^6/ul Hemoglobin 11.7 g/dl Hematocrit 36.2 % Mean Corpuscular Volume 82.6 fl Mean Corpuscular Hemoglobin 26.7 pg Mean Corpuscular Hemoglobin Concent 32.3 g/dl Red Cell Distribution Width 15.3 % Platelet Count 142 10^3/UL Mean Platelet Volume 11.5 fl Immature Granulocytes % 1.500 % Neutrophils % % Segmented Neutrophils % (Manual) 62 % Band Neutrophils % (Manual) 20 % Lymphocytes % % Lymphocytes % (Manual) 16 % Reactive Lymphocytes % (Manual) 2 % Monocytes % % Eosinophils % % Basophils % % Nucleated Red Blood Cells % 0.0 /100WBC Immature Granulocytes # 0.340 10^3/ul Neutrophils # 10^3/ul Neutrophils # (Manual) 15.0 10^3/ul Band Neutrophils # 4.5 10^3/ul Lymphocytes (Manual) 3.6 10^3/ul Lymphocytes # 10^3/ul Reactive Lymphocytes # 0.4 10^3/ul Monocytes # 10^3/ul Eosinophils # 10^3/ul Basophils # 10^3/ul Nucleated Red Blood Cells # 10^3/ul Platelet Estimate NORMAL Anisocytosis 1+ Microcytosis 1+ Prothrombin Time 14.5 Sec Prothrombin Time Ratio 1.1 INR International Normalized Ratio 1.12 Activated Partial Thromboplast Time 33.2 Sec Urine Color YELLOW Urine Clarity SLIGHTLY CLOUDY Urine pH 6.0 Urine Specific [place] 1.012 Urine Ketones 1+ mg/dL Urine Nitrite POSITIVE mg/dL Urine Bilirubin NEGATIVE mg/dL Urine Urobilinogen NEGATIVE mg/dL Urine Leukocyte Esterase 2+ Christina/ul Urine Microscopic RBC 4 /HPF Urine Microscopic WBC 108 /HPF Urine Squamous Epithelial Cells FEW /HPF Urine Bacteria FEW /HPF Urine Hemoglobin 2+ mg/dL Urine Glucose NEGATIVE mg/dL Urine Total Protein 1+ mg/dl Sodium Level 134 mmol/L Potassium Level 4.0 mmol/L Chloride Level 101 mmol/L Carbon Dioxide Level 22 mmol/L Anion Gap 11 Blood Urea Nitrogen 16 mg/dl Creatinine 1.12 mg/dl Est Glomerular Filtrat Rate mL/min 49 mL/min Glucose Level 114 mg/dl Calcium Level 8.8 mg/dl Total Bilirubin 0.4 mg/dl Direct Bilirubin 0.00 mg/dl Indirect Bilirubin 0.4 mg/dl Aspartate Amino Transf (AST/SGOT) 39 IU/L Alanine Aminotransferase (ALT/SGPT) 33 IU/L Alkaline Phosphatase 114 IU/L Troponin I < 0.012 ng/ml Total Protein 6.7 g/dl Albumin 3.7 g/dl Globulin 3.00 g/dl Albumin/Globulin Ratio 1.23 Lipase 18 U/L POC Venous Lactate 1.5 mmol/L Current Medications Medications Dose Sig/Michael Start Time Status Last (Trade) Ordered Route PRN Stop Time Admin Dose Reason Admin Sodium 2,040 ml BOLUS OVER 2 03/03/18 DC 03/03/18 Chloride HOURS STAT 11:27 11:44 (NS) IV* 03/03/18 11:30 125 mg ONCE ONCE 03/03/18 DC 03/03/18 Methylprednis IV 11:30 11:43 olone Sodium 03/03/18 11:31 Succinate (Solu-Medrol) Ketorolac 30 mg ONCE STAT 03/03/18 DC 03/03/18 Tromethamine IV 11:27 11:43 (Toradol) 03/03/18 11:30 650 mg ONCE ONCE 03/03/18 DC 03/03/18 Acetaminophen PO 11:30 11:44 (Tylenol 03/03/18 11:31 Tab) Albuterol 10 mg ONCE STAT 03/03/18 DC 03/03/18 (Proventil INH 11:30 11:36 0.5% (Neb)) 03/03/18 11:31 Ipratropium 1 mg ONCE STAT 03/03/18 DC 03/03/18 Eldred INH 11:30 11:36 (Atrovent 03/03/18 11:31 0.02% (Neb)) Ceftriaxone 50 ml @ ONCE ONCE 03/03/18 DC 03/03/18 Sodium 100 mls/hr IVPB 13:30 13:55 03/03/18 13:59 Ceftriaxone 50 ml @ ONCE ONCE 03/03/18 DC Sodium 100 mls/hr IVPB 13:30 03/03/18 13:59 Ondansetron 4 mg BRIDGE ORDER 03/03/18 HCl (Zofran PRN IV 14:00 Inj) vomiting 03/04/18 13:59 650 mg ER BRIDGE 03/03/18 Acetaminophen PRN PO pain 14:00 (Tylenol 03/04/18 13:59 Tab) Albuterol 2.5 mg Q4 PRN 03/03/18 UNV (Proventil NEB 14:00 0.083% (Neb)) SHORTNESS OF BREATH Alprazolam 0.25 mg Q12H PRN 03/03/18 UNV (Xanax) PO ANXIETY 14:00 Aspirin 81 mg DAILY PO 03/04/18 UNV (Halfprin) 09:00 80 mg DAILY@21 03/03/18 UNV Atorvastatin PO 21:00 Calcium (Lipitor) Clopidogrel 75 mg DAILY PO 03/04/18 UNV Bisulfate 09:00 (plaVIX) Isosorbide 30 mg DAILY PO 03/04/18 UNV Mononitrate 09:00 (Imdur) Loratadine 10 mg DAILY PO 03/04/18 UNV (Claritin) 09:00 Metoprolol 25 mg BID PO 03/03/18 UNV Tartrate 21:00 (Lopressor) Montelukast 10 mg HS PO 03/03/18 UNV Sodium 21:00 (Singulair) 40 mg DAILY@06 03/04/18 UNV Pantoprazole PO 06:00 (Protonix Tab) 1 inh BID INH 03/03/18 UNV Miscellaneous 21:00 Information Ceftriaxone 50 ml @ Q24H IVPB 03/03/18 UNV Sodium 100 mls/hr 14:00 Sodium 1,000 ml @ Q10H IV 03/03/18 UNV Chloride 100 mls/hr 14:00 650 mg Q6H PRN 03/03/18 UNV Acetaminophen PO MILD 14:00 (Tylenol PAIN(1-3)OR Tab) ELEVATED TEMP Docusate 100 mg BID PO 03/03/18 UNV Sodium 21:00 (Colace) Procedures/MDM Chest x-ray read by radiology shows no pneumonia. Sepsis Documentation: Patient's infectious symptoms have not stabilized and the patient is at risk of rapid decompensation. The patient will be admitted for careful hydration, antibiotic therapy, and infectious source control. SEVERE SEPSIS CRITERIA: Infectious source: Pyelonephritis End organ damage indicated by: No end organ damage at this time SEPSIS MANAGEMENT Time of recognition of sepsis: 11:58 AM. Time of recognition of severe sepsis: No severe sepsis at this time. Time of recognition of septic shock: No septic shock at this time. 3 HOUR BUNDLE Blood cultures x 2 before broad-spectrum antibiotics: Yes 30 ml/kg NS bolus completed Initial lactate 1.5 Repeat lactate pending SEPTIC SHOCK ASSESSMENT: No lactic acid > 4.0 No persistent hypotension (SBP < 90 or 40 mmHg drop, MAP < 65) despite 30 mL/kg IV fluid bolus VOLUME REASSESSMENT FOR SEPTIC SHOCK: No septic shock at this time PERSISTENT HYPOTENSION TREATMENT: Comfort care no Central line not Required Vasopressor started not required I considered further perfusion assessment with CVP measurement, SCVO2, bedside ultrasound volume assessment, passive leg raise, trial of further fluid bolus. And proceeded with 30 ml/kg fluid bolus of NSS, broad spectrum antibiotics, and admission. CRITICAL CARE Critical care time 35 minutes Emergent fluid management while maintaining close respiratory support. Provision of immediate and broad-spectrum antibiotic therapy. Simultaneous assessment for possible sources in order to direct targeted therapy. Consideration for invasive and chemical support to prevent cardiopulmonary collapse. Critical care time is independent of procedures performed. Departure Diagnosis: Primary Impression: Sepsis Sepsis type: sepsis due to unspecified organism Qualified Codes: A41.9 - Sepsis, unspecified organism Additional Impression: Pyelonephritis Condition: Serious PRISCILLA ADKINS MD Mar 03, 2018 14:08
[2018-03-03] MEDS: SOD CHLORIDE 0.9% 1,000 ML IV SCH (16:37)
--- NOTE | 2018-03-03 18:31 | NUR ---
PATIENT ARRIVED FROM ED AWAKE AND ALERT VIA STRETCHER. DENIES PAIN AT PRESENT ORIENTED TO SURROUNDINGS, CALL LIGHT GIVEN , BED IN LOW POSITION. ADMISSION PENDING.
[2018-03-03 18:39] VITALS: BP 88/51; PULSE 72; RESP 16
[2018-03-03 18:45] VITALS: BP 96/50; PULSE 72; RESP 18
[2018-03-03 19:34] VITALS: BP 112/66; PULSE 76; RESP 18
[2018-03-03 21:00] VITALS: Ht 154.9 cm; Wt 60.0 kg
[2018-03-03] MEDS: ATORVASTATIN 80 MG TAB PO SCH (21:23)
[2018-03-03] MEDS: DOCUSATE SODIUM 100 MG CAP PO SCH (21:23)
[2018-03-03] MEDS: MONTELUKAST 10 MG TAB PO SCH (21:23)
[2018-03-03] MEDS: METOPROLOL 25 MG TAB PO SCH (21:25)
[2018-03-03] MEDS: FLUTICASONE/VILANTEROL 100-25 INH SCH (22:00)
[2018-03-03] MEDS: ACETAMINOPHEN 325 MG TAB PO PRN (23:43)
[2018-03-04 01:57] VITALS: BP 105/56; PULSE 58; RESP 18
[2018-03-04] MEDS: SOD CHLORIDE 0.9% 1,000 ML IV SCH ×3 (02:14→19:06)
[2018-03-04] MEDS: PANTOPRAZOLE (EC) 40 MG TAB PO SCH (06:09)
--- NOTE | 2018-03-04 07:00 | NUR ---
EOSS: Alert, oriented X4 breathing even and unlabored. Given PRN Tylenol for pain, with good result. Ambulatory with steady gait, remains on IV hydration, no adverse side effects from Rocephin. Skin intact, blood cultures came back positive, Dr Kraus notified by tank charger, no new order given, vital signs remained stable the rest of the shift.
[2018-03-04 07:57] VITALS: BP 126/65; PULSE 61; RESP 18
[2018-03-04] MEDS: DOCUSATE SODIUM 100 MG CAP PO SCH ×2 (08:16→20:45)
[2018-03-04] MEDS: ACETAMINOPHEN 325 MG TAB PO PRN ×2 (08:16→20:44)
[2018-03-04] MEDS: ASPIRIN (EC) 81 MG TAB PO SCH (08:17)
[2018-03-04] MEDS: METOPROLOL 25 MG TAB PO SCH ×2 (08:17→20:45)
[2018-03-04] MEDS: LORATADINE 10 MG TAB PO SCH (08:17)
[2018-03-04] MEDS: ISOSORBIDE MONONITRATE(SR)30 MG TAB PO SCH (09:00)
[2018-03-04] MEDS: CEFTRIAXONE 1 GM/50 ML (PMX) 50 ML IVPB SCH (14:09)
[2018-03-04] MEDS: FLUTICASONE/VILANTEROL 100-25 INH SCH (14:09)
[2018-03-04] MEDS: CLOPIDOGREL 75 MG TAB PO SCH (14:09)
--- NOTE | 2018-03-04 14:59 | PN ---
Date/Time of Note Date/Time of Note DATE: 03/04/18 TIME: 14:58 Assessment/Plan VTE Prophylaxis Risk score (from Ns)>0 risk: 0 SCD applied (from [facility] [place] Yes Pharmacological prophylaxis: NA/contraindicated Pharm contraindication: low risk/ambulating Lines/Catheters IV C[facility] Type [facility]from [facility] [place] Assessment/Plan Hospital Course SUBJECTIVE: Lying in bed comfortably. Having lower abdominal/pubic area pain with some dysuria. No fevers. OBJECTIVE: Vital signs-see below PHYSICAL EXAM: Constitutional: Well-developed, adequately built, lying in bed comfortably. Psych: nl mood/affect, no complaints Head: atraumatic, normocephalic Eyes: nl conjunctiva, nl sclera ENMT: mucosa pink and moist, nl external ears & nose Neck: non-tender, supple Respiratory: clear to auscultation, normal air movement Cardiovascular: nl pulses, regular rate and rhythm Gastrointestinal: +tenderness to lower abdomen/pubic area. no rebound. soft, bowel sounds active in all 4 quadrants. Musculoskeletal/extremities: nl extremities to inspection, motor strength equal bilaterally, no focal deficit. Normal pulses,no cyanosis, no edema. Neurological: Alert oriented 3,nl speech, nl strength Skin: nl turgor ASSESSMENT/PLAN: 53-year-old female with a history of CAD, hypertension, dyslipi demia, here with fever, chills, dysuria, found to have sepsis with pyelonephritis. 1. Sepsis with GNR bacteremia Source: Urinary -Leukocytosis persists. -Broaden antibiotic coverage to meropenem. -Follow-up final blood and urine cultures. 2. GNR UTI with pyelonephritis -Treatment as above 3. Hypertension -Stable -Continue antihypertensives 4. Dyslipidemia -On statin 5. CAD -Continue antiplatelets 6. Acute kidney injury secondary to sepsis. -Resolved DVT prophylaxis: SCDs PUD prophylaxis: PPI CODE STATUS: Full code Diet: Regular Disposition: Continue current medical management. Await for final cultures. Patient is seen in collaboration with Result Diagram: 03/04/[id number]/04/[id number] Results 24hrs Laboratory Tests Test 03/03/18 17:18 03/03/18 19:05 03/04/18 05:27 POC Venous Lactate 1.3 Lactic Acid Level 1.2 White Blood Count 22.3 H Red Blood Count 3.86 L Hemoglobin 10.2 L Hematocrit 32.3 L Mean Corpuscular Volume 83.7 Mean Corpuscular Hemoglobin 26.4 L Mean Corpuscular Hemoglobin Concent 31.6 L Red Cell Distribution Width 15.6 H Platelet Count 121 L Mean Platelet Volume 11.9 H Immature Granulocytes % 3.100 H Neutrophils % Segmented Neutrophils % (Manual) 66 Band Neutrophils % (Manual) 25 H Lymphocytes % Lymphocytes % (Manual) 3 L Monocytes % Monocytes % (Manual) 6 Eosinophils % Basophils % Nucleated Red Blood Cells % 0.0 Immature Granulocytes # 0.700 H Neutrophils # Neutrophils # (Manual) 15.9 H Band Neutrophils # 5.5 H Lymphocytes (Manual) 0.6 L Lymphocytes # Monocytes # Monocytes # (Manual) 1.3 H Eosinophils # Basophils # Nucleated Red Blood Cells # Platelet Estimate DECREASED Polychromasia 2+ Poikilocytosis 3+ Anisocytosis 2+ Microcytosis 2+ Ovalocytes 1+ Sodium Level 142 Potassium Level 4.1 Chloride Level 111 H Carbon Dioxide Level 21 Anion Gap 10 Blood Urea Nitrogen 17 Creatinine 0.85 Est Glomerular Filtrat Rate mL/min > 60 Glucose Level 118 Calcium Level 7.8 L Magnesium Level 2.4 Exam/Review of Systems Exam Vitals Vital Signs Date Temp Pulse Resp B/P (MAP) Pulse Ox O2 O2 Flow FiO2 Time Delivery Rate 03/04/18 98.4 61 18 126/65 96 07:57 (85) 03/03/18 Room Air 18:45 03/03/18 10.0 13:14 03/03/18 21 11:39 Intake and Output 03/03/18 03/03/18 03/04/18 1515:00 23:00 07:00 IntakeIntake Total 50 ml 200 ml 1200 ml BalanceBalance 50 ml 200 ml 1200 ml Results Results 24hrs Laboratory Tests Test 03/03/18 17:18 03/03/18 19:05 03/04/18 05:27 POC Venous Lactate 1.3 Lactic Acid Level 1.2 White Blood Count 22.3 H Red Blood Count 3.86 L Hemoglobin 10.2 L Hematocrit 32.3 L Mean Corpuscular Volume 83.7 Mean Corpuscular Hemoglobin 26.4 L Mean Corpuscular Hemoglobin Concent 31.6 L Red Cell Distribution Width 15.6 H Platelet Count 121 L Mean Platelet Volume 11.9 H Immature Granulocytes % 3.100 H Neutrophils % Segmented Neutrophils % (Manual) 66 Band Neutrophils % (Manual) 25 H Lymphocytes % Lymphocytes % (Manual) 3 L Monocytes % Monocytes % (Manual) 6 Eosinophils % Basophils % Nucleated Red Blood Cells % 0.0 Immature Granulocytes # 0.700 H Neutrophils # Neutrophils # (Manual) 15.9 H Band Neutrophils # 5.5 H Lymphocytes (Manual) 0.6 L Lymphocytes # Monocytes # Monocytes # (Manual) 1.3 H Eosinophils # Basophils # Nucleated Red Blood Cells # Platelet Estimate DECREASED Polychromasia 2+ Poikilocytosis 3+ Anisocytosis 2+ Microcytosis 2+ Ovalocytes 1+ Sodium Level 142 Potassium Level 4.1 Chloride Level 111 H Carbon Dioxide Level 21 Anion Gap 10 Blood Urea Nitrogen 17 Creatinine 0.85 Est Glomerular Filtrat Rate mL/min > 60 Glucose Level 118 Calcium Level 7.8 L Magnesium Level 2.4 Medications Medication Current Medications Albuterol (Proventil 0.083% (Neb)) 2.5 mg Q4H RESP THERAPY PRN NEB SHORTNESS OF BREATH; Start 03/03/18 at 14:00 Alprazolam (Xanax) 0.25 mg Q12H PRN PO ANXIETY; Start 03/03/18 at 14:00 Aspirin (Halfprin) 81 mg DAILY PO Last administered on 03/04/18at 08:17; Admin Dose 81 MG; Start 03/04/18 at 09:00 Atorvastatin Calcium (Lipitor) 80 mg DAILY@21 PO Last administered on 03/03/18at 21:23; Admin Dose 80 MG; Start 03/03/18 at 21:00 Clopidogrel Bisulfate (plaVIX) 75 mg DAILY PO Last administered on 03/04/18at 14:09; Admin Dose 75 MG; Start 03/04/18 at 09:00 Isosorbide Mononitrate (Imdur) 30 mg DAILY PO ; Start 03/04/18 at 09:00 Loratadine (Claritin) 10 mg DAILY PO Last administered on 03/04/18at 08:17; Admin Dose 10 MG; Start 03/04/18 at 09:00 Metoprolol Tartrate (Lopressor) 25 mg BID PO Last administered on 03/04/18at 08:17; Admin Dose 25 MG; Start 03/03/18 at 21:00 Montelukast Sodium (Singulair) 10 mg HS PO Last administered on 03/03/18 21:23; Admin Dose 10 MG; Start 03/03/18 at 21:00 Pantoprazole (Protonix Tab) 40 mg DAILY@06 PO Last administered on 03/04/18 06:09; Admin Dose 40 MG; Start 03/04/18 at 06:00 Fluticasone/ Vilanterol (Breo Ellipta 100-25 Mcg Inh) 1 inh DAILY INH Last administered on 03/04/18 14:09; Admin Dose 1 INH; Start 03/03/18 at 22:00 Ceftriaxone Sodium 50 ml @ 100 mls/hr Q24H IVPB Last administered on 03/04/18 14:09; Admin Dose 100 MLS/HR; Start 03/03/18 at 14:00 Sodium Chloride 1,000 ml @ 100 mls/hr Q10H IV Last administered on 03/04/18 02:14; Admin Dose 100 MLS/HR; Start 03/03/18 at 14:00 Acetaminophen (Tylenol Tab) 650 mg Q6H PRN PO MILD PAIN(1-3)OR ELEVATED TEMP Last administered on 03/04/18 08:16; Admin Dose 650 MG; Start 03/03/18 at 14:00 Docusate Sodium (Colace) 100 mg BID PO Last administered on 03/04/18 08:16; Admin Dose 100 MG; Start 03/03/18 at 21:00 RADHA SOW NP Mar 04, 2018 14:59
[2018-03-04] MEDS: MEROPENEM 1 GM/50ML(PMX) 50 ML IVPB SCH ×2 (15:56→21:08)
[2018-03-04 16:27] VITALS: BP 100/56; PULSE 79; RESP 18
--- NOTE | 2018-03-04 18:50 | NUR ---
SHIFT SUMMARY: NO SIGNIFICANT CHANGE OF CONDITION. ON IVF ORDERED, INFUSING WELL W/O INFILTRATION NOTED. CONT ON ABX THERAPY W/O ADVERSE REACTION NOTED. SAFETY PRECAUTIONS MAINTAINED. ALL NEEDS ATTENDED AND RENDERED.
[2018-03-04 19:47] VITALS: BP 101/55; PULSE 94; RESP 18
[2018-03-04] MEDS: ATORVASTATIN 80 MG TAB PO SCH (20:44)
[2018-03-04] MEDS: MONTELUKAST 10 MG TAB PO SCH (20:44)
[2018-03-05 02:00] VITALS: BP 114/56; PULSE 83; RESP 18
--- NOTE | 2018-03-05 04:58 | NUR ---
END OF SHIFT NOTE: PATIENT IS A AND O X 4; NOT IN DISTRESS. VS IS WNL; ALL MEDICATIONS HAVE BEEN GIVEN ORDERED AND PRN; ALL NEEDS ATTENDED; CALL LIGHT WITHIN REACH ; WILL ENDORSE TO THE DAY SHIFT RN
[2018-03-05] MEDS: SOD CHLORIDE 0.9% 1,000 ML IV SCH ×3 (05:08→20:30)
[2018-03-05] MEDS: MEROPENEM 1 GM/50ML(PMX) 50 ML IVPB SCH ×3 (05:09→22:36)
[2018-03-05] MEDS: PANTOPRAZOLE (EC) 40 MG TAB PO SCH (05:09)
[2018-03-05] MEDS: ACETAMINOPHEN 325 MG TAB PO PRN ×3 (05:13→23:33)
[2018-03-05 07:28] VITALS: BP 131/64; PULSE 75; RESP 20
[2018-03-05] MEDS: ASPIRIN (EC) 81 MG TAB PO SCH (08:14)
[2018-03-05] MEDS: CLOPIDOGREL 75 MG TAB PO SCH (08:14)
[2018-03-05] MEDS: LORATADINE 10 MG TAB PO SCH (08:14)
[2018-03-05] MEDS: DOCUSATE SODIUM 100 MG CAP PO SCH ×2 (08:14→20:32)
[2018-03-05] MEDS: METOPROLOL 25 MG TAB PO SCH ×2 (08:15→20:32)
[2018-03-05] MEDS: ISOSORBIDE MONONITRATE(SR)30 MG TAB PO SCH (08:15)
[2018-03-05] MEDS: FLUTICASONE/VILANTEROL 100-25 INH SCH (08:16)
--- NOTE | 2018-03-05 12:09 | PN ---
Date/Time of Note Date/Time of Note DATE: 03/05/18 TIME: 12:08 Assessment/Plan VTE Prophylaxis Risk score (from Ns)>0 risk: 2 SCD applied (from [facility] [place]): Yes Pharmacological prophylaxis: NA/contraindicated Pharm contraindication: low risk/ambulating Lines/Catheters IV C[facility] Type (from [facility] Peripheral IV Assessment/Plan Hospital Course SUBJECTIVE: Had low-grade fevers. Otherwise no abdominal pain, dysuria or other discomfort. OBJECTIVE: Vital signs-see below PHYSICAL EXAM: Constitutional: Well-developed, adequately built, lying in bed comfortably. Psych: nl mood/affect, no complaints Head: atraumatic, normocephalic Eyes: nl conjunctiva, nl sclera ENMT: mucosa pink and moist, nl external ears & nose Neck: non-tender, supple Respiratory: clear to auscultation, normal air movement Cardiovascular: nl pulses, regular rate and rhythm Gastrointestinal: Abdomen soft. No rebound. soft, bowel sounds active in all 4 quadrants. Musculoskeletal/extremities: nl extremities to inspection, motor strength equal bilaterally, no focal deficit. Normal pulses,no cyanosis, no edema. Neurological: Alert oriented 3,nl speech, nl strength Skin: nl turgor ASSESSMENT/PLAN: 53-year-old female with a history of CAD, hypertension, dyslipidemia, here with fever, chills, dysuria, found to have sepsis with pyelonephritis. 1. Sepsis with E. coli bacteremia Source: Urinary -Leukocytosis improving -Continue meropenem 2. E. coli UTI with pyelonephritis -Treatment as above 3. Hypertension -Stable -Continue antihypertensives 4. Dyslipidemia -On statin 5. CAD -Continue antiplatelets 6. Acute kidney injury secondary to sepsis. -Resolved DVT prophylaxis: SCDs PUD prophylaxis: PPI CODE STATUS: Full code Diet: Regular Disposition: Overall patient with improving white counts. However she is still with low-grade fevers. Will monitor patient another 24 hours in house and will de-escalate antibiotic regimen and discharge planning in a.m. Patient is seen in collaboration with Result Diagram: 03/05/18 0459 03/05/18 0459 Results 24hrs Laboratory Tests Test 03/05/18 04:59 White Blood Count 17.7 #H Red Blood Count 4.18 L Hemoglobin 11.0 L Hematocrit 34.3 L Mean Corpuscular Volume 82.1 Mean Corpuscular Hemoglobin 26.3 L Mean Corpuscular Hemoglobin Concent 32.1 Red Cell Distribution Width 15.8 H Platelet Count 153 # Mean Platelet Volume 12.2 H Immature Granulocytes % 0.900 H Neutrophils % Segmented Neutrophils % (Manual) 81 H Band Neutrophils % (Manual) 3 Lymphocytes % Lymphocytes % (Manual) 8 L Reactive Lymphocytes % (Manual) 3 H Monocytes % Monocytes % (Manual) 5 Eosinophils % Basophils % Nucleated Red Blood Cells % 0.0 Immature Granulocytes # 0.160 H Neutrophils # Neutrophils # (Manual) 14.4 H Band Neutrophils # 0.5 Lymphocytes (Manual) 1.4 Lymphocytes # Reactive Lymphocytes # 0.5 H Monocytes # Monocytes # (Manual) 0.8 Eosinophils # Basophils # Nucleated Red Blood Cells # Platelet Estimate NORMAL Poikilocytosis 1+ Ovalocytes 1+ Sodium Level 141 Potassium Level 3.8 Chloride Level 112 H Carbon Dioxide Level 20 L Anion Gap 9 Blood Urea Nitrogen 13 Creatinine 0.91 Est Glomerular Filtrat Rate mL/min > 60 Glucose Level 96 Calcium Level 8.0 L Exam/Review of Systems Exam Vitals Vital Signs Date Temp Pulse Resp B/P (MAP) Pulse Ox O2 O2 Flow FiO2 Time Delivery Rate 03/05/18 99.1 75 20 131/64 97 07:28 (86) 03/03/18 Room Air 18:45 03/03/18 10.0 13:14 03/03/18 21 11:39 Intake and Output 03/04/18 03/04/18 03/05/18 1515:00 23:00 07:00 IntakeIntake Total 530 ml 2180 ml 1050 ml BalanceBalance 530 ml 2180 ml 1050 ml Results Results 24hrs Laboratory Tests Test 03/05/18 04:59 White Blood Count 17.7 #H Red Blood Count 4.18 L Hemoglobin 11.0 L Hematocrit 34.3 L Mean Corpuscular Volume 82.1 Mean Corpuscular Hemoglobin 26.3 L Mean Corpuscular Hemoglobin Concent 32.1 Red Cell Distribution Width 15.8 H Platelet Count 153 # Mean Platelet Volume 12.2 H Immature Granulocytes % 0.900 H Neutrophils % Segmented Neutrophils % (Manual) 81 H Band Neutrophils % (Manual) 3 Lymphocytes % Lymphocytes % (Manual) 8 L Reactive Lymphocytes % (Manual) 3 H Monocytes % Monocytes % (Manual) 5 Eosinophils % Basophils % Nucleated Red Blood Cells % 0.0 Immature Granulocytes # 0.160 H Neutrophils # Neutrophils # (Manual) 14.4 H Band Neutrophils # 0.5 Lymphocytes (Manual) 1.4 Lymphocytes # Reactive Lymphocytes # 0.5 H Monocytes # Monocytes # (Manual) 0.8 Eosinophils # Basophils # Nucleated Red Blood Cells # Platelet Estimate NORMAL Poikilocytosis 1+ Ovalocytes 1+ Sodium Level 141 Potassium Level 3.8 Chloride Level 112 H Carbon Dioxide Level 20 L Anion Gap 9 Blood Urea Nitrogen 13 Creatinine 0.91 Est Glomerular Filtrat Rate mL/min > 60 Glucose Level 96 Calcium Level 8.0 L Medications Medication Current Medications Albuterol (Proventil 0.083% (Neb)) 2.5 mg Q4H RESP THERAPY PRN NEB SHORTNESS OF BREATH; Start 03/03/18 at 14:00 Alprazolam (Xanax) 0.25 mg Q12H PRN PO ANXIETY; Start 03/03/18 at 14:00 Aspirin (Halfprin) 81 mg DAILY PO Last administered on 03/05/18 08:14; Admin Dose 81 MG; Start 03/04/18 at 09:00 Atorvastatin Calcium (Lipitor) 80 mg DAILY@21 PO Last administered on 03/04/18at 20:44; Admin Dose 80 MG; Start 03/03/18 at 21:00 Clopidogrel Bisulfate (plaVIX) 75 mg DAILY PO Last administered on 03/05/18 08:14; Admin Dose 75 MG; Start 03/04/18 at 09:00 Isosorbide Mononitrate (Imdur) 30 mg DAILY PO Last administered on 03/05/18at 08:15; Admin Dose 30 MG; Start 03/04/18 at 09:00 Loratadine (Claritin) 10 mg DAILY PO Last administered on 03/05/18 08:14; Admin Dose 10 MG; Start 03/04/18 at 09:00 Metoprolol Tartrate (Lopressor) 25 mg BID PO Last administered on 03/05/18at 0 8:15; Admin Dose 25 MG; Start 03/03/18 at 21:00 Montelukast Sodium (Singulair) 10 mg HS PO Last administered on 03/04/18at 20:44; Admin Dose 10 MG; Start 03/03/18 at 21:00 Pantoprazole (Protonix Tab) 40 mg DAILY@06 PO Last administered on 03/05/18 05:09; Admin Dose 40 MG; Start 03/04/18 at 06:00 Fluticasone/ Vilanterol (Breo Ellipta 100-25 Mcg Inh) 1 inh DAILY INH Last administered on 03/05/18 08:16; Admin Dose 1 INH; Start 03/03/18 at 22:00 Sodium Chloride 1,000 ml @ 100 mls/hr Q10H IV Last administered on 03/05/18 05:08; Admin Dose 100 MLS/HR; Start 03/03/18 at 14:00 Acetaminophen (Tylenol Tab) 650 mg Q6H PRN PO MILD PAIN(1-3)OR ELEVATED TEMP Last administered on 03/05/18 05:13; Admin Dose 650 MG; Start 03/03/18 at 14:00 Docusate Sodium (Colace) 100 mg BID PO Last administered on 03/05/18 08:14; Admin Dose 100 MG; Start 03/03/18 at 21:00 Meropenem/Sodium Chloride 50 ml @ 100 mls/hr Q8 IVPB Last administered on 03/05/18 05:09; Admin Dose 100 MLS/HR; Start 03/04/18 at 15:00 RADHA SOW NP Mar 05, 2018 12:09
[2018-03-05 14:26] VITALS: BP 123/67; PULSE 77; RESP 18
--- NOTE | 2018-03-05 14:35 | NUR ---
Patient complained of pressure pain underneath her both eyes, pain level 6/10. Denies headache. VS 123/67, HR 78, O2sat 96%, T 99.9. Administered Tylenol 2tabs for low grade fever and pain. Dr. Álvarez was aware and Alia was also notified. Will continue to monitor.
--- NOTE | 2018-03-05 18:00 | NUR ---
Shift report Patient remain stable. Complained of mild pain on both eyes but tolerable. Continue of IV fluid and antibiotics. Call light within reach. All needs attended.
[2018-03-05 20:10] VITALS: BP 94/53; PULSE 76; RESP 18
[2018-03-05] MEDS: ATORVASTATIN 80 MG TAB PO SCH (20:31)
[2018-03-05] MEDS: MONTELUKAST 10 MG TAB PO SCH (20:32)
[2018-03-06] MEDS: SOD CHLORIDE 0.9% 1,000 ML IV SCH ×4 (02:00→18:35)
[2018-03-06 02:33] VITALS: BP 114/56; PULSE 67; RESP 18
--- NOTE | 2018-03-06 04:35 | NUR ---
SHIFT REPORT: NO SIGNIFICANT CHANGE OF CONDITION UP TO THIS TIME.PATIENT COMPLAINED OF PAIN ONCE AND MEDICATED WITH TYLENOL WITH RELIEF.ASSISTED TO THE TOILET.CONTINENT.DUE MEDICATIONS GIVEN.CONTINUE ON IV HYDRATION AND IV ANTIBIOTIC WITH NO ADVERSE REACTION WAS NOTED. ALL NEEDS MET AND ATTENDED. HOURLY ROUNDING WAS DONE. WILL CONTINUE TO MONITOR.
[2018-03-06] MEDS: MEROPENEM 1 GM/50ML(PMX) 50 ML IVPB SCH (05:32)
[2018-03-06] MEDS: PANTOPRAZOLE (EC) 40 MG TAB PO SCH (05:32)
[2018-03-06 08:15] VITALS: BP 157/76; PULSE 79; RESP 17
[2018-03-06] MEDS: FLUTICASONE/VILANTEROL 100-25 INH SCH (08:30)
[2018-03-06] MEDS: ACETAMINOPHEN 325 MG TAB PO PRN ×2 (08:31→16:10)
[2018-03-06] MEDS: DOCUSATE SODIUM 100 MG CAP PO SCH ×2 (08:31→20:41)
[2018-03-06] MEDS: METOPROLOL 25 MG TAB PO SCH ×2 (08:32→20:37)
[2018-03-06] MEDS: CLOPIDOGREL 75 MG TAB PO SCH (08:33)
[2018-03-06] MEDS: ISOSORBIDE MONONITRATE(SR)30 MG TAB PO SCH (08:33)
[2018-03-06] MEDS: ASPIRIN (EC) 81 MG TAB PO SCH (08:33)
[2018-03-06] MEDS: LORATADINE 10 MG TAB PO SCH (08:33)
--- NOTE | 2018-03-06 11:25 | PN ---
Date/Time of Note Date/Time of Note DATE: 03/06/18 TIME: 11:23 Assessment/Plan VTE Prophylaxis Risk score (from Ns)>0 risk: 2 SCD applied (from Ns): Yes Pharmacological prophylaxis: NA/contraindicated Pharm contraindication: low risk/ambulating Lines/Catheters IV Catheter Type (from [facility]): Peripheral IV Assessment/Plan Hospital Course SUBJECTIVE: Patient had fever yesterday afternoon. Today she is also feeling some flank pain. OBJECTIVE: Vital signs-see below PHYSICAL EXAM: Constitutional: Well-developed, adequately built, lying in bed comfortably. Psych: nl mood/affect, no complaints Head: atraumatic, normocephalic Eyes: nl conjunctiva, nl sclera ENMT: mucosa pink and moist, nl external ears & nose Neck: non-tender, supple Respiratory: clear to auscultation, normal air movement Cardiovascular: nl pulses, regular rate and rhythm Gastrointestinal: Abdomen soft. No rebound. soft, bowel sounds active in all 4 quadrants. Musculoskeletal/extremities: nl extremities to inspection, motor strength equal bilaterally, no focal deficit. Normal pulses,no cyanosis, no edema. Neurological: Alert oriented 3,nl speech, nl strength Skin: nl turgor ASSESSMENT/PLAN: 53-year-old female with a history of CAD, hypertension, dyslipidemia, here with fever, chills, dysuria, found to have sepsis with pyelonephritis. 1. Sepsis with E. coli bacteremia Source: Urinary -WBC normalized -Repeat blood cultures NGTD~24 HRS -De-escalate antibiotics to Levaquin. 2. E. coli UTI with pyelonephritis -Treatment as above -Motrin for flank pain 3. Hypertension -Stable -Continue antihypertensives 4. Dyslipidemia -On statin 5. CAD -Continue antiplatelets DVT prophylaxis: SCDs PUD prophylaxis: PPI CODE STATUS: Full code Diet: Regular Disposition: Recommend keeping 94 hours to ensure patient remains afebrile and to await for repeat blood cultures. DC planning in a.m. on oral Levaquin to complete 10 more days. Patient is seen in collaboration with Result Diagram: 03/06/18 0454 03/06/18 0454 Results 24hrs Laboratory Tests Test 03/06/18 04:54 White Blood Count 9.9 # Red Blood Count 3.84 L Hemoglobin 10.1 L Hematocrit 31.9 L Mean Corpuscular Volume 83.1 Mean Corpuscular Hemoglobin 26.3 L Mean Corpuscular Hemoglobin Concent 31.7 L Red Cell Distribution Width 15.7 H Platelet Count 154 Mean Platelet Volume 11.7 H Immature Granulocytes % 0.400 Neutrophils % 73.3 Lymphocytes % 15.9 Monocytes % 9.1 Eosinophils % 1.2 Basophils % 0.1 Nucleated Red Blood Cells % 0.0 Immature Granulocytes # 0.040 H Neutrophils # 7.3 Lymphocytes # 1.6 Monocytes # 0.9 Eosinophils # 0.1 Basophils # 0.0 Nucleated Red Blood Cells # 0.0 Sodium Level 142 Potassium Level 3.6 Chloride Level 112 H Carbon Dioxide Level 23 Anion Gap 7 Blood Urea Nitrogen 8 Creatinine 0.83 Est Glomerular Filtrat Rate mL/min > 60 Glucose Level 100 Calcium Level 8.3 L Exam/Review of Systems Exam Vitals Vital Signs Date Temp Pulse Resp B/P (MAP) Pulse Ox O2 O2 Flow FiO2 Time Delivery Rate 03/06/18 98.6 79 17 157/76 96 08:15 (103) 03/05/18 Room Air 14:26 03/03/18 10.0 13:14 03/03/18 21 11:39 Intake and Output 03/05/18 03/05/18 03/06/18 1515:00 23:00 07:00 IntakeIntake Total 400 ml 2080 ml 850 ml BalanceBalance 400 ml 2080 ml 850 ml Results Results 24hrs Laboratory Tests Test 03/06/18 04:54 White Blood Count 9.9 # Red Blood Count 3.84 L Hemoglobin 10.1 L Hematocrit 31.9 L Mean Corpuscular Volume 83.1 Mean Corpuscular Hemoglobin 26.3 L Mean Corpuscular Hemoglobin Concent 31.7 L Red Cell Distribution Width 15.7 H Platelet Count 154 Mean Platelet Volume 11.7 H Immature Granulocytes % 0.400 Neutrophils % 73.3 Lymphocytes % 15.9 Monocytes % 9.1 Eosinophils % 1.2 Basophils % 0.1 Nucleated Red Blood Cells % 0.0 Immature Granulocytes # 0.040 H Neutrophils # 7.3 Lymphocytes # 1.6 Monocytes # 0.9 Eosinophils # 0.1 Basophils # 0.0 Nucleated Red Blood Cells # 0.0 Sodium Level 142 Potassium Level 3.6 Chloride Level 112 H Carbon Dioxide Level 23 Anion Gap 7 Blood Urea Nitrogen 8 Creatinine 0.83 Est Glomerular Filtrat Rate mL/min > 60 Glucose Level 100 Calcium Level 8.3 L Medications Medication Current Medications Albuterol (Proventil 0.083% (Neb)) 2.5 mg Q4H RESP THERAPY PRN NEB SHORTNESS OF BREATH; Start 03/03/18 at 14:00 Alprazolam (Xanax) 0.25 mg Q12H PRN PO ANXIETY; Start 03/03/18 at 14:00 Aspirin (Halfprin) 81 mg DAILY PO Last administered on 03/06/18 08:33; Admin Dose 81 MG; Start 03/04/18 at 09:00 Atorvastatin Calcium (Lipitor) 80 mg DAILY@21 PO Last administered on 03/05/18 20:31; Admin Dose 80 MG; Start 03/03/18 at 21:00 Clopidogrel Bisulfate (plaVIX) 75 mg DAILY PO Last administered on 03/06/18 08:33; Admin Dose 75 MG; Start 03/04/18 at 09:00 Isosorbide Mononitrate (Imdur) 30 mg DAILY PO Last administered on 03/06/18 08:33; Admin Dose 30 MG; Start 03/04/18 at 09:00 Loratadine (Claritin) 10 mg DAILY PO Last administered on 03/06/18 08:33; Admin Dose 10 MG; Start 03/04/18 at 09:00 Metoprolol Tartrate (Lopressor) 25 mg BID PO Last administered on 03/06/18 08:32; Admin Dose 25 MG; Start 03/03/18 at 21:00 Montelukast Sodium (Singulair) 10 mg HS PO Last administered on 03/05/18 20:32; Admin Dose 10 MG; Start 03/03/18 at 21:00 Pantoprazole (Protonix Tab) 40 mg DAILY@06 PO Last administered on 03/06/18 05:32; Admin Dose 40 MG; Start 03/04/18 at 06:00 Fluticasone/ Vilanterol (Breo Ellipta 100-25 Mcg Inh) 1 inh DAILY INH Last administered on 03/06/18 08:30; Admin Dose 1 INH; Start 03/03/18 at 22:00 Sodium Chloride 1,000 ml @ 100 mls/hr Q10H IV Last administered on 03/06/18 07:20; Admin Dose 100 MLS/HR; Start 03/03/18 at 14:00 Acetaminophen (Tylenol Tab) 650 mg Q6H PRN PO MILD PAIN(1-3)OR ELEVATED TEMP Last administered on 03/06/18at 08:31; Admin Dose 650 MG; Start 03/03/18 at 14:00 Docusate Sodium (Colace) 100 mg BID PO Last administered on 03/06/18at 08:31; Admin Dose 100 MG; Start 03/03/18 at 21:00 Meropenem/Sodium Chloride 50 ml @ 100 mls/hr Q8 IVPB Last administered on 03/06/18at 05:32; Admin Dose 100 MLS/HR; Start 03/04/18 at 15:00 RADHA SOW NP Mar 06, 2018 11:25
[2018-03-06] MEDS: IBUPROFEN 400 MG TAB PO SCH ×2 (12:04→17:28)
[2018-03-06] MEDS ORDERED: LEVOFLOXACIN 750MG/D5W (PMX) 150 ML IVPB SCH (13:00)
--- NOTE | 2018-03-06 18:39 | NUR ---
End of Shift Summary: Pt. A/Ox4, VSS, no acute distress; C/O pain this shift; pain meds given with adequate relief. IV ABX changed today. All other due meds given. Pt. with poor appetite today; offered boost supplement. Hourly rounding done, call light within reach, encouraged to call for assistance. Will continue to monitor and endorse care to oncoming nurse.
[2018-03-06 20:01] VITALS: BP 120/59; PULSE 69; RESP 18
[2018-03-06] MEDS: MONTELUKAST 10 MG TAB PO SCH (20:36)
[2018-03-06] MEDS: ATORVASTATIN 80 MG TAB PO SCH (20:36)
[2018-03-07] MEDS: IBUPROFEN 400 MG TAB PO SCH ×3 (00:18→12:00)
[2018-03-07 01:38] VITALS: BP 141/66; PULSE 67; RESP 18
[2018-03-07] MEDS: SOD CHLORIDE 0.9% 1,000 ML IV SCH ×2 (04:12→08:00)
--- NOTE | 2018-03-07 06:01 | NUR ---
shift note vs stable. on ra. medicated with scheduled ibuprofen q6h. had trouble sleeping last night. encourage to walk in hallway but refused and marychuy she will try to sleep now. ivf infusing well. ambulates with standby assistance, steady gait noted. hourly rounds done.
[2018-03-07] MEDS: PANTOPRAZOLE (EC) 40 MG TAB PO SCH (07:20)
[2018-03-07 08:05] VITALS: BP 135/74; PULSE 70; RESP 20
[2018-03-07] MEDS: ASPIRIN (EC) 81 MG TAB PO SCH (08:42)
[2018-03-07] MEDS: METOPROLOL 25 MG TAB PO SCH (08:42)
[2018-03-07] MEDS: ISOSORBIDE MONONITRATE(SR)30 MG TAB PO SCH (08:42)
[2018-03-07] MEDS: DOCUSATE SODIUM 100 MG CAP PO SCH (08:42)
[2018-03-07] MEDS: LORATADINE 10 MG TAB PO SCH (08:42)
[2018-03-07] MEDS: FLUTICASONE/VILANTEROL 100-25 INH SCH (08:42)
[2018-03-07] MEDS: CLOPIDOGREL 75 MG TAB PO SCH (08:42)
--- NOTE | 2018-03-07 11:52 | PDOCDIS ---
Discharge Instructions CONDITION [id number] Patient Condition: [id number] Stable HOME CARE INSTRUCTIONS: [id number] Diet Instructions: [id number] Regular FOLLOW UP/APPOINTMENTS Follow-up Plan Follow up with primary care physician in 1 week RADHA SOW NP Mar 07, 2018 11:52
[2018-03-07] MEDS ORDERED: LEVO750T25 PO (11:55)
--- NOTE | 2018-03-07 11:59 | DS ---
Date/Time of Note Date/Time of Note DATE: 03/07/18 TIME: 11:56 Discharge Summary Admission/Discharge Info Admit Date/Time Mar 03, 2018 at 13:41 Discharge Date/Time Discharge Diagnosis 1. s/p Sepsis with E. coli bacteremia secondary to pyelonephritis 2. E. coli UTI with pyelonephritis 3. Hypertension 4. Dyslipidemia 5. CAD Patient Condition: Stable Procedures 03/03/2018. CT abdomen and pelvis. IMPRESSION: 1. LEFT PERINEPHRIC AND PERIURETERIC FATTY STRANDING WITH MILD LEFT-SIDED HYDRONEPHROSIS. NO GROSS RENAL/URETERIC CALCULI. FINDINGS ARE WORRISOME FOR UNDERLYING INFECTION/PYELONEPHRITIS. SEVERAL RETROPERITONEAL PERIAORTIC LYMPH NODES ARE NOTED, PROBABLY REACTIVE. 2. Mild focal diverticulitis of the proximal sigmoid colon. 3. Atherosclerosis aorta. 4. No evidence of free fluid or free air. No gross focal fluid collections. Hospital Course 53-year-old female with a history of CAD, hypertension, dyslipidemia, admitted with fever, chills, dysuria, found to have sepsis with pyelonephritis. Patient was continued on appropriate antimicrobial. She was noted with positive E. coli and blood culture as well as urine culture. Patient was continued on home medication for underlying comorbidities. Her symptoms improved. Sepsis resolved. There was no further dysuria, hematuria, flank pain, fever. Antibiotics were de-escalated based on cultures and sensitivity. A repeat blood culture also showed eradication of bacteremia. At this time, patient is medically stable for discharge with outpatient follow-up. Approximately 60 m spent on coordinating the discharge on this patient. Patient is seen in collaboration with . Home Meds Active Scripts Levofloxacin* (Levaquin*) 750 Mg Tablet, 750 MG PO DAILY for 5 Days, #5 TAB Prov:RADHA SOW V. DAILY RELEASE AND [employer]INTER 03/07/18 Doxycycline Hyclate* (Doxycycline Hyclate*) 100 Mg Tablet.dr, 100 MG PO BID for 7 Days, TAB Prov:MAINE MOSLEY PA-C 05/26/17 Albuterol Sulfate* (Proair HFA*) 8.5 Gm Hfa.aer.ad, 2 PUFF INH Q4, #1 INHALER Prov:MAINE MOSLEY PA-C 05/26/17 Prednisone* (Prednisone*) 20 Mg Tab, 40 MG PO DAILY for 4 Days, TAB Prov:MAINE MOSLEY PA-C 05/26/17 Famotidine* (Pepcid*) 20 Mg Tablet, 20 MG PO BID for 10 Days, #20 TAB Prov:ATIF IGNACIO MD 05/20/17 Azithromycin* (Zithromax*) 250 Mg Tablet, 250 MG PO .SUZI DIRECTED, #6 TAB TAKE 500 MG (2 TABS) THE FIRST DAY THEN 250 MG (1 TAB) DAYS 2-5 Prov:ATIF IGNACIO MD 05/20/17 Albuterol Sulfate* (Proair HFA*) 8.5 Gm Hfa.aer.ad, 2 PUFF INH Q4, #1 INHALER Prov:ATIF IGNACIO MD 05/20/17 Albuterol Sulfate* (Albuterol Sulfate* Neb) 0.083%-3 Ml Neb, 2.5 MG NEB Q4 PRN for SHORTNESS OF BREATH, #30 EA Prov:ATIF IGNACIO MD 05/20/17 Prednisone* (Prednisone*) 20 Mg Tab, 40 MG PO DAILY for 4 Days, TAB Prov:ATIF IGNACIO MD 05/20/17 Promethazine Hcl* (Promethazine Hcl* Syrup) 6.25 Mg/5 Ml Syrup, 12.5 MG PO Q6H PRN for COUGH for 3 Days, ML Prov:JUANI THOMAS 01/14/17 Azithromycin* (Zithromax*) 250 Mg Tablet, 250 MG PO .SUZI DIRECTED, #6 TAB TAKE 500 MG (2 TABS) THE FIRST DAY THEN 250 MG (1 TAB) DAYS 2-5 Prov:JUANI THOMAS 01/14/17 Prednisone (Prednisone) 10 Mg Tab, 10 MG PO DAILY, #30 TAB 1. take 40 mg by mouth daily for 3 days 2. then 30 mg by mouth daily for 3 days 3. then 20 mg by mouth daily for 3 days 4. then 10 mg by mouth daily for 3 days Prov:MANUEL MILLER 10/06/16 Alprazolam* (Alprazolam*) 0.25 Mg Tablet, 0.25 MG PO Q12H PRN for ANXIETY, #20 TAB Prov:MANUEL MILLER 10/06/16 Albuterol Sulfate* (Proair HFA*) 8.5 Gm Hfa.aer.ad, 2 PUFF INH Q4, #1 INHALER Prov:MANUEL MILLER 10/06/16 Montelukast Sodium* (Montelukast Sodium*) 10 Mg Tablet, 10 MG PO HS for 30 Days, TAB Prov:MANUEL MILLER 10/06/16 Salmeterol Xinaf/Fluticasone* (Advair*) 250-50 Diskus Inhaler, 1 INH INH BID for 30 Days Prov:MANUEL MILLER 10/06/16 Aspirin* (Aspirin* (EC)) 81 Mg Tablet., 81 MG PO DAILY for 30 Days, TAB Prov:BEATRIZ ROTHMAN MD 07/17/16 Pantoprazole* (Pantoprazole*) 40 Mg Tablet.dr, 40 MG PO DAILY@06 for 30 Days, 2 Refills Prov:MIMI KERNSAngelina . 07/01/16 Metoprolol Tartrate* (Lopressor*) 25 Mg Tab, 25 MG PO BID for 30 Days, TAB 2 Refills Prov:MIMI KERNSAngelina . 07/01/16 Isosorbide Mononitrate* (Isosorbide Mononitrate*) 30 Mg Tab.er.24h, 30 MG PO DAILY for 30 Days, 2 Refills Prov:MIMI KERNSAngelina . 07/01/16 Atorvastatin* (Atorvastatin*) 80 Mg Tablet, 80 MG PO DAILY@21 for 30 Days, TAB 2 Refills Prov:MIMI KERNSAngelina Yaakov. 07/01/16 Clopidogrel Bisulfate (Clopidogrel) 75 Mg Tablet, 75 MG PO DAILY for 30 Days, TAB 2 Refills Prov:MIMI KERNSAngelina . 07/01/16 Reported Medications Loratadine* (Claritin*) 10 Mg Tablet, 10 MG PO DAILY, TAB 04/12/14 Follow-up Plan Follow up with primary care physician in 1 week Primary Care Provider [facility] RADHA Hernández NP Mar 07, 2018 11:59
[2018-03-07 14:09] VITALS: BP 131/67; PULSE 67; RESP 20
--- NOTE | 2018-03-07 15:30 | NUR ---
DISCHARGE NOTES PT D/C TO HOME VIA WHEELCHAIR ACCOMPANIED BY VOLUNTEER. IV REMOVED, CATHETER INTACT. DISCHARGE INSTRUCTIONS PROVIDED WITH THE OPPORTUNITY TO ASK QUESTIONS. INFORMED PT TO FOLLOW UP WITH PCP IN 1-2 WEEKS. PRESCRIPTION WAS GIVEN TO PT. PT IS TO TAKE MEDICATIONS PRESCRIBED. INFORMED PT TO CALL 911 OR GO TO THE NEAREST EMERGENCY ROOM IF EXPERIENCING CHEST PAIN, SHORTNESS OF BREATH, DIFFICULTY SPEAKING, VISION CHANGES, CONFUSION,OR ANY DISCOMFORT. PT VERBALIZES UNDERSTANDING OF DISCHARGE INSTRUCTIONS. PT ALERT, ORIENTED, AND STABLE UPON DISCHARGE.
== END 2018-03-07 15:35 | disposition home or self-care (01) | DRG 872 ==
LOC: FTE 10:55 → 2NE 13:41
PROVIDERS: ADMIT Family Medicine; ATTEND Family Medicine
DX: A41.9 Sepsis, unspecified organism (principal); N10 Acute pyelonephritis; N17.9 Acute kidney failure, unspecified; N39.0 Urinary tract infection, site not specified; B96.20 Unspecified Escherichia coli [E. coli] as the cause of diseases classified elsewhere; D63.8 Anemia in other chronic diseases classified elsewhere; E78.5 Hyperlipidemia, unspecified; I25.10 Atherosclerotic heart disease of native coronary artery without angina pectoris; I10 Essential (primary) hypertension; J44.9 Chronic obstructive pulmonary disease, unspecified; Z79.82 Long term (current) use of aspirin; Z79.02 Long term (current) use of antithrombotics/antiplatelets
CPT/HCPCS: 36415; 71045; 74176; 80048; 80053; 81001; 83605; 83690; 83735; 84484; 85025; 85610; 85730; 87040; 87086; 87400; 93005; 94644; 96374; 96375; A4310; J0696; J1885; J1956; J2185; J2930; J7030

== ENCOUNTER 2018-08-01 09:55 | Emergency (ER) | payer MEDICAID ==
[~2018-08-01] VITALS: Ht 157.5 cm; Wt 65.9 kg
[~2018-08-01 09:55] MED LIST changes: -ALPR0.254 PO; -AZIT250T PO; -DOXY100T20 PO; +LEVO750T25 PO; -PRED10TA PO; -PRED20TA PO; -PROM6.2515 PO
[2018-08-01 09:58] VITALS: Ht 157.5 cm; Wt 65.9 kg
[2018-08-01] MEDS ORDERED: SOD CHLORIDE 0.9% 1,000 ML IV STA (10:36)
[2018-08-01] MEDS ORDERED: morphine 4 MG/ML VIAL IV STA (10:36)
[2018-08-01] MEDS ORDERED: ONDANSETRON 4 MG INJ IV STA (10:36)
[2018-08-01] MEDS ORDERED: ALBUTEROL 0.083% (NEB) 2.5 MG/3 ML AMP HHN STA (10:41)
[2018-08-01] MEDS ORDERED: METR500T PO (11:49)
[2018-08-01] MEDS ORDERED: CIPR500T4 PO (11:49)
[2018-08-01] MEDS ORDERED: IBUP-1542 PO (11:49)
--- NOTE | 2018-08-01 12:21 | ERD ---
ER Documentation Chief Complaint Chief Complaint abdominal pain x 1 week HPI Patient is a 63-year-old female who presents with abdominal pain. The patient has 9 out of 10 abdominal pain in her back that radiates to the abdomen. She reports a decreased stream and frequency in the urine. She has no urinary retention. She has no weakness or numbness. She has had no treatment as of yet. ROS All systems reviewed and are negative except as per history of present illness. Medications Home Meds Active Scripts Ibuprofen* (Motrin*) 600 Mg Tab, 600 MG PO Q6H PRN for PAIN AND OR ELEVATED TEMP, #30 TAB Prov:PRISCILLA ADKINS MD 08/01/18 Metronidazole* (Flagyl*) 500 Mg Tablet, 500 MG PO TID for 7 Days, TAB Prov:PRISCILLA ADKINS MD 08/01/18 Ciprofloxacin Hcl* (Ciprofloxacin Hcl*) 500 Mg Tablet, 500 MG PO BID for 7 Days, TAB Prov:PRISCILLA ADKINS MD 08/01/18 Levofloxacin* (Levaquin*) 750 Mg Tablet, 750 MG PO DAILY for 5 Days, #5 TAB Prov:RADHA SOW NP 03/07/18 Albuterol Sulfate* (Proair HFA*) 8.5 Gm Hfa.aer.ad, 2 PUFF INH Q4, #1 INHALER Prov:MAINE MOSLEY PA-C 05/26/17 Famotidine* (Pepcid*) 20 Mg Tablet, 20 MG PO BID for 10 Days, #20 TAB Prov:ATIF IGNACIO MD 05/20/17 Albuterol Sulfate* (Albuterol Sulfate* Neb) 0.083%-3 Ml Neb, 2.5 MG NEB Q4 PRN for SHORTNESS OF BREATH, #30 EA Prov:ATIF IGNACIO MD 05/20/17 Montelukast Sodium* (Montelukast Sodium*) 10 Mg Tablet, 10 MG PO HS for 30 Days, TAB Prov:MANUEL MILLER NP 10/06/16 Salmeterol Xinaf/Fluticasone* (Advair*) 250-50 Diskus Inhaler, 1 INH INH BID for 30 Days Prov:MANUEL MILLER NP 10/06/16 Aspirin* (Aspirin* (EC)) 81 Mg Tablet.dr, 81 MG PO DAILY for 30 Days, TAB Prov:BEATRIZ ROTHMAN MD 07/17/16 Pantoprazole* (Pantoprazole*) 40 Mg Tablet., 40 MG PO DAILY@06 for 30 Days, 2 Refills Prov:TYLER KERNS. 07/01/16 Metoprolol Tartrate* (Lopressor*) 25 Mg Tab, 25 MG PO BID for 30 Days, TAB 2 Refills Prov:TYLER KERNS . 07/01/16 Isosorbide Mononitrate* (Isosorbide Mononitrate*) 30 Mg Tab.er.24h, 30 MG PO DAILY for 30 Days, 2 Refills Prov:TYLER KERNS . 07/01/16 Atorvastatin* (Atorvastatin*) 80 Mg Tablet, 80 MG PO DAILY@21 for 30 Days, TAB 2 Refills Prov:TYLER KERNS . 07/01/16 Clopidogrel Bisulfate (Clopidogrel) 75 Mg Tablet, 75 MG PO DAILY for 30 Days, TAB 2 Refills Prov:TYLER KERNS . 07/01/16 Reported Medications Loratadine* (Claritin*) 10 Mg Tablet, 10 MG PO DAILY, TAB 04/12/14 Allergies Allergies: Coded Allergies: No Known Allergy (Unverified , 05/26/17) PMhx/Soc History of Surgery: No Anesthesia Reaction: No Hx Neurological Disorder: No Hx Respiratory Disorders: Yes (asthma) Hx Cardiac Disorders: No Hx Psychiatric Problems: No Hx Miscellaneous Medical Probl: No Hx Alcohol Use: No Hx Substance Use: No Hx Tobacco Use: No Smoking Status: Never smoker FmHx Family History: No diabetes Physical Exam Vitals Vital Signs Date Temp Pulse Resp B/P (MAP) Pulse Ox O2 O2 Flow FiO2 Time Delivery Rate 08/01/18 98.0 77 18 104/70 97 Room Air 10:22 (81) 08/01/18 98.4 82 18 131/56 95 09:58 (81) Physical Exam Const: No acute distress Head: Atraumatic Eyes: Normal Conjunctiva ENT: Normal External Ears, Nose and Mouth. Neck: Full range of motion. No meningismus. Resp: Clear to auscultation bilaterally Cardio: Regular rate and rhythm, no murmurs Abd: Soft, diffuse tenderness to palpation without rebound or guarding Skin: No petechiae or rashes Back: No midline or flank tenderness Ext: No cyanosis, or edema Neur: Awake and alert Psych: Normal Mood and Affect Result Diagram: 08/01/18 1010 08/01/18 1010 Results 24 hrs Laboratory Tests Test 08/01/18 10:10 White Blood Count 9.7 10^3/ul Red Blood Count 4.46 10^6/ul Hemoglobin 11.9 g/dl Hematocrit 38.0 % Mean Corpuscular Volume 85.2 fl Mean Corpuscular Hemoglobin 26.7 pg Mean Corpuscular Hemoglobin Concent 31.3 g/dl Red Cell Distribution Width 14.7 % Platelet Count 220 10^3/UL Mean Platelet Volume 10.7 fl Immature Granulocytes % 0.400 % Neutrophils % 68.6 % Lymphocytes % 22.1 % Monocytes % 6.9 % Eosinophils % 1.8 % Basophils % 0.2 % Nucleated Red Blood Cells % 0.0 /100WBC Immature Granulocytes # 0.040 10^3/ul Neutrophils # 6.7 10^3/ul Lymphocytes # 2.1 10^3/ul Monocytes # 0.7 10^3/ul Eosinophils # 0.2 10^3/ul Basophils # 0.0 10^3/ul Nucleated Red Blood Cells # 0.0 10^3/ul Urine Color STRAW Urine Clarity CLEAR Urine pH 7.0 Urine Specific [place] 1.004 Urine Ketones NEGATIVE mg/dL Urine Nitrite NEGATIVE mg/dL Urine Bilirubin NEGATIVE mg/dL Urine Urobilinogen NEGATIVE mg/dL Urine Leukocyte Esterase NEGATIVE Christina/ul Urine Microscopic RBC 0 /HPF Urine Microscopic WBC 0 /HPF Urine Squamous Epithelial Cells FEW /HPF Urine Hemoglobin 1+ mg/dL Urine Glucose NEGATIVE mg/dL Urine Total Protein NEGATIVE mg/dl Sodium Level 143 mmol/L Potassium Level 4.4 mmol/L Chloride Level 109 mmol/L Carbon Dioxide Level 27 mmol/L Anion Gap 7 Blood Urea Nitrogen 16 mg/dl Creatinine 0.76 mg/dl Est Glomerular Filtrat Rate mL/min > 60 mL/min Glucose Level 113 mg/dl Calcium Level 9.0 mg/dl Total Bilirubin 0.4 mg/dl Direct Bilirubin 0.00 mg/dl Indirect Bilirubin 0.4 mg/dl Aspartate Amino Transf (AST/SGOT) 47 IU/L Alanine Aminotransferase (ALT/SGPT) 34 IU/L Alkaline Phosphatase 101 IU/L Total Protein 7.5 g/dl Albumin 4.0 g/dl Globulin 3.50 g/dl Albumin/Globulin Ratio 1.14 Lipase 101 U/L Current Medications Medications Dose Sig/Michael Start Time Status Last (Trade) Ordered Route PRN Stop Time Admin Dose Reason Admin Sodium 1,000 ml @ Q1H STAT 08/01/18 DC 08/01/18 Chloride 1,000 mls/hr IV 10:36 11:09 08/01/18 11:35 Morphine 4 mg ONCE STAT 08/01/18 DC 08/01/18 Sulfate IV 10:36 11:10 (morphine) 08/01/18 10:37 Ondansetron 4 mg ONCE STAT 08/01/18 DC 08/01/18 HCl (Zofran IV 10:36 11:10 Inj) 08/01/18 10:37 Albuterol 5 mg ONCE STAT 08/01/18 DC (Proventil HHN 10:41 0.083% (Neb)) 08/01/18 10:42 Procedures/MDM CT abdomen pelvis shows acute diverticulitis per radiology. Patient is a 63-year-old female who presents with abdominal pain. The patient was found to have acute diverticulitis. The patient was given pain medication and feels better. The patient will be given prescriptions for Cipro, Flagyl, ibuprofen, and Zofran. I believe outpatient management is appropriate and I do not believe the patient requires further work-up or admission the hospital at this time. The patient understands the plan is okay for discharge. Departure Diagnosis: Primary Impression: Diverticulitis Additional Impression: Abdominal pain Abdominal location: unspecified location Qualified Codes: R10.9 - Unspecified abdominal pain Condition: Fair Patient Instructions: Diverticulitis Additional Instructions: Llame al doctor MAANA y elijah marko ULI PARA DENTRO DE 1-2 FARRIS.Dgale a la secretaria que nosotros le instruimos hacer esta uli.Avise o llame si hearn condicin se empeora antes de la uli. Regresa aqui si peor o no mejor. PRISCILLA ADKINS MD Aug 01, 2018 12:21
[2018-08-01 12:35] VITALS: BP 102/86; PULSE 62; RESP 18
[2018-08-01] MEDS ORDERED: HYDR25SU23 PR (12:41)
== END 2018-08-01 12:50 | disposition home or self-care (01) ==
LOC: E/R 09:55
DX: K57.32 Diverticulitis of large intestine without perforation or abscess without bleeding (principal); J45.909 Unspecified asthma, uncomplicated; Z79.82 Long term (current) use of aspirin; Z79.01 Long term (current) use of anticoagulants
CPT/HCPCS: 36415; 74176; 80053; 81001; 83690; 85025; 94664; 96374; 96375; J2270; J2405; J7030; Z7502; Z7610